=== PATIENT | male | born 1965 | race Caucasian/White ===

== ENCOUNTER → 2016-05-27 | Day surgery (SDC) | payer BC ==
[~2016-05-27] VITALS: Ht 185.4 cm; Wt 86.4 kg
[~2016-05-27] MED LIST: ACET-1487 PO; BCTROWC EXT; CHOL20007 PO; DUTACAP PO; ELTR12.58 PO; EPP3 IM; FLM4 PO; FLUC100T4 PO; HYDR-3126 PO; IMD/2 PO; IMMU4INJ SC; INSDGI SC; INSDGIPEN SC; LCTL45 PO; LEVO88TA3 PO; LIDOCAINE HCL 2% 2 ML VIAL (20MG/ML) ONE; METR-163 PO; MGNO400 PO; MIDAZOLAM HCL 1 MG/ML 2ML VIAL ONE; MIRT15TA2 PO; MOME6000 NAE; NVLG SC; NVLGI SC; ONDA8TAB6 PO; PANT1TAB3 PO; PRED10TA PO; PROPOFOL IV EMULSION 10 MG/ML 20 ML VIAL IV ONE; PRS5 PO; RIFA550T2 PO; SRQ25 PO; SUCR5SUS PO; TACR0.5C3 PO; TEMA30CA4 PO; TOPI25TA99 PO; TRAM-10 PO; URSO300C4 PO; URSO300C8 PO
[2016-05-27 13:46] VITALS: Ht 185.4 cm; Wt 86.4 kg
--- NOTE | 2016-05-27 14:26 | Endo History and Physical ---
History & Physical Date of Service: May 27, 2016. Chief Complaint: Abd pain, weight loss, Nausea Referring Physician: Gurinder Bullock History of Present Illness For EGD Past Medical History Hypertension Past Surgical History Hx Cardiac Surgery: No Hx Internal Defibrillator: No Hx Pacemaker: No Hx Abdominal Surgery: Yes (CHOLECYSTECTOMY, APPENDECTOMY, COLON RESECTION, Liver transplant) Hx of Implantable Prosthesis: No (Bile duct stent) Hx Post-Op Nausea and Vomiting: No Hx Cancer Surgery: No Hx Thoracic Surgery: No Hx Orthopedic: No Hx Urinary Tract Surgery: No Social History Smoking Status: Never Smoker Hx Substance Use: No Hx Alcohol Use: No Allergies Coded Allergies: Levofloxacin (Verified Allergy, Unknown, UNKNOWN, 04/03/16) FROM [facility] ORDER FORM Current Medications Reported Home Medications Medications Dose Route/Sig Max Daily Dose Days Date Category Dose Instructions Xifaxan (Rifaximin) 550 Mg Tab 550 Mg PO BID 04/03/16 Reported Promacta (Eltrombopag Olamine) 12.5 Mg Tab 50 Mg PO DAILY 02/26/16 Reported Vitamin D3 (Cholecalciferol) 2,000 Unit Tab 1 Tab PO QAM 30 02/22/16 Reported Mometasone Furoate (Mometasone Furoate (Nasal)) 50 Mcg/Act Spr 2 Sprays WALTER DAILY PRN 02/16/16 Reported Epipen 2-R[place] (Epinephrine) 0.3 Mg Inj 0.3 Mg IM UD PRN 02/16/16 Reported ONE INJECTION IM PRN SEVERE ALLERGIC REACTION. REPEAT IN 20 MINUTES PRN CONTINUED REACTION Actigall (Ursodiol) 300 Mg Cap 300 Mg PO QID 02/06/16 Reported Ultram (Tramadol HCl) 50 Mg Tab 50 Mg PO Q6H PRN 02/06/16 Reported Topamax (Topiramate) 25 Mg Tab 1-2 Tab PO HS 02/06/16 Reported 1-2 TABS HS DIRECTED Restoril (Temazepam) 30 Mg Cap 30 Mg PO HS PRN 02/06/16 Reported Prograf (Tacrolimus) 0.5 Mg Cap 0.5 Mg PO QAM 02/06/16 Reported Prednisone 10 Mg Tab 10 Mg PO QAM 02/06/16 Reported Protonix (Pantoprazole) 40 Mg Tab 40 Mg PO QPM 02/06/16 Reported ONE TABLET BY MOUTH EVERY DAY AT 1630 Zofran (Ondansetron HCl) 8 Mg Tab 1-2 Tabs PO Q6H PRN 02/06/16 Reported Novolog (Insulin Aspart) Inj 1 Dose SC ACHS 02/06/16 Reported SUBCUANEOUSLY BEFORE MEALS AND AT BEDTIME PER SLIDING SCALE ( 1 UNIT FOR EVERY 10 GRAMS OF CARBS) Bactroban 2% (Mupirocin) Oint 1 Dose EXT BID PRN 02/06/16 Reported Levothyroxine Sodium 88 Mcg Tab 88 Mcg PO QAM 02/06/16 Reported ONE TABLET DAILY ON EMPY STOMACH WITH A FULL GLASS OF WATER. WAIT 30 MINUTES BEFORE EATING Lantus (Insulin Glargine) Vial 40 Units SC AMPM 02/06/16 Reported Hizentra (Immune Globulin (Human) Subcut) 4 Gm/20 Ml Inj 12 Gm IM WK 02/06/16 Reported Magnesium-Oxide (Magnesium Oxide) 400 Mg Tab 400 Mg PO BID 11/20/14 Rx Atarax (Hydroxyzine Hcl) 50 Mg Tab 50 Mg PO 3-4XD PRN 11/19/14 Reported Diflucan (Fluconazole) 100 Mg Tab 100 Mg PO QAM 11/19/14 Reported Tylenol Arthritis Ext Rel (Acetaminophen) 650 Mg Tab 650 Mg PO Q8H PRN 11/19/14 Reported Remeron Soltab (Mirtazapine) 15 Mg Soltab 15 Mg PO HS 07/12/14 Reported Savi (Dutasteride-Tamsulosin Hcl) 1 Cap Cap 1 Cap PO HS 10/29/13 Reported Vital Signs Weight (Kilograms): 86.36 Height (Feet): 6 Height (Inches): 1 Date Time Temp Pulse Resp B/P Pulse Ox O2 Delivery O2 Flow Rate FiO2 05/27/16 14:01 36.7 89 20 128/93 99 Room Air Physical Exam General Appearance: WD/WN Respiratory/Chest: Respiratory effort: no dyspnea Cardiovascular: Heart Auscultation: RRR Abdomen: Bowel Sounds: pertinent finding (scars) Assessment and Plan abd pain for EGD
--- NOTE | 2016-05-27 14:46 | Discharge Instructions ---
Endoscopy Patient Instructions Date / Procedure(s) Performed May 27, 2016. EGD Allergy Information Coded Allergies: Levofloxacin (Verified Allergy, Unknown, UNKNOWN, 04/03/16) FROM [facility] ORDER FORM Discharge Date / Findings May 27, 2016. Normal EGD, duodenal bx done Medication Instructions Stopped Medication(s): 1/2 lantus today. Held all other medications Restart Stopped Medication(s): resume meds Reported Home Medications Medications Dose Route/Sig Max Daily Dose Days Date Category Dose Instructions Xifaxan (Rifaximin) 550 Mg Tab 550 Mg PO BID 04/03/16 Reported Promacta (Eltrombopag Olamine) 12.5 Mg Tab 50 Mg PO DAILY 02/26/16 Reported Vitamin D3 (Cholecalciferol) 2,000 Unit Tab 1 Tab PO QAM 30 02/22/16 Reported Mometasone Furoate (Mometasone Furoate (Nasal)) 50 Mcg/Act Spr 2 Sprays WALTER DAILY PRN 02/16/16 Reported Epipen 2-[place] (Epinephrine) 0.3 Mg Inj 0.3 Mg IM UD PRN 02/16/16 Reported ONE INJECTION IM PRN SEVERE ALLERGIC REACTION. REPEAT IN 20 MINUTES PRN CONTINUED REACTION Actigall (Ursodiol) 300 Mg Cap 300 Mg PO QID 02/06/16 Reported Ultram (Tramadol HCl) 50 Mg Tab 50 Mg PO Q6H PRN 02/06/16 Reported Topamax (Topiramate) 25 Mg Tab 1-2 Tab PO HS 02/06/16 Reported 1-2 TABS HS DIRECTED Restoril (Temazepam) 30 Mg Cap 30 Mg PO HS PRN 02/06/16 Reported Prograf (Tacrolimus) 0.5 Mg Cap 0.5 Mg PO QAM 02/06/16 Reported Prednisone 10 Mg Tab 10 Mg PO QAM 02/06/16 Reported Protonix (Pantoprazole) 40 Mg Tab 40 Mg PO QPM 02/06/16 Reported ONE TABLET BY MOUTH EVERY DAY AT 1630 Zofran (Ondansetron HCl) 8 Mg Tab 1-2 Tabs PO Q6H PRN 02/06/16 Reported Novolog (Insulin Aspart) Inj 1 Dose SC ACHS 02/06/16 Reported SUBCUANEOUSLY BEFORE MEALS AND AT BEDTIME PER SLIDING SCALE ( 1 UNIT FOR EVERY 10 GRAMS OF CARBS) Bactroban 2% (Mupirocin) Oint 1 Dose EXT BID PRN 02/06/16 Reported Levothyroxine Sodium 88 Mcg Tab 88 Mcg PO QAM 02/06/16 Reported ONE TABLET DAILY ON EMPY STOMACH WITH A FULL GLASS OF WATER. WAIT 30 MINUTES BEFORE EATING Lantus (Insulin Glargine) Vial 40 Units SC AMPM 02/06/16 Reported Hizentra (Immune Globulin (Human) Subcut) 4 Gm/20 Ml Inj 12 Gm IM WK 02/06/16 Reported Magnesium-Oxide (Magnesium Oxide) 400 Mg Tab 400 Mg PO BID 11/20/14 Rx Atarax (Hydroxyzine Hcl) 50 Mg Tab 50 Mg PO 3-4XD PRN 11/19/14 Reported Diflucan (Fluconazole) 100 Mg Tab 100 Mg PO QAM 11/19/14 Reported Tylenol Arthritis Ext Rel (Acetaminophen) 650 Mg Tab 650 Mg PO Q8H PRN 11/19/14 Reported Remeron Soltab (Mirtazapine) 15 Mg Soltab 15 Mg PO HS 07/12/14 Reported Savi (Dutasteride-Tamsulosin Hcl) 1 Cap Cap 1 Cap PO HS 10/29/13 Reported Provider Instructions Activity Restrictions - No exercising or heavy lifting for 24 hours. - Do not drink alcohol the day of the procedure. - Do not drive a car or operate machinery until the day after the procedure. - Do not make any important decisions or sign important papers in 24 hours after the procedure. Following Day: - Return to full activity which may include returning to work/school. Diet Start your diet with liquids and light foods (jello, soup, juice, toast). Then eat your usual diet if not nauseated. Treatment For Common After Affects For mild abdominal pain, bloating, or excessive gas: - Rest - Eat lightly - Lie on right side Follow-Up Information Follow-up with Gurinder Bullock as scheduled Anesthesia Information What You Should Know You have had a procedure that required some medicine to reduce anxiety and discomfort. This treatment is called moderate sedation. After receiving the treatment, you may be sleepy, but you will be able to breathe on your own. The effects of the treatment may last for several hours. Follow these instructions along with Activity/Diet recommendations noted above: * Do NOT do anything where dizziness or clumsiness would be dangerous. * Rest quietly at home today, then you can be up and about tomorrow. * Have a responsible person stay with you the rest of today. * You may have had an I.V. today. If so, you may take the dressing off later today. Recommendations Call your doctor if: * Trouble breathing * Continuous vomiting for more than 24 hours * Temperature above 101 degrees * Severe abdominal pain or bloating * Pain not relieved by pain medicine ordered * There is increased drainage or redness from any incision * A large amount of rectal bleeding greater than 2-3 tablespoons. (If you had a polyp/s removed or have hemorrhoids, a small amount of blood - from the rectum is to be expected.) * You have any unanswered questions or concerns. IN THE EVENT OF A SERIOUS EMERGENCY, GO TO THE NEAREST EMERGENCY ROOM Your discharge instructions were prepared by provider George Vaughn. Patient Instructions Signature Page Mundo Burnette Patient (or Guardian) Signature/Date: I have read and understand the instructions given to me by my caregivers. Caregiver/RN/Doctor Signature/Date: The above-named patient and/or guardian has received patient instructions on this date. + Original Patient Signature Page (only) stays with chart. Please make copy for patient.
--- NOTE | 2016-05-27 14:50 | GI REPORT ---
Procedure Date: 05/27/2016 2:38 PM Procedure: Upper GI endoscopy Indications: Epigastric abdominal pain, Nausea, Weight loss Medicines: Midazolam 2 mg IV, Propofol total dose 200 mg IV, Lidocaine 40 mg IV Complications: No immediate complications. Estimated Blood Loss: Estimated blood loss was minimal. Procedure: Pre-Anesthesia Assessment: - Prior to the procedure, a History and Physical was performed, and patient medications, allergies and sensitivities were reviewed. The patient's tolerance of previous anesthesia was reviewed. - The risks and benefits of the procedure and the sedation options and risks were discussed with the patient. All questions were answered and informed consent was obtained. After obtaining informed consent, the endoscope was passed under direct vision. Throughout the procedure, the patient's blood pressure, pulse, and oxygen saturations were monitored continuously. The scope was introduced through the mouth, and advanced to the second part of duodenum. The upper GI endoscopy was accomplished without difficulty. The patient tolerated the procedure well. Findings: The examined esophagus was normal. The entire examined stomach was normal. The 2nd part of the duodenum was normal. Biopsies were taken with a cold forceps for histology. Estimated blood loss was minimal. Impression: - Normal esophagus. - Normal stomach. - Normal 2nd part of the duodenum. Biopsied. Recommendation: - Discharge patient to home (ambulatory). - Continue present medications. - Await pathology results. - Return to GI office as previously scheduled. George Vaughn M.D. George Vaughn MD 05/27/2016 2:49:18 PM This report has been signed electronically. Note Initiated On: 05/27/2016 2:38 PM
--- NOTE | 2016-05-27 15:19 | Anesthesiology Progress Note ---
Anesthesia Post Op Note Date & Time May 27, 2016 at 15:18 Vital Signs Pain Intensity: 0 Vital Signs Past 12 Hours Date Time Temp Pulse Resp B/P Pulse Ox O2 Delivery O2 Flow Rate FiO2 05/27/16 15:08 75 20 104/64 100 Room Air 05/27/16 14:53 81 20 90/48 100 Room Air 05/27/16 14:01 36.7 89 20 128/93 99 Room Air Notes Mental Status: alert / awake / arousable, participated in evaluation Pt Amnestic to Procedure: Yes Nausea / Vomiting: adequately controlled Pain: adequately controlled Airway Patency, RR, SpO2: stable & adequate BP & HR: stable & adequate Hydration State: stable & adequate Anesthetic Complications: no major complications apparent Pt doing well.
[2016-05-27 15:23] VITALS: BP 110/80; PULSE 85; O2SAT 100
== END | disposition home or self-care (01) ==
LOC: C.GI 13:05
PROVIDERS: ATTEND Internal Medicine Gastroenterology
DX: R10.13 Epigastric pain (principal); R11.0 Nausea; R63.4 Abnormal weight loss; E11.9 Type 2 diabetes mellitus without complications; I25.10 Atherosclerotic heart disease of native coronary artery without angina pectoris; Z90.49 Acquired absence of other specified parts of digestive tract; Z90.89 Acquired absence of other organs; Z94.4 Liver transplant status; Z79.4 Long term (current) use of insulin

== ENCOUNTER 2016-06-20 13:26 | Inpatient (IN) | payer BC, OTHER ==
[~2016-06-20] VITALS: Ht 185.4 cm; Wt 102.1 kg
[~2016-06-20 13:26] MED LIST changes: -FLM4 PO; -IMD/2 PO; -INSDGIPEN SC; -LCTL45 PO; -LIDOCAINE HCL 2% 2 ML VIAL (20MG/ML) ONE; -METR-163 PO; -MIDAZOLAM HCL 1 MG/ML 2ML VIAL ONE; -NVLG SC; -PANT1TAB3 PO; +PANT1TAB48 PO; -PROPOFOL IV EMULSION 10 MG/ML 20 ML VIAL IV ONE; -PRS5 PO; -SRQ25 PO; -SUCR5SUS PO; -URSO300C8 PO
--- NOTE | 2016-06-20 13:49 | EMERGENCY ROOM VISIT NOTE ---
History Report prepared by Pao: Ty Davalos Under the Supervision of: Dr. Sarah Cárdenas M.D. First contact with patient: 13:38 Chief Complaint: ILLNESS Stated Complaint: DIARRHEA, DISORIENTED, SWELLING TO FEET History of Present Illness The patient is a 51 year old male who presents to the Emergency Room with complaints of a persistent illness that started a few days ago. Per the patient' s family, the patient has a history of a liver transplant. The patient was seen in [place] yesterday for wet diarrhea he had been having. The doctors there consulted with Dr. Vaughn. The patient's family is concerned that the patient's wet diarrhea may be connected to the patient's recent disorientation and feelings of being dazed and "off". The patient is jaundiced in appearance, which his family says is new today. The patient's family notes that the patient' s ammonia level occasionally rises. 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 During the procedure, it was found that his body made it's own stent and there is blood going down "where it' s not supposed to go". The patient denies any abdominal pain. He says he is on a Tramadol regiment which takes care of his pain. Source of History: patient, family Onset: A few days ago Position: other (global - illness) Timing: other (persistent) Associated Symptoms: + diarrhea (wet), No abdominal pain Note: Associated symptoms: Disoriented, dazed, feeling "off", jaundiced. Review of Systems See HPI for pertinent positives & negatives. A total of 10 systems reviewed and were otherwise negative. 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 (19) Septic arthritis (20) Thrombocytopenia (21) Transplantation of liver (22) Ulcerative colitis Family History FHx: cancer FHx: heart disease FHx: hypertension Social History Smoking Status: Never Smoker Alcohol Use: none Drug Use: none Marital Status: single Housing Status: lives with family Occupation Status: disabled Current/Historical Medications Scheduled Cholecalciferol (Vitamin D3), 1 TAB PO BID Dutasteride-Tamsulosin Hcl (Savi), 1 CAP PO HS Eltrombopag Olamine (Promacta), 50 MG PO DAILY Fluconazole (Diflucan), 100 MG PO QAM Immune Globulin (Human) Subcut (Hizentra), 12 GM SC WK Insulin Aspart (Novolog), 1 DOSE SC ACHS Insulin Glargine (Lantus), 40 UNITS SC AMPM Levothyroxine Sodium (Levothyroxine Sodium), 88 MCG PO QAM Magnesium Oxide (Magnesium-Oxide), 400 MG PO BID Mirtazapine Soltab (Remeron Soltab), 15 MG PO HS Pantoprazole (Protonix), 40 MG PO QPM Prednisone Tab (Prednisone), 10 MG PO QAM Rifaximin (Xifaxan), 550 MG PO BID Sucralfate (Carafate), 10 ML PO AC Tacrolimus (Prograf), 0.5 MG PO QAM Topiramate (Topamax ), 2 TAB PO HS Ursodiol (Ursodiol), 1 CAP PO QID Scheduled PRN Acetaminophen (Tylenol Arthritis Ext Rel), 650 MG PO Q8H PRN for Pain or Fever Epinephrine (Epipen 2-R[place]), 0.3 MG IM UD PRN for ALLERGIC REACTION Hydroxyzine Hcl (Atarax), 50 MG PO 3-4XD PRN for Itching Mometasone Furoate (Nasal) (Mometasone Furoate), 2 SPRAYS WALTER DAILY PRN for ALLERGIES OR CONGESTION Mupirocin 2% (Bactroban 2%), 1 DOSE EXT BID PRN for RECURRENT SKIN INFECTION Ondansetron Hcl (Zofran), 1-2 TABS PO Q6H PRN for Nausea Sucralfate (Carafate), 10 ML PO HS PRN for reflux/heartburn Temazepam (Restoril), 30 MG PO HS PRN for Sleep Tramadol (Ultram), 50 MG PO Q6H PRN for Pain Allergies Coded Allergies: Levofloxacin (Verified Allergy, Unknown, UNKNOWN, 04/03/16) FROM [facility] ORDER FORM Physical Exam Vital Signs Date Time Temp Pulse Resp B/P Pulse Ox O2 Delivery O2 Flow Rate FiO2 06/20/16 14:58 93 18 137/87 100 Room Air 06/20/16 13:30 36.2 98 20 125/82 96 Room Air Physical Exam CONSTITUTIONAL: No acute distress. Appears fatigued. HEENT: No icterus, moist mucous membranes NECK: No meningismus, trachea is midline. CARDIOVASCULAR: Regular rate, normal perfusion RESPIRATORY: Unlabored breathing. Clear to auscultation. GASTROINTESTINAL: Non-tender GENITOURINARY: No flank tenderness MUSCULOSKELETAL: Full range of motion NEUROLOGIC: No acute gross focal deficits. PSYCHIATRIC: Normal affect SKIN: Mildly jaundiced. Medical Decision & Procedures ER Provider Diagnostic Interpretation: X-ray results as stated below per my interpretation and radiologist interpretation. Other radiology results as stated below per my review and radiologist interpretation. CT SCAN OF THE BRAIN WITHOUT IV CONTRAST CLINICAL HISTORY: Change in mental status. COMPARISON STUDY: CT of the brain dated 02/26/2016. TECHNIQUE: Unenhanced axial CT scan of the brain is performed from the vertex to the skull base. Automated dose control exposure was utilized. CT DOSE: 537.48 mGy.cm FINDINGS: Brain parenchyma: The brain parenchyma is normal in appearance. There is no hemorrhage, mass effect, or evidence of acute territorial ischemia by CT criteria. Grover-white matter is preserved. No extra-axial fluid collection is seen. Ventricles, sulci, cisterns: Normal in configuration. Intracranial vasculature: There is atherosclerotic calcification of the cavernous carotid and vertebral arteries. Calvarium: Unremarkable. Sinuses and mastoids: There is mucosal thickening within one of the ethmoid sinuses. There is subtotal opacification of the left frontal sinus. The remaining visualized paranasal sinuses are clear. The mastoid air cells are well pneumatized. Orbits: The bony orbits are grossly intact. There are bilateral ocular lens implants. IMPRESSION: There is no hemorrhage, mass effect, or evidence of acute territorial ischemia by CT criteria. Electronically signed by: Humberto Olmstead M.D. 06/20/2016 3:21 PM Dictated Date/Time: 06/20/2016 3:19 PM CHEST 2 VIEWS ROUTINE CLINICAL HISTORY: Altered mental status. Syncope. COMPARISON STUDY: Chest radiograph April 03, 2016. FINDINGS: Several old right rib fractures are identified. There is no pneumothorax or pleural effusion. There is no evidence of pulmonary edema. Mild cardiomegaly is unchanged. No airspace opacities are identified. IMPRESSION: No acute cardiopulmonary findings. Electronically signed by: Angel Aguilar M.D. 06/20/2016 2:36 PM Dictated Date/Time: 06/20/2016 2:35 PM Laboratory Results 06/20/16 14:10 Red Blood Count 4.16, Mean Corpuscular Volume 85.8, Mean Corpuscular Hemoglobin 30.3, Mean Corpuscular Hemoglobin Concent 35.3, Neutrophils (%) (Auto) 79.1, Lymphocytes (%) (Auto) 5.8, Monocytes (%) (Auto) 9.6, Eosinophils (%) (Auto) 3.8 , Basophils (%) (Auto) 1.3, Neutrophils # (Auto) 5.40, Lymphocytes # (Auto) 0.40 , Monocytes # (Auto) 0.66, Eosinophils # (Auto) 0.26, Basophils # (Auto) 0.09 06/20/16 14:10 Test 06/20/16 14:10 06/20/16 14:15 06/20/16 15:00 White Blood Count 6.84 K/uL (4.8-10.8) Red Blood Count 4.16 M/uL (4.7-6.1) Hemoglobin 12.6 g/dL (14.0-18.0) Hematocrit 35.7 % (42-52) Mean Corpuscular Volume 85.8 fL (80-100) Mean Corpuscular Hemoglobin 30.3 pg (25-34) Mean Corpuscular Hemoglobin Concent 35.3 g/dl (32-36) Platelet Count 42 K/uL (130-400) Neutrophils (%) (Auto) 79.1 % Lymphocytes (%) (Auto) 5.8 % Monocytes (%) (Auto) 9.6 % Eosinophils (%) (Auto) 3.8 % Basophils (%) (Auto) 1.3 % Neutrophils # (Auto) 5.40 K/uL (1.4-6.5) Lymphocytes # (Auto) 0.40 K/uL (1.2-3.4) Monocytes # (Auto) 0.66 K/uL (0.11-0.59) Eosinophils # (Auto) 0.26 K/uL (0-0.5) Basophils # (Auto) 0.09 K/uL (0-0.2) RDW Standard Deviation 54.0 fL (36.4-46.3) RDW Coefficient of Variation 17.0 % (11.5-14.5) Immature Granulocyte % (Auto) 0.4 % Immature Granulocyte # (Auto) 0.03 K/uL (0.00-0.02) Acanthocytes 2+ Prothrombin Time 16.4 SECONDS (9.0-12.0) Prothromb Time International Ratio 1.5 (0.9-1.1) Activated Partial Thromboplast Time 35.7 SECONDS (21.0-31.0) Partial Thromboplastin Ratio 1.4 Anion Gap 11.0 mmol/L (3-11) Est Creatinine Clear Calc Drug Dose 64.5 ml/min Estimated GFR () 52.9 Estimated GFR (Non- 45.7 BUN/Creatinine Ratio 11.7 (10-20) Calcium Level 8.5 mg/dl (8.5-10.1) Magnesium Level 1.9 mg/dl (1.8-2.4) Total Bilirubin 5.4 mg/dl (0.2-1) Direct Bilirubin 3.9 mg/dl (0-0.2) Aspartate Amino Transf (AST/SGOT) 36 U/L (15-37) Alanine Aminotransferase (ALT/SGPT) 30 U/L (12-78) Alkaline Phosphatase 407 U/L (45-117) Ammonia 155.0 umol/L (11-32) Total Protein 5.2 gm/dl (6.4-8.2) Albumin 2.4 gm/dl (3.4-5.0) Lipase 82 U/L (73-393) Ethyl Alcohol mg/dL < 3.0 mg/dl (0-3) Influenza Type A Antigen Neg for Influ A (NEG) Influenza Type B Antigen Neg for Influ B (NEG) Urine Color GALLO Urine Appearance CLEAR (CLEAR) Urine pH 5.5 (4.5-7.5) Urine Specific [place] 1.019 (1.000-1.030) Urine Protein NEG (NEG) Urine Glucose (UA) NEG (NEG) Urine Ketones NEG (NEG) Urine Occult Blood 2+ (NEG) Urine Nitrite NEG (NEG) Urine Bilirubin 2+ (NEG) Urine Urobilinogen NEG (NEG) Urine Leukocyte Esterase NEG (NEG) Urine Opiates Screen NEG (NEG) Urine Methadone, Qualitative NEG (NEG) Urine Barbiturates NEG (NEG) Urine Phencyclidine (PCP) Level NEG (NEG) Ur Amphetamine/Methamphetamine NEG (NEG) MDMA (Ecstasy) Screen NEG (NEG) Urine Benzodiazepines Screen POS (NEG) Urine Cocaine Metabolite NEG (NEG) Urine Marijuana (THC) NEG (NEG) Labs reviewed by ED physician. ED Course 1339: Past medical records reviewed. The patient was evaluated in room B2. A complete history and physical examination was performed. 1603: I reevaluated the patient and he is resting comfortably. The patient and his family verbally expressed understanding and agreement of the treatment plan. The patient will be evaluated for further treatment. 1604: I discussed the patient with Dr. Issac DOHERTY adjunct faculty for medical terminology - he will evaluate the patient for further treatment. Medical Decision Differential diagnoses include: complications of liver transplant, viral syndrome. 51-year-old presented to the emergency department with parents for evaluation of worsening altered mental status in the context of liver transplant and prior TIPS procedure. Ammonia 160. Upon further questioning it was revealed patient has not been taking his lactulose as well as causing diarrhea and there is a concern over C. difficile although the context is unclear at this time. Patient is followed at [place] (Dr. Schrader). Admission arranged with Dr. Issac DOHERTY. cdff and lactulose ordered. Clinical pharmacist requested to confirm present prescriptions and dosages. Consults Time Called: 1556 Consulting Physician: Dr. Issac DOHERTY adjunct faculty for medical terminology Returned Call: 1604 I discussed the patient with Dr. Issac DOHERTY adjunct faculty for medical terminology - he will evaluate the patient for further treatment. Impression Primary Impression: Hyperammonemia Additional Impression: Altered mental status Scribe Attestation The scribe's documentation has been prepared under my direction and personally reviewed by me in its entirety. I confirm that the note above accurately reflects all work, treatment, procedures, and medical decision making performed by me. Departure Information Dispostion Being Evaluated By Hospitalist Referrals No Doctor, Assigned (PCP) Patient Instructions [facility] Problem Qualifiers
[2016-06-20] MEDS ORDERED: SUCR5SUS PO ×2 (14:08)
[2016-06-20 14:21] LABS: HEMATOCRIT 35.7 % (42-52); MEAN CELL VOLUME 85.8 fL (80-100); MEAN CORPUSCULAR HEMOGLOBIN 30.3 pg (25-34); MEAN CORPUSCULAR HGB CONC 35.3 g/dl (32-36); RED BLOOD COUNT 4.16 M/uL (4.7-6.1); WHITE BLOOD COUNT 6.84 K/uL (4.8-10.8)
[2016-06-20 14:32] LABS: INR 1.5 (0.9-1.1); PARTIAL THROMBOPLASTIN RATIO 1.4; PROTHROMBIN TIME (PATIENT) 16.4 SECONDS (9.0-12.0)
--- NOTE | 2016-06-20 14:37 | DIAGNOSTIC IMAGING REPORT ---
CHEST 2 VIEWS ROUTINE CLINICAL HISTORY: Altered mental status. Syncope. COMPARISON STUDY: Chest radiograph April 03, 2016. FINDINGS: Several old right rib fractures are identified. There is no pneumothorax or pleural effusion. There is no evidence of pulmonary edema. Mild cardiomegaly is unchanged. No airspace opacities are identified. IMPRESSION: No acute cardiopulmonary findings. Electronically signed by: Angel Aguilar M.D. 06/20/2016 2:36 PM Dictated Date/Time: 06/20/2016 2:35 PM
[2016-06-20 14:47] LABS: ACANTHOCYTES 2+; BASO % 1.3 %; BASO ABS # 0.09 K/uL (0-0.2); COMPLETE YES; EOS % 3.8 %; IG% 0.4 %; LYMPH % 5.8 %; MONO % 9.6 %; NEUT % 79.1 %; PLATELET COUNT 42 K/uL (130-400)
[2016-06-20 14:48] LABS: BUN/CREATININE RATIO 11.7 (10-20); CALCIUM 8.5 mg/dl (8.5-10.1); CREATININE 1.7 mg/dl (0.60-1.40); MAGNESIUM 1.9 mg/dl (1.8-2.4)
[2016-06-20] MEDS ORDERED: URSO300C8 PO (14:51)
[2016-06-20] MEDS ORDERED: CHOL20007 PO (14:51)
[2016-06-20] MEDS ORDERED: RIFA550T2 PO (14:51)
[2016-06-20 15:17] LABS: URINE APPEARANCE CLEAR (CLEAR); URINE EPITHELIAL CELL AUTO 0-5 /lpf (0-5); URINE PH 5.5 (4.5-7.5); URINE SPECIFIC GRAVITY 1.019 (1.000-1.030); UROBILINOGEN NEG (NEG); ZZUR CULT IF INDIC CLEAN CATCH NO
--- NOTE | 2016-06-20 15:22 | DIAGNOSTIC IMAGING REPORT ---
CT SCAN OF THE BRAIN WITHOUT IV CONTRAST CLINICAL HISTORY: Change in mental status. COMPARISON STUDY: CT of the brain dated 02/26/2016. TECHNIQUE: Unenhanced axial CT scan of the brain is performed from the vertex to the skull base. Automated dose control exposure was utilized. CT DOSE: 537.48 mGy.cm FINDINGS: Brain parenchyma: The brain parenchyma is normal in appearance. There is no hemorrhage, mass effect, or evidence of acute territorial ischemia by CT criteria. Grover-white matter is preserved. No extra-axial fluid collection is seen. Ventricles, sulci, cisterns: Normal in configuration. Intracranial vasculature: There is atherosclerotic calcification of the cavernous carotid and vertebral arteries. Calvarium: Unremarkable. Sinuses and mastoids: There is mucosal thickening within one of the ethmoid sinuses. There is subtotal opacification of the left frontal sinus. The remaining visualized paranasal sinuses are clear. The mastoid air cells are well pneumatized. Orbits: The bony orbits are grossly intact. There are bilateral ocular lens implants. IMPRESSION: There is no hemorrhage, mass effect, or evidence of acute territorial ischemia by CT criteria. Electronically signed by: Humberto Olmstead M.D. 06/20/2016 3:21 PM Dictated Date/Time: 06/20/2016 3:19 PM
[2016-06-20 15:28] LABS: URINE BILIRUBIN 2+ (NEG); URINE COLOR AMBER
[2016-06-20 15:29] LABS: MANUAL MICROSCOPIC REQUIRED? NO; REVIEW REQ? YES; URINE NITRITE NEG (NEG)
[2016-06-20 16:08] LABS: BENZODIAZEPINE, URINE POS (NEG); COCAINE,URINE NEG (NEG); PHENCYCLIDINE, URINE NEG (NEG)
[2016-06-20] MEDS ORDERED: LACTULOSE SYRUP 20 GM/30 ML UDC PO STA (16:09)
[2016-06-20 16:31] LABS: INFLUENZA A PCR Neg for Influ A (NEG); INFLUENZA B PCR Neg for Influ B (NEG)
[2016-06-20] MEDS ORDERED: OPTIRAY 320 IV PRN (17:30)
--- NOTE | 2016-06-20 17:51 | DIAGNOSTIC IMAGING REPORT ---
CT ABD/PELVIS IV CONTRAST ONLY CLINICAL HISTORY: Liver transplantation. Elevated bilirubin, diarrhea, disorientation. Swelling. COMPARISON STUDY: 02/26/2016 TECHNIQUE: Following the IV administration of 119 mL of Optiray-320, CT scan of the abdomen and pelvis was performed from the lung bases to the proximal femurs. Images are reviewed in the axial, sagittal, and coronal planes. IV contrast was administered without complication. CT DOSE: 926.47 mGy.cm FINDINGS: Lower chest: The heart is the upper limits of normal in size. There are no cystic or pleural effusions. There is mild bibasilar atelectasis. Liver: There are postsurgical changes are prior hepatic transplantation. There is trace perihepatic fluid. There is trace pneumobilia. The left portal vein appears diminutive. There is a stable 11 mm hypodensity within the right hepatic lobe. The splenic vein is patent. The main portal vein is patent. There is intrahepatic portal vein to right hepatic vein shunt. The shunt appears patent. There is an equivocal mild stenosis of the right hepatic vein as it enters the IVC. The left portal vein appears diminutive and thrombus cannot be excluded.. Gallbladder: Surgically absent Spleen: The spleen is enlarged measuring 17.5 cm in length Pancreas: There is marked pancreatic ductal dilatation. There are multiple pancreatic calcifications present. Adrenal glands: Unremarkable. Kidneys: There is symmetric renal cortical enhancement. The kidneys are normal in size without hydronephrosis. There is extensive embolic material within the splenorenal varices. Bowel: There are no transition zones indicate bowel obstruction. There is evidence for a sigmoid anastomosis. Peritoneum: No free air is visualized. There is trace perihepatic fluid. Vasculature: The abdominal aorta is normal in course and caliber. Adenopathy: None. Pelvic viscera: The bladder, and pelvic viscera are unremarkable. Skeletal structures: No destructive osseous lesions are seen. IMPRESSION: 1. Postsurgical changes of a prior hepatic transplantation 2. Extensive embolic material within splenorenal varices. The varices remain patent 3. Marked pancreatic ductal dilatation with multiple pancreatic calcifications 4. The main portal vein is patent. There is a portal vein to right hepatic vein shunt which appears patent. There is an equivocal stenosis at the right hepatic vein IVC junction 5. The left portal vein appears diminutive and potentially thrombosed 6. 17.5 cm spleen 7. No evidence of bowel obstruction. No evidence of free air 8. Pneumobilia. No CT evidence of ductal dilatation. 9. Trace right perihepatic fluid Electronically signed by: Lauro Peoples M.D. 06/20/2016 5:50 PM Dictated Date/Time: 06/20/2016 5:39 PM
[2016-06-20] MEDS ORDERED: ALUMINUM/MAGNESIUM/SIMETH (MAALOX MAX) 30 ML UDC PO PRN (19:15)
[2016-06-20] MEDS ORDERED: ACETAMINOPHEN 325 MG TAB PO PRN (19:15)
[2016-06-20] MEDS ORDERED: ONDANSETRON INJ 2 MG/ML 2 ML VIAL IV PRN (19:15)
[2016-06-20] MEDS ORDERED: POLYETHYLENE (MIRALAX) 17 GM PACK PO PRN (19:15)
[2016-06-20] MEDS ORDERED: MAGNESIUM HYDROXIDE SUSP 30 ML UDC PO PRN (19:15)
--- NOTE | 2016-06-20 19:53 | History and Physical ---
History & Physical Date & Time of Service: Jun 20, 2016 at 19:10 Chief Complaint: Diarrhea, Disoriented, Swelling To Feet Primary Care Physician: George Vaughn M.D. History of Present Illness Source: patient, family (Patient's Mother, Brother), clinic records, hospital records This is a 51 yo M w/ complex hx including Ulcerative Colitis with Primary Sclerosing Cholangitis s/p Total Abdominal Colectomy, with subsequent recurrence of PSC, s/p Liver Transplant (2007) , Post-transplant ITP, Portal vein thrombosis s/p TIPS, spleno-renal shunt s/p embolization (2015). The patient is followed by multiple specialists both [place] and [facility] including Dr. Edwin Adams ([facility]), ([facility]) Dr. Vaughn. Pt p/w 24 hr hx of progressive Altered Mental Status , Bilateral Lower leg swelling, and Jaundice. History was taken from a combination of the patient and his mother/brother due to patient's hx of AMS.Per family, the patient woke up today disoriented and got worse throughout the day. Pt's acute symptoms are also in the context of 2 month hx of alternating diarrhea and constipation/ fecal incontinence to which no diagnosis has been specified after multiple clinic visits including one as recently as yesterday with Dr. Tran. Family described diarrhea watery, non-bloody, pasty, occurring at night without waking the patient. Pt does have a hx of C diff but it was determined this was not the current etiology. Pt denied CP, SOB, N/V, fevers chills. Denied any recent change in medication. Pt has not been on antibiotic therapy. In the ED, patient was found to have scleral icterus with an ammonia level of 155 ( Baseline 30's to 60's). Pt was given lactulose 30 gm. Past Medical/Surgical History Ulcerative Colitis s/p Total Abdominal Colectomy Primary Sclerosing Cholangitis with subsequent recurrence of PSC post Colectomy s/p Liver Transplant (2007) Post-transplant ITP Portal vein thrombosis s/p TIPS spleno-renal shunt s/p embolization Previous Hx of C Diff Colitis Dyslipidemia Gout Arslan Thyroiditis BenignHTN CKD Stage III T2DM Cholecystecomy Family History FHx: cancer FHx: heart disease FHx: hypertension Social History Smoking Status: Never Smoker Smokeless Tobacco Use: No Drug Use: none Marital Status: single Housing status: lives with family Occupational Status: disabled Immunizations History of Influenza Vaccine: Yes Influenza Vaccine Date: Jun 01, 2013 History of Tetanus Vaccine?: utd History of Pneumococcal: Yes Pneumococcal Date: Jun 01, 2013 History of Hepatitis B Vaccine: Unknown Multi-Drug Resistant Organisms History of MDRO: No Allergies Coded Allergies: Levofloxacin (Verified Allergy, Unknown, UNKNOWN, 04/03/16) FROM [facility] ORDER FORM Home Medications Scheduled Cholecalciferol (Vitamin D3), 1 TAB PO BID Dutasteride-Tamsulosin Hcl (Savi), 1 CAP PO HS Eltrombopag Olamine (Promacta), 50 MG PO DAILY Fluconazole (Diflucan), 100 MG PO QAM Immune Globulin (Human) Subcut (Hizentra), 12 GM SC WK Insulin Aspart (Novolog), 1 DOSE SC ACHS Insulin Glargine (Lantus), 40 UNITS SC AMPM Levothyroxine Sodium (Levothyroxine Sodium), 88 MCG PO QAM Magnesium Oxide (Magnesium-Oxide), 400 MG PO BID Mirtazapine Soltab (Remeron Soltab), 15 MG PO HS Pantoprazole (Protonix), 40 MG PO QPM Prednisone Tab (Prednisone), 10 MG PO QAM Rifaximin (Xifaxan), 550 MG PO BID Sucralfate (Carafate), 10 ML PO AC Tacrolimus (Prograf), 0.5 MG PO QAM Topiramate (Topamax ), 2 TAB PO HS Ursodiol (Ursodiol), 1 CAP PO QID Scheduled PRN Acetaminophen (Tylenol Arthritis Ext Rel), 650 MG PO Q8H PRN for Pain or Fever Epinephrine (Epipen 2-[place]), 0.3 MG IM UD PRN for ALLERGIC REACTION Hydroxyzine Hcl (Atarax), 50 MG PO 3-4XD PRN for Itching Mometasone Furoate (Nasal) (Mometasone Furoate), 2 SPRAYS WALTER DAILY PRN for ALLERGIES OR CONGESTION Mupirocin 2% (Bactroban 2%), 1 DOSE EXT BID PRN for RECURRENT SKIN INFECTION Ondansetron Hcl (Zofran), 1-2 TABS PO Q6H PRN for Nausea Sucralfate (Carafate), 10 ML PO HS PRN for reflux/heartburn Temazepam (Restoril), 30 MG PO HS PRN for Sleep Tramadol (Ultram), 50 MG PO Q6H PRN for Pain Review of Systems Constitutional: + fatigue, No chills, No fever Respiratory: No cough, No shortness of breath Cardiovascular: + edema (bilateral lower leg), No chest pain, No palpitations Abdomen: + constipation, + diarrhea, + problem reported (abdominal cramping), No nausea, No vomiting Genitourinary - Male: No dysuria, No urinary frequency, No urinary urgency Psychiatric: + problem reported ("disoriented") Physical Exam Vital Signs Date Time Temp Pulse Resp B/P Pulse Ox O2 Delivery O2 Flow Rate FiO2 06/20/16 18:17 93 20 148/101 100 Room Air 06/20/16 14:58 93 18 137/87 100 Room Air 06/20/16 13:30 36.2 98 20 125/82 96 Room Air General Appearance: WD/WN, no apparent distress Head: normocephalic, atraumatic Eyes: + pertinent finding (scleral incterus) Neck: supple, no adenopathy Respiratory/Chest: lungs clear, normal breath sounds, no respiratory distress Cardiovascular: regular rate, rhythm, no murmur Abdomen/GI: non tender, soft, no organomegaly, + pertinent finding (bowel sounds present) Extremities/Musculoskelatal: no calf tenderness, + pedal edema (bilateral pitting) Neurologic/Psych: alert, oriented x 3, + pertinent finding (asterixis) Skin: normal color, no rash Diagnostics Laboratory Results Results Past 24 Hours Test 06/20/16 14:10 06/20/16 14:15 06/20/16 15:00 06/20/16 18:45 Range/Units White Blood Count 6.84 4.8-10.8 K/uL Red Blood Count 4.16 4.7-6.1 M/uL Hemoglobin 12.6 14.0-18.0 g/dL Hematocrit 35.7 42-52 % Mean Corpuscular Volume 85.8 80-100 fL Mean Corpuscular Hemoglobin 30.3 25-34 pg Mean Corpuscular Hemoglobin Concent 35.3 32-36 g/dl Platelet Count 42 130-400 K/uL Neutrophils (%) (Auto) 79.1 % Lymphocytes (%) (Auto) 5.8 % Monocytes (%) (Auto) 9.6 % Eosinophils (%) (Auto) 3.8 % Basophils (%) (Auto) 1.3 % Neutrophils # (Auto) 5.40 1.4-6.5 K/uL Lymphocytes # (Auto) 0.40 1.2-3.4 K/uL Monocytes # (Auto) 0.66 0.11-0.59 K/uL Eosinophils # (Auto) 0.26 0-0.5 K/uL Basophils # (Auto) 0.09 0-0.2 K/uL RDW Standard Deviation 54.0 36.4-46.3 fL RDW Coefficient of Variation 17.0 11.5-14.5 % Immature Granulocyte % (Auto) 0.4 % Immature Granulocyte # (Auto) 0.03 0.00-0.02 K/uL Acanthocytes 2+ Prothrombin Time 16.4 9.0-12.0 SECONDS Prothromb Time International Ratio 1.5 0.9-1.1 Activated Partial Thromboplast Time 35.7 21.0-31.0 SECONDS Partial Thromboplastin Ratio 1.4 Sodium Level 141 136-145 mmol/L Potassium Level 4.0 3.5-5.1 mmol/L Chloride Level 109 98-107 mmol/L Carbon Dioxide Level 21 21-32 mmol/L Anion Gap 11.0 3-11 mmol/L Blood Urea Nitrogen 20 7-18 mg/dl Creatinine 1.70 0.60-1.40 mg/dl Est Creatinine Clear Calc Drug Dose 64.5 ml/min Estimated GFR () 52.9 Estimated GFR (Non- 45.7 BUN/Creatinine Ratio 11.7 10-20 Random Glucose 97 70-99 mg/dl Calcium Level 8.5 8.5-10.1 mg/dl Magnesium Level 1.9 1.8-2.4 mg/dl Total Bilirubin 5.4 0.2-1 mg/dl Direct Bilirubin 3.9 0-0.2 mg/dl Aspartate Amino Transf (AST/SGOT) 36 15-37 U/L Alanine Aminotransferase (ALT/SGPT) 30 12-78 U/L Alkaline Phosphatase 407 45-117 U/L Ammonia 155.0 11-32 umol/L Total Protein 5.2 6.4-8.2 gm/dl Albumin 2.4 3.4-5.0 gm/dl Lipase 82 73-393 U/L Ethyl Alcohol mg/dL < 3.0 0-3 mg/dl Influenza Type A (RT-PCR) Neg for Influ A NEG Influenza Type A Antigen Neg for Influ A NEG Influenza Type B Antigen Neg for Influ B NEG Influenza Type B (RT-PCR) Neg for Influ B NEG Urine Color GALLO Urine Appearance CLEAR CLEAR Urine pH 5.5 4.5-7.5 Urine Specific [place] 1.019 1.000-1.030 Urine Protein NEG NEG Urine Glucose (UA) NEG NEG Urine Ketones NEG NEG Urine Occult Blood 2+ NEG Urine Nitrite NEG NEG Urine Bilirubin 2+ NEG Urine Urobilinogen NEG NEG Urine Leukocyte Esterase NEG NEG Urine WBC (Auto) 1-5 0-5 /hpf Urine RBC (Auto) 5-10 0-4 /hpf Urine Hyaline Casts (Auto) 1-5 0-5 /lpf Urine Epithelial Cells (Auto) 0-5 0-5 /lpf Urine Bacteria (Auto) NEG NEG Urine Crystals NONE PRSENT Urine Opiates Screen NEG NEG Urine Methadone, Qualitative NEG NEG Urine Barbiturates NEG NEG Urine Phencyclidine (PCP) Level NEG NEG Ur Amphetamine/Methamphetamine NEG NEG MDMA (Ecstasy) Screen NEG NEG Urine Benzodiazepines Screen POS NEG Urine Cocaine Metabolite NEG NEG Urine Marijuana (THC) NEG NEG Microbiology Results 06/20/16 C.difficile Toxin B Gene (PCR), Received Pending Diagnostic Radiology CT SCAN OF THE BRAIN WITHOUT IV CONTRAST CLINICAL HISTORY: Change in mental status. COMPARISON STUDY: CT of the brain dated 02/26/2016. TECHNIQUE: Unenhanced axial CT scan of the brain is performed from the vertex to the skull base. Automated dose control exposure was utilized. CT DOSE: 537.48 mGy.cm FINDINGS: Brain parenchyma: The brain parenchyma is normal in appearance. There is no hemorrhage, mass effect, or evidence of acute territorial ischemia by CT criteria. Grover-white matter is preserved. No extra-axial fluid collection is seen. Ventricles, sulci, cisterns: Normal in configuration. Intracranial vasculature: There is atherosclerotic calcification of the cavernous carotid and vertebral arteries. Calvarium: Unremarkable. Sinuses and mastoids: There is mucosal thickening within one of the ethmoid sinuses. There is subtotal opacification of the left frontal sinus. The remaining visualized paranasal sinuses are clear. The mastoid air cells are well pneumatized. Orbits: The bony orbits are grossly intact. There are bilateral ocular lens implants. IMPRESSION: There is no hemorrhage, mass effect, or evidence of acute territorial ischemia by CT criteria. [~ rep ct add3]] CHEST 2 VIEWS ROUTINE CLINICAL HISTORY: Altered mental status. Syncope. COMPARISON STUDY: Chest radiograph April 03, 2016. FINDINGS: Several old right rib fractures are identified. There is no pneumothorax or pleural effusion. There is no evidence of pulmonary edema. Mild cardiomegaly is unchanged. No airspace opacities are identified. IMPRESSION: No acute cardiopulmonary findings. CT ABD/PELVIS IV CONTRAST ONLY CLINICAL HISTORY: Liver transplantation. Elevated bilirubin, diarrhea, disorientation. Swelling. COMPARISON STUDY: 02/26/2016 TECHNIQUE: Following the IV administration of 119 mL of Optiray-320, CT scan of the abdomen and pelvis was performed from the lung bases to the proximal femurs. Images are reviewed in the axial, sagittal, and coronal planes. IV contrast was administered without complication. CT DOSE: 926.47 mGy.cm FINDINGS: Lower chest: The heart is the upper limits of normal in size. There are no cystic or pleural effusions. There is mild bibasilar atelectasis. Liver: There are postsurgical changes are prior hepatic transplantation. There is trace perihepatic fluid. There is trace pneumobilia. The left portal vein appears diminutive. There is a stable 11 mm hypodensity within the right hepatic lobe. The splenic vein is patent. The main portal vein is patent. There is intrahepatic portal vein to right hepatic vein shunt. The shunt appears patent. There is an equivocal mild stenosis of the right hepatic vein as it enters the IVC. The left portal vein appears diminutive and thrombus cannot be excluded.. Gallbladder: Surgically absent Spleen: The spleen is enlarged measuring 17.5 cm in length Pancreas: There is marked pancreatic ductal dilatation. There are multiple pancreatic calcifications present. Adrenal glands: Unremarkable. Kidneys: There is symmetric renal cortical enhancement. The kidneys are normal in size without hydronephrosis. There is extensive embolic material within the splenorenal varices. Bowel: There are no transition zones indicate bowel obstruction. There is evidence for a sigmoid anastomosis. Peritoneum: No free air is visualized. There is trace perihepatic fluid. Vasculature: The abdominal aorta is normal in course and caliber. Adenopathy: None. Pelvic viscera: The bladder, and pelvic viscera are unremarkable. Skeletal structures: No destructive osseous lesions are seen. IMPRESSION: 1. Postsurgical changes of a prior hepatic transplantation 2. Extensive embolic material within splenorenal varices. The varices remain patent 3. Marked pancreatic ductal dilatation with multiple pancreatic calcifications 4. The main portal vein is patent. There is a portal vein to right hepatic vein shunt which appears patent. There is an equivocal stenosis at the right hepatic vein IVC junction 5. The left portal vein appears diminutive and potentially thrombosed 6. 17.5 cm spleen 7. No evidence of bowel obstruction. No evidence of free air 8. Pneumobilia. No CT evidence of ductal dilatation. 9. Trace right perihepatic fluid Impression Assessment and Plan Altered Mental Status - improved from arrival, pt AOx3, likely secondary to Hepatic encephalopathy - +Icterus, Asterixis,Elevated Bili, Alk Phos, Ammonia level 155 at arrival -s/p Lactulose 30 gm x1 in ED Start Lactulose 15 gm BID Diarrhea x 2 mos -unknown etiology -Continue to monitor Ulcerative Colitis s/p Total Abdominal Colectomy, Primary Sclerosing Cholangitis with subsequent recurrence of PSC post Colectomy, s/p Liver Transplant (2007), spleno-renal shunt s/p embolization, Portal vein thrombosis s/p TIPS -Scleral icterus, Hyperammonemia, Elevated Alk Phos, INR 1.5 - follows with [facility] -Continue to monitor Continue home meds -Consult GI Post-transplant ITP Platelet Ct 44 F/u repeat CBC Continue home meds Dyslipidemia Continue home meds Gout -stable -Continue to monitor Arslan Thyroiditis -Continue home meds Benign HTN -stable -Continue home meds -Continue to follow BP CKD Stage III - Cr 1.7 -within baseline range -Continue to monitor -Continue home meds T2DM -stable - Restart home Insulin regimen DVT Prophylaxis - Lovenox 40 mg q24 FULL Resuscitation Level of Care Med/Surg Advanced Directives Existing Advance Directive: No Existing Living Will: No Resuscitation Status FULL RESUSCITATION VTE Prophylaxis VTE Risk Assessment Done? Y/N: Yes Risk Level: High Given or contraindicated: Enoxaparin (Lovenox)SQ Resident Tracking Resident Involvement: Resident Care Provided Care Provided: Adult [facility] Medicine
[2016-06-20] MEDS ORDERED: TEMAZEPAM 15 MG CAP PO PRN (20:00)
[2016-06-20] MEDS ORDERED: FLUTICASONE PROPIONATE NA SPR 16 GM BTL NAE PRN (20:00)
[2016-06-20] MEDS ORDERED: EPINEPHRINE ADULT AUTO-INJECT 0.3 MG SYR IM PRN (20:00)
[2016-06-20] MEDS ORDERED: SUCRALFATE 1 GM/10 ML UDC PO PRN (20:00)
[2016-06-20] MEDS ORDERED: NON-FORMULARY MEDICATION (Acetaminophen (Tylenol Arthritis Ext Rel) 650 MG) PO PRN (20:00)
[2016-06-20] MEDS ORDERED: TRAMADOL HCL 50 MG TAB PO PRN (20:00)
[2016-06-20 20:03] VITALS: O2SAT 99
[2016-06-20 20:40] VITALS: BP 133/82; PULSE 84; TEMP 36.5; Ht 185.4 cm; Wt 102.1 kg
[2016-06-20] MEDS ORDERED: MIRTAZAPINE TAB 15 MG TAB PO SCH (21:00)
[2016-06-20] MEDS ORDERED: ENOXAPARIN 40 MG/0.4 ML SYR SQ SCH (21:00)
[2016-06-20] MEDS ORDERED: TOPIRAMATE 25 MG TAB PO SCH (21:00)
[2016-06-20] MEDS ORDERED: MAGNESIUM OXIDE 400 MG TAB PO SCH (21:00)
[2016-06-20] MEDS ORDERED: PANTOprazole SOD 40 MG TAB PO SCH (21:00)
[2016-06-20] MEDS: LACTULOSE SYRUP 10 GM/15 ML BTL 473 ML PO SCH (21:34)
[2016-06-20] MEDS: URSODIOL 300 MG CAP PO SCH (21:35)
[2016-06-20] MEDS: CHOLECALCIFEROL 1000 INTER.UNIT TAB PO SCH (21:37)
[2016-06-20] MEDS: RIFAXIMIN TAB 550 MG TAB PO SCH (21:40)
[2016-06-20] MEDS: INSULIN GLARGINE SOLOSTAR 100 UNITS/ML 3 ML PEN SC SCH (22:01)
[2016-06-20 23:50] VITALS: BP 128/80; PULSE 85; TEMP 36.5; O2SAT 94
[2016-06-21] MEDS ORDERED: LEVOTHYROXINE 88 MCG TAB PO SCH (06:00)
[2016-06-21 06:27] LABS: HEMATOCRIT 33.5 % (42-52); MEAN CELL VOLUME 86.1 fL (80-100); MEAN CORPUSCULAR HEMOGLOBIN 30.3 pg (25-34); MEAN CORPUSCULAR HGB CONC 35.2 g/dl (32-36); RED BLOOD COUNT 3.89 M/uL (4.7-6.1); WHITE BLOOD COUNT 5.57 K/uL (4.8-10.8)
[2016-06-21 06:35] LABS: INR 1.5 (0.9-1.1); PROTHROMBIN TIME (PATIENT) 16.6 SECONDS (9.0-12.0)
[2016-06-21 07:09] LABS: PLATELET COUNT 40 K/uL (130-400); PLT ESTIMATE DECREASED
[2016-06-21 07:35] LABS: ALB/GLOB RATIO 0.9 (0.9-2); BUN/CREATININE RATIO 11.3 (10-20); CALCIUM 8.2 mg/dl (8.5-10.1); CREATININE 1.8 mg/dl (0.60-1.40); POTASSIUM 4.1 mmol/L (3.5-5.1)
[2016-06-21 07:37] VITALS: BP 131/85; PULSE 84; TEMP 36.5; O2SAT 98
--- NOTE | 2016-06-21 07:53 | Gastroenterology Progress Note ---
Progress Note Date of Service: Jun 21, 2016 Subjective Pt evaluation today including: conversation w/ patient, physical exam, chart review ([place] [place] EMR and [facility] EMR), lab review, review of studies, review of inpatient medication list Medications Current Inpatient Medications Medications (Trade) Dose Ordered Sig/Tristen Route Start Time Stop Time Status Last Admin Dose Admin Ioversol (Optiray 320) 100 ml UD PRN IV 06/20/16 17:30 06/24/16 17:29 Acetaminophen (Tylenol Tab) 650 mg Q4H PRN PO 06/20/16 19:15 07/20/16 19:14 Al Hydrox/Mg Hydrox/Simethicone (Maalox Max Susp) 15 ml Q4H PRN PO 06/20/16 19:15 07/20/16 19:14 Magnesium Hydroxide (Milk Of Magnesia Susp) 30 ml Q6H PRN PO 06/20/16 19:15 07/20/16 19:14 Polyethylene (Miralax Powder Packet) 17 gm DAILY PRN PO 06/20/16 19:15 07/20/16 19:14 Ondansetron HCl (Zofran Inj) 4 mg Q6H PRN IV 06/20/16 19:15 07/20/16 19:14 Lactulose (Chronulac Syrup) 15 gm BID PO 06/20/16 21:00 07/20/16 20:59 06/20/16 21:34 15 GM Epinephrine (Epipen) 0.3 mg UD PRN IM 06/20/16 20:00 07/20/16 19:59 Levothyroxine Sodium (Synthroid Tab) 88 mcg DAILYBB PO 06/21/16 06:00 07/21/16 06:59 06/21/16 05:48 88 MCG Magnesium Oxide (Mag-Ox Tab) 400 mg BID PO 06/20/16 21:00 07/20/16 20:59 06/20/16 21:39 400 MG Pantoprazole Sodium (Protonix Tab) 40 mg QPM PO 06/20/16 21:00 07/20/16 20:59 06/20/16 21:38 40 MG Prednisone (PredniSONE TAB) 10 mg QAM PO 06/21/16 09:00 07/21/16 08:59 Rifaximin (Xifaxan Tab) 550 mg BID PO 06/20/16 21:00 07/20/16 20:59 06/20/16 21:40 550 MG Sucralfate (Carafate Susp) 1 gm AC PO 06/21/16 08:00 07/21/16 07:59 Sucralfate (Carafate Susp) 1 gm HS PRN PO 06/20/16 20:00 07/20/16 19:59 Tacrolimus (Prograf Cap) 0.5 mg QAM PO 06/21/16 09:00 07/21/16 08:59 Temazepam (Restoril Cap) 30 mg HS PRN PO 06/20/16 20:00 07/20/16 19:59 Topiramate (Topamax Tab) 50 mg HS PO 06/20/16 21:00 07/20/16 20:59 06/20/16 21:39 50 MG Tramadol HCl (Ultram Tab) 50 mg Q6H PRN PO 06/20/16 20:00 07/20/16 19:59 Ursodiol (Actigall Cap) 300 mg QID PO 06/20/16 21:00 07/20/16 20:59 06/20/16 21:35 300 MG Cholecalciferol (Vitamin D Tab) 2,000 inter.unit BID PO 06/20/16 21:00 07/20/16 20:59 06/20/16 21:37 2,000 INTER.UNIT Miscellaneous Information (Order Awaiting Action) 1 ea QS N/A 06/21/16 00:00 07/21/16 00:00 Miscellaneous Information (Order Awaiting Action) 1 ea QS N/A 06/21/16 00:00 07/21/16 00:00 Miscellaneous Information (Order Awaiting Action) 1 ea QS N/A 06/21/16 00:00 07/21/16 00:00 Mirtazapine (Remeron Tab) 15 mg HS PO 06/20/16 21:00 07/20/16 20:59 06/20/16 21:36 15 MG Fluticasone Propionate (Flonase Nasal Boyd) 2 sprays DAILY PRN WALTER 06/20/16 20:00 07/20/16 19:59 Fluconazole (Diflucan Tab) 100 mg QAM PO 06/21/16 09:00 07/21/16 08:59 Insulin Glargine (Lantus Solostar Pen) 40 unit BID SC 06/20/16 21:00 07/20/16 20:59 06/20/16 22:01 40 UNIT Insulin Aspart (novoLOG ASPART) SLIDING SCALE PARAMETER ACHS CO 06/21/16 08:00 07/21/16 07:59 UNV Objective Vital Signs Date Time Temp Pulse Resp B/P Pulse Ox O2 Delivery O2 Flow Rate FiO2 06/21/16 07:37 36.5 84 18 131/85 98 Room Air 06/20/16 23:50 36.5 85 18 128/80 94 Room Air 06/20/16 20:50 Room Air 06/20/16 20:40 36.5 84 20 133/82 Room Air 06/20/16 20:03 87 20 140/85 99 Room Air 06/20/16 18:17 93 20 148/101 100 Room Air 06/20/16 14:58 93 18 137/87 100 Room Air 06/20/16 13:30 36.2 98 20 125/82 96 Room Air Laboratory Results Last 24 Hours Test 06/20/16 14:10 06/20/16 14:15 06/20/16 15:00 06/20/16 18:45 White Blood Count 6.84 K/uL Red Blood Count 4.16 M/uL Hemoglobin 12.6 g/dL Hematocrit 35.7 % Mean Corpuscular Volume 85.8 fL Mean Corpuscular Hemoglobin 30.3 pg Mean Corpuscular Hemoglobin Concent 35.3 g/dl Platelet Count 42 K/uL Neutrophils (%) (Auto) 79.1 % Lymphocytes (%) (Auto) 5.8 % Monocytes (%) (Auto) 9.6 % Eosinophils (%) (Auto) 3.8 % Basophils (%) (Auto) 1.3 % Neutrophils # (Auto) 5.40 K/uL Lymphocytes # (Auto) 0.40 K/uL Monocytes # (Auto) 0.66 K/uL Eosinophils # (Auto) 0.26 K/uL Basophils # (Auto) 0.09 K/uL RDW Standard Deviation 54.0 fL RDW Coefficient of Variation 17.0 % Immature Granulocyte % (Auto) 0.4 % Immature Granulocyte # (Auto) 0.03 K/uL Acanthocytes 2+ Prothrombin Time 16.4 SECONDS Prothromb Time International Ratio 1.5 Activated Partial Thromboplast Time 35.7 SECONDS Partial Thromboplastin Ratio 1.4 Sodium Level 141 mmol/L Potassium Level 4.0 mmol/L Chloride Level 109 mmol/L Carbon Dioxide Level 21 mmol/L Anion Gap 11.0 mmol/L Blood Urea Nitrogen 20 mg/dl Creatinine 1.70 mg/dl Est Creatinine Clear Calc Drug Dose 64.5 ml/min Estimated GFR () 52.9 Estimated GFR (Non- 45.7 BUN/Creatinine Ratio 11.7 Random Glucose 97 mg/dl Calcium Level 8.5 mg/dl Magnesium Level 1.9 mg/dl Total Bilirubin 5.4 mg/dl Direct Bilirubin 3.9 mg/dl Aspartate Amino Transf (AST/SGOT) 36 U/L Alanine Aminotransferase (ALT/SGPT) 30 U/L Alkaline Phosphatase 407 U/L Ammonia 155.0 umol/L 86.0 umol/L Total Protein 5.2 gm/dl Albumin 2.4 gm/dl Lipase 82 U/L Ethyl Alcohol mg/dL < 3.0 mg/dl Influenza Type A (RT-PCR) Neg for Influ A Influenza Type A Antigen Neg for Influ A Influenza Type B Antigen Neg for Influ B Influenza Type B (RT-PCR) Neg for Influ B Urine Color GALLO Urine Appearance CLEAR Urine pH 5.5 Urine Specific [place] 1.019 Urine Protein NEG Urine Glucose (UA) NEG Urine Ketones NEG Urine Occult Blood 2+ Urine Nitrite NEG Urine Bilirubin 2+ Urine Urobilinogen NEG Urine Leukocyte Esterase NEG Urine WBC (Auto) 1-5 /hpf Urine RBC (Auto) 5-10 /hpf Urine Hyaline Casts (Auto) 1-5 /lpf Urine Epithelial Cells (Auto) 0-5 /lpf Urine Bacteria (Auto) NEG Urine Crystals Urine Opiates Screen NEG Urine Methadone, Qualitative NEG Urine Barbiturates NEG Urine Phencyclidine (PCP) Level NEG Ur Amphetamine/Methamphetamine NEG MDMA (Ecstasy) Screen NEG Urine Benzodiazepines Screen POS Urine Cocaine Metabolite NEG Urine Marijuana (THC) NEG Test 06/20/16 21:44 06/21/16 06:05 06/21/16 06:10 Bedside Glucose 206 mg/dl Ammonia 70.0 umol/L White Blood Count 5.57 K/uL Red Blood Count 3.89 M/uL Hemoglobin 11.8 g/dL Hematocrit 33.5 % Mean Corpuscular Volume 86.1 fL Mean Corpuscular Hemoglobin 30.3 pg Mean Corpuscular Hemoglobin Concent 35.2 g/dl RDW Standard Deviation 53.5 fL RDW Coefficient of Variation 17.0 % Platelet Count 40 K/uL Platelet Estimate DECREASED Prothrombin Time 16.6 SECONDS Prothromb Time International Ratio 1.5 Sodium Level 142 mmol/L Potassium Level 4.1 mmol/L Chloride Level 111 mmol/L Carbon Dioxide Level 21 mmol/L Anion Gap 10.0 mmol/L Blood Urea Nitrogen 20 mg/dl Creatinine 1.80 mg/dl Est Creatinine Clear Calc Drug Dose 61.0 ml/min Estimated GFR () 49.4 Estimated GFR (Non- 42.6 BUN/Creatinine Ratio 11.3 Random Glucose 120 mg/dl Calcium Level 8.2 mg/dl Total Bilirubin 4.6 mg/dl Aspartate Amino Transf (AST/SGOT) 36 U/L Alanine Aminotransferase (ALT/SGPT) 26 U/L Alkaline Phosphatase 372 U/L Total Protein 4.7 gm/dl Albumin 2.2 gm/dl Globulin 2.5 gm/dl Albumin/Globulin Ratio 0.9 Assessment and Plan Consult dictated. job [id number] Discussed case with DR Vaughn also. Hepatic encephalopathy--acute mental status changes improved ammonia this am 70. Pt has been on Xifaxan. Not a good candidate for chronic lactulose becuase had dirrhea with fecal incontinence Jaundice--await am labs. TB 5.4 higher than baseline. If continues to rise may need input from liver transplant team at [place] Diarrhea--hx of Cdiff but cdiff this admit negative. Proctoscopy 06/20/[address] Schrader at [place] negative. FS to [address] Vaughn 01/2016 negative. EGD with Duod bx 05/[address] Vaughn negative. Xifaxan should cover bacterial overgrowth. Has PD dilatation and numerous pancreas calfications on CT so perhaps weight loss and diarrhea from pancreas insufficiency. Give trial of pancreas enzyme replacement. Also if he is taking chronic Mg as oupt that can cause diarrhea. 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
[2016-06-21] MEDS ORDERED: DEXTROSE 50% 50 ML SYR IV PRN (08:00)
[2016-06-21] MEDS: INSULIN ASPART 100 UNITS/ML 3 ML PEN SC SCH ×3 (08:00→17:13)
[2016-06-21] MEDS ORDERED: GLUCAGON FOR INJ 1 MG VIAL SQ PRN (08:00)
[2016-06-21] MEDS ORDERED: GLUCOSE 40% GEL 15 GM TUBE PO PRN (08:00)
[2016-06-21] MEDS ORDERED: GLUCOSE 10 TABS/TUBE PO PRN (08:00)
--- NOTE | 2016-06-21 08:54 | GASTROINTESTINAL CONSULTATION ---
DATE OF CONSULTATION: 06/21/2016 DATE OF CONSULTATION: 06/21/2016. REQUESTED BY: Dr. Adam Davenport. REASON FOR CONSULTATION: Hepatic encephalopathy. CHIEF COMPLAINT: The patient had some mental status changes. HISTORY OF PRESENT ILLNESS: The patient is a very complicated patient. He has a history of ulcerative colitis status post proctocolectomy and J pouch. She has primary sclerosing cholangitis and status post liver transplant in 2007 with recurrent disease in the transplanted liver. 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 He had spleno-renal shunt embolization twice 05/14/2016 and history of C. diff. Most recent outpatient problems are mostly diarrhea. I looked at Dr. Vaughn's most recent note 05/21/2016, Dr. Breaux's ([place] inspector water pollution control) most recent note 05/31/2016 , Dr. Lawrence ([place] colorectal surgeon) most recent 06/20/2016. He had an EGD 05/27/2016 for weight loss, epigastric pain and was normal with path second duodenum normal. Flexible sigmoidoscopy normal mucosa to 80 cm on January 2016. He had proctoscopy 06/20/2016 unremarkable. He is on Xifaxan for hepatic encephalopathy. He is not really a candidate for lactulose given significant diarrhea; however, he came in with some change in his mental status with ammonia level 155. Last ammonia level was 46 on 03/12/2016. His ammonia this morning is 70. He was given lactulose in the ER. LFTs total bilirubin higher than baseline of 5.4, it was 4.1 on 06/04/2016 and 2.9 on 04/03/2016. He has not noted any bloody stools or black stools. Denies abdominal pain. History of C. diff, but C. diff negative on this admission. No dysphagia. States he has lost 17 pounds in the last 2 months, not necessarily any change in his diet. No fever, no nausea, vomiting, no GERD symptoms. PAST MEDICAL HISTORY: Medical problems as above and also normocytic anemia, ITP. MEDICATIONS ON ADMISSION: Included vitamin D3, Savi, Promacta, Diflucan, Hizentra, insulin, levothyroxine, magnesium oxide, Remeron, Protonix, prednisone, Xifaxan, Carafate, Prograf, Topamax, ursodiol. P.R.N. medications included Tylenol, EpiPen, Atarax, mometasone, Bactroban, Zofran, Carafate, Restoril and Ultram. FAMILY HISTORY: Hypertension. SOCIAL HISTORY: Tobacco negative. REVIEW OF SYSTEMS: CONSTITUTIONAL: Fatigue. GENERAL: Negative. EARS, NOSE, MOUTH, THROAT: Negative. CARDIOVASCULAR: Negative. RESPIRATORY: Negative. GENITOURINARY: Negative. MUSCULOSKELETAL: Negative. INTEGUMENTARY: Negative. NEUROLOGIC: Negative. PSYCHIATRIC: Mental status changes above. ENDOCRINE: Diabetes. HEMATOLOGIC: ITP. PHYSICAL EXAMINATION: GENERAL: Male, appears stated age. No acute distress. VITAL SIGNS: Most recent vital signs in chart, temp 36.5, pulse 85, respiration is 18, BP 128/80, pulse 94% on room air. EYES: Conjunctivae and lids normal. EARS, NOSE, THROAT: Oropharynx clear. NECK: Without obvious mass or thyroid enlargement. RESPIRATORY: Normal effort. Clear to anterior auscultation. CARDIOVASCULAR: Regular rate and rhythm. EXTREMITIES: Mild edema. ABDOMEN: Positive bowel sounds, soft, nontender, no obvious organomegaly or masses are appreciated. There is some splenomegaly, no other organomegaly. LYMPH: No obvious neck or groin nodes. MUSCULOSKELETAL: Digits and nails normal. SKIN: Without obvious rash or induration anteriorly. NEUROLOGIC: Cranial nerves intact. Sensation intact. PSYCHIATRIC: Recent and remote memory good. Insight and judgment good. DATA: Head CT on admission some sinus opacifications. CT abdomen and pelvis, small left portal vein, stable 11 mm hypodensity in the right hepatic lobe, shunt noted intrahepatic in the right hepatic vein, questionable mild stenosis right hepatic vein where it enters IVC, splenomegaly, marked pancreatic duct dilatation, multiple pancreatic calcification embolus within the splenorenal varices, some pneumobilia. Chest x-ray unremarkable. CMP showed alkaline phosphatase elevation and total bili 5.4. He has some mild normocytic anemia. IMPRESSION AND PLAN: 1. Hepatic encephalopathy. The patient is better now. Ammonia is down, he has been on Xifaxan for this, he is not really a good candidate for chronic lactulose because of diarrhea and fecal incontinence. 2. Jaundice. Will await a.m. labs. Total bilirubin was higher than baseline. If it continues to rise might need input from liver transplant team at [place]. 3. Diarrhea, history of C. difficile but C. diff was negative, proctoscopy and flexible sigmoidoscopies recently negative. One idea I have is he has pancreatic duct dilatation, pancreatic calcification, could have pancreas insufficiency so consider trial pancreas enzyme replacement. Also if he is taking chronic magnesium as an outpatient that can cause diarrhea which can be stopped first. 4. Pelvic vein thrombosis status post TIPS. Appears patent on the current CT scan. 5. Status post splenorenal shunt embolization, stable. 6. Ulcerative colitis status post proctocolectomy and J pouch distance stable, 7. ITP stable on Promacta. 8. Primary sclerosing cholangitis with involving the liver transplant as above. MTDD
[2016-06-21] MEDS: SUCRALFATE 1 GM/10 ML UDC PO SCH ×3 (08:57→16:42)
[2016-06-21] MEDS: URSODIOL 300 MG CAP PO SCH ×3 (08:58→16:41)
[2016-06-21] MEDS: LACTULOSE SYRUP 10 GM/15 ML BTL 473 ML PO SCH (08:59)
[2016-06-21] MEDS ORDERED: FLUCONAZOLE 100 MG TAB PO SCH (09:00)
[2016-06-21] MEDS ORDERED: TACROLIMUS 0.5 MG CAP PO SCH (09:00)
[2016-06-21] MEDS: RIFAXIMIN TAB 550 MG TAB PO SCH (09:00)
[2016-06-21] MEDS: CHOLECALCIFEROL 1000 INTER.UNIT TAB PO SCH (09:00)
[2016-06-21] MEDS: INSULIN GLARGINE SOLOSTAR 100 UNITS/ML 3 ML PEN SC SCH (09:02)
--- NOTE | 2016-06-21 11:42 | Progress Note ---
Subjective Date of Service: Jun 21, 2016. Subjective Pt is more awake and alert, ammonia is down, family at bedside and updated Problem List Medical Problems: (1) Altered mental status Status: Acute (2) Anemia Status: Acute (3) Hyperammonemia Status: Acute (4) Hyperglycemia Status: Acute (5) Hyperglycemia Status: Acute (6) Hyperkalemia Status: Acute (7) Kidney injury Status: Acute (8) Tenosynovitis Status: Acute Review of Systems Constitutional: No chills, No fever Respiratory: No cough, No shortness of breath Cardiac: No chest pain, No edema Abdomen: + problem reported (distended), No diarrhea, No nausea, No pain, No vomiting Male : No dysuria, No urinary frequency Psychiatric: + depression symptoms, No anhedonism Objective Vital Signs Date Time Temp Pulse Resp B/P Pulse Ox O2 Delivery O2 Flow Rate FiO2 06/20/16 23:50 36.5 85 18 128/80 94 Room Air 06/20/16 20:50 Room Air 06/20/16 20:40 36.5 84 20 133/82 Room Air 06/20/16 20:03 87 20 140/85 99 Room Air 06/20/16 18:17 93 20 148/101 100 Room Air 06/20/16 14:58 93 18 137/87 100 Room Air 06/20/16 13:30 36.2 98 20 125/82 96 Room Air Physical Exam General Appearance: WD/WN, + mild distress Neck: supple, no JVD Respiratory/Chest: chest non-tender, lungs clear, + decreased breath sounds ( bases) Cardiovascular: regular rate, rhythm, no murmur Abdomen: normal bowel sounds, non tender, soft Extremities: no pedal edema, no calf tenderness Neurologic/Psychiatric: alert, oriented x 3 Laboratory Results Last 24 Hours Test 06/20/16 14:10 06/20/16 14:15 06/20/16 15:00 06/20/16 18:45 White Blood Count 6.84 K/uL Red Blood Count 4.16 M/uL Hemoglobin 12.6 g/dL Hematocrit 35.7 % Mean Corpuscular Volume 85.8 fL Mean Corpuscular Hemoglobin 30.3 pg Mean Corpuscular Hemoglobin Concent 35.3 g/dl Platelet Count 42 K/uL Neutrophils (%) (Auto) 79.1 % Lymphocytes (%) (Auto) 5.8 % Monocytes (%) (Auto) 9.6 % Eosinophils (%) (Auto) 3.8 % Basophils (%) (Auto) 1.3 % Neutrophils # (Auto) 5.40 K/uL Lymphocytes # (Auto) 0.40 K/uL Monocytes # (Auto) 0.66 K/uL Eosinophils # (Auto) 0.26 K/uL Basophils # (Auto) 0.09 K/uL RDW Standard Deviation 54.0 fL RDW Coefficient of Variation 17.0 % Immature Granulocyte % (Auto) 0.4 % Immature Granulocyte # (Auto) 0.03 K/uL Acanthocytes 2+ Prothrombin Time 16.4 SECONDS Prothromb Time International Ratio 1.5 Activated Partial Thromboplast Time 35.7 SECONDS Partial Thromboplastin Ratio 1.4 Sodium Level 141 mmol/L Potassium Level 4.0 mmol/L Chloride Level 109 mmol/L Carbon Dioxide Level 21 mmol/L Anion Gap 11.0 mmol/L Blood Urea Nitrogen 20 mg/dl Creatinine 1.70 mg/dl Est Creatinine Clear Calc Drug Dose 64.5 ml/min Estimated GFR () 52.9 Estimated GFR (Non- 45.7 BUN/Creatinine Ratio 11.7 Random Glucose 97 mg/dl Calcium Level 8.5 mg/dl Magnesium Level 1.9 mg/dl Total Bilirubin 5.4 mg/dl Direct Bilirubin 3.9 mg/dl Aspartate Amino Transf (AST/SGOT) 36 U/L Alanine Aminotransferase (ALT/SGPT) 30 U/L Alkaline Phosphatase 407 U/L Ammonia 155.0 umol/L 86.0 umol/L Total Protein 5.2 gm/dl Albumin 2.4 gm/dl Lipase 82 U/L Ethyl Alcohol mg/dL < 3.0 mg/dl Influenza Type A (RT-PCR) Neg for Influ A Influenza Type A Antigen Neg for Influ A Influenza Type B Antigen Neg for Influ B Influenza Type B (RT-PCR) Neg for Influ B Urine Color GALLO Urine Appearance CLEAR Urine pH 5.5 Urine Specific [place] 1.019 Urine Protein NEG Urine Glucose (UA) NEG Urine Ketones NEG Urine Occult Blood 2+ Urine Nitrite NEG Urine Bilirubin 2+ Urine Urobilinogen NEG Urine Leukocyte Esterase NEG Urine WBC (Auto) 1-5 /hpf Urine RBC (Auto) 5-10 /hpf Urine Hyaline Casts (Auto) 1-5 /lpf Urine Epithelial Cells (Auto) 0-5 /lpf Urine Bacteria (Auto) NEG Urine Crystals Urine Opiates Screen NEG Urine Methadone, Qualitative NEG Urine Barbiturates NEG Urine Phencyclidine (PCP) Level NEG Ur Amphetamine/Methamphetamine NEG MDMA (Ecstasy) Screen NEG Urine Benzodiazepines Screen POS Urine Cocaine Metabolite NEG Urine Marijuana (THC) NEG Test 06/20/16 21:44 06/21/16 06:05 06/21/16 06:10 Bedside Glucose 206 mg/dl Ammonia 70.0 umol/L White Blood Count 5.57 K/uL Red Blood Count 3.89 M/uL Hemoglobin 11.8 g/dL Hematocrit 33.5 % Mean Corpuscular Volume 86.1 fL Mean Corpuscular Hemoglobin 30.3 pg Mean Corpuscular Hemoglobin Concent 35.2 g/dl RDW Standard Deviation 53.5 fL RDW Coefficient of Variation 17.0 % Platelet Count 40 K/uL Platelet Estimate DECREASED Prothrombin Time 16.6 SECONDS Prothromb Time International Ratio 1.5 Assessment and Plan 51 M with toxic encephalopathy from elevated ammonia, history of liver transplant. 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 Ulcerative colitis Toxic Encephalopathy secondary to Hepatic encephalopathy Lactulose 15 gm BID, good resolution of High Ammonia and appropriate improvement of mental status, GI concerned may not be good med as has had chronic diarrhea without source despite aggressive outpt workup Post-transplant ITP, no evidence of gross hemorrhage, has microscopic hematuria , follow platelet counts UC stable jejunal pouch Arslan Thyroiditis, clinically euthyroid CKD Stage III- Cr 1.7 T2DM Insulin regimen FULL Resuscitation
--- NOTE | 2016-06-21 15:34 | PROGRESS NOTE ---
DATE: 06/21/2016 SUBJECTIVE: The patient feels that his mental status has returned to baseline after taking lactulose in addition to Xifaxan for his hepatic encephalopathy. There does not appear to be any obvious precipitating cause for his deterioration in mental status, it is possible that he may have ingested an excessive amount of protein, but there is no sign of infection. His other complaint is nocturnal fecal incontinence and the patient was taking magnesium oxide, buy his magnesium level is currently normal at 1.8. His ammonia level is 70. His bilirubin has come down to 4.6, which is close to his baseline and his INR is 1.5. There is no current asterixis and his mental status is back to baseline. IMPRESSION: The patient has an episode of hepatic encephalopathy, which is improved with lactulose, although I would rather not continue lactulose as an outpatient due to the fact that he is having some fecal incontinence episodes at bedtime. I also plan on stopping his magnesium oxide since his magnesium has returned to normal. Will continue Xifaxan at 550 mg twice a day and add Flagyl 500 b.i.d. if his fecal incontinence continues for possible small bowel overgrowth. I will also recommend that the patient be on a limited protein diet between 100 and 150 grams of protein per day. He should have outpatient follow up with me in approximately a week and should be able to be discharged later today as long as his condition remained stable. GABRIELE
[2016-06-21 15:40] VITALS: BP 154/95; PULSE 92; TEMP 36.7; O2SAT 97
[2016-06-21] MEDS ORDERED: METR-163 PO (17:22)
--- NOTE | 2016-06-21 17:24 | Discharge Instructions ---
Discharge Instructions Admission Reason for Admission: Altered Mental Status, Hyperammonemia Discharge Discharge Diagnosis / Problem: hepatic encephalopathy Discharge Goals Goal(s): Diagnostic testing, Therapeutic intervention Activity Recommendations Activity Limitations: resume your previous activity . Current Hospital Diet Patient's current hospital diet: Diabetes Type 2 Diet Discharge Diet Recommended Diet: N/A (low protein diet please) Pending Studies Studies pending at discharge: no Laboratory Results Lipid Panel Test 06/04/16 13:08 Range/Units Triglycerides Level 105 0-150 mg/dl Cholesterol Level 101 0-200 mg/dl HDL Cholesterol 21 mg/dl Cholesterol/HDL Ratio 4.8 LDL Cholesterol, Calculated 59 mg/dl Medical Emergencies . Who to Call and When: Medical Emergencies: If at any time you feel your situation is an emergency, please call 911 immediately. . Non-Emergent Contact Non-Emergency issues call your: Buffet Attendant (one week DR Vaughn) . . "Provider Documentation" section prepared by Issac Gary. VTE Core Measure Inpt VTE Proph given/why not?: Enoxaparin (Lovenox)SQ
--- NOTE | 2016-06-21 17:29 | Discharge Summary ---
Discharge Summary Admission Date: Jun 20, 2016 at 19:10 Discharge Date: Jun 21, 2016 Immunizations: Have You Had Influenza Vaccine: Yes Influenza Vaccine Date: Jun 01, 2013 History of Tetanus Vaccine?: utd History of Pneumococcal: Yes Pneumococcal Date: Jun 01, 2013 History of Hepatitis B Vaccine: Unknown Consultations: Dr Vaughn, would rather not continue lactulose as an outpatient due to the fact that he is having some fecal incontinence episodes at bedtime. Agrees with stopping his magnesium oxide to try to reduce diarrhea. Recommends to continue Xifaxan at 550 mg twice a day and add Flagyl 500 b.i.d. for possible small bowel overgrowth. He also recommends that the patient be on a limited protein diet between 100 and 150 grams of protein per day. IN his note he states the patient will have an outpt follow up in one to two weeks with himself Medication Reconciliation New Medications: Metronidazole (Flagyl) 500 Mg Tab 500 MG PO BID, #60 TAB Continued Medications: Acetaminophen (Tylenol Arthritis Ext Rel) 650 Mg Tab 650 MG PO Q8H PRN for Pain or Fever, TAB Cholecalciferol (Vitamin D3) 2,000 Unit Tab 1 TAB PO BID for 30 Days, #60 TAB 5 Refills Dutasteride-Tamsulosin Hcl (Savi) 1 Cap Cap 1 CAP PO HS Eltrombopag Olamine (Promacta) 12.5 Mg Tab 50 MG PO DAILY Epinephrine (Epipen 2-[place]) 0.3 Mg Inj 0.3 MG IM UD PRN for ALLERGIC REACTION ONE INJECTION IM PRN SEVERE ALLERGIC REACTION. REPEAT IN 20 MINUTES PRN CONTINUED REACTION Fluconazole (Diflucan) 100 Mg Tab 100 MG PO QAM, TAB Hydroxyzine Hcl (Atarax) 50 Mg Tab 50 MG PO 3-4XD PRN for Itching, TAB Immune Globulin (Human) Subcut (Hizentra) 4 Gm/20 Ml Inj 12 GM SC WK Insulin Aspart (Novolog) Inj 1 DOSE SC ACHS SUBCUANEOUSLY BEFORE MEALS AND AT BEDTIME PER SLIDING SCALE ( 1 UNIT FOR EVERY 10 GRAMS OF CARBS) Insulin Glargine (Lantus) Vial 40 UNITS SC AMPM, VIAL Levothyroxine Sodium (Levothyroxine Sodium) 88 Mcg Tab 88 MCG PO QAM ONE TABLET DAILY ON EMPY STOMACH WITH A FULL GLASS OF WATER. WAIT 30 MINUTES BEFORE EATING Mirtazapine Soltab (Remeron Soltab) 15 Mg Soltab 15 MG PO HS, TAB Mometasone Furoate (Nasal) (Mometasone Furoate) 50 Mcg/Act Spr 2 SPRAYS WALTER DAILY PRN for ALLERGIES OR CONGESTION Mupirocin 2% (Bactroban 2%) Oint 1 DOSE EXT BID PRN for RECURRENT SKIN INFECTION Ondansetron Hcl (Zofran) 8 Mg Tab 1-2 TABS PO Q6H PRN for Nausea Pantoprazole (Protonix) 40 Mg Tab 40 MG PO QPM ONE TABLET BY MOUTH EVERY DAY AT 1630 Prednisone Tab (Prednisone) 10 Mg Tab 10 MG PO QAM, TAB Rifaximin (Xifaxan) 550 Mg Tab 550 MG PO BID, TAB Sucralfate (Carafate) 1 Gm/10 Ml Susp 10 ML PO AC, ML 1 Refill Sucralfate (Carafate) 1 Gm/10 Ml Susp 10 ML PO HS PRN for reflux/heartburn for 30 Days, ML 1 Refill Tacrolimus (Prograf) 0.5 Mg Cap 0.5 MG PO QAM, CAP Temazepam (Restoril) 30 Mg Cap 30 MG PO HS PRN for Sleep, CAP Topiramate (Topamax ) 25 Mg Tab 2 TAB PO HS, TAB Tramadol (Ultram) 50 Mg Tab 50 MG PO Q6H PRN for Pain, TAB Ursodiol (Ursodiol) 300 Mg Cap 1 CAP PO QID Discontinued Medications: Magnesium Oxide (Magnesium-Oxide) 400 Mg Tab 400 MG PO BID, #60 TAB 6 Refills Discharge Exam mental status has cleared Physical Exam: General Appearance: WD/WN, + mild distress (chronically ill appearing) Eyes: PERRL, EOMI Neck: supple, no JVD Neurologic/Psychiatric: alert, oriented x 3 Hospital Course 51 M with toxic encephalopathy from elevated ammonia, history of liver transplant. 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 Ulcerative colitis Toxic Encephalopathy secondary to Hepatic encephalopathy good resolution of High Ammonia and appropriate improvement of mental status, GI concerned lactulose may not be good med as has had chronic diarrhea without source despite aggressive outpt workup, have seen twice and recommend discharge with starting flagyl for bacteria overdose, I urged the pt to stay another day and he refused, we did not have time to evaluate with PT/OT and the pt is a HIGH READMISSION RISK Post-transplant ITP, no evidence of gross hemorrhage, has microscopic hematuria , follow platelet counts UC stable jejunal pouch Arslan Thyroiditis, clinically euthyroid CKD Stage III- Cr 1.7 T2DM Insulin regimen FULL Resuscitation Follow up per DR Vaughn he will arrange Total Time Spent: Greater than 30 minutes This includes examination of the patient, discharge planning, medication reconciliation, and communication with other providers. Discharge Instructions Please refer to the electronic Patient Visit Report (Discharge Instructions) for additional information.
[2016-06-21 17:53] VITALS: BP 154/95; PULSE 92; TEMP 36.7; O2SAT 97
[2016-06-21] MEDS ORDERED: DUTASTERIDE-TAMSULOSIN HCL 1 CAP CAP PO SCH (21:00)
[2016-06-22] MEDS ORDERED: ELTROMBOPAG 50 MG TAB PO SCH (09:00)
[2016-06-24 01:09] LABS: HYDROXYETHYLFLURAZEPAM CONF NEGATIVE NG/ML (CUTOFF=50); HYDROXYMIDAZOLAM NEGATIVE NG/ML (CUTOFF=50); HYDROXYTRIAZOLAM CONF NEGATIVE NG/ML (CUTOFF=50); TEMAZEPAM CONF >2000 NG/ML (CUTOFF=50)
[2016-09-02] MEDS ORDERED: MGNO400 PO (16:19)
[2016-09-02] MEDS ORDERED: INSDGIPEN SC (16:29)
== END 2016-06-21 18:20 | disposition home or self-care (01) | DRG 441 ==
LOC: ENRESERVTM → ENRESERVDT → C.EDB 13:28 → C.MSW 19:10
PROVIDERS: ADMIT Internal Medicine; ATTEND Internal Medicine
DX: K72.90 Hepatic failure, unspecified without coma (principal); G92 Toxic encephalopathy; K51.918 Ulcerative colitis, unspecified with other complication; K83.0 Cholangitis; Z94.4 Liver transplant status; D69.3 Immune thrombocytopenic purpura; T65.91XA Toxic effect of unspecified substance, accidental (unintentional), initial encounter; R19.7 Diarrhea, unspecified; R15.9 Full incontinence of feces; E78.5 Hyperlipidemia, unspecified; M10.9 Gout, unspecified; E06.3 Autoimmune thyroiditis; I12.9 Hypertensive chronic kidney disease with stage 1 through stage 4 chronic kidney disease, or unspecified chronic kidney disease; N18.3 Chronic kidney disease, stage 3 (moderate); E11.22 Type 2 diabetes mellitus with diabetic chronic kidney disease; Z93.4 Other artificial openings of gastrointestinal tract status; Z90.49 Acquired absence of other specified parts of digestive tract; Z86.19 Personal history of other infectious and parasitic diseases; Z86.718 Personal history of other venous thrombosis and embolism; Z79.2 Long term (current) use of antibiotics; Z79.4 Long term (current) use of insulin; Z79.52 Long term (current) use of systemic steroids; Z79.899 Other long term (current) drug therapy; Z88.1 Allergy status to other antibiotic agents; Z82.49 Family history of ischemic heart disease and other diseases of the circulatory system

== ENCOUNTER → 2016-06-27 | Outpatient (CLI) | payer BC ==
[~2016-06-27] MED LIST changes: +FLM4 PO; +IMD/2 PO; +INSDGIPEN SC; +LCTL45 PO; +METR-163 PO; +NVLG SC; +PRS5 PO; +SRQ25 PO; +SUCR5SUS PO; -URSO300C4 PO; +URSO300C8 PO
[2016-06-27 14:57] LABS: HEMATOCRIT 38.3 % (42-52); MEAN CELL VOLUME 86.7 fL (80-100); MEAN CORPUSCULAR HEMOGLOBIN 29.4 pg (25-34); MEAN CORPUSCULAR HGB CONC 33.9 g/dl (32-36); RED BLOOD COUNT 4.42 M/uL (4.7-6.1); WHITE BLOOD COUNT 7.48 K/uL (4.8-10.8)
[2016-06-27 15:20] LABS: PLATELET COUNT 58 K/uL (130-400); PLT ESTIMATE DECREASED
[2016-06-27 15:54] LABS: MAGNESIUM 1.9 mg/dl (1.8-2.4)
== END | disposition home or self-care (01) ==
LOC: C.LAB 14:26
PROVIDERS: ATTEND Internal Medicine Gastroenterology
DX: K72.90 Hepatic failure, unspecified without coma (principal); R15.9 Full incontinence of feces

== ENCOUNTER 2016-08-28 09:25 | Inpatient (IN) | payer BC, OTHER ==
[~2016-08-28] VITALS: Ht 185.4 cm; Wt 94.1 kg
[~2016-08-28 09:25] MED LIST changes: -FLM4 PO; -IMD/2 PO; -INSDGIPEN SC; -LCTL45 PO; -MGNO400 PO; -NVLG SC; -PRS5 PO; -SRQ25 PO
--- NOTE | 2016-08-28 10:12 | EMERGENCY ROOM VISIT NOTE ---
History Report prepared by Pao: Adriane Donohue Under the Supervision of: Dr. Ron Cortes M.D. First contact with patient: 09:52 Chief Complaint: ABDOMINAL PAIN Stated Complaint: MENTALLY OFF, LOSING WEIGHT, NAUSEA History of Present Illness The patient is a 51 year old male who presents to the Emergency Room with complaints of persistent right sided abdominal pain that began several days ago. He currently rates his discomfort as a 4/10 in severity. Per the patient' s mother, the patient has a history of a liver transplant 8 years ago. She states that recently the patient has had increased confusion and nausea. The patient's mother states that she is concerned that the patient's ammonia level is elevated. The patient notes a forty pound weight loss within the last two months. He notes a decrease in appetite. The patient's mother states that the patient has been experiencing diarrhea at night. The patient notes that he takes Tramadol for his discomfort. He additionally notes recent depression due to the of his father. The patient's mother notes that the patient had the tips procedure in April. Source of History: patient, parent (mother) Onset: several days ago Position: abdomen (right sided) Symptom Intensity: 4/10 Timing: other (persistent) Associated Symptoms: + nausea Note: Associated Symptoms: forty pound weight loss, confusion, depression Review of Systems All systems have been listed, reviewed, and are negative other than those previously mentioned. Please see Additional Medical History Sheet. 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 (19) Septic arthritis (20) Thrombocytopenia (21) Transplantation of liver (22) Ulcerative colitis Family History FHx: cancer FHx: heart disease FHx: hypertension Social History Smoking Status: Never Smoker Alcohol Use: none Drug Use: none Marital Status: single Housing Status: lives with family Occupation Status: disabled Current/Historical Medications Scheduled Cholecalciferol (Vitamin D3), 1 TAB PO BID Dutasteride-Tamsulosin Hcl (Savi), 1 CAP PO HS Eltrombopag Olamine (Promacta), 50 MG PO DAILY Immune Globulin (Human) Subcut (Hizentra), 12 GM SC WK Insulin Aspart (Novolog), 1 DOSE SC ACHS Insulin Glargine (Lantus), 40 UNITS SC AMPM Levothyroxine Sodium (Levothyroxine Sodium), 88 MCG PO QAM Mirtazapine Soltab (Remeron Soltab), 15 MG PO HS Pantoprazole (Protonix), 40 MG PO QPM Prednisone Tab (Prednisone), 10 MG PO QAM Rifaximin (Xifaxan), 550 MG PO BID Tacrolimus (Prograf), 0.5 MG PO QAM Topiramate (Topamax ), 2 TAB PO HS Ursodiol (Ursodiol), 1 CAP PO QID Scheduled PRN Acetaminophen (Tylenol Arthritis Ext Rel), 650 MG PO Q8H PRN for Pain or Fever Epinephrine (Epipen 2-[place]), 0.3 MG IM UD PRN for ALLERGIC REACTION Hydroxyzine Hcl (Atarax), 50 MG PO 3-4XD PRN for Itching Ondansetron Hcl (Zofran), 1-2 TABS PO Q6H PRN for Nausea Temazepam (Restoril), 30 MG PO HS PRN for Sleep Tramadol (Ultram), 50 MG PO Q6H PRN for Pain Miscellaneous Medications Loperamide Hcl (Imodium), 2 MG PO Allergies Coded Allergies: Levofloxacin (Verified Allergy, Unknown, UNKNOWN, 08/28/16) FROM [facility] ORDER FORM Physical Exam Vital Signs Date Time Temp Pulse Resp B/P Pulse Ox O2 Delivery O2 Flow Rate FiO2 08/28/16 11:42 99 Room Air 08/28/16 11:26 82 18 153/93 99 Room Air 08/28/16 10:41 84 20 150/85 97 Room Air 08/28/16 10:17 85 08/28/16 09:51 Room Air 08/28/16 09:30 36.4 97 18 143/100 98 Room Air Physical Exam GENERAL: Patient is disoriented to time and place, answers questions slowly. Patient follows commands. Patient does not appear toxic. Patient is adequately hydrated and well-nourished. SKIN: Skin color appears to be slightly day. HEENT: Normal head, pupils equal, reactive to light and accommodation. Oral cavity and posterior pharynx appear normal. Neck: Without adenopathy, no neck vein distention. LUNGS: Clear to auscultation. No wheezes, no rales, no rhonchi. HEART: No murmurs. No gallops. No rubs ABDOMEN: Multiple old well healed scars, nontender. EXTREMITIES: No signs of trauma. No pedal or pretibial edema. No calf or thigh tenderness. NEUROLOGIC: Cranial nerves II-XII within normal limits. No gross motor sensory function deficits. Medical Decision & Procedures Laboratory Results 08/28/16 10:22 Red Blood Count 3.85, Mean Corpuscular Volume 88.6, Mean Corpuscular Hemoglobin 30.1, Mean Corpuscular Hemoglobin Concent 34.0, Neutrophils (%) (Auto) 83.1, Lymphocytes (%) (Auto) 8.5, Monocytes (%) (Auto) 3.4, Eosinophils (%) (Auto) 3.6 , Basophils (%) (Auto) 0.8, Neutrophils # (Auto) 4.12, Lymphocytes # (Auto) 0.42 , Monocytes # (Auto) 0.17, Eosinophils # (Auto) 0.18, Basophils # (Auto) 0.04 Test 08/28/16 09:48 08/28/16 10:22 Urine Color YELLOW Urine Appearance CLEAR (CLEAR) Urine pH 5.5 (4.5-7.5) Urine Specific [place] 1.010 (1.000-1.030) Urine Protein NEG (NEG) Urine Glucose (UA) 3+ (NEG) Urine Ketones NEG (NEG) Urine Occult Blood 2+ (NEG) Urine Nitrite NEG (NEG) Urine Bilirubin NEG (NEG) Urine Urobilinogen NEG (NEG) Urine Leukocyte Esterase NEG (NEG) Urine RBC 5-10 /hpf (0-4) Urine WBC 1-5 /hpf (0-5) Urine Epithelial Cells 0-5 /lpf (0-5) Urine Bacteria NEG (NEG) White Blood Count 4.96 K/uL (4.8-10.8) Red Blood Count 3.85 M/uL (4.7-6.1) Hemoglobin 11.6 g/dL (14.0-18.0) Hematocrit 34.1 % (42-52) Mean Corpuscular Volume 88.6 fL (80-100) Mean Corpuscular Hemoglobin 30.1 pg (25-34) Mean Corpuscular Hemoglobin Concent 34.0 g/dl (32-36) Platelet Count 29 K/uL (130-400) Neutrophils (%) (Auto) 83.1 % Lymphocytes (%) (Auto) 8.5 % Monocytes (%) (Auto) 3.4 % Eosinophils (%) (Auto) 3.6 % Basophils (%) (Auto) 0.8 % Neutrophils # (Auto) 4.12 K/uL (1.4-6.5) Lymphocytes # (Auto) 0.42 K/uL (1.2-3.4) Monocytes # (Auto) 0.17 K/uL (0.11-0.59) Eosinophils # (Auto) 0.18 K/uL (0-0.5) Basophils # (Auto) 0.04 K/uL (0-0.2) RDW Standard Deviation 50.4 fL (36.4-46.3) RDW Coefficient of Variation 15.7 % (11.5-14.5) Immature Granulocyte % (Auto) 0.6 % Immature Granulocyte # (Auto) 0.03 K/uL (0.00-0.02) Platelet Estimate DECREASED Acanthocytes 1+ Prothrombin Time 15.4 SECONDS (9.0-12.0) Prothromb Time International Ratio 1.4 (0.9-1.1) Activated Partial Thromboplast Time 32.6 SECONDS (21.0-31.0) Partial Thromboplastin Ratio 1.3 Total Bilirubin 3.6 mg/dl (0.2-1) Aspartate Amino Transf (AST/SGOT) 29 U/L (15-37) Alanine Aminotransferase (ALT/SGPT) 29 U/L (12-78) Alkaline Phosphatase 302 U/L (45-117) Ammonia 66.0 umol/L (11-32) Total Protein 4.8 gm/dl (6.4-8.2) Albumin 2.5 gm/dl (3.4-5.0) Globulin 2.3 gm/dl (2.5-4.0) Albumin/Globulin Ratio 1.1 (0.9-2) Laboratory results as stated above per my review. We'll will Medications Administered Medications (Trade) Dose Ordered Sig/Tristen Route Start Time Stop Time Status Last Admin Dose Admin Sodium Chloride (Nss 1000ml) 2,000 ml @ 1,000 mls/hr Q2H ONCE IV 08/28/16 11:15 08/28/16 13:14 DC 08/28/16 11:23 1,000 MLS/HR Insulin Human Regular 10 units 10 units NOW STAT IV 08/28/16 11:04 08/28/16 11:09 DC 08/28/16 11:25 10 UNITS Sodium Chloride (Nss 1000ml) 1,000 ml @ 150 mls/hr Q6H40M IV 08/28/16 12:06 09/27/16 12:05 08/28/16 16:35 150 MLS/HR ED Course 0953: Past medical records reviewed. The patient was evaluated in room B12B. A complete history and physical examination was performed. 1104: Ordered Insulin Human Regular 10 units IV. 1115: I reevaluated the patient and he is resting comfortably. I discussed the exam findings with him and his family and I discussed the treatment plan. They all verbalized complete understanding and agreement. The patient will be evaluated for further treatment. Ordered Sodium Chloride 2000 ml @ 1000 mls/hr IV. 1117: I discussed the patients case with BESSY Carrion. He is going to evaluate the patient for further treatment. Medical Decision Nurses notes reviewed. Medical history sheet reviewed. Differential diagnosis includes but is not limited to: hepatic insufficiency, elevated ammonia, metabolic disorder, hepatitis. Multiple labs were obtained. Please see above. The patient's ammonia level is elevated. Blood sugar is 671. Bilirubin is 3.6. Platelet count is now lower than it has been. Patient is has hepatic insufficiency. He is a post liver transplant. The patient was given IV insulin here but will require admission for further monitoring. I discussed care with the patient, family members and with the hospitalist. Consults Time Called: [phone] Consulting Physician: BESSY Carrion Returned Call: [phone] I discussed the patients case with BESSY Carrion. He is going to evaluate the patient for further treatment. Impression Primary Impression: Diabetes mellitus out of control Additional Impressions: Thrombocytopenia Hyperammonemia Scribe Attestation The scribe's documentation has been prepared under my direction and personally reviewed by me in its entirety. I confirm that the note above accurately reflects all work, treatment, procedures, and medical decision making performed by me. Departure Information Dispostion Being Evaluated By Hospitalist Referrals No Doctor, Assigned (PCP) Problem Qualifiers
[2016-08-28 10:44] LABS: INR 1.4 (0.9-1.1); PARTIAL THROMBOPLASTIN RATIO 1.3; PROTHROMBIN TIME (PATIENT) 15.4 SECONDS (9.0-12.0)
[2016-08-28 10:50] LABS: MANUAL MICROSCOPIC REQUIRED? YES; URINE APPEARANCE CLEAR (CLEAR); URINE BILIRUBIN NEG (NEG); URINE COLOR YELLOW; URINE NITRITE NEG (NEG); URINE PH 5.5 (4.5-7.5); UROBILINOGEN NEG (NEG)
[2016-08-28 10:53] LABS: REVIEW REQ? NO
[2016-08-28 10:58] LABS: ACANTHOCYTES 1+; BASO % 0.8 %; BASO ABS # 0.04 K/uL (0-0.2); COMPLETE YES; EOS % 3.6 %; HEMATOCRIT 34.1 % (42-52); IG% 0.6 %; LYMPH % 8.5 %; LYMPH ABS # 0.42 K/uL (1.2-3.4); MEAN CELL VOLUME 88.6 fL (80-100); MEAN CORPUSCULAR HEMOGLOBIN 30.1 pg (25-34); MONO % 3.4 %; NEUT % 83.1 %; PLATELET COUNT 29 K/uL (130-400); PLT ESTIMATE DECREASED; RED BLOOD COUNT 3.85 M/uL (4.7-6.1); WHITE BLOOD COUNT 4.96 K/uL (4.8-10.8)
[2016-08-28 10:59] LABS: ALB/GLOB RATIO 1.1 (0.9-2); BUN/CREATININE RATIO 13.1 (10-20); CREATININE 1.8 mg/dl (0.60-1.40); POTASSIUM 4.4 mmol/L (3.5-5.1)
[2016-08-28] MEDS ORDERED: NovoLIN-R INSULIN PER UNIT CHARGE IV STA (11:04)
[2016-08-28] MEDS ORDERED: SODIUM CHLORIDE 0.9% 1000ML 2,000 ML IV ONE (11:15)
[2016-08-28 11:19] LABS: BETA-HYDROXYBUTYRATE 0.82 mg/dL (0.2-2.81)
[2016-08-28 11:21] LABS: URINE BACTERIA NEG (NEG)
[2016-08-28 11:23] LABS: ZZUR CULT IF INDIC CLEAN CATCH NO
[2016-08-28 11:42] VITALS: O2SAT 99; BMI 26.6
[2016-08-28] MEDS ORDERED: INSULIN IV INFUSION PROTOCOL STA (12:06)
[2016-08-28] MEDS ORDERED: TRAMADOL HCL 50 MG TAB PO PRN (12:15)
[2016-08-28] MEDS ORDERED: POLYETHYLENE (MIRALAX) 17 GM PACK PO PRN (12:15)
[2016-08-28] MEDS ORDERED: ALUMINUM/MAGNESIUM/SIMETH (MAALOX MAX) 30 ML UDC PO PRN (12:15)
[2016-08-28] MEDS ORDERED: NITROGLYCERIN 0.4 MG SL PER TAB CHARGE SL PRN (12:15)
[2016-08-28] MEDS ORDERED: PENDING NSS+20mEq KCL IVF SCH (12:15)
[2016-08-28] MEDS ORDERED: MODERATE STRESS LEVEL ONE (12:15)
[2016-08-28] MEDS ORDERED: hydrOXYzine HCL 25 MG TAB PO PRN (12:15)
[2016-08-28] MEDS ORDERED: TEMAZEPAM 15 MG CAP PO PRN (12:15)
[2016-08-28] MEDS ORDERED: DKA GOAL RANGE 150-250 mg/dl 1 EA ONE (12:15)
[2016-08-28] MEDS ORDERED: ONDANSETRON 8 MG TAB PO PRN (12:15)
[2016-08-28] MEDS ORDERED: MAGNESIUM HYDROXIDE SUSP 30 ML UDC PO PRN (12:15)
[2016-08-28] MEDS ORDERED: PHARMACY GLYCEMIC MGMT CONSULT PRN (12:15)
[2016-08-28] MEDS ORDERED: EPINEPHRINE ADULT AUTO-INJECT 0.3 MG SYR IM PRN (12:15)
[2016-08-28] MEDS ORDERED: ONDANSETRON INJ 2 MG/ML 2 ML VIAL IV PRN (12:15)
[2016-08-28] MEDS ORDERED: INSULIN ASPART 100 UNITS/ML 3 ML PEN SC SCH (13:00)
--- NOTE | 2016-08-28 13:00 | History and Physical ---
History & Physical Date & Time of Service: Aug 28, 2016 at 12:28 Chief Complaint: Mentally Off, Losing Weight, Nausea Primary Care Physician: Gurinder Bullock M.D. History of Present Illness Source: patient, family, clinic records, hospital records Patient is a pleasant 51 y/o male, with PMHx of ulcerative colitis with primary sclerosing cholangitis s/p total abdominal colectomy, with subsequent recurrence of PSC, s/p liver transplant (2007) , post-transplant ITP, portal vein thrombosis s/p TIPS, spleno-renal shunt s/p embolization (2015), CKD stage III, anxiety/depression, hypothyroidism, DM, GERD, and BPH, who presented to the ED because of AMS. According to family present, patient was very confused this AM. He was trying to check his blood sugar, but he forgot how to. Family was worried his ammonia level was high because he usually presents the same. According to patient, he missed the entire day of 08/27; he does not recall any events. He is currently alert and oriented. Family states patient is currently at baseline. He admits to not taking any of his medications on 08/27. However, he is unsure of why. He denies at complaints at present. He did feel nauseous this AM, which resolved with Zofran. +chronic diarrhea. The major concern for family/patient is patient's depression. His father 1 month ago. Since that time, patient has eaten very little. According to brother, patient went from 220lbs to 195lbs in the last month. Brother reports patient drinking large amounts of coke, but eating little to none. He stays in his room most of the day. The patient admits to feeling very low. He denies any suicidal or homicidal ideations. Patient denies any fever, chills, sweats, lightheadedness, dizziness, vision changes, CP, palpitations, edema, SOB, wheezing, cough, abdominal pain, vomiting , urinary symptoms, melena, numbness/tingling, weakness, muscle/joint pain, anxiety, active bleeding, or new skin discoloration/changes. Past Medical/Surgical History Medical Problems: Ulcerative colitis with primary sclerosing cholangitis s/p total abdominal colectomy, with subsequent recurrence of PSC, s/p liver transplant (2007) Post-transplant ITP Portal vein thrombosis s/p TIPS Spleno-renal shunt s/p embolization (2015) CKD stage III Anxiety/depression Hypothyroidism DM GERD BPH Surgical hx: 1. Appendectomy 2. Cholecystectomy 3. Colectomy Family History FHx: cancer FHx: heart disease FHx: hypertension Social History Smoking Status: Never Smoker Drug Use: none Marital Status: single Housing status: lives with family Occupational Status: disabled Immunizations History of Influenza Vaccine: Yes Influenza Vaccine Date: Jun 01, 2013 History of Tetanus Vaccine?: utd History of Pneumococcal: Yes Pneumococcal Date: Jun 01, 2013 History of Hepatitis B Vaccine: Unknown Multi-Drug Resistant Organisms History of MDRO: No Allergies Coded Allergies: Levofloxacin (Verified Allergy, Unknown, UNKNOWN, 08/28/16) FROM [facility] ORDER FORM Home Medications Scheduled Cholecalciferol (Vitamin D3), 1 TAB PO BID Dutasteride-Tamsulosin Hcl (Savi), 1 CAP PO HS Eltrombopag Olamine (Promacta), 50 MG PO DAILY Immune Globulin (Human) Subcut (Hizentra), 12 GM SC WK Insulin Aspart (Novolog), 1 DOSE SC ACHS Insulin Glargine (Lantus), 40 UNITS SC AMPM Levothyroxine Sodium (Levothyroxine Sodium), 88 MCG PO QAM Mirtazapine Soltab (Remeron Soltab), 15 MG PO HS Pantoprazole (Protonix), 40 MG PO QPM Prednisone Tab (Prednisone), 10 MG PO QAM Rifaximin (Xifaxan), 550 MG PO BID Tacrolimus (Prograf), 0.5 MG PO QAM Topiramate (Topamax ), 2 TAB PO HS Ursodiol (Ursodiol), 1 CAP PO QID Scheduled PRN Acetaminophen (Tylenol Arthritis Ext Rel), 650 MG PO Q8H PRN for Pain or Fever Epinephrine (Epipen 2-[place]), 0.3 MG IM UD PRN for ALLERGIC REACTION Hydroxyzine Hcl (Atarax), 50 MG PO 3-4XD PRN for Itching Ondansetron Hcl (Zofran), 1-2 TABS PO Q6H PRN for Nausea Temazepam (Restoril), 30 MG PO HS PRN for Sleep Tramadol (Ultram), 50 MG PO Q6H PRN for Pain Miscellaneous Medications Loperamide Hcl (Imodium), 2 MG PO Physical Exam Vital Signs Date Time Temp Pulse Resp B/P Pulse Ox O2 Delivery O2 Flow Rate FiO2 08/28/16 11:42 99 Room Air 08/28/16 11:26 82 18 153/93 99 Room Air 08/28/16 10:41 84 20 150/85 97 Room Air 08/28/16 10:17 85 08/28/16 09:51 Room Air 08/28/16 09:30 36.4 97 18 143/100 98 Room Air General Appearance: no apparent distress Head: normocephalic, atraumatic Eyes: normal inspection, + pertinent finding (+icterus ) ENT: hearing grossly normal Neck: supple Respiratory/Chest: lungs clear, no respiratory distress, no accessory muscle use Cardiovascular: regular rate, rhythm Abdomen/GI: normal bowel sounds, non tender, soft Back: normal inspection Extremities/Musculoskelatal: no calf tenderness, no pedal edema Neurologic/Psych: alert, oriented x 3 Skin: warm/dry, no rash, + jaundice Diagnostics Laboratory Results Results Past 24 Hours Test 08/28/16 09:48 08/28/16 10:22 08/28/16 11:59 Range/Units Urine Color YELLOW Urine Appearance CLEAR CLEAR Urine pH 5.5 4.5-7.5 Urine Specific [place] 1.010 1.000-1.030 Urine Protein NEG NEG Urine Glucose (UA) 3+ NEG Urine Ketones NEG NEG Urine Occult Blood 2+ NEG Urine Nitrite NEG NEG Urine Bilirubin NEG NEG Urine Urobilinogen NEG NEG Urine Leukocyte Esterase NEG NEG Urine RBC 5-10 0-4 /hpf Urine WBC 1-5 0-5 /hpf Urine Epithelial Cells 0-5 0-5 /lpf Urine Bacteria NEG NEG White Blood Count 4.96 4.8-10.8 K/uL Red Blood Count 3.85 4.7-6.1 M/uL Hemoglobin 11.6 14.0-18.0 g/dL Hematocrit 34.1 42-52 % Mean Corpuscular Volume 88.6 80-100 fL Mean Corpuscular Hemoglobin 30.1 25-34 pg Mean Corpuscular Hemoglobin Concent 34.0 32-36 g/dl Platelet Count 29 130-400 K/uL Neutrophils (%) (Auto) 83.1 % Lymphocytes (%) (Auto) 8.5 % Monocytes (%) (Auto) 3.4 % Eosinophils (%) (Auto) 3.6 % Basophils (%) (Auto) 0.8 % Neutrophils # (Auto) 4.12 1.4-6.5 K/uL Lymphocytes # (Auto) 0.42 1.2-3.4 K/uL Monocytes # (Auto) 0.17 0.11-0.59 K/uL Eosinophils # (Auto) 0.18 0-0.5 K/uL Basophils # (Auto) 0.04 0-0.2 K/uL RDW Standard Deviation 50.4 36.4-46.3 fL RDW Coefficient of Variation 15.7 11.5-14.5 % Immature Granulocyte % (Auto) 0.6 % Immature Granulocyte # (Auto) 0.03 0.00-0.02 K/uL Platelet Estimate DECREASED Acanthocytes 1+ Prothrombin Time 15.4 9.0-12.0 SECONDS Prothromb Time International Ratio 1.4 0.9-1.1 Activated Partial Thromboplast Time 32.6 21.0-31.0 SECONDS Partial Thromboplastin Ratio 1.3 Sodium Level 140 136-145 mmol/L Potassium Level 4.4 3.5-5.1 mmol/L Chloride Level 111 98-107 mmol/L Carbon Dioxide Level 19 21-32 mmol/L Anion Gap 10.0 3-11 mmol/L Blood Urea Nitrogen 24 7-18 mg/dl Creatinine 1.80 0.60-1.40 mg/dl Est Creatinine Clear Calc Drug Dose 54.9 ml/min Estimated GFR () 49.4 Estimated GFR (Non- 42.6 BUN/Creatinine Ratio 13.1 10-20 Random Glucose 671 70-99 mg/dl Calcium Level 8.0 8.5-10.1 mg/dl Total Bilirubin 3.6 0.2-1 mg/dl Aspartate Amino Transf (AST/SGOT) 29 15-37 U/L Alanine Aminotransferase (ALT/SGPT) 29 12-78 U/L Alkaline Phosphatase 302 45-117 U/L Ammonia 66.0 11-32 umol/L Total Protein 4.8 6.4-8.2 gm/dl Albumin 2.5 3.4-5.0 gm/dl Globulin 2.3 2.5-4.0 gm/dl Albumin/Globulin Ratio 1.1 0.9-2 Beta-Hydroxybutyric Acid 0.82 0.2-2.81 mg/dL Bedside Glucose 469 70-99 mg/dl Impression Assessment and Plan 51 y/o male, with PMHx of ulcerative colitis with primary sclerosing cholangitis s/p total abdominal colectomy, with subsequent recurrence of PSC, s/ p liver transplant (2007) , post-transplant ITP, portal vein thrombosis s/p TIPS , spleno-renal shunt s/p embolization (2015), CKD stage III, anxiety/ depression, hypothyroidism, DM, GERD, and BPH, who presented to the ED because of AMS. Mild DKA w/ sugar of 671/Insulin-dependent DM: - Admit to tele for cardiac monitoring - DKA protocol w/ insulin drip - Home medication includes: Lantus 40 u BID w/ sliding scale - Check ha1c AMS, ?secondary to hepatic encephalopathy w/ ammonia level of 66: - Does not appear significantly elevated compared to previous records - Continue Xifaxan - Will check CXR to r/o infectious cause - UA reviewed Liver transplant status: - Continue Tacrolimus 0.5 mg PO BID, Ursodiol 300 mg PO QID, Prednisone 10 mg daily - Follows w/ Cris Thrombocytopenia, plt 29- baseline plt >40 : - Continue Promacta 50 mg PO daily - Follow CBC - Follows w/ Yen Ferguson- consult, appreciate recommendations Immunodeficiency: Continue Hizentra 12 g IM weekly CKD, stage III- stable: Follow PRP Chronic coagulopathy- stable Chronically elevated alk phos and bilirubin- stable Insomnia/anxiety and depression- worsening secondary to father passing: - Continue Mirtazapine at 15 mg PO HS - Consult mental health, appreciate recommendations Hypothyroidism: - Continue Synthroid 88 mcg daily - TSH of 1.229 on 02/26/16 BPH with bladder outlet obstruction history: Continue Savi 1 capsule PO HS Peripheral neuropathy: Continue Topamax at 50 mg PO HS Allergy: Continue Hydroxyzine 50 mg PO TID PRN GERD:Continue Protonix 40 mg daily GI Prophylaxis: Maalox PRN, IV Zofran PRN, Colace and/or Milk of Mag PRN DVT prophylaxis: GILMA and SCDs Code Status: LEVEL I, FULL PA Physician Supervision Note: I interviewed and examined the patient. Discussed with Valery MERIDA and agree with findings and plan as documented in the note. Any exceptions or clarifications are listed here: None This pt has not been eating drinking or taking meds for last few days due to situational depression from of father. He is markedly hyperglycemic and dehydrated with only modest elevation of ammonia Vitals are stable mucus membranes are dry car is tachy abdomen is soft and non tender hyperglycemia in a diabetic due to non compliance, no acidosis, and dehydration hydrate, insulin gtt, consider psyche eval for medical management of depression hyperammonia continue cathartic ammonia meds thrombocytopenia, consult Yen Ferguson for advice if prometra needs to be adjusted Documented By: Issac Gary Dispo: From home, lives w/ family Level of Care Telemetry Advanced Directives Existing Living Will: Yes Existing Power of Labor And Delivery Registered Nurse: Yes (ayla edwards ) Resuscitation Status FULL RESUSCITATION VTE Prophylaxis VTE Risk Assessment Done? Y/N: Yes Risk Level: Moderate Given or contraindicated: T.E.D. Stockings, SCD's
[2016-08-28] MEDS ORDERED: GLUCOSE 40% GEL 15 GM TUBE PO PRN (13:15)
[2016-08-28] MEDS ORDERED: GLUCAGON FOR INJ 1 MG VIAL SQ PRN (13:15)
[2016-08-28] MEDS ORDERED: GLUCOSE 10 TABS/TUBE PO PRN (13:15)
[2016-08-28] MEDS ORDERED: DEXTROSE 50% 50 ML SYR IV PRN (13:15)
[2016-08-28] MEDS ORDERED: INSULIN HUMAN REGULAR IV BOLUS 2.5 UNIT in SYRINGE 0 ML IV ONE (13:30)
[2016-08-28] MEDS ORDERED: INSULIN REGULAR 250 UNITS in SODIUM CHLORIDE 0.9% 250ML 250 ML IV SCH (13:30)
[2016-08-28] MEDS ORDERED: IV FLUIDS COMPLETED PRN (13:45)
[2016-08-28] MEDS ORDERED: IMD/2 PO (13:48)
[2016-08-28 14:05] VITALS: BP 162/97; PULSE 90; TEMP 36.8; O2SAT 99
[2016-08-28] MEDS ORDERED: PENDING D5 1/2NS+20mEq KCL IVF SCH (14:30)
--- NOTE | 2016-08-28 14:46 | Pharmacy Progress Note ---
Glycemic Control Intl Consult Date of Service Aug 28, 2016. Scope Glycemic Pharmacist consulted by Valery Fonseca on 08/28/16 for glycemic control and to write orders per [facility] inpatient glycemic control protocol Objective Weight (Kilograms): 91.400 Accuchecks BSG (last 24hrs): Test 08/28/16 10:22 08/28/16 11:59 Random Glucose 671 mg/dl (70-99) Bedside Glucose 469 mg/dl (70-99) Laboratory Data (last 24hrs) Test 08/28/16 10:22 Anion Gap 10.0 mmol/L BUN/Creatinine Ratio 13.1 Blood Urea Nitrogen 24 mg/dl Creatinine 1.80 mg/dl Potassium Level 4.4 mmol/L Sodium Level 140 mmol/L White Blood Count 4.96 K/uL Red Blood Count 3.85 M/uL Hemoglobin 11.6 g/dL Hematocrit 34.1 % Mean Corpuscular Volume 88.6 fL Mean Corpuscular Hemoglobin 30.1 pg Mean Corpuscular Hemoglobin Concent 34.0 g/dl Platelet Count 29 K/uL Neutrophils (%) (Auto) 83.1 % Lymphocytes (%) (Auto) 8.5 % Monocytes (%) (Auto) 3.4 % Eosinophils (%) (Auto) 3.6 % Basophils (%) (Auto) 0.8 % Neutrophils # (Auto) 4.12 K/uL Lymphocytes # (Auto) 0.42 K/uL Monocytes # (Auto) 0.17 K/uL Eosinophils # (Auto) 0.18 K/uL Basophils # (Auto) 0.04 K/uL Recent Pertinent Medications Outpatient Anti-diabetic Regimen: * NovoLog ACHS * Carb ratio 1:10 * Lantus 40 units SQ BID The patient is currently receiving: * IV insulin infusion * Moderate stress * Goal: 150-250mg/dL * NovoLog PCHS to cover meals Risk Factors for Insulin Resistance: * IVF: NSS (2 liters in ED), then 150mL/hr * Diet: T2DM * No insulin on 08/27 (day prior to admission) Assessment & Plan ASSESSMENT: * ADA & AACE recommend a goal blood sugar range 140-180 mg/dl for the majority of critically ill & non-critically ill patients. However, more stringent targets may be selected in individual cases. 08/28/16 * Mr. Burnette presented with altered mental status and severe hyperglycemia * anion gap and BHA WNL, urine negative for ketones --> HHS/mild DKA? * 2 liters of NSS in ED plus 10 units of IV insulin given * similar presentation last January was resolved nicely with IV and SQ insulin administration. * IV insulin infusion started in ED * will continue on admission until hyperglycemia resolves * begin SQ basal/bolus in addition to IV insulin to ease transition of therapy. * A1c outdated (from December 2015) * on order for 08/29 with AM labs * Weight loss over the last month (secondary to father passing?) * may change insulin requirements * follow up with A1c PLAN FOR INPATIENT GLYCEMIC CONTROL: * Starting IV insulin infusion per moderate stress protocol * Goal Range 150 - 250 mg/dl --> may consider decreasing goal to 140-180mg/dL once prior goal met. * Basal insulin with LANTUS 30 units SQ x1 dose tonight at 21:00 * this will ease transition from IV --> SQ insulin and represents weight based dosing * Correctional Insulin with NOVOLOG PC/HS while on IV insulin infusion * Use calculator while on insulin infusion * Set carb ratio of 1:10 after Lantus given * A1c added to discharge instructions * Please note that the plan above was derived based on current level of insulin resistance and hospital stress. These recommendations are appropriate for inpatient admission only. Plan of care upon discharge will need to be reassessed to avoid potential outpatient hypo/hyperglycemia. Thank you.
[2016-08-28 15:00] VITALS: BP 142/96; PULSE 95; TEMP 36.6; O2SAT 98
[2016-08-28] MEDS ORDERED: ACETAMINOPHEN 325 MG TAB PO PRN (15:15)
[2016-08-28 15:50] VITALS: BMI 26.6
--- NOTE | 2016-08-28 15:52 | DIAGNOSTIC IMAGING REPORT ---
CHEST 2 VIEWS ROUTINE CLINICAL HISTORY: AMS dyspnea COMPARISON STUDY: 06/20/2016 FINDINGS: The bones soft tissues and hemidiaphragms are normal. The cardiomediastinal silhouette is normal. The lungs are clear. The pulmonary vasculature is normal. IMPRESSION: Negative chest. Electronically signed by: Yimi Gamboa M.D. 08/28/2016 3:50 PM Dictated Date/Time: 08/28/2016 3:46 PM
[2016-08-28] MEDS: SODIUM CHLORIDE 0.9% 1000ML 1,000 ML IV SCH ×2 (16:35→18:46)
[2016-08-28] MEDS: URSODIOL 300 MG CAP PO SCH ×2 (16:37→21:37)
[2016-08-28 16:39] LABS: BUN/CREATININE RATIO 14.6 (10-20); CALCIUM 8.3 mg/dl (8.5-10.1); CREATININE 1.6 mg/dl (0.60-1.40); PHOSPHORUS 2.4 mg/dl (2.5-4.9)
[2016-08-28 16:50] LABS: BETA-HYDROXYBUTYRATE 0.82 mg/dL (0.2-2.81)
[2016-08-28] MEDS: INSULIN ASPART 100 UNITS/ML 3 ML PEN SC SCH ×2 (16:58→21:00)
[2016-08-28 18:40] VITALS: BP 141/90; PULSE 92; TEMP 36.6; O2SAT 95
[2016-08-28 20:43] LABS: BUN/CREATININE RATIO 15.1 (10-20); CREATININE 1.6 mg/dl (0.60-1.40); MAGNESIUM 1.9 mg/dl (1.8-2.4); POTASSIUM 4.4 mmol/L (3.5-5.1)
[2016-08-28 20:44] LABS: PHOSPHORUS 2.3 mg/dl (2.5-4.9)
[2016-08-28 20:53] LABS: BETA-HYDROXYBUTYRATE 0.8 mg/dL (0.2-2.81)
[2016-08-28 21:00] VITALS: O2SAT 95
[2016-08-28] MEDS ORDERED: INSULIN GLARGINE SOLOSTAR 100 UNITS/ML 3 ML PEN SC SCH (21:00)
[2016-08-28] MEDS ORDERED: NURSING DECISION MEDICATION ORDER SCH (21:15)
[2016-08-28] MEDS: NSS + 20MEQ KCL 1000ML 1,000 ML IV SCH (21:33)
[2016-08-28] MEDS: MIRTAZAPINE SOLTAB 15 MG PO SCH (21:37)
[2016-08-28] MEDS: RIFAXIMIN TAB 550 MG TAB PO SCH (21:37)
[2016-08-28] MEDS: PANTOprazole SOD 40 MG TAB PO SCH (21:37)
[2016-08-28] MEDS: TOPIRAMATE 25 MG TAB PO SCH (21:37)
[2016-08-28 22:50] VITALS: BP 144/95; PULSE 93; TEMP 36.9; O2SAT 95
[2016-08-29] VITALS (8 sets, daily range): BP systolic 132–164; BP diastolic 74–104; PULSE 77–98; TEMP 36.4–36.9; O2SAT 95–97; Ht 185.4 cm; Wt 94.1 kg
[2016-08-29 00:30] LABS: BUN/CREATININE RATIO 15.4 (10-20); CREATININE 1.6 mg/dl (0.60-1.40); MAGNESIUM 1.9 mg/dl (1.8-2.4); PHOSPHORUS 2.1 mg/dl (2.5-4.9); POTASSIUM 4.2 mmol/L (3.5-5.1)
[2016-08-29] MEDS: NSS + 20MEQ KCL 1000ML 1,000 ML IV SCH (04:04)
[2016-08-29 05:02] LABS: BUN/CREATININE RATIO 15.8 (10-20); CALCIUM 7.8 mg/dl (8.5-10.1); CREATININE 1.5 mg/dl (0.60-1.40); MAGNESIUM 1.8 mg/dl (1.8-2.4); PHOSPHORUS 1.9 mg/dl (2.5-4.9)
[2016-08-29] MEDS: LEVOTHYROXINE 88 MCG TAB PO SCH (05:09)
[2016-08-29] MEDS ORDERED: D5W AND 1/2NSS + 20MEQ KCL 1,000 ML IV SCH (05:15)
[2016-08-29 06:01] LABS: ESTIMATED AVERAGE GLUCOSE 123 mg/dl; HA1C FLAG Normal (Normal)
[2016-08-29 07:12] LABS: HEMATOCRIT 32.9 % (42-52); MEAN CELL VOLUME 86.8 fL (80-100); MEAN CORPUSCULAR HEMOGLOBIN 29.8 pg (25-34); MEAN CORPUSCULAR HGB CONC 34.3 g/dl (32-36); PLATELET COUNT 48 K/uL (130-400); RED BLOOD COUNT 3.79 M/uL (4.7-6.1); WHITE BLOOD COUNT 8.17 K/uL (4.8-10.8)
--- NOTE | 2016-08-29 07:47 | Clinical Documentation Query ---
MARIA FERNANDA Snowden : CLINICAL DOCUMENTATION QUERIES QUERY 1 OF 2 Patient is a 51 year old male admitted secondary to altered mental status in the setting of PSC, s/p liver transplant (2007) , post-transplant ITP, portal vein thrombosis s/p TIPS, spleno-renal shunt s/p embolization. ED provider notes a "forty pound weight loss within the last two months" with H&P noting "patient went from 220lbs to 195lbs in the last month". These reported values represent a 16.4% weight loss over the past two months and 10.9% weight loss over the past month respectively. Reported is a decreased intake associated with depression following the passing of his father. As appropriate, consider clarification as suggested below as this directly impacts DRG assignment and measures of severity of illness and risk of mortality. Thank you. In your clinical opinion is this patient being managed for: ( x ) Unspecified severe protein-calorie malnutrition ( ) Other explanation of clinical findings (Please Explain) ( ) Unable to determine (Please Define) ( ) Need to Discuss ( ) Not Agree The medical record reflects the following clinical findings, treatment, and risk factors. Clinical Indicators: As above Treatment: IVF, psychiatric consultation Risk Factors: Depression, loss of father QUERY 2 OF 2 Serum sodium 140 mmol/L on admission, rising to 150 mmol/L after recieving two 1,000 ml boluses of NSS in ED with subsequent administration of NSS with KCl. Patient is being monitored with serial chemistries and IVF were changed to D5W and 1/2 NSS with KCl this a.m. (08/29) In your clinical opinion is this patient being managed for: (x ) Hypernatremia ( ) Other explanation of clinical findings (Please Explain) ( ) Unable to determine (Please Define) ( ) Need to Discuss ( ) Not Agree The medical record reflects the following clinical findings, treatment, and risk factors. Clinical Indicators: As above Treatment:Patient is being monitored with serial chemistries and IVF were changed to D5W and 1/2 NSS with KCl this a.m. (08/29) Risk Factors: NSS administration. Please clarify and document your clinical opinion in the progress notes and discharge summary. Terms such as "probable", "suspected", "likely", "questionable", "possible", or "still to be ruled out" are acceptable. IF IN AGREEMENT, YOU MUST DOCUMENT ABOVE DIAGNOSTIC STATEMENT IN DAILY PROGRESS NOTES AND DISCHARGE SUMMARY. This document is not part of the patient's record. Thank You, Frank Elkins RN [phone]
[2016-08-29] MEDS: INSULIN ASPART 100 UNITS/ML 3 ML PEN SC SCH ×4 (07:59→21:00)
[2016-08-29] MEDS ORDERED: INSULIN ASPART 100 UNITS/ML 3 ML PEN SC SCH (08:00)
[2016-08-29] MEDS ORDERED: INSULIN GLARGINE SOLOSTAR 100 UNITS/ML 3 ML PEN SC ONE (08:00)
[2016-08-29] MEDS: TACROLIMUS 0.5 MG CAP PO SCH (08:00)
[2016-08-29] MEDS ORDERED: [UNRECOGNIZED DRUG - REMARK] ONE (08:00)
[2016-08-29] MEDS: RIFAXIMIN TAB 550 MG TAB PO SCH ×2 (08:01→21:00)
[2016-08-29] MEDS: URSODIOL 300 MG CAP PO SCH ×4 (08:01→21:00)
[2016-08-29 09:01] LABS: BUN/CREATININE RATIO 15.8 (10-20); CALCIUM 7.4 mg/dl (8.5-10.1); CREATININE 1.5 mg/dl (0.60-1.40); MAGNESIUM 1.6 mg/dl (1.8-2.4); PHOSPHORUS 1.9 mg/dl (2.5-4.9); POTASSIUM 3.8 mmol/L (3.5-5.1)
--- NOTE | 2016-08-29 09:53 | Pharmacy Progress Note ---
Glycemic Control: Progress Nt Date of Service Aug 29, 2016. Scope Glycemic Pharmacist consulted by Valery Fonseca on 08/28/16 for glycemic control and to write orders per [facility] inpatient glycemic control protocol. Objective Accuchecks BSG (last 24hrs): Test 08/28/16 10:22 08/28/16 11:59 08/28/16 14:32 08/28/16 15:32 Random Glucose 671 mg/dl (70-99) Bedside Glucose 469 mg/dl (70-99) 338 mg/dl (70-99) 312 mg/dl (70-99) Test 08/28/16 16:00 08/28/16 16:30 08/28/16 17:32 08/28/16 18:36 Random Glucose 365 mg/dl (70-99) Bedside Glucose 335 mg/dl (70-99) 357 mg/dl (70-99) 312 mg/dl (70-99) Test 08/28/16 19:26 08/28/16 20:04 08/28/16 20:27 08/28/16 21:46 Bedside Glucose 316 mg/dl (70-99) 258 mg/dl (70-99) 251 mg/dl (70-99) Random Glucose 325 mg/dl (70-99) Test 08/28/16 22:33 08/28/16 23:31 08/29/16 00:03 08/29/16 00:26 Bedside Glucose 254 mg/dl (70-99) 188 mg/dl (70-99) 179 mg/dl (70-99) Random Glucose 204 mg/dl (70-99) Test 08/29/16 01:23 08/29/16 02:21 08/29/16 03:26 08/29/16 03:53 Bedside Glucose 148 mg/dl (70-99) 130 mg/dl (70-99) 87 mg/dl (70-99) 95 mg/dl (70-99) Test 08/29/16 04:27 08/29/16 04:58 08/29/16 06:31 08/29/16 07:06 Random Glucose 91 mg/dl (70-99) Bedside Glucose 82 mg/dl (70-99) 57 mg/dl (70-99) 169 mg/dl (70-99) Test 08/29/16 08:15 Random Glucose 151 mg/dl (70-99) Laboratory Data (last 24hrs) Test 08/28/16 10:22 08/28/16 16:00 08/28/16 20:04 08/29/16 00:03 Anion Gap 10.0 mmol/L 11.0 mmol/L 8.0 mmol/L 10.0 mmol/L BUN/Creatinine Ratio 13.1 14.6 15.1 15.4 Blood Urea Nitrogen 24 mg/dl 23 mg/dl 24 mg/dl 25 mg/dl Creatinine 1.80 mg/dl 1.60 mg/dl 1.60 mg/dl 1.60 mg/dl Potassium Level 4.4 mmol/L 4.0 mmol/L 4.4 mmol/L 4.2 mmol/L Sodium Level 140 mmol/L 144 mmol/L 145 mmol/L 150 mmol/L White Blood Count 4.96 K/uL Red Blood Count 3.85 M/uL Hemoglobin 11.6 g/dL Hematocrit 34.1 % Mean Corpuscular Volume 88.6 fL Mean Corpuscular Hemoglobin 30.1 pg Mean Corpuscular Hemoglobin Concent 34.0 g/dl Platelet Count 29 K/uL Neutrophils (%) (Auto) 83.1 % Lymphocytes (%) (Auto) 8.5 % Monocytes (%) (Auto) 3.4 % Eosinophils (%) (Auto) 3.6 % Basophils (%) (Auto) 0.8 % Neutrophils # (Auto) 4.12 K/uL Lymphocytes # (Auto) 0.42 K/uL Monocytes # (Auto) 0.17 K/uL Eosinophils # (Auto) 0.18 K/uL Basophils # (Auto) 0.04 K/uL Test 08/29/16 04:27 08/29/16 08:15 Anion Gap 9.0 mmol/L 11.0 mmol/L BUN/Creatinine Ratio 15.8 15.8 Blood Urea Nitrogen 24 mg/dl 24 mg/dl Creatinine 1.50 mg/dl 1.50 mg/dl Hemoglobin A1c 5.9 % Potassium Level 4.0 mmol/L 3.8 mmol/L Sodium Level 150 mmol/L 148 mmol/L White Blood Count 8.17 K/uL HbA1c: Test 08/29/16 04:27 Hemoglobin A1c 5.9 % (4.5-5.6) H Recent Pertinent Medications Outpatient Anti-diabetic Regimen: * Novolog ACHS CR 1:10, Lantus 40 units BID * A1c = 5.9 % 08/29/16 The patient is currently receiving: * Insulin gtt Risk Factors for Insulin Resistance: * Steroids: Prednisone 10mg daily (h/o liver transplant) * IVF: D51/2NS + 20 KCL at 150 ml/hr * Diet: DM2 Assessment & Plan ASSESSMENT: * ADA & AACE recommend a goal blood sugar range 140-180 mg/dl for the majority of critically ill & non-critically ill patients. However, more stringent targets may be selected in individual cases. 08/28/16 * Mr. Burnette presented with altered mental status and severe hyperglycemia * anion gap and BHA WNL, urine negative for ketones --> HHS/mild DKA? * 2 liters of NSS in ED plus 10 units of IV insulin given * similar presentation last January was resolved nicely with IV and SQ insulin administration. * IV insulin infusion started in ED * will continue on admission until hyperglycemia resolves * begin SQ basal/bolus in addition to IV insulin to ease transition of therapy. * A1c outdated (from December 2015) * on order for 08/29 with AM labs * Weight loss over the last month (secondary to father passing?) * may change insulin requirements * follow up with A1c 08/29/16 * Plan to transition of insulin gtt this morning. * Pt had hypoglycemia episode this morning. D5 large volume started at this time. Will attempt to have D5 cut now that hypoglycemia has resolved. * Of note, the pt's A1c has nearly cut in half since December 2015 (5.9% vs 10.1%) * The pt has lost weight since admission of December 2015. * Thus, insulin sensitivity has likely improved. * Will decrease Lantus dose and use conservative Novolog CF/CR to avoid inducing hypoglycemia again. * Add an overnight accuchek to better assess basal needs and resolve potential hyperglycemia. PLAN FOR INPATIENT GLYCEMIC CONTROL: * Decrease Lantus: * 15 units x 1 this morning then BID per scaleL * For BSG below 120 mg/dl: 10 units * For BSG above 120 mg/dl: 20 units * Novolog ACHS + 02 * Set correction factor to 35 mg/dl/unit * Set carb ratio to 1 unit per 12 grams CHO consumed * Continue goal range of Low 140 mg/dL - High 180 mg/dL * Please note that the plan above was derived based on current level of insulin resistance and hospital stress. These recommendations are appropriate for inpatient admission only. Plan of care upon discharge will need to be reassessed to avoid potential outpatient hypo/hyperglycemia. Thank you.
--- NOTE | 2016-08-29 10:48 | Hospitalist Progress Note ---
Hospitalist Progress Note Date of Service Aug 29, 2016. Subjective Pt evaluation today including: conversation w/ patient, conversation w/ family , physical exam, chart review Respiratory: No cough, No dyspnea at rest, No dyspnea on exertion, No hemoptysis, No problem reported, No see HPI, No shortness of breath, No sputum, No wheezing Cardiovascular: No PND, No chest pain, No claudication, No edema, No orthopnea, No palpitations, No problem reported, No see HPI Abdomen: + pain Neurologic: No balance problems, No memory loss, No numbness/tingling, No paralysis, No problem reported, No see HPI, No vertigo, No weakness Medications Medications (Trade) Dose Ordered Sig/Tristen Route Start Time Stop Time Status Last Admin Dose Admin Sodium Chloride (Nss 1000ml) 2,000 ml @ 1,000 mls/hr Q2H ONCE IV 08/28/16 11:15 08/28/16 13:14 DC 08/28/16 11:23 1,000 MLS/HR Insulin Human Regular (novoLIN-R U-100 PER UNIT) 10 units NOW STAT IV 08/28/16 11:04 08/28/16 11:09 DC 08/28/16 11:25 10 UNITS Levothyroxine Sodium (Synthroid Tab) 88 mcg DAILYBB PO 08/29/16 06:00 09/28/16 05:59 08/29/16 05:09 88 MCG Pantoprazole Sodium (Protonix Tab) 40 mg QPM PO 08/28/16 21:00 09/27/16 20:59 08/28/16 21:37 40 MG Rifaximin (Xifaxan Tab) 550 mg BID PO 08/28/16 21:00 09/27/16 20:59 08/28/16 21:37 550 MG Temazepam (Restoril Cap) 30 mg HS PRN PO 08/28/16 12:15 09/27/16 12:14 08/29/16 02:30 30 MG Topiramate (Topamax Tab) 50 mg HS PO 08/28/16 21:00 09/27/16 20:59 08/28/16 21:37 50 MG Ursodiol (Actigall Cap) 300 mg QID PO 08/28/16 17:00 09/27/16 16:59 08/28/16 21:37 300 MG Mirtazapine 15 mg 15 mg HS PO 08/28/16 21:00 09/27/16 20:59 08/28/16 21:37 15 MG Sodium Chloride 1,000 ml @ 150 mls/hr Q6H40M IV 08/28/16 12:06 08/29/16 04:01 DC 08/28/16 16:35 150 MLS/HR Insulin Human Regular 2.5 unit/ Syringe 2.5 ml @ 1 mls/min TODAY@1330 ONCE IV 08/28/16 13:30 08/28/16 13:32 DC 08/28/16 13:33 1 MLS/MIN Insulin Human Regular/Sodium Chloride (novoLIN-R/Nss 250ml) 252.5 ml @ 0 mls/hr DAILY@1130 IV 08/28/16 13:30 09/07/16 13:29 08/28/16 13:36 2.3 MLS/HR Insulin Aspart (novoLOG ASPART) SLIDING SCALE PCHS TX 08/28/16 17:15 08/28/16 23:59 DC 08/28/16 16:58 4 UNITS Dextrose (Dextrose 50% 50ML Syringe) 50 ml UD PRN IV 08/28/16 13:15 09/27/16 13:14 08/29/16 06:46 50 ML Insulin Glargine 30 unit 30 unit 2100 SC 08/28/16 21:00 08/28/16 23:00 DC 08/28/16 21:38 30 UNIT Potassium Chloride/Sodium Chloride 1,000 ml @ 150 mls/hr Q6H40M IV 08/28/16 21:30 08/29/16 05:02 DC 08/29/16 04:04 150 MLS/HR Potassium Chloride/Dextrose/ Sod Cl (D5W And 1/2nss + 20meq KCl) 1,000 ml @ 150 mls/hr Q6H40M IV 08/29/16 05:15 09/28/16 05:14 08/29/16 05:08 150 MLS/HR Objective Vital Signs Date Time Temp Pulse Resp B/P Pulse Ox O2 Delivery O2 Flow Rate FiO2 08/29/16 06:18 132/74 08/29/16 04:00 Room Air 08/29/16 02:35 36.8 90 20 164/94 97 Room Air 08/29/16 00:00 Room Air 08/28/16 22:50 36.9 93 20 144/95 95 Room Air 08/28/16 21:00 95 Room Air 08/28/16 18:40 36.6 92 18 141/90 95 Room Air 08/28/16 15:56 Room Air 08/28/16 15:00 36.6 95 24 142/96 98 Room Air 08/28/16 14:05 36.8 90 18 162/97 99 Room Air 08/28/16 13:38 88 18 153/93 99 Room Air 08/28/16 11:42 99 Room Air 08/28/16 11:26 82 18 153/93 99 Room Air 08/28/16 10:41 84 20 150/85 97 Room Air 08/28/16 10:17 85 08/28/16 09:51 Room Air 08/28/16 09:30 36.4 97 18 143/100 98 Room Air Physical Exam General Appearance: WD/WN Eyes: normal inspection ENT: normal ENT inspection Neck: supple Respiratory/Chest: chest non-tender Cardiovascular: regular rate, rhythm Abdomen: no organomegaly, + tenderness (diffuse), + pertinent finding (scar RUQ ) Extremities: normal range of motion Neurologic/Psychiatric: cook pressure II-XII nml as tested, oriented x 3 Skin: + pallor Laboratory Results Last 24 Hours Test 08/28/16 09:48 08/28/16 10:22 08/28/16 11:59 08/28/16 14:32 Urine Color YELLOW Urine Appearance CLEAR Urine pH 5.5 Urine Specific [place] 1.010 Urine Protein NEG Urine Glucose (UA) 3+ Urine Ketones NEG Urine Occult Blood 2+ Urine Nitrite NEG Urine Bilirubin NEG Urine Urobilinogen NEG Urine Leukocyte Esterase NEG Urine RBC 5-10 /hpf Urine WBC 1-5 /hpf Urine Epithelial Cells 0-5 /lpf Urine Bacteria NEG White Blood Count 4.96 K/uL Red Blood Count 3.85 M/uL Hemoglobin 11.6 g/dL Hematocrit 34.1 % Mean Corpuscular Volume 88.6 fL Mean Corpuscular Hemoglobin 30.1 pg Mean Corpuscular Hemoglobin Concent 34.0 g/dl Platelet Count 29 K/uL Neutrophils (%) (Auto) 83.1 % Lymphocytes (%) (Auto) 8.5 % Monocytes (%) (Auto) 3.4 % Eosinophils (%) (Auto) 3.6 % Basophils (%) (Auto) 0.8 % Neutrophils # (Auto) 4.12 K/uL Lymphocytes # (Auto) 0.42 K/uL Monocytes # (Auto) 0.17 K/uL Eosinophils # (Auto) 0.18 K/uL Basophils # (Auto) 0.04 K/uL RDW Standard Deviation 50.4 fL RDW Coefficient of Variation 15.7 % Immature Granulocyte % (Auto) 0.6 % Immature Granulocyte # (Auto) 0.03 K/uL Platelet Estimate DECREASED Acanthocytes 1+ Prothrombin Time 15.4 SECONDS Prothromb Time International Ratio 1.4 Activated Partial Thromboplast Time 32.6 SECONDS Partial Thromboplastin Ratio 1.3 Sodium Level 140 mmol/L Potassium Level 4.4 mmol/L Chloride Level 111 mmol/L Carbon Dioxide Level 19 mmol/L Anion Gap 10.0 mmol/L Blood Urea Nitrogen 24 mg/dl Creatinine 1.80 mg/dl Est Creatinine Clear Calc Drug Dose 54.9 ml/min Estimated GFR () 49.4 Estimated GFR (Non- 42.6 BUN/Creatinine Ratio 13.1 Random Glucose 671 mg/dl Calcium Level 8.0 mg/dl Total Bilirubin 3.6 mg/dl Aspartate Amino Transf (AST/SGOT) 29 U/L Alanine Aminotransferase (ALT/SGPT) 29 U/L Alkaline Phosphatase 302 U/L Ammonia 66.0 umol/L Total Protein 4.8 gm/dl Albumin 2.5 gm/dl Globulin 2.3 gm/dl Albumin/Globulin Ratio 1.1 Beta-Hydroxybutyric Acid 0.82 mg/dL Bedside Glucose 469 mg/dl 338 mg/dl Test 08/28/16 15:32 08/28/16 16:00 08/28/16 16:30 08/28/16 17:32 Bedside Glucose 312 mg/dl 335 mg/dl 357 mg/dl Venous Blood pH 7.41 Sodium Level 144 mmol/L Potassium Level 4.0 mmol/L Chloride Level 115 mmol/L Carbon Dioxide Level 18 mmol/L Anion Gap 11.0 mmol/L Blood Urea Nitrogen 23 mg/dl Creatinine 1.60 mg/dl Est Creatinine Clear Calc Drug Dose 61.7 ml/min Estimated GFR () 57.0 Estimated GFR (Non- 49.2 BUN/Creatinine Ratio 14.6 Random Glucose 365 mg/dl Calcium Level 8.3 mg/dl Phosphorus Level 2.4 mg/dl Magnesium Level 2.0 mg/dl Beta-Hydroxybutyric Acid 0.82 mg/dL Test 08/28/16 18:36 08/28/16 19:26 08/28/16 20:04 08/28/16 20:27 Bedside Glucose 312 mg/dl 316 mg/dl 258 mg/dl Venous Blood pH 7.46 Sodium Level 145 mmol/L Potassium Level 4.4 mmol/L Chloride Level 117 mmol/L Carbon Dioxide Level 20 mmol/L Anion Gap 8.0 mmol/L Blood Urea Nitrogen 24 mg/dl Creatinine 1.60 mg/dl Est Creatinine Clear Calc Drug Dose 61.7 ml/min Estimated GFR () 57.0 Estimated GFR (Non- 49.2 BUN/Creatinine Ratio 15.1 Random Glucose 325 mg/dl Calcium Level 8.0 mg/dl Phosphorus Level 2.3 mg/dl Magnesium Level 1.9 mg/dl Beta-Hydroxybutyric Acid 0.80 mg/dL Test 08/28/16 21:46 08/28/16 22:33 08/28/16 23:31 08/29/16 00:03 Bedside Glucose 251 mg/dl 254 mg/dl 188 mg/dl Venous Blood pH 7.44 Sodium Level 150 mmol/L Potassium Level 4.2 mmol/L Chloride Level 121 mmol/L Carbon Dioxide Level 19 mmol/L Anion Gap 10.0 mmol/L Blood Urea Nitrogen 25 mg/dl Creatinine 1.60 mg/dl Est Creatinine Clear Calc Drug Dose 61.7 ml/min Estimated GFR () 57.0 Estimated GFR (Non- 49.2 BUN/Creatinine Ratio 15.4 Random Glucose 204 mg/dl Calcium Level 8.0 mg/dl Phosphorus Level 2.1 mg/dl Magnesium Level 1.9 mg/dl Test 08/29/16 00:26 08/29/16 01:23 08/29/16 02:21 08/29/16 03:26 Bedside Glucose 179 mg/dl 148 mg/dl 130 mg/dl 87 mg/dl Test 08/29/16 03:53 08/29/16 04:27 08/29/16 04:58 08/29/16 06:31 Bedside Glucose 95 mg/dl 82 mg/dl 57 mg/dl White Blood Count 8.17 K/uL Red Blood Count 3.79 M/uL Hemoglobin 11.3 g/dL Hematocrit 32.9 % Mean Corpuscular Volume 86.8 fL Mean Corpuscular Hemoglobin 29.8 pg Mean Corpuscular Hemoglobin Concent 34.3 g/dl RDW Standard Deviation 52.8 fL RDW Coefficient of Variation 16.4 % Platelet Count 48 K/uL Venous Blood pH 7.42 Sodium Level 150 mmol/L Potassium Level 4.0 mmol/L Chloride Level 122 mmol/L Carbon Dioxide Level 19 mmol/L Anion Gap 9.0 mmol/L Blood Urea Nitrogen 24 mg/dl Creatinine 1.50 mg/dl Est Creatinine Clear Calc Drug Dose 65.8 ml/min Estimated GFR () 61.6 Estimated GFR (Non- 53.1 BUN/Creatinine Ratio 15.8 Random Glucose 91 mg/dl Estimated Average Glucose 123 mg/dl Hemoglobin A1c 5.9 % Calcium Level 7.8 mg/dl Phosphorus Level 1.9 mg/dl Magnesium Level 1.8 mg/dl Test 08/29/16 07:06 Bedside Glucose 169 mg/dl Assessment and Plan 51 y/o male, with PMHx of ulcerative colitis with primary sclerosing cholangitis s/p total abdominal colectomy, with subsequent recurrence of PSC, s/ p liver transplant (2007) , post-transplant ITP, portal vein thrombosis s/p TIPS , spleno-renal shunt s/p embolization (2015), CKD stage III, anxiety/ depression, hypothyroidism, DM, GERD, and BPH, who presented to the ED because of AMS. Mild DKA w/ sugar of 671/Insulin-dependent DM: - Admit to tele for cardiac monitoring - DKA protocol w/ insulin drip , Since sugars are improved will stop insulin gtt and start home insulin regimen. - Change IV fluids to 1/2 NSS. - Home medication includes: Lantus 40 u BID w/ sliding scale - Hgba1c is 5.9 - Replete lytes AMS, ?secondary to hepatic encephalopathy w/ ammonia level of 66: - Does not appear significantly elevated compared to previous records - Continue Xifaxan - Consult GI - Will check CXR to r/o infectious cause - UA reviewed Liver transplant status: - Continue Tacrolimus 0.5 mg PO BID, Ursodiol 300 mg PO QID, Prednisone 10 mg daily - Follows w/ Cris Thrombocytopenia, plt 29- baseline plt >40 : - Continue Promacta 50 mg PO daily - Follow CBC - Follows w/ Yen Ferguson- consult, appreciate recommendations Immunodeficiency: Continue Hizentra 12 g IM weekly CKD, stage III- stable: Follow PRP Chronic coagulopathy- stable Chronically elevated alk phos and bilirubin- stable Insomnia/anxiety and depression- worsening secondary to father passing: - Continue Mirtazapine at 15 mg PO HS - Consult mental health, appreciate recommendations Hypothyroidism: - Continue Synthroid 88 mcg daily - TSH of 1.229 on 02/26/16 BPH with bladder outlet obstruction history: Continue Savi 1 capsule PO HS Peripheral neuropathy: Continue Topamax at 50 mg PO HS Allergy: Continue Hydroxyzine 50 mg PO TID PRN GERD:Continue Protonix 40 mg daily GI Prophylaxis: Maalox PRN, IV Zofran PRN, Colace and/or Milk of Mag PRN DVT prophylaxis: GILMA and SCDs Code Status: LEVEL I, FULL
--- NOTE | 2016-08-29 11:18 | Progress Note ---
Progress Note Date of Service Aug 29, 2016. (Anna London ., SHANIKA) Progress Note Chart reviewed. Mr. Burnette appears to be established with [facility]. Discussed this with family and they would like [facility] to provide care while Mr. Burnette is admitted as he is established with Dr. Vaughn. [facility] to sign off. Paged the primary team to discuss changing the referral. (Anna London ., SHANIKA)
[2016-08-29] MEDS: SODIUM CHLOR 0.45% + 20MEQ KCL 1,000 ML IV SCH ×2 (11:22→17:40)
[2016-08-29] MEDS: MAGNESIUM OXIDE 400 MG TAB PO SCH (12:20)
[2016-08-29] MEDS: POT PHOSPHATE MONOBASIC W/ SOD TAB PO SCH ×2 (12:20→21:00)
[2016-08-29 12:46] LABS: BUN/CREATININE RATIO 14.4 (10-20); CALCIUM 7.8 mg/dl (8.5-10.1); CREATININE 1.5 mg/dl (0.60-1.40); MAGNESIUM 1.6 mg/dl (1.8-2.4); PHOSPHORUS 2.1 mg/dl (2.5-4.9)
[2016-08-29] MEDS ORDERED: NURSING VERBAL MED ORDER ONE ×2 (13:00→17:15)
[2016-08-29] MEDS ORDERED: ELTROMBOPAG 50 MG TAB PO ONE (13:15)
--- NOTE | 2016-08-29 13:20 | Oncology Consultation ---
Oncology/Heme Consultation Date of Consultation: Aug 29, 2016. Attending Physician: Issac Gary M.D. Reason for Consultation: Chronic ITP/thrombocytopenia History of Present Illness Mr. Burnette is a 51 year old man with a very complicated past medical history, including UC and PSC status post a liver transplant. Post transplant, he has developed chronic ITP that is managed with eltrombopag (Promacta). He presented with altered mental status and was found to be hyperglycemic and acidotic. His platelets on admission were 23. By his own admission, he was non-compliant with a variety of his medications, including the Promacta, for a few days to a week prior to presentation. He denies any fevers, chills, UTI symptoms, cough, sputum , or nausea. He has chronically loose stools, but they are not worse recently. He denies any major or nuisance bleeding. Past Medical/Surgical History Medical Problems: (1) Altered mental status Status: Acute (2) Anemia Status: Acute (3) Diabetes mellitus out of control Status: Acute (4) Hyperammonemia Status: Acute (5) Hyperglycemia Status: Acute (6) Hyperglycemia Status: Acute (7) Hyperkalemia Status: Acute (8) Kidney injury Status: Acute (9) Tenosynovitis Status: Acute (10) Thrombocytopenia Status: Acute Family History FHx: cancer FHx: heart disease FHx: hypertension Social History Smoking Status: Never Smoker Drug Use: none Marital Status: single Housing Status: lives with family Occupation Status: disabled Allergies Coded Allergies: Levofloxacin (Verified Allergy, Unknown, UNKNOWN, 08/28/16) FROM [facility] ORDER FORM Home Medications Scheduled Cholecalciferol (Vitamin D3), 1 TAB PO BID Dutasteride-Tamsulosin Hcl (Savi), 1 CAP PO HS Eltrombopag Olamine (Promacta), 50 MG PO DAILY Immune Globulin (Human) Subcut (Hizentra), 12 GM SC WK Insulin Aspart (Novolog), 1 DOSE SC ACHS Insulin Glargine (Lantus), 40 UNITS SC AMPM Levothyroxine Sodium (Levothyroxine Sodium), 88 MCG PO QAM Mirtazapine Soltab (Remeron Soltab), 15 MG PO HS Pantoprazole (Protonix), 40 MG PO QPM Prednisone Tab (Prednisone), 10 MG PO QAM Rifaximin (Xifaxan), 550 MG PO BID Tacrolimus (Prograf), 0.5 MG PO QAM Topiramate (Topamax ), 2 TAB PO HS Ursodiol (Ursodiol), 1 CAP PO QID Scheduled PRN Acetaminophen (Tylenol Arthritis Ext Rel), 650 MG PO Q8H PRN for Pain or Fever Epinephrine (Epipen 2-[place]), 0.3 MG IM UD PRN for ALLERGIC REACTION Hydroxyzine Hcl (Atarax), 50 MG PO 3-4XD PRN for Itching Ondansetron Hcl (Zofran), 1-2 TABS PO Q6H PRN for Nausea Temazepam (Restoril), 30 MG PO HS PRN for Sleep Tramadol (Ultram), 50 MG PO Q6H PRN for Pain Miscellaneous Medications Loperamide Hcl (Imodium), 2 MG PO Current Inpatient Medications Current Inpatient Medications Medications (Trade) Dose Ordered Sig/Tristen Route Start Time Stop Time Status Last Admin Dose Admin Epinephrine (Epipen) 0.3 mg UD PRN IM 08/28/16 12:15 09/27/16 12:14 Hydroxyzine HCl (Vistaril Tab) 50 mg TID PRN PO 08/28/16 12:15 09/27/16 12:14 Levothyroxine Sodium (Synthroid Tab) 88 mcg DAILYBB PO 08/29/16 06:00 09/28/16 05:59 08/29/16 05:09 88 MCG Ondansetron HCl (Zofran Tab) 8 mg Q6H PRN PO 08/28/16 12:15 09/27/16 12:14 Pantoprazole Sodium (Protonix Tab) 40 mg QPM PO 08/28/16 21:00 09/27/16 20:59 08/28/16 21:37 40 MG Prednisone (PredniSONE TAB) 10 mg QAM PO 08/29/16 09:00 09/28/16 08:59 08/29/16 08:01 10 MG Rifaximin (Xifaxan Tab) 550 mg BID PO 08/28/16 21:00 09/27/16 20:59 08/29/16 08:01 550 MG Tacrolimus (Prograf Cap) 0.5 mg QAM PO 08/29/16 09:00 5/6/17 08:59 08/29/16 08:00 0.5 MG Temazepam (Restoril Cap) 30 mg HS PRN PO 08/28/16 12:15 09/27/16 12:14 08/29/16 02:30 30 MG Topiramate (Topamax Tab) 50 mg HS PO 08/28/16 21:00 09/27/16 20:59 08/28/16 21:37 50 MG Tramadol HCl (Ultram Tab) 50 mg Q6H PRN PO 08/28/16 12:15 09/27/16 12:14 08/29/16 10:31 50 MG Ursodiol (Actigall Cap) 300 mg QID PO 08/28/16 17:00 09/27/16 16:59 08/29/16 12:20 300 MG Acetaminophen (Tylenol Tab) 650 mg Q8H PRN PO 08/28/16 15:15 09/27/16 15:14 Miscellaneous Information (Order Awaiting Action) 1 ea QS N/A 08/28/16 16:00 09/27/16 15:59 Mirtazapine (Remeron Solutab) 15 mg HS PO 08/28/16 21:00 09/27/16 20:59 08/28/16 21:37 15 MG Miscellaneous Information (Consult Glycemic Management Pharmacy) 1 ea UD PRN N/A 08/28/16 12:15 09/27/16 12:14 Al Hydrox/Mg Hydrox/Simethicone (Maalox Max Susp) 15 ml Q4H PRN PO 08/28/16 12:15 09/27/16 12:14 Magnesium Hydroxide (Milk Of Magnesia Susp) 30 ml Q12H PRN PO 08/28/16 12:15 09/27/16 12:14 Ondansetron HCl (Zofran Inj) 4 mg Q6H PRN IV 08/28/16 12:15 09/27/16 12:14 Nitroglycerin (Nitrostat Tab) 0.4 mg UD PRN SL 08/28/16 12:15 09/27/16 12:14 Polyethylene (Miralax Powder Packet) 17 gm DAILY PRN PO 08/28/16 12:15 09/27/16 12:14 Glucose (Glucose 40% Gel) UD PRN PO 08/28/16 13:15 09/27/16 13:14 Glucose (Glucose Chew Tab) 1 tabs UD PRN PO 08/28/16 13:15 09/27/16 13:14 Dextrose (Dextrose 50% 50ML Syringe) 50 ml UD PRN IV 08/28/16 13:15 09/27/16 13:14 08/29/16 06:46 50 ML Glucagon (Glucagon Inj) 1 mg UD PRN SQ 08/28/16 13:15 09/27/16 13:14 Miscellaneous (Iv Fluids Completed) 1 ea PRN PRN N/A 08/28/16 13:45 08/28/17 13:44 Insulin Aspart (novoLOG ASPART) SLIDING SCALE ACHS SC 08/29/16 08:00 09/28/16 07:59 08/29/16 07:59 2 UNITS Insulin Glargine (Lantus Solostar Pen) see protocol text BID SC 08/29/16 21:00 09/28/16 20:59 Insulin Aspart (novoLOG ASPART) SLIDING SCALE 0200 SC 08/30/16 02:00 09/29/16 01:59 Potassium/ Phosphorus/Sodium (Phospha 250 Neutral 155-852-130 Mg) 1 tab BID PO 08/29/16 12:00 09/28/16 11:59 08/29/16 12:20 1 TAB Magnesium Oxide 400 mg 400 mg QAM PO 08/29/16 12:00 09/28/16 11:59 08/29/16 12:20 400 MG Potassium Chloride/Sodium Chloride (1/2 Nss + 20meq KCl 1000ml) 1,000 ml @ 150 mls/hr Q6H40M IV 08/29/16 11:00 09/28/16 10:59 08/29/16 11:22 150 MLS/HR Eltrombopag (Promacta) 50 mg QAM PO 08/30/16 09:00 09/29/16 08:59 Dutasteride/ Tamsulosin (Savi 0.5-0.4 Mg) 1 cap HS PO 08/29/16 21:00 09/28/16 20:59 Miscellaneous Information (Nursing Verbal Med Order) 1 ea ONE ONCE N/A 08/29/16 13:00 08/29/16 13:01 UNV Review of Systems Constitutional: + fatigue, + weight loss, No chills, No fever ENT: No unusual epistaxis Respiratory: No cough, No hemoptysis, No shortness of breath Cardiovascular: No chest pain Abdomen: + diarrhea (chronic), No GI bleeding, No nausea, No pain Musculoskeletal: No joint pain, No muscle pain Genitourinary - Male: No dysuria, No hematuria Neurologic: No numbness/tingling, No weakness Hematologic / Lymphatic: No abnormal bleeding/bruising, No swollen lymph nodes Integumentary: No rash Physical Exam Date Time Temp Pulse Resp B/P Pulse Ox O2 Delivery O2 Flow Rate FiO2 08/29/16 12:00 Room Air 08/29/16 11:23 36.9 86 18 153/95 96 Room Air 08/29/16 08:00 Room Air 08/29/16 07:40 36.4 98 18 163/104 96 Room Air 08/29/16 06:18 132/74 08/29/16 04:00 Room Air 08/29/16 02:35 36.8 90 20 164/94 97 Room Air 08/29/16 00:00 Room Air 08/28/16 22:50 36.9 93 20 144/95 95 Room Air 08/28/16 21:00 95 Room Air 08/28/16 18:40 36.6 92 18 141/90 95 Room Air 08/28/16 15:56 Room Air 08/28/16 15:00 36.6 95 24 142/96 98 Room Air 08/28/16 14:05 36.8 90 18 162/97 99 Room Air 08/28/16 13:38 88 18 153/93 99 Room Air General Appearance: WD/WN Eyes: EOMI ENT: + pertinent finding (dry mucous membranes) Respiratory/Chest: chest non-tender, lungs clear Cardiovascular: regular rate, rhythm Abdomen/GI: non tender, soft, no organomegaly Extremities/Musculoskelatal: no calf tenderness, no pedal edema Neurologic/Psych: alert, oriented x 3 Skin: warm/dry, no rash Laboratory Results Last 24 Hours Test 08/28/16 14:32 08/28/16 15:32 08/28/16 16:00 08/28/16 16:30 Bedside Glucose 338 mg/dl 312 mg/dl 335 mg/dl Venous Blood pH 7.41 Sodium Level 144 mmol/L Potassium Level 4.0 mmol/L Chloride Level 115 mmol/L Carbon Dioxide Level 18 mmol/L Anion Gap 11.0 mmol/L Blood Urea Nitrogen 23 mg/dl Creatinine 1.60 mg/dl Est Creatinine Clear Calc Drug Dose 61.7 ml/min Estimated GFR () 57.0 Estimated GFR (Non- 49.2 BUN/Creatinine Ratio 14.6 Random Glucose 365 mg/dl Calcium Level 8.3 mg/dl Phosphorus Level 2.4 mg/dl Magnesium Level 2.0 mg/dl Beta-Hydroxybutyric Acid 0.82 mg/dL Test 08/28/16 17:32 08/28/16 18:36 08/28/16 19:26 08/28/16 20:04 Bedside Glucose 357 mg/dl 312 mg/dl 316 mg/dl Venous Blood pH 7.46 Sodium Level 145 mmol/L Potassium Level 4.4 mmol/L Chloride Level 117 mmol/L Carbon Dioxide Level 20 mmol/L Anion Gap 8.0 mmol/L Blood Urea Nitrogen 24 mg/dl Creatinine 1.60 mg/dl Est Creatinine Clear Calc Drug Dose 61.7 ml/min Estimated GFR () 57.0 Estimated GFR (Non- 49.2 BUN/Creatinine Ratio 15.1 Random Glucose 325 mg/dl Calcium Level 8.0 mg/dl Phosphorus Level 2.3 mg/dl Magnesium Level 1.9 mg/dl Beta-Hydroxybutyric Acid 0.80 mg/dL Test 08/28/16 20:27 08/28/16 21:46 08/28/16 22:33 08/28/16 23:31 Bedside Glucose 258 mg/dl 251 mg/dl 254 mg/dl 188 mg/dl Test 08/29/16 00:03 08/29/16 00:26 08/29/16 01:23 08/29/16 02:21 Venous Blood pH 7.44 Sodium Level 150 mmol/L Potassium Level 4.2 mmol/L Chloride Level 121 mmol/L Carbon Dioxide Level 19 mmol/L Anion Gap 10.0 mmol/L Blood Urea Nitrogen 25 mg/dl Creatinine 1.60 mg/dl Est Creatinine Clear Calc Drug Dose 61.7 ml/min Estimated GFR () 57.0 Estimated GFR (Non- 49.2 BUN/Creatinine Ratio 15.4 Random Glucose 204 mg/dl Calcium Level 8.0 mg/dl Phosphorus Level 2.1 mg/dl Magnesium Level 1.9 mg/dl Bedside Glucose 179 mg/dl 148 mg/dl 130 mg/dl Test 08/29/16 03:26 08/29/16 03:53 08/29/16 04:27 08/29/16 04:58 Bedside Glucose 87 mg/dl 95 mg/dl 82 mg/dl White Blood Count 8.17 K/uL Red Blood Count 3.79 M/uL Hemoglobin 11.3 g/dL Hematocrit 32.9 % Mean Corpuscular Volume 86.8 fL Mean Corpuscular Hemoglobin 29.8 pg Mean Corpuscular Hemoglobin Concent 34.3 g/dl RDW Standard Deviation 52.8 fL RDW Coefficient of Variation 16.4 % Platelet Count 48 K/uL Venous Blood pH 7.42 Sodium Level 150 mmol/L Potassium Level 4.0 mmol/L Chloride Level 122 mmol/L Carbon Dioxide Level 19 mmol/L Anion Gap 9.0 mmol/L Blood Urea Nitrogen 24 mg/dl Creatinine 1.50 mg/dl Est Creatinine Clear Calc Drug Dose 65.8 ml/min Estimated GFR () 61.6 Estimated GFR (Non- 53.1 BUN/Creatinine Ratio 15.8 Random Glucose 91 mg/dl Estimated Average Glucose 123 mg/dl Hemoglobin A1c 5.9 % Calcium Level 7.8 mg/dl Phosphorus Level 1.9 mg/dl Magnesium Level 1.8 mg/dl Test 08/29/16 06:31 08/29/16 07:06 08/29/16 08:15 08/29/16 11:43 Bedside Glucose 57 mg/dl 169 mg/dl 180 mg/dl Venous Blood pH 7.45 Sodium Level 148 mmol/L Potassium Level 3.8 mmol/L Chloride Level 120 mmol/L Carbon Dioxide Level 17 mmol/L Anion Gap 11.0 mmol/L Blood Urea Nitrogen 24 mg/dl Creatinine 1.50 mg/dl Est Creatinine Clear Calc Drug Dose 65.8 ml/min Estimated GFR () 61.6 Estimated GFR (Non- 53.1 BUN/Creatinine Ratio 15.8 Random Glucose 151 mg/dl Calcium Level 7.4 mg/dl Phosphorus Level 1.9 mg/dl Magnesium Level 1.6 mg/dl Test 08/29/16 12:05 Venous Blood pH 7.43 Sodium Level 146 mmol/L Potassium Level 4.0 mmol/L Chloride Level 120 mmol/L Carbon Dioxide Level 17 mmol/L Anion Gap 9.0 mmol/L Blood Urea Nitrogen 22 mg/dl Creatinine 1.50 mg/dl Est Creatinine Clear Calc Drug Dose 65.8 ml/min Estimated GFR () 61.6 Estimated GFR (Non- 53.1 BUN/Creatinine Ratio 14.4 Random Glucose 175 mg/dl Calcium Level 7.8 mg/dl Phosphorus Level 2.1 mg/dl Magnesium Level 1.6 mg/dl Assessment & Plan Mr. Burnette was admitted yesterday with altered mentation that appears to be related to DKA or some other metabolic derangement. On admission, his platelets were 29. They have since risen to 48 after treating his other medical issues. His platelets generally ranged between 40 - 80 over the last year and a half, mostly in the 50-60s. He is back to that baseline. I suspect his acute drop was related to the inflammation associated with his DKA. I agree that we should evaluate him for any possible infections, though he does not have any obvious localizing signs. I would also restart his Promacta, which he will need to bring from home (we do not keep it on formulary).
[2016-08-29] MEDS ORDERED: QUETIAPINE FUMARATE 25 MG TAB PO PRN (14:00)
--- NOTE | 2016-08-29 14:00 | Psychiatric Consultation ---
Consultation Date of Consultation Aug 29, 2016. Identifying Data Mundo Burnette is a 51-year-old male coercing cholangitis, status post total colectomy as well as liver transplant, who presents to the emergency room with altered mental status, hyperglycemia. We are consulted to evaluate depression. Information is gathered from the patient, the electronic medical record, and outpatient clinic notes, all are considered to be reliable. Chief Complaint "OK". History of Present Illness Munod Burnette is a 51-year-old gentleman with ulcerative colitis, primary sclerosing cholangitis status post total colectomy and liver transplant in 2007 , also chronic kidney disease stage III, diabetes, GERD, BPH, hypothyroidism, who presents to the emergency room with elevated blood sugars and altered mental status. Workup is underway, ammonia noted to be elevated at 66, sugars stabilizing. We are consulted to evaluate his depression. The patient is currently a patient of Dr. Jeremie Elam's at some point [facility]. He was last seen there on August 12. At that time it was noted that his father passed on July 27, the patient was grieving and having trouble sleeping. Dr. Elam increased his when necessary Seroquel 25 or 50 mg at bedtime as needed. The patient was also noted to have been taking Restoril 15 mg a.m. and 30 mg at bedtime when it had been prescribed all at bedtime. He was also prescribed Remeron 15 mg bedtime. the patient was instructed not to be taking his Restoril during the day, but all at bedtime. With that adjustment to his medications, today the patient says his sleeping is improved however he tends to miss his father at night and thinks about him, thus interfering with his sleep. He admits to being sad and grieving however he does believe that it's getting better each week. He talks at length about his dad, in loving terms, giving examples of his father's sense of humor and kindness toward him. He admits that there are times that he gets confused and therefore currently has his mother holding his medications and dispensing them so that he does not take them in error. He denies suicidal thinking saying that he wants to remain alive in order to keep his father's humor alive as he believes he has the same sense of humor. He reports some anxiety, most specifically about not being able to sleep. He denies having any auditory or visual hallucinations. He is somewhat confused at the time of my visit today (had breakfast and refused lunch ) and required the assistance of his friend at the bedside to remind him of these things. Past Psychiatric History Current OP Treatment: psychiatrist Access to a Gun: No Allergies Allergies: Coded Allergies: Levofloxacin (Verified Allergy, Unknown, UNKNOWN, 08/28/16) FROM [facility] ORDER FORM Home Medications Scheduled Cholecalciferol (Vitamin D3), 1 TAB PO BID Dutasteride-Tamsulosin Hcl (Savi), 1 CAP PO HS Eltrombopag Olamine (Promacta), 50 MG PO DAILY Immune Globulin (Human) Subcut (Hizentra), 12 GM SC WK Insulin Aspart (Novolog), 1 DOSE SC ACHS Insulin Glargine (Lantus), 40 UNITS SC AMPM Levothyroxine Sodium (Levothyroxine Sodium), 88 MCG PO QAM Mirtazapine Soltab (Remeron Soltab), 15 MG PO HS Pantoprazole (Protonix), 40 MG PO QPM Prednisone Tab (Prednisone), 10 MG PO QAM Rifaximin (Xifaxan), 550 MG PO BID Tacrolimus (Prograf), 0.5 MG PO QAM Topiramate (Topamax ), 2 TAB PO HS Ursodiol (Ursodiol), 1 CAP PO QID Scheduled PRN Acetaminophen (Tylenol Arthritis Ext Rel), 650 MG PO Q8H PRN for Pain or Fever Epinephrine (Epipen 2-Rome), 0.3 MG IM UD PRN for ALLERGIC REACTION Hydroxyzine Hcl (Atarax), 50 MG PO 3-4XD PRN for Itching Ondansetron Hcl (Zofran), 1-2 TABS PO Q6H PRN for Nausea Temazepam (Restoril), 30 MG PO HS PRN for Sleep Tramadol (Ultram), 50 MG PO Q6H PRN for Pain Miscellaneous Medications Loperamide Hcl (Imodium), 2 MG PO Family History FHx: cancer FHx: heart disease FHx: hypertension History of Suicide: No History of Substance Abuse: No Alcohol Use Alcohol Use In Past 12 Months: No Smoking Use Smoking Status: Never Smoker Personal History [place] in[place] with his mother Education: graduated college Work History: On disability, used to work at 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 [employer] on campus Relationship History: never Children: none Legal History: none Review of Systems Constitutional: malaise Eyes: denies: as stated in HPI, blurred vision, discharge, double vision, eye pain, itching, no symptoms, other, photophobia, redness, tearing, visual changes ENT: denies: dental pain, ear discharge, ear pain, epistaxis, gum swelling, loss of hearing, mouth pain, mouth swelling, nasal congestion, nasal pain, no symptoms reported, other, rhinorrhea, see HPI, sore throat, stidor, throat swelling, tinnitus Cardiovascular: denies: chest pain, chest pressure, chest tightness, diaphoresis, no symptoms reported, other, palpitations, see HPI, syncope Respiratory: denies: GARRIDO, PND, cough, cyanosis, no symptoms reported, orthopnea , other, see HPI, short of breath, sputum production, stridor, wheezing Gastrointestinal: abdominal pain Genitourinary - Male: denies: amenorrhea, impotence, no symptoms, other, penile discharge, penile itching, rash, see HPI, testicular pain, testicular swelling Musculoskeletal: denies no symptoms reported, denies see HPI, denies back pain , denies gout, denies joint pain, denies joint swelling, denies muscle pain, denies muscle stiffness, denies neck pain, denies other Integumentary: denies no symptoms reported, denies see HPI, denies change in color, denies change in hair/nails, denies dryness, denies lesions, denies lumps , denies rash, denies other Neurologic: denies: dizziness, focal weakness, general weakness, headache, lethargy, memory loss, no symptoms, numbness, other, paresthesias, pre-existing deficit, see HPI, seizure, tics, tingling, tremors, vertigo Endocrine: denies: as stated in HPI, cold intolerance, goiter, hair changes, heat intolerance, no symptoms, other, polydipsia, polyuria, skin changes Hematologic / Lymphatic: denies: abnormal clotting, adenopathy, anemia, as stated in HPI, easy bleeding, easy bruising, gums bleeding, no symptoms, other, petechiae Examination Physical Examination As per Dr. Smith Vital Signs Vital Signs Past 12 Hours Date Time Temp Pulse Resp B/P Pulse Ox O2 Delivery O2 Flow Rate FiO2 08/29/16 12:00 Room Air 08/29/16 11:23 36.9 86 18 153/95 96 Room Air 08/29/16 08:00 Room Air 08/29/16 07:40 36.4 98 18 163/104 96 Room Air 08/29/16 06:18 132/74 08/29/16 04:00 Room Air 08/29/16 02:35 36.8 90 20 164/94 97 Room Air Laboratory Results Last 24 Hours Test 08/28/16 14:32 08/28/16 15:32 08/28/16 16:00 08/28/16 16:30 Bedside Glucose 338 mg/dl 312 mg/dl 335 mg/dl Venous Blood pH 7.41 Sodium Level 144 mmol/L Potassium Level 4.0 mmol/L Chloride Level 115 mmol/L Carbon Dioxide Level 18 mmol/L Anion Gap 11.0 mmol/L Blood Urea Nitrogen 23 mg/dl Creatinine 1.60 mg/dl Est Creatinine Clear Calc Drug Dose 61.7 ml/min Estimated GFR () 57.0 Estimated GFR (Non- 49.2 BUN/Creatinine Ratio 14.6 Random Glucose 365 mg/dl Calcium Level 8.3 mg/dl Phosphorus Level 2.4 mg/dl Magnesium Level 2.0 mg/dl Beta-Hydroxybutyric Acid 0.82 mg/dL Test 08/28/16 17:32 08/28/16 18:36 08/28/16 19:26 08/28/16 20:04 Bedside Glucose 357 mg/dl 312 mg/dl 316 mg/dl Venous Blood pH 7.46 Sodium Level 145 mmol/L Potassium Level 4.4 mmol/L Chloride Level 117 mmol/L Carbon Dioxide Level 20 mmol/L Anion Gap 8.0 mmol/L Blood Urea Nitrogen 24 mg/dl Creatinine 1.60 mg/dl Est Creatinine Clear Calc Drug Dose 61.7 ml/min Estimated GFR () 57.0 Estimated GFR (Non- 49.2 BUN/Creatinine Ratio 15.1 Random Glucose 325 mg/dl Calcium Level 8.0 mg/dl Phosphorus Level 2.3 mg/dl Magnesium Level 1.9 mg/dl Beta-Hydroxybutyric Acid 0.80 mg/dL Test 08/28/16 20:27 08/28/16 21:46 08/28/16 22:33 08/28/16 23:31 Bedside Glucose 258 mg/dl 251 mg/dl 254 mg/dl 188 mg/dl Test 08/29/16 00:03 08/29/16 00:26 08/29/16 01:23 08/29/16 02:21 Venous Blood pH 7.44 Sodium Level 150 mmol/L Potassium Level 4.2 mmol/L Chloride Level 121 mmol/L Carbon Dioxide Level 19 mmol/L Anion Gap 10.0 mmol/L Blood Urea Nitrogen 25 mg/dl Creatinine 1.60 mg/dl Est Creatinine Clear Calc Drug Dose 61.7 ml/min Estimated GFR () 57.0 Estimated GFR (Non- 49.2 BUN/Creatinine Ratio 15.4 Random Glucose 204 mg/dl Calcium Level 8.0 mg/dl Phosphorus Level 2.1 mg/dl Magnesium Level 1.9 mg/dl Bedside Glucose 179 mg/dl 148 mg/dl 130 mg/dl Test 08/29/16 03:26 08/29/16 03:53 08/29/16 04:27 08/29/16 04:58 Bedside Glucose 87 mg/dl 95 mg/dl 82 mg/dl White Blood Count 8.17 K/uL Red Blood Count 3.79 M/uL Hemoglobin 11.3 g/dL Hematocrit 32.9 % Mean Corpuscular Volume 86.8 fL Mean Corpuscular Hemoglobin 29.8 pg Mean Corpuscular Hemoglobin Concent 34.3 g/dl RDW Standard Deviation 52.8 fL RDW Coefficient of Variation 16.4 % Platelet Count 48 K/uL Venous Blood pH 7.42 Sodium Level 150 mmol/L Potassium Level 4.0 mmol/L Chloride Level 122 mmol/L Carbon Dioxide Level 19 mmol/L Anion Gap 9.0 mmol/L Blood Urea Nitrogen 24 mg/dl Creatinine 1.50 mg/dl Est Creatinine Clear Calc Drug Dose 65.8 ml/min Estimated GFR () 61.6 Estimated GFR (Non- 53.1 BUN/Creatinine Ratio 15.8 Random Glucose 91 mg/dl Estimated Average Glucose 123 mg/dl Hemoglobin A1c 5.9 % Calcium Level 7.8 mg/dl Phosphorus Level 1.9 mg/dl Magnesium Level 1.8 mg/dl Test 08/29/16 06:31 08/29/16 07:06 08/29/16 08:15 08/29/16 11:43 Bedside Glucose 57 mg/dl 169 mg/dl 180 mg/dl Venous Blood pH 7.45 Sodium Level 148 mmol/L Potassium Level 3.8 mmol/L Chloride Level 120 mmol/L Carbon Dioxide Level 17 mmol/L Anion Gap 11.0 mmol/L Blood Urea Nitrogen 24 mg/dl Creatinine 1.50 mg/dl Est Creatinine Clear Calc Drug Dose 65.8 ml/min Estimated GFR () 61.6 Estimated GFR (Non- 53.1 BUN/Creatinine Ratio 15.8 Random Glucose 151 mg/dl Calcium Level 7.4 mg/dl Phosphorus Level 1.9 mg/dl Magnesium Level 1.6 mg/dl Test 08/29/16 12:05 Venous Blood pH 7.43 Sodium Level 146 mmol/L Potassium Level 4.0 mmol/L Chloride Level 120 mmol/L Carbon Dioxide Level 17 mmol/L Anion Gap 9.0 mmol/L Blood Urea Nitrogen 22 mg/dl Creatinine 1.50 mg/dl Est Creatinine Clear Calc Drug Dose 65.8 ml/min Estimated GFR () 61.6 Estimated GFR (Non- 53.1 BUN/Creatinine Ratio 14.4 Random Glucose 175 mg/dl Calcium Level 7.8 mg/dl Phosphorus Level 2.1 mg/dl Magnesium Level 1.6 mg/dl Mental Examination During interview pt is: cooperative, other (Disoriented to day date time) Appearance: disheveled Eye contact is: good Motor behavior is: no abnormal motor movements Speech: normal in rate, rhythm & volume Affect: blunted Mood is: other (sad) Thought process: goal directed Thought content: reality based without delusions Suicidal thought are: denied Homicidal thoughts are: denied Hallucinations: denies auditory, denies visual Cognition: memory grossly intact, attention grossly intact, language grossly intact Intelligence estimated to be: average Insight: fair Judgement: fair Impression / Recommendations Impression 51-year-old gentleman with multiple medical problems, admitted to the hospital with altered mental status and hyperglycemia. We are consulted to evaluate depression. The patient readily admits that he is grieving the loss of his beloved father and his mood is sad, but he denies suicidality. He is mildly disoriented today which may be attributable to his multiple medical conditions and an elevated ammonia at 66. By the descriptions in the chart, he sounds as if he may be improved today. He does have times when he has confused at home and has put safety measures in place, such as having his mother manage his medications. For now I will make sure that his medications are as Dr. Elam prescribed and I have offered to return to see the patient at his request at any time. I do not believe medication adjustments are indicated at this time and we will return him to the outpatient care of Dr. Elam. Inventory Assets Strengths: Support of family, established OP care Risk Factors Assessment Male: Yes : Yes /single/: Yes Higher / Fall in social status: No Access to guns: No Health problems: Yes Mental Health Diagnoses: Yes Substance use disorders: No Protective Factors Assessment Gnosticist beliefs: Yes : No Responsible for young children: No Employed: No Stable relationships: Yes Supportive family: Yes Good rapport with provider: Yes Recommendations (1) Altered mental status 08/29/16 - Multifactorial R/T hyperammonemia, hyperglycemia, grief - Avoid deliriogenic meds such as opiates, BZDs, anticholinergics - Agree with reducing restoril to 30 mg. hs (2) Major depressive disorder, recurrent, moderate 08/29/16 --Continue OP meds. Will add the seroquel 25-50 mg. HS prn sleep and agree with decrease Restoril to 30 mg HS - Encourage good sleep hygiene including awake in the day, out of bed as able , avoid napping. Has been reviewed with Dr. Friedman
[2016-08-29] MEDS ORDERED: LOPERAMIDE HCL 2 MG CAP PO PRN (17:30)
--- NOTE | 2016-08-29 20:26 | Anesthesiology Progress Note ---
Anesthesia Progress Note Date of Service Aug 29, 2016. Progress Notes Mr. Burnette has a complicated PMH to include primary sclerosing cholangitis s/p abdominal colectomy with recurrence of the PSC s/p liver transplant in 2007. Patient developed post-transplant ITP. He is s/p portal vein thrombosis s/p TIPS procedure and a spleno-renal shunt s/o embolization in Apr 2016. Patient presented on 08/27/16 with some acute mental status changes and was found to be in mild DKA and was hydrated and started on an insulin infusion. The infusion has since been converted to his regular home regimen. Patient reported that he had not been compliant with his home regimen of insulin which likely led to the DKA. Other PMH significant for UC, IDDM, hypothyroidism, CKD (stage 3), anxiety and depression. He is a never smoker and states he is ambulatory and can walk stairs. He denied any respiratory or cardiovascular problems. He denied any SOB or chest pains/pressures/lightheadedness. EKG was not found on file so one was ordered and is pending. Labs showed anemia with H/H of 11.3/32.9. His platelets are 48 and usually rnage from 40-80 per report. Airway exam showed MP 2 with many missing teeth. He has a thick neck and is slightly micrognathic. Patient is on the schedule for ERCP although patient did not know he was definitively scheduled for this procedure. I explained the anesthesia to him and he agreed for GA however I also spoke on the phone to the patient's mother who also agreed to GA. No consent for the ERCP had been obtained at the time of the preop eval and the patient's mother stated she wanted to speak with the GI physician prior to the procedure as she is concerned given his extensive GI history that his transplant team in [place] should be involved with his care. He is a long-time patient of Dr. Vaughn [facility]. Of note, patient does not have an NPO order so patient's nurse was to contact his hospitalist team to see whether or not he is actually going for the procedure tomorrow and if so, he shall be made NPO. Patient has very significant medical issues but appears to be appropriately optimized to undergo anesthesia tomorrow. All questions answered for patient and his mother.
[2016-08-29] MEDS: DUTASTERIDE-TAMSULOSIN HCL 1 CAP CAP PO SCH (21:00)
[2016-08-29] MEDS: INSULIN GLARGINE SOLOSTAR 100 UNITS/ML 3 ML PEN SC SCH (21:00)
[2016-08-29] MEDS: PANTOprazole SOD 40 MG TAB PO SCH (21:00)
[2016-08-29] MEDS: TOPIRAMATE 25 MG TAB PO SCH (21:00)
[2016-08-29] MEDS: MIRTAZAPINE SOLTAB 15 MG PO SCH (21:00)
[2016-08-30] MEDS: SODIUM CHLOR 0.45% + 20MEQ KCL 1,000 ML IV SCH ×3 (01:04→20:20)
[2016-08-30] MEDS ORDERED: INSULIN ASPART 100 UNITS/ML 3 ML PEN SC SCH (02:00)
[2016-08-30 02:40] VITALS: BP 138/91; PULSE 80; TEMP 37; O2SAT 97
[2016-08-30] MEDS: LEVOTHYROXINE 88 MCG TAB PO SCH (06:15)
[2016-08-30] MEDS: INSULIN ASPART 100 UNITS/ML 3 ML PEN SC SCH ×4 (06:39→20:22)
--- NOTE | 2016-08-30 07:10 | Hospitalist Progress Note ---
Hospitalist Progress Note Date of Service Aug 30, 2016. Subjective Pt evaluation today including: conversation w/ patient, physical exam, chart review Improved abd.pain. No CP or SOB. Medications Medications (Trade) Dose Ordered Sig/Tristen Route Start Time Stop Time Status Last Admin Dose Admin Prednisone (PredniSONE TAB) 10 mg QAM PO 08/29/16 09:00 09/28/16 08:59 08/29/16 08:01 10 MG Tacrolimus (Prograf Cap) 0.5 mg QAM PO 08/29/16 09:00 09/28/16 08:59 08/29/16 08:00 0.5 MG Insulin Aspart (novoLOG ASPART) SLIDING SCALE ACHS SC 08/29/16 08:00 09/28/16 07:59 08/29/16 16:59 1 UNITS Insulin Glargine (Lantus Solostar Pen) 15 unit TODAY@0800 ONCE SC 08/29/16 08:00 08/29/16 08:01 DC 08/29/16 08:00 15 UNIT Insulin Glargine (Lantus Solostar Pen) see protocol text BID SC 08/29/16 21:00 09/28/16 20:59 08/29/16 21:00 20 UNIT Miscellaneous (Stop Order) 1 ea 0800 ONCE N/A 08/29/16 08:00 08/29/16 08:01 DC 08/29/16 07:56 1 EA Potassium/ Phosphorus/Sodium (Phospha 250 Neutral 155-852-130 Mg) 1 tab BID PO 08/29/16 12:00 09/28/16 11:59 08/29/16 21:00 1 TAB Magnesium Oxide 400 mg 400 mg QAM PO 08/29/16 12:00 09/28/16 11:59 08/29/16 12:20 400 MG Potassium Chloride/Sodium Chloride (1/2 Nss + 20meq KCl 1000ml) 1,000 ml @ 100 mls/hr Q10H IV 08/29/16 11:00 09/29/16 10:59 08/30/16 01:04 100 MLS/HR Dutasteride/ Tamsulosin (Savi 0.5-0.4 Mg) 1 cap HS PO 08/29/16 21:00 09/28/16 20:59 08/29/16 21:00 1 CAP Eltrombopag (Promacta) 50 mg NOW ONCE PO 08/29/16 13:15 08/29/16 13:16 DC 08/29/16 13:48 50 MG Objective Vital Signs Date Time Temp Pulse Resp B/P Pulse Ox O2 Delivery O2 Flow Rate FiO2 08/30/16 04:00 Room Air 08/30/16 02:40 37.0 80 18 138/91 97 Room Air 08/30/16 00:00 Room Air 08/29/16 23:10 36.9 80 20 137/99 96 Room Air 08/29/16 20:00 Room Air 08/29/16 19:40 159/89 08/29/16 19:00 36.6 77 18 144/100 96 Room Air 08/29/16 16:00 Room Air 08/29/16 15:00 36.5 83 20 147/93 95 Room Air 08/29/16 12:00 Room Air 08/29/16 11:23 36.9 86 18 153/95 96 Room Air 08/29/16 08:00 Room Air 08/29/16 07:40 36.4 98 18 163/104 96 Room Air Physical Exam General Appearance: WD/WN Eyes: normal inspection ENT: normal ENT inspection Neck: supple, no adenopathy, no JVD Respiratory/Chest: chest non-tender, lungs clear Cardiovascular: regular rate, rhythm Abdomen: normal bowel sounds, non tender, soft Neurologic/Psychiatric: senior environmental technician II-XII nml as tested, oriented x 3 Skin: normal color Laboratory Results Last 24 Hours Test 08/29/16 08:15 08/29/16 11:43 08/29/16 12:05 08/29/16 16:23 Venous Blood pH 7.45 7.43 Sodium Level 148 mmol/L 146 mmol/L Potassium Level 3.8 mmol/L 4.0 mmol/L Chloride Level 120 mmol/L 120 mmol/L Carbon Dioxide Level 17 mmol/L 17 mmol/L Anion Gap 11.0 mmol/L 9.0 mmol/L Blood Urea Nitrogen 24 mg/dl 22 mg/dl Creatinine 1.50 mg/dl 1.50 mg/dl Est Creatinine Clear Calc Drug Dose 65.8 ml/min 65.8 ml/min Estimated GFR () 61.6 61.6 Estimated GFR (Non- 53.1 53.1 BUN/Creatinine Ratio 15.8 14.4 Random Glucose 151 mg/dl 175 mg/dl Calcium Level 7.4 mg/dl 7.8 mg/dl Phosphorus Level 1.9 mg/dl 2.1 mg/dl Magnesium Level 1.6 mg/dl 1.6 mg/dl Bedside Glucose 180 mg/dl 152 mg/dl Test 08/29/16 20:16 08/30/16 01:58 08/30/16 06:38 08/30/16 06:58 Bedside Glucose 167 mg/dl 103 mg/dl 85 mg/dl Assessment and Plan 51 y/o male, with PMHx of ulcerative colitis with primary sclerosing cholangitis s/p total abdominal colectomy, with subsequent recurrence of PSC, s/ p liver transplant (2007) , post-transplant ITP, portal vein thrombosis s/p TIPS , spleno-renal shunt s/p embolization (2015), CKD stage III, anxiety/ depression, hypothyroidism, DM, GERD, and BPH, who presented to the ED because of AMS. Mild DKA w/ sugar of 671/Insulin-dependent DM: - Admit to tele for cardiac monitoring - DKA protocol w/ insulin drip , Since sugars are improved will stop insulin gtt and start home insulin regimen. - Change IV fluids to 1/2 NSS. Continue IV fluids. - Home medication includes: Lantus 40 u BID w/ sliding scale - Hgba1c is 5.9 - Replete lytes AMS, ?secondary to hepatic encephalopathy w/ ammonia level of 66: - Does not appear significantly elevated compared to previous records - Continue Xifaxan - Consult GI. Pt to be seen by . - CXR is negative. - UA reviewed Liver transplant status: - Continue Tacrolimus 0.5 mg PO BID, Ursodiol 300 mg PO QID, Prednisone 10 mg daily - Follows w/ Cris Thrombocytopenia, plt 29- baseline plt >40 : - Continue Promacta 50 mg PO daily - Follow CBC - Follows w/ Yen Ferguson- consult, appreciate recommendations Immunodeficiency: Continue Hizentra 12 g IM weekly CKD, stage III- stable: Follow PRP Chronic coagulopathy- stable Chronically elevated alk phos and bilirubin- stable Insomnia/anxiety and depression- worsening secondary to father passing: - Continue Mirtazapine at 15 mg PO HS - Consult mental health, appreciate recommendations Hypothyroidism: - Continue Synthroid 88 mcg daily - TSH of 1.229 on 02/26/16 BPH with bladder outlet obstruction history: Continue Savi 1 capsule PO HS Peripheral neuropathy: Continue Topamax at 50 mg PO HS Allergy: Continue Hydroxyzine 50 mg PO TID PRN GERD:Continue Protonix 40 mg daily GI Prophylaxis: Maalox PRN, IV Zofran PRN, Colace and/or Milk of Mag PRN DVT prophylaxis: GILMA and SCDs Code Status: LEVEL I, FULL
[2016-08-30 07:12] LABS: HEMATOCRIT 32.9 % (42-52); MEAN CELL VOLUME 85.2 fL (80-100); MEAN CORPUSCULAR HEMOGLOBIN 29.5 pg (25-34); MEAN CORPUSCULAR HGB CONC 34.7 g/dl (32-36); RED BLOOD COUNT 3.86 M/uL (4.7-6.1); WHITE BLOOD COUNT 6.09 K/uL (4.8-10.8)
[2016-08-30 07:40] VITALS: BP 148/98; PULSE 87; TEMP 36.7; O2SAT 96
[2016-08-30 07:47] LABS: ALB/GLOB RATIO 1.1 (0.9-2); BUN/CREATININE RATIO 14.1 (10-20); CALCIUM 7.8 mg/dl (8.5-10.1); CREATININE 1.3 mg/dl (0.60-1.40); MAGNESIUM 1.6 mg/dl (1.8-2.4); PHOSPHORUS 2.4 mg/dl (2.5-4.9); PLATELET COUNT 64 K/uL (130-400)
[2016-08-30 07:51] LABS: BASO ABS # 0.06 K/uL (0-0.2); COMPLETE YES; ECHINOCYTES 2+; EOS % 4.4 %; LYMPH % 9.7 %; LYMPH ABS # 0.59 K/uL (1.2-3.4); MONO % 6.9 %; PLT ESTIMATE DECREASED
[2016-08-30] MEDS: POT PHOSPHATE MONOBASIC W/ SOD TAB PO SCH ×2 (08:04→20:20)
[2016-08-30] MEDS: MAGNESIUM OXIDE 400 MG TAB PO SCH (08:04)
[2016-08-30] MEDS: TACROLIMUS 0.5 MG CAP PO SCH (08:04)
[2016-08-30] MEDS: URSODIOL 300 MG CAP PO SCH ×4 (08:04→20:20)
[2016-08-30] MEDS: ELTROMBOPAG 50 MG TAB PO SCH (08:05)
[2016-08-30] MEDS: RIFAXIMIN TAB 550 MG TAB PO SCH ×2 (08:05→20:21)
[2016-08-30] MEDS: INSULIN GLARGINE SOLOSTAR 100 UNITS/ML 3 ML PEN SC SCH ×2 (08:07→20:23)
--- NOTE | 2016-08-30 09:53 | Pharmacy Progress Note ---
Glycemic Control: Progress Nt Date of Service Aug 30, 2016. Scope Glycemic Pharmacist consulted by Valery Fonseca on 08/28/16 for glycemic control and to write orders per [facility] inpatient glycemic control protocol. Objective Accuchecks BSG (last 24hrs): Test 08/29/16 11:43 08/29/16 12:05 08/29/16 16:23 08/29/16 20:16 Bedside Glucose 180 mg/dl (70-99) 152 mg/dl (70-99) 167 mg/dl (70-99) Random Glucose 175 mg/dl (70-99) Test 08/30/16 01:58 08/30/16 06:38 08/30/16 06:58 Bedside Glucose 103 mg/dl (70-99) 85 mg/dl (70-99) Random Glucose 94 mg/dl (70-99) Laboratory Data (last 24hrs) Test 08/29/16 12:05 08/30/16 06:58 Anion Gap 9.0 mmol/L 9.0 mmol/L BUN/Creatinine Ratio 14.4 14.1 Blood Urea Nitrogen 22 mg/dl 18 mg/dl Creatinine 1.50 mg/dl 1.30 mg/dl Potassium Level 4.0 mmol/L 4.0 mmol/L Sodium Level 146 mmol/L 143 mmol/L White Blood Count 6.09 K/uL Red Blood Count 3.86 M/uL Hemoglobin 11.4 g/dL Hematocrit 32.9 % Mean Corpuscular Volume 85.2 fL Mean Corpuscular Hemoglobin 29.5 pg Mean Corpuscular Hemoglobin Concent 34.7 g/dl Platelet Count 64 K/uL Neutrophils (%) (Auto) 77.0 % Lymphocytes (%) (Auto) 9.7 % Monocytes (%) (Auto) 6.9 % Eosinophils (%) (Auto) 4.4 % Basophils (%) (Auto) 1.0 % Neutrophils # (Auto) 4.69 K/uL Lymphocytes # (Auto) 0.59 K/uL Monocytes # (Auto) 0.42 K/uL Eosinophils # (Auto) 0.27 K/uL Basophils # (Auto) 0.06 K/uL HbA1c: Test 08/29/16 04:27 Hemoglobin A1c 5.9 % (4.5-5.6) H Recent Pertinent Medications Outpatient Anti-diabetic Regimen: * Novolog ACHS CR 1:10, Lantus 40 units BID * A1c = 5.9 % 08/29/16 Risk Factors for Insulin Resistance: * Steroids: Prednisone 10mg daily (h/o liver transplant) * IVF: Changed to 1/2NS + 20 KCL @100 cc/hr * Diet: DM2 Assessment & Plan ASSESSMENT: * ADA & AACE recommend a goal blood sugar range 140-180 mg/dl for the majority of critically ill & non-critically ill patients. However, more stringent targets may be selected in individual cases. 08/28/16 * Mr. Burnette presented with altered mental status and severe hyperglycemia * 2 liters of NSS in ED plus 10 units of IV insulin given * IV insulin infusion started in ED * will continue on admission until hyperglycemia resolves * begin SQ basal/bolus in addition to IV insulin to ease transition of therapy * A1c outdated (from December 2015)- on order with AM labs * Weight loss over the last month (secondary to father passing?) * may change insulin requirements * follow up with A1c 08/29/16 * Plan to transition of insulin gtt this morning. * Pt had hypoglycemia episode this morning. D5 large volume started at this time. Will attempt to have D5 cut now that hypoglycemia has resolved. * Of note, the pt's A1c has nearly cut in half since December 2015 (5.9% vs 10.1%) * The pt has lost weight since admission of December 2015. * Thus, insulin sensitivity has likely improved. * Will decrease Lantus dose and use conservative Novolog CF/CR to avoid inducing hypoglycemia again. * Add an overnight accuchek to better assess basal needs and resolve potential hyperglycemia. 08/30/16 * Transition from insulin drip yesterday morning appears to be successful thus far * BSGs ranging from 85-180 mg/dL * As expected, insulin requirements are much less than previous admissions given weight loss * Continue current regimen X 24 hours and loosen tomorrow if necessary PLAN FOR INPATIENT GLYCEMIC CONTROL: * Basal insulin with LANTUS 20 units SQ BID if BSG >120 mg/dL * If BSG <120 mg/dL, give LANTUS 10 units instead * Correctional Insulin with NOVOLOG per scale ACHS or Q6hrs while NPO * Goal Range: Low 140 mg/dL - High 180 mg/dL * Correction Factor: 35 mg/dL/unit * Nutritional / Prandial insulin per carb ratio of 1 unit per 12 grams CHO consumed * Most recent A1c added to D/C instructions * Please note that the plan above was derived based on current level of insulin resistance and hospital stress. These recommendations are appropriate for inpatient admission only. Plan of care upon discharge will need to be reassessed to avoid potential outpatient hypo/hyperglycemia. Thank you.
[2016-08-30 11:29] VITALS: BP 150/98; PULSE 87; TEMP 37; O2SAT 96
--- NOTE | 2016-08-30 12:29 | GASTROINTESTINAL CONSULTATION ---
DATE OF CONSULTATION: 08/29/2016 DATE OF CONSULTATION: 08/29/2016. CHIEF COMPLAINT: Hepatic encephalopathy. HISTORY OF PRESENT ILLNESS: Mr. Burnette is a 51-year-old white male with a history of chronic ulcerative colitis with colectomy, J-pouch formation, development of PSC with cirrhosis, receiving orthotopic liver transplant 8 years ago. The patient has had also problems with chronic ITP and apparent liver graft decompensation over the past several years. The patient is followed by Dr. Vaughn in GI clinic along with Dr. Lawrence, Dr. Breaux and Dr. Audrey Paz at [facility] for a history of colectomy and for the PSC. The patient apparently over the last several days has had increased encephalopathy and confusion symptoms. Reportedly, the patient was not taking all of his medications or intermittently taking them and may have led to these symptoms. More specifically, the patient's blood sugar was also poorly controlled and also may have led to some of the current admission problems. The patient has had a complex and extensive course following transplantation. Although the patient was not profoundly encephalopathic he was having difficulty remembering how to take blood samples for his sugar management and the patient was ultimately brought to the Emergency Room because of his change in mental status. There were also concerns recently of depression as his father several weeks ago. This has affected his daily activities as well as his oral intake. The patient denies any recent fever, chills, nausea or vomiting. PAST MEDICAL HISTORY: As mentioned above. There is also GERD, BPH, stage III chronic kidney disease, anxiety, depression, hypothyroidism. PAST SURGICAL HISTORY: Surgically he had orthotopic liver transplantation, colectomy with J-pouch formation, prior cholecystectomy and appendectomy. FAMILY HISTORY: Significant for cancer, coronary artery disease and hypertension. SOCIAL HISTORY: The patient denies tobacco use, is single and does not use alcoholic beverages. Disabled and lives with his family. ALLERGIES: HE IS ALLERGIC TO LEVOFLOXACIN. HOME MEDICATIONS: Include Savi dutasteride -- tamsulosin, vitamin D3, eltrombopag (Promacta) for his chronic ITP. He also on immunoglobulin replacement, insulin, levothyroxine, Remeron, pantoprazole 40 mg in the evening, prednisone 10 mg daily, rifaximin 550 mg twice daily, tacrolimus, topiramate, Topamax and ursodiol. REVIEW OF SYSTEMS: Otherwise noncontributory. There are no reports of intestinal bleeding or significant abdominal distention. There has actually been a report of weight loss according to the family. The patient denies hematemesis, coffee-ground emesis, melena or bright red blood per rectum at the present time. There is no dysuria or hematuria. PHYSICAL EXAMINATION: VITAL SIGNS ON ADMISSION: The patient was afebrile at 36.4, blood pressure 143/100, heart rate 97, respirations 18, pulse ox 98% on room air. HEART: Normal S1, S2. LUNGS: Clear to auscultation. ABDOMEN: Soft without tenderness, rebound or guarding. I do not appreciate significant tense ascites or shifting dullness. There is no splenomegaly. EXTREMITIES: Trace to +1 edema. RECTAL EXAMINATION: Deferred at this time. LABORATORY DATA: Urinalysis was unremarkable for obvious urinary tract infection. Urine white count was 1-5, urine bacteria negative, nitrites and leukocyte esterase were negative. There was a occult blood and glucose noted. Admission hemoglobin is 11.6, white count 4.9, platelets 29,000. INR is 1.4. BUN and creatinine are 24 and 1.8. Liver tests on admission, ALT 29, AST 29, alkaline phosphatase 302, ammonia 66, total protein 4.0, albumin 2.5. Beta hydroxybutyric acid was 0.82. Total bilirubin was 3.6. LABORATORY STUDIES: Showed a chest x-ray with no acute disease. IMPRESSION: Mr. Burnette has a complicated gastrointestinal and hepatic history with ulcerative colitis, colectomy, J-pouch creation, PSC development, orthotopic liver transplantation with replacement and subsequently developing ITP with intermittent encephalopathy, diabetes. The patient at the present time his physical exam demonstrates that he is awake, arousable and alert to month, year and the president, although has some difficulty recalling the vice-president. There is mild to moderate asterixis noted. However, the patient historically could give information. RECOMMENDATIONS: I would continue the patient's treatment for encephalopathy with efforts to gain better control of his blood sugar with worsening electrolyte abnormalities. An abdominal ultrasound may be advantageous to exclude ascites and if present paracentesis for cultures and fluid analysis with cell count would be beneficial. Additionally, if not recently performed an MRCP if tolerated may be helpful to exclude any ductal dilation, although at the present time his alkaline phosphatase and bilirubin are moderately elevated and there are no other signs to suggest cholangitis. Transaminases numbers were normal. His rejection medicine should be continued. Would avoid excess fluid challenges and maintain aspiration precautions during the time of encephalopathy. I did have an opportunity to speak with Dr. Paz from hepatology at [facility]. The patient had been recently seen by Dr. Breaux in the hepatology as well. All the patient's questions were answered. We will continue to follow with you. If constipation remains an issue for the patient this could be a source of encephalopathy, although I believe that much of the patient's metabolic derangements regarding sugar are driving the confusion. Thank you for allowing me to participate in this patient's care.
[2016-08-30 15:00] VITALS: BP 128/61; PULSE 93; TEMP 36.7; O2SAT 96
--- NOTE | 2016-08-30 15:50 | Psychiatric Progress Notes ---
Psychiatric Progress Note Date of Service Aug 30, 2016. Notes ID: Patient reviewed with liaison nurse. Seen with mother at bedside. Reviewed initial consult by SHANIKA Flores dated 08/29, AMS felt to be related to elevated ammonia level, restoril decreased. CC: "Dr. Elam is great" HPI: Mother pleased his MS is returning to baseline. Didn't use prn Seroquel. Focussed on his liver/procedures. Attempted to make jokes about health care in general. He and mother are glad to [facility] following of father in [place] [facility] last month. ROS: denies physical complaints at this time, slept OK with Restoril. MSE: alert, cooperative, concrete, affect pleasant, no SI/HI/lomeli Imp: AMS clearing, MDD Plan: continuing Remeron, Restoril (30) mg and prn Seroquel f/u as scheduled with Dr. Elam
--- NOTE | 2016-08-30 16:00 | GASTROENTEROLOGY PROGRESS NOTE ---
DATE: 08/30/2016 DATE: 08/30/2016. SUBJECTIVE: The patient's mental status is improving. He is oriented today and eating. He has had 1 bowel movement earlier today. Vital signs are blood pressure 150/98, pulse 87, temperature is 37. LABORATORY DATA: Shows sodium of 143, potassium 4, chloride 115, CO2 19. Magnesium is 1.6, phosphorus 2.4, calcium 7.8, all low. Bilirubin is rising to 4.9 today from 3.6 two days ago. Blood sugar is now in the normal range. Ammonia still remains elevated at 68. Albumin is low at 2.3, total protein 4.4. IMPRESSION: The patient presented with hepatic encephalopathy and elevated ammonia level, probably on a metabolic basis from his blood sugar being markedly elevated in the 600 range, that is corrected. Still has several electrolytes that are abnormal. I am concerned about his rising bilirubin level and recommend that we do an MRCP to assess his biliary tree following his liver transplant in the past. Also, I would recommend restarting his lactulose 30 mL twice a day, which he is on at home 6/8 days to help with his encephalopathy. This is in addition to the daily Xifaxan that he takes twice a day. If the patient continues to improve and he can not get the MRCP done in a timely fashion we may be able to have it done as an outpatient, but I am very reluctant to do that with his rising bilirubin. Dr. Ibanez will be covering over the weekend.
[2016-08-30 19:15] VITALS: BP 129/94; PULSE 83; TEMP 36.8; O2SAT 94
[2016-08-30] MEDS: MIRTAZAPINE SOLTAB 15 MG PO SCH (20:20)
[2016-08-30] MEDS: LACTULOSE SYRUP 30 GM/45 ML UDP PO SCH (20:20)
[2016-08-30] MEDS: PANTOprazole SOD 40 MG TAB PO SCH (20:20)
[2016-08-30] MEDS: DUTASTERIDE-TAMSULOSIN HCL 1 CAP CAP PO SCH (20:20)
[2016-08-30] MEDS: TOPIRAMATE 25 MG TAB PO SCH (20:21)
[2016-08-31] VITALS (10 sets, daily range): BP systolic 142–170; BP diastolic 87–104; PULSE 84–91; TEMP 36.4–36.9; O2SAT 95–99
[2016-08-31] MEDS: LEVOTHYROXINE 88 MCG TAB PO SCH (05:17)
[2016-08-31] MEDS: SODIUM CHLOR 0.45% + 20MEQ KCL 1,000 ML IV SCH ×2 (05:18→17:35)
[2016-08-31 05:56] LABS: MEAN CELL VOLUME 85.7 fL (80-100); MEAN CORPUSCULAR HEMOGLOBIN 30.7 pg (25-34); MEAN CORPUSCULAR HGB CONC 35.8 g/dl (32-36); WHITE BLOOD COUNT 6.55 K/uL (4.8-10.8)
[2016-08-31 06:48] LABS: PLATELET COUNT 57 K/uL (130-400)
[2016-08-31 06:49] LABS: BASO % 1.1 %; BASO ABS # 0.07 K/uL (0-0.2); COMPLETE YES; ECHINOCYTES 2+; EOS % 4.6 %; IG% 1.1 %; LARGE PLATELETS 1+; LYMPH % 10.8 %; LYMPH ABS # 0.71 K/uL (1.2-3.4); NEUT % 75.4 %; PLT ESTIMATE DECREASED
[2016-08-31 06:52] LABS: BUN/CREATININE RATIO 13.4 (10-20); CALCIUM 8.1 mg/dl (8.5-10.1); CREATININE 1.6 mg/dl (0.60-1.40); MAGNESIUM 1.8 mg/dl (1.8-2.4); PHOSPHORUS 3.1 mg/dl (2.5-4.9)
[2016-08-31] MEDS: INSULIN ASPART 100 UNITS/ML 3 ML PEN SC SCH ×4 (07:00→21:38)
[2016-08-31] MEDS: POT PHOSPHATE MONOBASIC W/ SOD TAB PO SCH ×2 (07:23→21:36)
[2016-08-31] MEDS: ELTROMBOPAG 50 MG TAB PO SCH (07:23)
[2016-08-31] MEDS: TACROLIMUS 0.5 MG CAP PO SCH (07:23)
[2016-08-31] MEDS: URSODIOL 300 MG CAP PO SCH ×4 (07:23→21:36)
[2016-08-31] MEDS: RIFAXIMIN TAB 550 MG TAB PO SCH ×2 (07:23→21:36)
[2016-08-31] MEDS: MAGNESIUM OXIDE 400 MG TAB PO SCH (07:23)
[2016-08-31] MEDS: INSULIN GLARGINE SOLOSTAR 100 UNITS/ML 3 ML PEN SC SCH ×2 (08:54→21:37)
[2016-08-31 11:05] LABS: BUN/CREATININE RATIO 14.6 (10-20); CREATININE 1.5 mg/dl (0.60-1.40)
[2016-08-31 11:08] LABS: ALB/GLOB RATIO 1.1 (0.9-2)
--- NOTE | 2016-08-31 12:27 | DIAGNOSTIC IMAGING REPORT ---
MRCP CLINICAL HISTORY: rising bilirubin COMPARISON STUDY: CT scan dated 06/20/2016 FINDINGS: A breath-hold MRCP was performed. The spleen is enlarged measuring 19 cm. There is low volume ascites. There is a small right pleural effusion. There is a thrombus at the superior mesenteric vein and splenic vein confluence. There is marked dilatation of pancreatic duct which measures 17 mm. There is no intrahepatic biliary ductal dilatation. There is gastric wall thickening. There is duodenal edema. There is a portal vein to IVC shunt.. IMPRESSION: 1. No evidence of intrahepatic biliary ductal dilatation 2. Pronounced splenomegaly (19 cm) 3. Low volume ascites. Small right pleural effusion 4. Marked pancreatic ductal dilatation (17 mm) 5. Thrombus at the superior mesenteric splenic vein confluence 6. Gastric and duodenal edema Electronically signed by: Lauro Peoples M.D. 08/31/2016 12:25 PM Dictated Date/Time: 08/31/2016 12:11 PM
[2016-08-31] MEDS: LACTULOSE SYRUP 30 GM/45 ML UDP PO SCH ×2 (13:39→21:36)
--- NOTE | 2016-08-31 14:53 | Progress Note ---
Subjective Date of Service: Aug 31, 2016. Subjective Pt evaluation today including: conversation w/ patient, conversation w/ family , physical exam, chart review, lab review, review of studies, review of inpatient medication list Pain: no pain reported PO Intake: currently nothing by mouth Voiding: no voiding problems, no incontinence Patient is seen and examined by me. Patient denies chest pain, shortness of breath, dizziness, palpitation or loss of consciousness. Patient denies abdominal pain or any symptoms. Patient denies nausea, vomiting and diarrhea. Patient had a bowel movement this morning around 2:30 AM. Patient denies blurry vision and headache. Patient denies change in appetite and sleep. Patient is waiting to go for MRCP. Problem List Medical Problems: (1) Altered mental status Status: Acute (2) Anemia Status: Acute (3) Diabetes mellitus out of control Status: Acute (4) Hyperammonemia Status: Acute (5) Hyperglycemia Status: Acute (6) Hyperglycemia Status: Acute (7) Hyperkalemia Status: Acute (8) Kidney injury Status: Acute (9) Tenosynovitis Status: Acute (10) Thrombocytopenia Status: Acute Review of Systems All Other Systems: Reviewed and Negative Medications Medications (Trade) Dose Ordered Sig/Tristen Route Start Time Stop Time Status Last Admin Dose Admin Lactulose (Chronulac Syrup) 30 gm BID PO 08/30/16 21:00 09/29/16 20:59 08/31/16 13:39 30 GM Objective Vital Signs Date Time Temp Pulse Resp B/P Pulse Ox O2 Delivery O2 Flow Rate FiO2 08/31/16 12:01 97 Room Air 08/31/16 10:43 36.4 88 18 164/94 98 Room Air 08/31/16 08:01 97 Room Air 08/31/16 06:50 36.6 91 20 152/104 97 Room Air 08/31/16 04:22 Room Air 08/31/16 04:00 36.8 84 18 152/87 96 Room Air 08/31/16 00:05 Room Air 08/31/16 00:00 36.9 89 20 158/99 96 Room Air 08/30/16 20:11 Room Air 08/30/16 19:15 36.8 83 18 129/94 94 Room Air 08/30/16 16:00 Room Air 08/30/16 15:00 36.7 93 18 128/61 96 Room Air Physical Exam General Appearance: no apparent distress Eyes: EOMI Neck: supple, no JVD Respiratory/Chest: chest non-tender, lungs clear, normal breath sounds, no respiratory distress Cardiovascular: regular rate, rhythm, no gallop, no murmur Abdomen: normal bowel sounds, non tender (distended abdomen), soft Extremities: non-tender Neurologic/Psychiatric: alert (with no flapping tremor), normal mood/affect, oriented x 3 Laboratory Results Last 24 Hours Test 08/30/16 16:25 08/30/16 20:04 08/31/16 05:40 08/31/16 07:00 Bedside Glucose 202 mg/dl 190 mg/dl 159 mg/dl White Blood Count 6.55 K/uL Red Blood Count 4.20 M/uL Hemoglobin 12.9 g/dL Hematocrit 36.0 % Mean Corpuscular Volume 85.7 fL Mean Corpuscular Hemoglobin 30.7 pg Mean Corpuscular Hemoglobin Concent 35.8 g/dl Platelet Count 57 K/uL Neutrophils (%) (Auto) 75.4 % Lymphocytes (%) (Auto) 10.8 % Monocytes (%) (Auto) 7.0 % Eosinophils (%) (Auto) 4.6 % Basophils (%) (Auto) 1.1 % Neutrophils # (Auto) 4.94 K/uL Lymphocytes # (Auto) 0.71 K/uL Monocytes # (Auto) 0.46 K/uL Eosinophils # (Auto) 0.30 K/uL Basophils # (Auto) 0.07 K/uL RDW Standard Deviation 51.8 fL RDW Coefficient of Variation 16.4 % Immature Granulocyte % (Auto) 1.1 % Immature Granulocyte # (Auto) 0.07 K/uL Platelet Estimate DECREASED Large Platelets 1+ Echinocytes 2+ Sodium Level 141 mmol/L Potassium Level 4.0 mmol/L Chloride Level 112 mmol/L Carbon Dioxide Level 19 mmol/L Anion Gap 10.0 mmol/L Blood Urea Nitrogen 21 mg/dl Creatinine 1.60 mg/dl Est Creatinine Clear Calc Drug Dose 61.7 ml/min Estimated GFR () 57.0 Estimated GFR (Non- 49.2 BUN/Creatinine Ratio 13.4 Random Glucose 170 mg/dl Calcium Level 8.1 mg/dl Phosphorus Level 3.1 mg/dl Magnesium Level 1.8 mg/dl Ammonia 77.0 umol/L Test 08/31/16 10:36 08/31/16 12:05 Sodium Level 141 mmol/L Potassium Level 4.0 mmol/L Chloride Level 112 mmol/L Carbon Dioxide Level 20 mmol/L Anion Gap 9.0 mmol/L Blood Urea Nitrogen 22 mg/dl Creatinine 1.50 mg/dl Est Creatinine Clear Calc Drug Dose 65.8 ml/min Estimated GFR () 61.6 Estimated GFR (Non- 53.1 BUN/Creatinine Ratio 14.6 Random Glucose 181 mg/dl Calcium Level 8.0 mg/dl Total Bilirubin 5.6 mg/dl Direct Bilirubin 4.0 mg/dl Aspartate Amino Transf (AST/SGOT) 47 U/L Alanine Aminotransferase (ALT/SGPT) 32 U/L Alkaline Phosphatase 318 U/L Total Protein 4.7 gm/dl Albumin 2.5 gm/dl Globulin 2.2 gm/dl Albumin/Globulin Ratio 1.1 Bedside Glucose 162 mg/dl Assessment and Plan 51 y/o male, with PMHx of ulcerative colitis with primary sclerosing cholangitis s/p total abdominal colectomy, with subsequent recurrence of PSC, s/ p liver transplant (2007) , post-transplant ITP, portal vein thrombosis s/p TIPS , spleno-renal shunt s/p embolization (2015), CKD stage III, anxiety/ depression, hypothyroidism, DM, GERD, and BPH, who presented to the ED because of AMS. Mild DKA w/ sugar of 671/Insulin-dependent DM: - Continue tele for cardiac monitoring - Continue home insulin regimen as per pharmacy .Basal insulin with LANTUS 20 units SQ BID if BSG >120 mg/dL * If BSG <120 mg/dL, give LANTUS 10 units instead * Correctional Insulin with NOVOLOG per scale ACHS or Q6hrs while NPO * Goal Range: Low 140 mg/dL - High 180 mg/dL * Correction Factor: 35 mg/dL/unit * Nutritional / Prandial insulin per carb ratio of 1 unit per 12 grams CHO consumed that. - Continue IV fluids. - Hgba1c is 5.9. - Repeat CMP in a.m. AMS, ?secondary to hepatic encephalopathy w/ ammonia level of 77: - Does not appear significantly elevated compared to previous records, however patient meld score is 21 and patient child Travis classification C. - Continue Xifaxan and lactulose as per GI - - GI, . - CXR is negative. - UA reviewed, Liver transplant status: - Continue Tacrolimus 0.5 mg PO BID, Ursodiol 300 mg PO QID, Prednisone 10 mg daily - Follows w/ [facility] Thrombocytopenia, plt 29- baseline plt >40 : - Continue Promacta 50 mg PO daily, platelet count of 64 yesterday and trended down to 57 today, no bleeding reported. - Follow CBC - Follows w/ Yen Ferguson- consult, appreciate recommendations Immunodeficiency: Continue Hizentra 12 g IM weekly CKD Stage III- stable: Follow PRP Chronic coagulopathy PT 15.4 and INR of 1.4 , stable Chronically elevated alk phos and bilirubin Bilirubin is elevated as well as alkaline phosphatase could be secondary to primary sclerosing cholangitis requiring liver transplant. Pending MRCP. We will touch base with GI and discuss regarding elevated bilirubin and alkaline phosphatase. Insomnia/anxiety and depression- worsening secondary to father passing: - Continue Mirtazapine at 15 mg PO HS - Consult mental health, appreciate recommendations Hypothyroidism: - Continue Synthroid 88 mcg daily - TSH of 1.229 on 02/26/16 BPH with bladder outlet obstruction history: Continue Savi 1 capsule PO HS Peripheral neuropathy: Continue Topamax at 50 mg PO HS Allergy: Continue Hydroxyzine 50 mg PO TID PRN GERD:Continue Protonix 40 mg daily GI Prophylaxis: Maalox PRN, IV Zofran PRN, Colace and/or Milk of Mag PRN DVT prophylaxis: GILMA and SCDs Code Status: LEVEL I, FULL Continued [facility] stay due to: home environment unsafe for pt, other (elevated bilirubin and ammonia levels) Discharge planning: uncertain
[2016-08-31 15:30] LABS: HEMATOCRIT 34.3 % (42-52); MEAN CELL VOLUME 84.3 fL (80-100); MEAN CORPUSCULAR HEMOGLOBIN 29.7 pg (25-34); MEAN CORPUSCULAR HGB CONC 35.3 g/dl (32-36); RED BLOOD COUNT 4.07 M/uL (4.7-6.1); WHITE BLOOD COUNT 6.67 K/uL (4.8-10.8)
[2016-08-31 15:36] LABS: INR 1.6 (0.9-1.1)
[2016-08-31 15:51] LABS: ALB/GLOB RATIO 1.1 (0.9-2); CALCIUM 7.9 mg/dl (8.5-10.1); CREATININE 1.6 mg/dl (0.60-1.40); POTASSIUM 4.6 mmol/L (3.5-5.1)
[2016-08-31 16:12] LABS: PLATELET COUNT 75 K/uL (130-400)
--- NOTE | 2016-08-31 17:17 | Gastroenterology Progress Note ---
Progress Note Date of Service: Aug 31, 2016 Subjective Pt evaluation today including: conversation w/ patient, conversation w/ family (mother and brother) CC f/u encephalopathy HPI Per patient and family his mental status has improved. Lactulose started yesterday and he states has had about 3 bms today. 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, Review of Systems Respiratory: No shortness of breath Cardiac: No chest pain Medications Current Inpatient Medications Medications (Trade) Dose Ordered Sig/Tristen Route Start Time Stop Time Status Last Admin Dose Admin Epinephrine (Epipen) 0.3 mg UD PRN IM 08/28/16 12:15 09/27/16 12:14 Hydroxyzine HCl (Vistaril Tab) 50 mg TID PRN PO 08/28/16 12:15 09/27/16 12:14 Levothyroxine Sodium (Synthroid Tab) 88 mcg DAILYBB PO 08/29/16 06:00 09/28/16 05:59 08/31/16 05:17 88 MCG Ondansetron HCl (Zofran Tab) 8 mg Q6H PRN PO 08/28/16 12:15 09/27/16 12:14 Pantoprazole Sodium (Protonix Tab) 40 mg QPM PO 08/28/16 21:00 09/27/16 20:59 08/30/16 20:20 40 MG Prednisone (PredniSONE TAB) 10 mg QAM PO 08/29/16 09:00 09/28/16 08:59 08/31/16 07:23 10 MG Rifaximin (Xifaxan Tab) 550 mg BID PO 08/28/16 21:00 09/27/16 20:59 08/31/16 07:23 550 MG Tacrolimus (Prograf Cap) 0.5 mg QAM PO 08/29/16 09:00 09/28/16 08:59 08/31/16 07:23 0.5 MG Temazepam (Restoril Cap) 30 mg HS PRN PO 08/28/16 12:15 09/27/16 12:14 08/29/16 02:30 30 MG Topiramate (Topamax Tab) 50 mg HS PO 08/28/16 21:00 09/27/16 20:59 08/30/16 20:21 50 MG Tramadol HCl (Ultram Tab) 50 mg Q6H PRN PO 08/28/16 12:15 09/27/16 12:14 08/29/16 10:31 50 MG Ursodiol (Actigall Cap) 300 mg QID PO 08/28/16 17:00 09/27/16 16:59 08/31/16 13:39 300 MG Acetaminophen (Tylenol Tab) 650 mg Q8H PRN PO 08/28/16 15:15 09/27/16 15:14 Miscellaneous Information (Order Awaiting Action) 1 ea QS N/A 08/28/16 16:00 09/27/16 15:59 08/30/16 20:27 1 EA Mirtazapine (Remeron Solutab) 15 mg HS PO 08/28/16 21:00 09/27/16 20:59 08/30/16 20:20 15 MG Miscellaneous Information (Consult Glycemic Management Pharmacy) 1 ea UD PRN N/A 08/28/16 12:15 09/27/16 12:14 Al Hydrox/Mg Hydrox/Simethicone (Maalox Max Susp) 15 ml Q4H PRN PO 08/28/16 12:15 09/27/16 12:14 Magnesium Hydroxide (Milk Of Magnesia Susp) 30 ml Q12H PRN PO 08/28/16 12:15 09/27/16 12:14 Ondansetron HCl (Zofran Inj) 4 mg Q6H PRN IV 08/28/16 12:15 09/27/16 12:14 Nitroglycerin (Nitrostat Tab) 0.4 mg UD PRN SL 08/28/16 12:15 09/27/16 12:14 Polyethylene (Miralax Powder Packet) 17 gm DAILY PRN PO 08/28/16 12:15 09/27/16 12:14 Glucose (Glucose 40% Gel) UD PRN PO 08/28/16 13:15 09/27/16 13:14 Glucose (Glucose Chew Tab) 1 tabs UD PRN PO 08/28/16 13:15 09/27/16 13:14 Dextrose (Dextrose 50% 50ML Syringe) 50 ml UD PRN IV 08/28/16 13:15 09/27/16 13:14 08/29/16 06:46 50 ML Glucagon (Glucagon Inj) 1 mg UD PRN SQ 4/5/17 13:15 09/27/16 13:14 Miscellaneous (Iv Fluids Completed) 1 ea PRN PRN N/A 08/28/16 13:45 08/28/17 13:44 Insulin Aspart (novoLOG ASPART) SLIDING SCALE ACHS SC 08/29/16 08:00 09/28/16 07:59 08/31/16 13:43 6 UNITS Insulin Glargine (Lantus Solostar Pen) see protocol text BID SC 08/29/16 21:00 09/28/16 20:59 08/31/16 08:54 20 UNIT Potassium/ Phosphorus/Sodium (Phospha 250 Neutral 155-852-130 Mg) 1 tab BID PO 08/29/16 12:00 09/28/16 11:59 08/31/16 07:23 1 TAB Magnesium Oxide 400 mg 400 mg QAM PO 08/29/16 12:00 09/28/16 11:59 08/31/16 07:23 400 MG Potassium Chloride/Sodium Chloride (1/2 Nss + 20meq KCl 1000ml) 1,000 ml @ 100 mls/hr Q10H IV 08/29/16 11:00 09/29/16 10:59 08/31/16 05:18 100 MLS/HR Eltrombopag (Promacta) 50 mg QAM PO 08/30/16 09:00 09/29/16 08:59 08/31/16 07:23 50 MG Dutasteride/ Tamsulosin (Savi 0.5-0.4 Mg) 1 cap HS PO 08/29/16 21:00 09/28/16 20:59 08/30/16 20:20 1 CAP Quetiapine Fumarate (seroQUEL TAB) 25 mg HS PRN PO 08/29/16 14:00 09/28/16 13:59 Loperamide HCl (Imodium Cap) 2 mg HS PRN PO 08/29/16 17:30 09/28/16 17:29 Lactulose (Chronulac Syrup) 30 gm BID PO 08/30/16 21:00 09/29/16 20:59 08/31/16 13:39 30 GM Objective Vital Signs Date Time Temp Pulse Resp B/P Pulse Ox O2 Delivery O2 Flow Rate FiO2 08/31/16 14:38 36.5 91 18 142/97 97 08/31/16 12:01 97 Room Air 08/31/16 10:43 36.4 88 18 164/94 98 Room Air 08/31/16 08:01 97 Room Air 08/31/16 06:50 36.6 91 20 152/104 97 Room Air 08/31/16 04:22 Room Air 08/31/16 04:00 36.8 84 18 152/87 96 Room Air 08/31/16 00:05 Room Air 08/31/16 00:00 36.9 89 20 158/99 96 Room Air 08/30/16 20:11 Room Air 08/30/16 19:15 36.8 83 18 129/94 94 Room Air Physical Exam General Appearance: WD/WN, no apparent distress Respiratory/Chest: lungs clear, no respiratory distress Cardiovascular: regular rate, rhythm Abdomen: normal bowel sounds, non tender, soft, no organomegaly Laboratory Results Last 24 Hours Test 08/30/16 20:04 08/31/16 05:40 08/31/16 07:00 08/31/16 10:36 Bedside Glucose 190 mg/dl 159 mg/dl White Blood Count 6.55 K/uL Red Blood Count 4.20 M/uL Hemoglobin 12.9 g/dL Hematocrit 36.0 % Mean Corpuscular Volume 85.7 fL Mean Corpuscular Hemoglobin 30.7 pg Mean Corpuscular Hemoglobin Concent 35.8 g/dl Platelet Count 57 K/uL Neutrophils (%) (Auto) 75.4 % Lymphocytes (%) (Auto) 10.8 % Monocytes (%) (Auto) 7.0 % Eosinophils (%) (Auto) 4.6 % Basophils (%) (Auto) 1.1 % Neutrophils # (Auto) 4.94 K/uL Lymphocytes # (Auto) 0.71 K/uL Monocytes # (Auto) 0.46 K/uL Eosinophils # (Auto) 0.30 K/uL Basophils # (Auto) 0.07 K/uL RDW Standard Deviation 51.8 fL RDW Coefficient of Variation 16.4 % Immature Granulocyte % (Auto) 1.1 % Immature Granulocyte # (Auto) 0.07 K/uL Platelet Estimate DECREASED Large Platelets 1+ Echinocytes 2+ Sodium Level 141 mmol/L 141 mmol/L Potassium Level 4.0 mmol/L 4.0 mmol/L Chloride Level 112 mmol/L 112 mmol/L Carbon Dioxide Level 19 mmol/L 20 mmol/L Anion Gap 10.0 mmol/L 9.0 mmol/L Blood Urea Nitrogen 21 mg/dl 22 mg/dl Creatinine 1.60 mg/dl 1.50 mg/dl Est Creatinine Clear Calc Drug Dose 61.7 ml/min 65.8 ml/min Estimated GFR () 57.0 61.6 Estimated GFR (Non- 49.2 53.1 BUN/Creatinine Ratio 13.4 14.6 Random Glucose 170 mg/dl 181 mg/dl Calcium Level 8.1 mg/dl 8.0 mg/dl Phosphorus Level 3.1 mg/dl Magnesium Level 1.8 mg/dl Ammonia 77.0 umol/L Total Bilirubin 5.6 mg/dl Direct Bilirubin 4.0 mg/dl Aspartate Amino Transf (AST/SGOT) 47 U/L Alanine Aminotransferase (ALT/SGPT) 32 U/L Alkaline Phosphatase 318 U/L Total Protein 4.7 gm/dl Albumin 2.5 gm/dl Globulin 2.2 gm/dl Albumin/Globulin Ratio 1.1 Test 08/31/16 12:05 08/31/16 15:20 08/31/16 16:26 Bedside Glucose 162 mg/dl 206 mg/dl White Blood Count 6.67 K/uL Red Blood Count 4.07 M/uL Hemoglobin 12.1 g/dL Hematocrit 34.3 % Mean Corpuscular Volume 84.3 fL Mean Corpuscular Hemoglobin 29.7 pg Mean Corpuscular Hemoglobin Concent 35.3 g/dl RDW Standard Deviation 51.1 fL RDW Coefficient of Variation 16.3 % Platelet Count 75 K/uL Prothrombin Time 17.0 SECONDS Prothromb Time International Ratio 1.6 Sodium Level 143 mmol/L Potassium Level 4.6 mmol/L Chloride Level 115 mmol/L Carbon Dioxide Level 16 mmol/L Anion Gap 12.0 mmol/L Blood Urea Nitrogen 22 mg/dl Creatinine 1.60 mg/dl Est Creatinine Clear Calc Drug Dose 61.7 ml/min Estimated GFR () 57.0 Estimated GFR (Non- 49.2 BUN/Creatinine Ratio 14.0 Random Glucose 258 mg/dl Calcium Level 7.9 mg/dl Magnesium Level 1.8 mg/dl Total Bilirubin 5.6 mg/dl Aspartate Amino Transf (AST/SGOT) 44 U/L Alanine Aminotransferase (ALT/SGPT) 35 U/L Alkaline Phosphatase 304 U/L Total Protein 4.6 gm/dl Albumin 2.4 gm/dl Globulin 2.2 gm/dl Albumin/Globulin Ratio 1.1 Assessment and Plan encepalopathy--although ammonia somewhat worse at 77 he is clinically better. Monitor stool output and adjust lactulose according elevated LFTS --continue to worsen with no biliary tract process on MRCP. Called Dr Mikie Mckeon medication assistant for hepatology at [facility] and he suggested making sure no obvious sepsis and recheck LFTs. If LFTs continue to worsen and no obvious sepsis he suggested I call again tomorrow for possible transfer to [place]. On admit UA was negative and CXR was negative. Discussed with hospitalist DR Tinajero and he does not feel patient is septic but is agreeable to ordering blood cultures. ascites low volume on MRCP---called Dr Peoples who read MRCP and he says this is trace fluid/sliver and no amenable to tapping Elevated INR--worsening and also mentioned this to DR Mckeon--will follow PSC/ s/p liver transplant--reviewed renal function last several months and CR is stable compared to outpt although was better this admission versus today. 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
[2016-08-31] MEDS: MIRTAZAPINE SOLTAB 15 MG PO SCH (21:36)
[2016-08-31] MEDS: PANTOprazole SOD 40 MG TAB PO SCH (21:36)
[2016-08-31] MEDS: DUTASTERIDE-TAMSULOSIN HCL 1 CAP CAP PO SCH (21:36)
[2016-08-31] MEDS: TOPIRAMATE 25 MG TAB PO SCH (21:36)
[2016-09-01] VITALS (9 sets, daily range): BP systolic 131–155; BP diastolic 88–98; PULSE 90–102; TEMP 36.5–36.9; O2SAT 95–97
[2016-09-01] MEDS: SODIUM CHLOR 0.45% + 20MEQ KCL 1,000 ML IV SCH ×3 (03:08→21:26)
[2016-09-01 05:25] LABS: HEMATOCRIT 34.7 % (42-52); MEAN CELL VOLUME 84.8 fL (80-100); MEAN CORPUSCULAR HEMOGLOBIN 30.3 pg (25-34); MEAN CORPUSCULAR HGB CONC 35.7 g/dl (32-36); RED BLOOD COUNT 4.09 M/uL (4.7-6.1); WHITE BLOOD COUNT 7.88 K/uL (4.8-10.8)
[2016-09-01 05:30] LABS: INR 1.5 (0.9-1.1); PROTHROMBIN TIME (PATIENT) 16.5 SECONDS (9.0-12.0)
[2016-09-01 05:52] LABS: ALB/GLOB RATIO 1.1 (0.9-2); BUN/CREATININE RATIO 13.6 (10-20); CALCIUM 8.2 mg/dl (8.5-10.1); CREATININE 1.5 mg/dl (0.60-1.40); POTASSIUM 3.9 mmol/L (3.5-5.1)
[2016-09-01] MEDS: LEVOTHYROXINE 88 MCG TAB PO SCH (06:00)
[2016-09-01 06:13] LABS: BASO % 0.8 %; BASO ABS # 0.06 K/uL (0-0.2); COMPLETE YES; ECHINOCYTES 2+; EOS % 5.3 %; GIANT PLATELETS 1+; IG% 0.9 %; LYMPH % 6.5 %; LYMPH ABS # 0.51 K/uL (1.2-3.4); NEUT % 79.5 %; OVALOCYTES 1+; PLATELET COUNT 50 K/uL (130-400); PLT ESTIMATE DECREASED; POLYCHROMASIA 1+
[2016-09-01] MEDS: LACTULOSE SYRUP 30 GM/45 ML UDP PO SCH ×2 (07:11→21:19)
[2016-09-01] MEDS: URSODIOL 300 MG CAP PO SCH ×4 (07:11→21:19)
[2016-09-01] MEDS: ELTROMBOPAG 50 MG TAB PO SCH (07:11)
[2016-09-01] MEDS: RIFAXIMIN TAB 550 MG TAB PO SCH ×2 (07:11→21:19)
[2016-09-01] MEDS: TACROLIMUS 0.5 MG CAP PO SCH (07:11)
[2016-09-01] MEDS: POT PHOSPHATE MONOBASIC W/ SOD TAB PO SCH ×2 (09:00→21:19)
[2016-09-01] MEDS: MAGNESIUM OXIDE 400 MG TAB PO SCH (09:00)
[2016-09-01] MEDS: INSULIN ASPART 100 UNITS/ML 3 ML PEN SC SCH ×4 (10:14→20:47)
[2016-09-01] MEDS: INSULIN GLARGINE SOLOSTAR 100 UNITS/ML 3 ML PEN SC SCH ×2 (10:21→21:25)
--- NOTE | 2016-09-01 12:20 | Progress Note ---
Subjective Date of Service: Sep 01, 2016. Subjective Pt evaluation today including: conversation w/ patient, conversation w/ family , physical exam, chart review, lab review, review of studies, conversation w/ customs consultant, review of inpatient medication list Pain: pt denies pain Voiding: no voiding problems, no incontinence Patient is seen and examined by me. The patient is lying comfortably in bed. Patient brother is in the room. Patient denies chest pain, shortness of breath , dizziness, palpitation, nausea, vomiting and diarrhea. Nurse did not report any acute event last night. Patient has a good appetite and sleep. Patient is awake alert and oriented. Problem List Medical Problems: (1) Altered mental status Status: Acute (2) Anemia Status: Acute (3) Diabetes mellitus out of control Status: Acute (4) Hyperammonemia Status: Acute (5) Hyperglycemia Status: Acute (6) Hyperglycemia Status: Acute (7) Hyperkalemia Status: Acute (8) Kidney injury Status: Acute (9) Tenosynovitis Status: Acute (10) Thrombocytopenia Status: Acute Review of Systems All Other Systems: Reviewed and Negative Medications Medications (Trade) Dose Ordered Sig/Tristen Route Start Time Stop Time Status Last Admin Dose Admin Insulin Glargine (Lantus Solostar Pen) 14 unit BID SC 09/01/16 09:00 10/01/16 08:59 09/01/16 10:21 14 UNIT Objective Vital Signs Date Time Temp Pulse Resp B/P Pulse Ox O2 Delivery O2 Flow Rate FiO2 09/01/16 08:01 97 Room Air 09/01/16 06:51 36.5 101 20 148/98 97 Room Air 09/01/16 04:26 Room Air 09/01/16 04:05 36.9 102 18 146/88 97 Room Air 09/01/16 00:02 Room Air 08/31/16 22:50 36.6 86 18 170/100 99 Room Air 08/31/16 20:02 Room Air 08/31/16 18:45 36.6 91 18 149/97 95 Room Air 08/31/16 16:01 97 Room Air 08/31/16 14:38 36.5 91 18 142/97 97 Physical Exam General Appearance: no apparent distress Eyes: + pertinent finding (slightly icterus sclera) Neck: supple Respiratory/Chest: lungs clear, normal breath sounds, no accessory muscle use Cardiovascular: regular rate, rhythm, no edema, no murmur Abdomen: normal bowel sounds, non tender, soft, no organomegaly Extremities: no pedal edema Neurologic/Psychiatric: piling setter II-XII nml as tested, alert, normal mood/affect, oriented x 3 Skin: no rash Laboratory Results Last 24 Hours Test 08/31/16 12:05 08/31/16 15:20 08/31/16 16:26 08/31/16 20:32 Bedside Glucose 162 mg/dl 206 mg/dl 198 mg/dl White Blood Count 6.67 K/uL Red Blood Count 4.07 M/uL Hemoglobin 12.1 g/dL Hematocrit 34.3 % Mean Corpuscular Volume 84.3 fL Mean Corpuscular Hemoglobin 29.7 pg Mean Corpuscular Hemoglobin Concent 35.3 g/dl RDW Standard Deviation 51.1 fL RDW Coefficient of Variation 16.3 % Platelet Count 75 K/uL Prothrombin Time 17.0 SECONDS Prothromb Time International Ratio 1.6 Sodium Level 143 mmol/L Potassium Level 4.6 mmol/L Chloride Level 115 mmol/L Carbon Dioxide Level 16 mmol/L Anion Gap 12.0 mmol/L Blood Urea Nitrogen 22 mg/dl Creatinine 1.60 mg/dl Est Creatinine Clear Calc Drug Dose 61.7 ml/min Estimated GFR () 57.0 Estimated GFR (Non- 49.2 BUN/Creatinine Ratio 14.0 Random Glucose 258 mg/dl Calcium Level 7.9 mg/dl Magnesium Level 1.8 mg/dl Total Bilirubin 5.6 mg/dl Aspartate Amino Transf (AST/SGOT) 44 U/L Alanine Aminotransferase (ALT/SGPT) 35 U/L Alkaline Phosphatase 304 U/L Total Protein 4.6 gm/dl Albumin 2.4 gm/dl Globulin 2.2 gm/dl Albumin/Globulin Ratio 1.1 Test 09/01/16 05:15 09/01/16 06:57 09/01/16 11:13 White Blood Count 7.88 K/uL Red Blood Count 4.09 M/uL Hemoglobin 12.4 g/dL Hematocrit 34.7 % Mean Corpuscular Volume 84.8 fL Mean Corpuscular Hemoglobin 30.3 pg Mean Corpuscular Hemoglobin Concent 35.7 g/dl Platelet Count 50 K/uL Neutrophils (%) (Auto) 79.5 % Lymphocytes (%) (Auto) 6.5 % Monocytes (%) (Auto) 7.0 % Eosinophils (%) (Auto) 5.3 % Basophils (%) (Auto) 0.8 % Neutrophils # (Auto) 6.27 K/uL Lymphocytes # (Auto) 0.51 K/uL Monocytes # (Auto) 0.55 K/uL Eosinophils # (Auto) 0.42 K/uL Basophils # (Auto) 0.06 K/uL RDW Standard Deviation 50.6 fL RDW Coefficient of Variation 16.4 % Immature Granulocyte % (Auto) 0.9 % Immature Granulocyte # (Auto) 0.07 K/uL Platelet Estimate DECREASED Giant Platelets 1+ Polychromasia 1+ Ovalocytes 1+ Echinocytes 2+ Prothrombin Time 16.5 SECONDS Prothromb Time International Ratio 1.5 Sodium Level 146 mmol/L Potassium Level 3.9 mmol/L Chloride Level 116 mmol/L Carbon Dioxide Level 20 mmol/L Anion Gap 10.0 mmol/L Blood Urea Nitrogen 20 mg/dl Creatinine 1.50 mg/dl Est Creatinine Clear Calc Drug Dose 65.8 ml/min Estimated GFR () 61.6 Estimated GFR (Non- 53.1 BUN/Creatinine Ratio 13.6 Random Glucose 119 mg/dl Calcium Level 8.2 mg/dl Total Bilirubin 5.7 mg/dl Aspartate Amino Transf (AST/SGOT) 46 U/L Alanine Aminotransferase (ALT/SGPT) 36 U/L Alkaline Phosphatase 306 U/L Ammonia 68.0 umol/L Total Protein 4.7 gm/dl Albumin 2.5 gm/dl Globulin 2.2 gm/dl Albumin/Globulin Ratio 1.1 Bedside Glucose 90 mg/dl 174 mg/dl Assessment and Plan 51 y/o male, with PMHx of ulcerative colitis with primary sclerosing cholangitis s/p total abdominal colectomy, with subsequent recurrence of PSC, s/ p liver transplant (2007) , post-transplant ITP, portal vein thrombosis s/p TIPS , spleno-renal shunt s/p embolization (2015), CKD stage III, anxiety/ depression, hypothyroidism, DM, GERD, and BPH, who presented to the ED because of AMS. Mild DKA w/ sugar of 671/Insulin-dependent DM: - Continue tele for cardiac monitoring - Continue home insulin regimen as per pharmacy .Basal insulin with LANTUS 20 units SQ BID if BSG >120 mg/dL * If BSG <120 mg/dL, give LANTUS 10 units instead * Correctional Insulin with NOVOLOG per scale ACHS or Q6hrs while NPO * Goal Range: Low 140 mg/dL - High 180 mg/dL * Correction Factor: 35 mg/dL/unit * Nutritional / Prandial insulin per carb ratio of 1 unit per 12 grams CHO consumed that. - Continue IV fluids. - Hgba1c is 5.9. - Repeat CMP in a.m. AMS, ?secondary to hepatic encephalopathy w/ ammonia level of 68: - Ammonia level does not appear significantly elevated compared to previous records, however patient meld score is 21 and patient child Travis classification C. - Continue Xifaxan and lactulose - GI, . - CXR is negative. - UA reviewed, Liver transplant status: - Continue Tacrolimus 0.5 mg PO BID, Ursodiol 300 mg PO QID, Prednisone 10 mg daily - Follows w/ [facility] Thrombocytopenia, baseline plt >40 : - Continue Promacta 50 mg PO daily, platelet count of 57 yesterday and trended down to 50 today, no bleeding reported. - Follow CBC - Follows w/ Yen Ferguson- consult, appreciate recommendations Immunodeficiency: Continue Hizentra 12 g IM weekly CKD Stage III- stable: GFR of 53, and Cr 1.5 Chronic coagulopathy PT 16.5 and INR of 1.5 , stable Chronically elevated alk phos and bilirubin Bilirubin is elevated as well as alkaline phosphatase could be secondary to primary sclerosing cholangitis, and failing liver transplant. MRCP negative. We will touch base with GI and discuss regarding elevated bilirubin and alkaline phosphatase and possible referral to [facility]. Insomnia/anxiety and depression- worsening secondary to father passing: - Continue Mirtazapine at 15 mg PO HS - Consult mental health, appreciate recommendations Hypothyroidism: - Continue Synthroid 88 mcg daily - TSH of 1.229 on 02/26/16 BPH with bladder outlet obstruction history: Continue Savi 1 capsule PO HS Peripheral neuropathy: Continue Topamax at 50 mg PO HS Allergy: Continue Hydroxyzine 50 mg PO TID PRN GERD:Continue Protonix 40 mg daily GI Prophylaxis: Maalox PRN, IV Zofran PRN, Colace and/or Milk of Mag PRN DVT prophylaxis: GILMA and SCDs Code Status: LEVEL I, FULL Continued [facility] stay due to: home environment unsafe for pt, other (elevated bilirubin and ammonia levels) Discharge planning: uncertain
--- NOTE | 2016-09-01 12:24 | Gastroenterology Progress Note ---
Progress Note Date of Service: Sep 01, 2016 Subjective Pt evaluation today including: conversation w/ patient, conversation w/ family , physical exam, chart review, lab review, review of studies, review of inpatient medication list cc f/u encephalopathy, elevated LFTS HPI Pt is alert, responding appropriately and asking appropriate questions. States he is stooling but no excessively. No abd pain. Tolerating po well. Review of Systems Respiratory: No shortness of breath Cardiac: No chest pain Medications Current Inpatient Medications Medications (Trade) Dose Ordered Sig/Tristen Route Start Time Stop Time Status Last Admin Dose Admin Epinephrine (Epipen) 0.3 mg UD PRN IM 08/28/16 12:15 09/27/16 12:14 Hydroxyzine HCl (Vistaril Tab) 50 mg TID PRN PO 08/28/16 12:15 09/27/16 12:14 Levothyroxine Sodium (Synthroid Tab) 88 mcg DAILYBB PO 08/29/16 06:00 09/28/16 05:59 09/01/16 06:00 88 MCG Ondansetron HCl (Zofran Tab) 8 mg Q6H PRN PO 08/28/16 12:15 09/27/16 12:14 Pantoprazole Sodium (Protonix Tab) 40 mg QPM PO 08/28/16 21:00 09/27/16 20:59 08/31/16 21:36 40 MG Prednisone (PredniSONE TAB) 10 mg QAM PO 08/29/16 09:00 09/28/16 08:59 09/01/16 07:11 10 MG Rifaximin (Xifaxan Tab) 550 mg BID PO 08/28/16 21:00 09/27/16 20:59 09/01/16 07:11 550 MG Tacrolimus (Prograf Cap) 0.5 mg QAM PO 08/29/16 09:00 09/28/16 08:59 09/01/16 07:11 0.5 MG Temazepam (Restoril Cap) 30 mg HS PRN PO 08/28/16 12:15 09/27/16 12:14 08/29/16 02:30 30 MG Topiramate (Topamax Tab) 50 mg HS PO 08/28/16 21:00 09/27/16 20:59 08/31/16 21:36 50 MG Tramadol HCl (Ultram Tab) 50 mg Q6H PRN PO 08/28/16 12:15 09/27/16 12:14 08/29/16 10:31 50 MG Ursodiol (Actigall Cap) 300 mg QID PO 08/28/16 17:00 09/27/16 16:59 09/01/16 07:11 300 MG Acetaminophen (Tylenol Tab) 650 mg Q8H PRN PO 08/28/16 15:15 09/27/16 15:14 Miscellaneous Information (Order Awaiting Action) 1 ea QS N/A 08/28/16 16:00 09/27/16 15:59 08/31/16 21:49 1 EA Mirtazapine (Remeron Solutab) 15 mg HS PO 08/28/16 21:00 09/27/16 20:59 08/31/16 21:36 15 MG Miscellaneous Information (Consult Glycemic Management Pharmacy) 1 ea UD PRN N/A 08/28/16 12:15 09/27/16 12:14 Al Hydrox/Mg Hydrox/Simethicone (Maalox Max Susp) 15 ml Q4H PRN PO 08/28/16 12:15 09/27/16 12:14 Magnesium Hydroxide (Milk Of Magnesia Susp) 30 ml Q12H PRN PO 08/28/16 12:15 09/27/16 12:14 Ondansetron HCl (Zofran Inj) 4 mg Q6H PRN IV 08/28/16 12:15 09/27/16 12:14 Nitroglycerin (Nitrostat Tab) 0.4 mg UD PRN SL 08/28/16 12:15 09/27/16 12:14 Polyethylene (Miralax Powder Packet) 17 gm DAILY PRN PO 08/28/16 12:15 09/27/16 12:14 Glucose (Glucose 40% Gel) UD PRN PO 08/28/16 13:15 09/27/16 13:14 Glucose (Glucose Chew Tab) 1 tabs UD PRN PO 08/28/16 13:15 09/27/16 13:14 Dextrose (Dextrose 50% 50ML Syringe) 50 ml UD PRN IV 08/28/16 13:15 09/27/16 13:14 08/29/16 06:46 50 ML Glucagon (Glucagon Inj) 1 mg UD PRN SQ 08/28/16 13:15 09/27/16 13:14 Miscellaneous (Iv Fluids Completed) 1 ea PRN PRN N/A 08/28/16 13:45 08/28/17 13:44 Insulin Aspart (novoLOG ASPART) SLIDING SCALE ACHS SC 08/29/16 08:00 09/28/16 07:59 09/01/16 10:14 1 UNITS Potassium/ Phosphorus/Sodium (Phospha 250 Neutral 155-852-130 Mg) 1 tab BID PO 08/29/16 12:00 09/28/16 11:59 08/31/16 21:36 1 TAB Magnesium Oxide 400 mg 400 mg QAM PO 08/29/16 12:00 09/28/16 11:59 08/31/16 07:23 400 MG Potassium Chloride/Sodium Chloride (1/2 Nss + 20meq KCl 1000ml) 1,000 ml @ 100 mls/hr Q10H IV 08/29/16 11:00 09/29/16 10:59 09/01/16 03:08 100 MLS/HR Eltrombopag (Promacta) 50 mg QAM PO 08/30/16 09:00 09/29/16 08:59 09/01/16 07:11 50 MG Dutasteride/ Tamsulosin (Savi 0.5-0.4 Mg) 1 cap HS PO 08/29/16 21:00 09/28/16 20:59 08/31/16 21:36 1 CAP Quetiapine Fumarate (seroQUEL TAB) 25 mg HS PRN PO 08/29/16 14:00 09/28/16 13:59 Loperamide HCl (Imodium Cap) 2 mg HS PRN PO 08/29/16 17:30 09/28/16 17:29 Lactulose (Chronulac Syrup) 30 gm BID PO 08/30/16 21:00 09/29/16 20:59 09/01/16 07:11 30 GM Insulin Glargine (Lantus Solostar Pen) 14 unit BID SC 09/01/16 09:00 10/01/16 08:59 09/01/16 10:21 14 UNIT Objective Vital Signs Date Time Temp Pulse Resp B/P Pulse Ox O2 Delivery O2 Flow Rate FiO2 09/01/16 08:01 97 Room Air 09/01/16 06:51 36.5 101 20 148/98 97 Room Air 09/01/16 04:26 Room Air 09/01/16 04:05 36.9 102 18 146/88 97 Room Air 09/01/16 00:02 Room Air 08/31/16 22:50 36.6 86 18 170/100 99 Room Air 08/31/16 20:02 Room Air 08/31/16 18:45 36.6 91 18 149/97 95 Room Air 08/31/16 16:01 97 Room Air 08/31/16 14:38 36.5 91 18 142/97 97 Physical Exam General Appearance: WD/WN, no apparent distress Respiratory/Chest: lungs clear, no respiratory distress Cardiovascular: no murmur Abdomen: normal bowel sounds, non tender, soft, no organomegaly Neurologic/Psych: alert, oriented x 3 Laboratory Results Last 24 Hours Test 08/31/16 15:20 08/31/16 16:26 08/31/16 20:32 09/01/16 05:15 White Blood Count 6.67 K/uL 7.88 K/uL Red Blood Count 4.07 M/uL 4.09 M/uL Hemoglobin 12.1 g/dL 12.4 g/dL Hematocrit 34.3 % 34.7 % Mean Corpuscular Volume 84.3 fL 84.8 fL Mean Corpuscular Hemoglobin 29.7 pg 30.3 pg Mean Corpuscular Hemoglobin Concent 35.3 g/dl 35.7 g/dl RDW Standard Deviation 51.1 fL 50.6 fL RDW Coefficient of Variation 16.3 % 16.4 % Platelet Count 75 K/uL 50 K/uL Prothrombin Time 17.0 SECONDS 16.5 SECONDS Prothromb Time International Ratio 1.6 1.5 Sodium Level 143 mmol/L 146 mmol/L Potassium Level 4.6 mmol/L 3.9 mmol/L Chloride Level 115 mmol/L 116 mmol/L Carbon Dioxide Level 16 mmol/L 20 mmol/L Anion Gap 12.0 mmol/L 10.0 mmol/L Blood Urea Nitrogen 22 mg/dl 20 mg/dl Creatinine 1.60 mg/dl 1.50 mg/dl Est Creatinine Clear Calc Drug Dose 61.7 ml/min 65.8 ml/min Estimated GFR () 57.0 61.6 Estimated GFR (Non- 49.2 53.1 BUN/Creatinine Ratio 14.0 13.6 Random Glucose 258 mg/dl 119 mg/dl Calcium Level 7.9 mg/dl 8.2 mg/dl Magnesium Level 1.8 mg/dl Total Bilirubin 5.6 mg/dl 5.7 mg/dl Aspartate Amino Transf (AST/SGOT) 44 U/L 46 U/L Alanine Aminotransferase (ALT/SGPT) 35 U/L 36 U/L Alkaline Phosphatase 304 U/L 306 U/L Total Protein 4.6 gm/dl 4.7 gm/dl Albumin 2.4 gm/dl 2.5 gm/dl Globulin 2.2 gm/dl 2.2 gm/dl Albumin/Globulin Ratio 1.1 1.1 Bedside Glucose 206 mg/dl 198 mg/dl Neutrophils (%) (Auto) 79.5 % Lymphocytes (%) (Auto) 6.5 % Monocytes (%) (Auto) 7.0 % Eosinophils (%) (Auto) 5.3 % Basophils (%) (Auto) 0.8 % Neutrophils # (Auto) 6.27 K/uL Lymphocytes # (Auto) 0.51 K/uL Monocytes # (Auto) 0.55 K/uL Eosinophils # (Auto) 0.42 K/uL Basophils # (Auto) 0.06 K/uL Immature Granulocyte % (Auto) 0.9 % Immature Granulocyte # (Auto) 0.07 K/uL Platelet Estimate DECREASED Giant Platelets 1+ Polychromasia 1+ Ovalocytes 1+ Echinocytes 2+ Ammonia 68.0 umol/L Test 09/01/16 06:57 09/01/16 11:13 Bedside Glucose 90 mg/dl 174 mg/dl Assessment and Plan encepalopathy--ammonia improved 68 and mental status is good elevated LFTS --TB and alk phos virtually the same today so do not feel need to contact [facility] today. 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 ascites low volume on MRCP---called Dr Peoples 08/31/16 who read MRCP and he says this is trace fluid/sliver and no amenable to tapping Elevated INR--improved. PSC/ s/p liver transplant--reviewed renal function last several months and CR is stable compared to outpt although was better this admission versus today. 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
--- NOTE | 2016-09-01 13:41 | Pharmacy Progress Note ---
Glycemic Control: Progress Nt Date of Service Sep 01, 2016. Scope Glycemic Pharmacist consulted by Valery Fonseca on 08/28/16 for glycemic control and to write orders per [facility] inpatient glycemic control protocol. Objective Accuchecks BSG (last 24hrs): Test 08/31/16 15:20 08/31/16 16:26 08/31/16 20:32 09/01/16 05:15 Random Glucose 258 mg/dl (70-99) 119 mg/dl (70-99) Bedside Glucose 206 mg/dl (70-99) 198 mg/dl (70-99) Test 09/01/16 06:57 09/01/16 11:13 Bedside Glucose 90 mg/dl (70-99) 174 mg/dl (70-99) Laboratory Data (last 24hrs) Test 08/31/16 15:20 09/01/16 05:15 Anion Gap 12.0 mmol/L 10.0 mmol/L BUN/Creatinine Ratio 14.0 13.6 Blood Urea Nitrogen 22 mg/dl 20 mg/dl Creatinine 1.60 mg/dl 1.50 mg/dl Potassium Level 4.6 mmol/L 3.9 mmol/L Sodium Level 143 mmol/L 146 mmol/L White Blood Count 6.67 K/uL 7.88 K/uL Red Blood Count 4.09 M/uL Hemoglobin 12.4 g/dL Hematocrit 34.7 % Mean Corpuscular Volume 84.8 fL Mean Corpuscular Hemoglobin 30.3 pg Mean Corpuscular Hemoglobin Concent 35.7 g/dl Platelet Count 50 K/uL Neutrophils (%) (Auto) 79.5 % Lymphocytes (%) (Auto) 6.5 % Monocytes (%) (Auto) 7.0 % Eosinophils (%) (Auto) 5.3 % Basophils (%) (Auto) 0.8 % Neutrophils # (Auto) 6.27 K/uL Lymphocytes # (Auto) 0.51 K/uL Monocytes # (Auto) 0.55 K/uL Eosinophils # (Auto) 0.42 K/uL Basophils # (Auto) 0.06 K/uL HbA1c: Test 08/29/16 04:27 Hemoglobin A1c 5.9 % (4.5-5.6) H Recent Pertinent Medications Outpatient Anti-diabetic Regimen: * Novolog ACHS CR 1:10, Lantus 40 units BID * A1c = 5.9 % 08/29/16 Risk Factors for Insulin Resistance: * Steroids: Prednisone 10mg daily (h/o liver transplant) * IVF: 1/2NS + 20 KCL @100 cc/hr * Diet: DM2 Assessment & Plan ASSESSMENT: * ADA & AACE recommend a goal blood sugar range 140-180 mg/dl for the majority of critically ill & non-critically ill patients. However, more stringent targets may be selected in individual cases. 09/01/16 * On 08/28 Mr. Burnette presented with altered mental status and severe hyperglycemia * Insulin drip was started per protocol and patient transitioned to SQ regimen on 08/29 * Patient was maintained on Lantus 20 units BID and Fasting BSG this AM 90 mg/dL * Reduce Lantus by ~25% * Prandial BSGs trending up * Tighten CF/CR * Tighten goal range * Of note, the pt's A1c has nearly cut in half since December 2015 (5.9% vs 10.1%) * The pt has lost weight since admission of December 2015. * Thus, insulin sensitivity has likely improved. PLAN FOR INPATIENT GLYCEMIC CONTROL: * Basal insulin with LANTUS 14 units SQ BID * If BSG <120 mg/dL, half dose (7 units) * Correctional Insulin with NOVOLOG per scale ACHS or Q6hrs while NPO * Goal Range: Low 120 mg/dL - High 160 mg/dL * Correction Factor: 30 mg/dL/unit * Nutritional / Prandial insulin per carb ratio of 1 unit per 10 grams CHO consumed * Most recent A1c added to D/C instructions * Please note that the plan above was derived based on current level of insulin resistance and hospital stress. These recommendations are appropriate for inpatient admission only. Plan of care upon discharge will need to be reassessed to avoid potential outpatient hypo/hyperglycemia. Thank you.
[2016-09-01] MEDS: DUTASTERIDE-TAMSULOSIN HCL 1 CAP CAP PO SCH (21:19)
[2016-09-01] MEDS: PANTOprazole SOD 40 MG TAB PO SCH (21:19)
[2016-09-01] MEDS: TOPIRAMATE 25 MG TAB PO SCH (21:19)
[2016-09-01] MEDS: MIRTAZAPINE SOLTAB 15 MG PO SCH (21:19)
[2016-09-02 02:25] VITALS: BP 143/84; PULSE 84; TEMP 36.6; O2SAT 98
[2016-09-02] MEDS: LEVOTHYROXINE 88 MCG TAB PO SCH (06:13)
[2016-09-02 06:14] LABS: HEMATOCRIT 29.1 % (42-52); MEAN CELL VOLUME 83.9 fL (80-100); MEAN CORPUSCULAR HEMOGLOBIN 30.5 pg (25-34); MEAN CORPUSCULAR HGB CONC 36.4 g/dl (32-36); RED BLOOD COUNT 3.47 M/uL (4.7-6.1); WHITE BLOOD COUNT 5.26 K/uL (4.8-10.8)
[2016-09-02 06:24] LABS: INR 1.6 (0.9-1.1); PROTHROMBIN TIME (PATIENT) 17.5 SECONDS (9.0-12.0)
[2016-09-02 06:44] LABS: PLATELET COUNT 49 K/uL (130-400)
[2016-09-02 06:45] LABS: BASO % 0.8 %; BASO ABS # 0.04 K/uL (0-0.2); COMPLETE YES; ECHINOCYTES 1+; EOS % 5.3 %; IG% 0.4 %; LARGE PLATELETS 1+; LYMPH % 11.2 %; LYMPH ABS # 0.59 K/uL (1.2-3.4); MONO % 6.7 %; NEUT % 75.6 %; OVALOCYTES 1+; PLT ESTIMATE DECREASED; POLYCHROMASIA 1+
[2016-09-02 06:54] LABS: ALB/GLOB RATIO 1.1 (0.9-2); BUN/CREATININE RATIO 15.1 (10-20); CALCIUM 7.6 mg/dl (8.5-10.1); CREATININE 1.4 mg/dl (0.60-1.40); POTASSIUM 3.8 mmol/L (3.5-5.1)
[2016-09-02 07:54] VITALS: BP 131/77; PULSE 91; TEMP 37.1; O2SAT 97
[2016-09-02 08:00] VITALS: O2SAT 97
[2016-09-02] MEDS: POT PHOSPHATE MONOBASIC W/ SOD TAB PO SCH (08:44)
[2016-09-02] MEDS: TACROLIMUS 0.5 MG CAP PO SCH (08:44)
[2016-09-02] MEDS: RIFAXIMIN TAB 550 MG TAB PO SCH (08:44)
[2016-09-02] MEDS: URSODIOL 300 MG CAP PO SCH ×2 (08:45→12:39)
[2016-09-02] MEDS: MAGNESIUM OXIDE 400 MG TAB PO SCH (08:45)
[2016-09-02] MEDS: LACTULOSE SYRUP 30 GM/45 ML UDP PO SCH (08:46)
[2016-09-02] MEDS: INSULIN ASPART 100 UNITS/ML 3 ML PEN SC SCH ×2 (08:51→12:40)
[2016-09-02] MEDS ORDERED: INSULIN GLARGINE SOLOSTAR 100 UNITS/ML 3 ML PEN SC ONE (09:00)
[2016-09-02] MEDS: ELTROMBOPAG 50 MG TAB PO SCH (09:00)
[2016-09-02] MEDS: SODIUM CHLOR 0.45% + 20MEQ KCL 1,000 ML IV SCH (09:08)
--- NOTE | 2016-09-02 10:47 | Pharmacy Progress Note ---
Glycemic Control: Progress Nt Date of Service Sep 02, 2016. Scope Glycemic Pharmacist consulted by FUAD Miller on 08/28 for glycemic control and to write orders per [facility] inpatient glycemic control protocol. Objective Accuchecks BSG (last 24hrs): Test 09/01/16 11:13 09/01/16 15:46 09/01/16 20:33 09/02/16 05:57 Bedside Glucose 174 mg/dl (70-99) 236 mg/dl (70-99) 147 mg/dl (70-99) Random Glucose 63 mg/dl (70-99) Laboratory Data (last 24hrs) Test 09/02/16 05:57 Anion Gap 9.0 mmol/L BUN/Creatinine Ratio 15.1 Blood Urea Nitrogen 21 mg/dl Creatinine 1.40 mg/dl Potassium Level 3.8 mmol/L Sodium Level 145 mmol/L White Blood Count 5.26 K/uL Red Blood Count 3.47 M/uL Hemoglobin 10.6 g/dL Hematocrit 29.1 % Mean Corpuscular Volume 83.9 fL Mean Corpuscular Hemoglobin 30.5 pg Mean Corpuscular Hemoglobin Concent 36.4 g/dl Platelet Count 49 K/uL Neutrophils (%) (Auto) 75.6 % Lymphocytes (%) (Auto) 11.2 % Monocytes (%) (Auto) 6.7 % Eosinophils (%) (Auto) 5.3 % Basophils (%) (Auto) 0.8 % Neutrophils # (Auto) 3.98 K/uL Lymphocytes # (Auto) 0.59 K/uL Monocytes # (Auto) 0.35 K/uL Eosinophils # (Auto) 0.28 K/uL Basophils # (Auto) 0.04 K/uL HbA1c: Test 08/29/16 04:27 Hemoglobin A1c 5.9 % (4.5-5.6) H Recent Pertinent Medications Outpatient Anti-diabetic Regimen: * Novolog ACHS CR 1:10, Lantus 40 units BID The patient is currently receiving: * Basal insulin: Lantus 14 units every 12 hours * Correctional Insulin: Novolog Correction per scale ACHS Goal Range: Low 120 mg/dL - High 160 mg/dL Correction Factor: 30 mg/dL/unit * Prandial insulin: Per carb ratio of 1 unit per 10 grams CHO consumed Risk Factors for Insulin Resistance: * Steroids: prednisone 10 mg daily * Diet: type 2 diabetes - consuming varying amts of CHO w/ meals Assessment & Plan ASSESSMENT: 09/01/16 * On 08/28 Mr. Burnette presented with altered mental status and severe hyperglycemia * Insulin drip was started per protocol and patient transitioned to SQ regimen on 08/29 * Patient was maintained on Lantus 20 units BID and Fasting BSG this AM 90 mg/dL * Reduce Lantus by ~25% * Prandial BSGs trending up * Tighten CF/CR * Tighten goal range * Of note, the pt's A1c has nearly cut in half since December 2015 (5.9% vs 10.1%) * The pt has lost weight since admission of December 2015. * Thus, insulin sensitivity has likely improved. 09/02/16 * Mr. Burnette rec'd 37 units of insulin yesterday with BSGs ranging from 63-236 mg/dL * Fasting was reduced further this AM (63 on PRP) but I believe this is most likely from the higher Lantus doses on 08/31 * I ordered for 1/2 of his Lantus to be given this AM but would like to resume the 14 units BID tonight * CF/CR appear appropriate at this time * No change to stressors are noted PLAN FOR INPATIENT GLYCEMIC CONTROL: * Give 7 units of Lantus this AM, then resume 14 units BID * Continue Novolog ACHS * Goal 120-160 mg/dL * CF 30 mg/dL/unit * CR 1 unit per 10 gm CHO consumed * Please note that the plan above was derived based on current level of insulin resistance and hospital stress. These recommendations are appropriate for inpatient admission only. Plan of care upon discharge will need to be reassessed to avoid potential outpatient hypo/hyperglycemia. Thank you.
--- NOTE | 2016-09-02 10:58 | Hospitalist Progress Note ---
Hospitalist Progress Note Date of Service Sep 02, 2016. Subjective Pt evaluation today including: conversation w/ patient, physical exam, chart review, lab review, review of studies, review of inpatient medication list Voiding: no voiding problems, no incontinence Patient alert/oriented x3- answering questions appropriately. Patient is unpleased with Lactulose; it makes him feel like he is having "electrified sweats" When asked to further elaborate, patient states he feels hot and sweaty after taking medication. He understands at this point he needs the Lactulose to remove ammonia, but states "it effects my quality of life." He has taken Lactulose in the past and discontinued because of similar symptoms. He is OK with continuing medication at this time to treat hyperammonemia level, but unsure if he'll stay on it buttermaker. Otherwise, he is feeling well. He admits to bowel movements. He is eating and drinking OK. He is very anxious for discharge, stating "everyone just keeps telling me it will be tomorrow." While interviewing patient, he appears very anxious/high-strung; talking is very quick, he is upset that everyone keeps pushing back discharge, he states he was paranoid at one point because "these ladies kept coming in everyday asking me about my feelings and my dad", he is very agitated with his roommate stating, "I could tell you why he is here and every detail about it. How would you like to have to listen to the same story 116 times." Patient denies any fever, chills, sweats, lightheadedness, dizziness, vision changes, CP, palpitations, edema, SOB, wheezing, cough, abdominal pain, nausea, vomiting, diarrhea, urinary symptoms, melena, numbness/tingling, weakness, muscle/joint pain, anxiety/depression, active bleeding, or new skin discoloration/changes. Medications Current Inpatient Medications Medications (Trade) Dose Ordered Sig/Tristen Route Start Time Stop Time Status Last Admin Dose Admin Epinephrine (Epipen) 0.3 mg UD PRN IM 08/28/16 12:15 09/27/16 12:14 Hydroxyzine HCl (Vistaril Tab) 50 mg TID PRN PO 08/28/16 12:15 09/27/16 12:14 Levothyroxine Sodium (Synthroid Tab) 88 mcg DAILYBB PO 08/29/16 06:00 09/28/16 05:59 09/02/16 06:13 88 MCG Ondansetron HCl (Zofran Tab) 8 mg Q6H PRN PO 08/28/16 12:15 09/27/16 12:14 Pantoprazole Sodium (Protonix Tab) 40 mg QPM PO 08/28/16 21:00 09/27/16 20:59 09/01/16 21:19 40 MG Prednisone (PredniSONE TAB) 10 mg QAM PO 08/29/16 09:00 09/28/16 08:59 09/02/16 08:45 10 MG Rifaximin (Xifaxan Tab) 550 mg BID PO 08/28/16 21:00 09/27/16 20:59 09/02/16 08:44 550 MG Tacrolimus (Prograf Cap) 0.5 mg QAM PO 08/29/16 09:00 09/28/16 08:59 09/02/16 08:44 0.5 MG Temazepam (Restoril Cap) 30 mg HS PRN PO 08/28/16 12:15 09/27/16 12:14 08/29/16 02:30 30 MG Topiramate (Topamax Tab) 50 mg HS PO 08/28/16 21:00 09/27/16 20:59 09/01/16 21:19 50 MG Tramadol HCl (Ultram Tab) 50 mg Q6H PRN PO 08/28/16 12:15 09/27/16 12:14 08/29/16 10:31 50 MG Ursodiol (Actigall Cap) 300 mg QID PO 08/28/16 17:00 09/27/16 16:59 09/02/16 08:45 300 MG Acetaminophen (Tylenol Tab) 650 mg Q8H PRN PO 08/28/16 15:15 09/27/16 15:14 Miscellaneous Information (Order Awaiting Action) 1 ea QS N/A 08/28/16 16:00 09/27/16 15:59 08/31/16 21:49 1 EA Mirtazapine (Remeron Solutab) 15 mg HS PO 08/28/16 21:00 09/27/16 20:59 09/01/16 21:19 15 MG Miscellaneous Information (Consult Glycemic Management Pharmacy) 1 ea UD PRN N/A 08/28/16 12:15 09/27/16 12:14 Al Hydrox/Mg Hydrox/Simethicone (Maalox Max Susp) 15 ml Q4H PRN PO 08/28/16 12:15 09/27/16 12:14 Magnesium Hydroxide (Milk Of Magnesia Susp) 30 ml Q12H PRN PO 08/28/16 12:15 09/27/16 12:14 Ondansetron HCl (Zofran Inj) 4 mg Q6H PRN IV 08/28/16 12:15 09/27/16 12:14 Nitroglycerin (Nitrostat Tab) 0.4 mg UD PRN SL 08/28/16 12:15 09/27/16 12:14 Polyethylene (Miralax Powder Packet) 17 gm DAILY PRN PO 08/28/16 12:15 09/27/16 12:14 Glucose (Glucose 40% Gel) UD PRN PO 08/28/16 13:15 09/27/16 13:14 Glucose (Glucose Chew Tab) 1 tabs UD PRN PO 08/28/16 13:15 09/27/16 13:14 Dextrose (Dextrose 50% 50ML Syringe) 50 ml UD PRN IV 08/28/16 13:15 09/27/16 13:14 08/29/16 06:46 50 ML Glucagon (Glucagon Inj) 1 mg UD PRN SQ 08/28/16 13:15 09/27/16 13:14 Miscellaneous (Iv Fluids Completed) 1 ea PRN PRN N/A 08/28/16 13:45 08/28/17 13:44 Insulin Aspart (novoLOG ASPART) SLIDING SCALE ACHS SC 08/29/16 08:00 09/28/16 07:59 09/02/16 08:51 4 UNITS Potassium/ Phosphorus/Sodium (Phospha 250 Neutral 155-852-130 Mg) 1 tab BID PO 08/29/16 12:00 09/28/16 11:59 09/02/16 08:44 1 TAB Magnesium Oxide 400 mg 400 mg QAM PO 08/29/16 12:00 09/28/16 11:59 09/02/16 08:45 400 MG Potassium Chloride/Sodium Chloride (1/2 Nss + 20meq KCl 1000ml) 1,000 ml @ 100 mls/hr Q10H IV 08/29/16 11:00 09/29/16 10:59 09/02/16 09:08 100 MLS/HR Eltrombopag (Promacta) 50 mg QAM PO 08/30/16 09:00 09/29/16 08:59 09/01/16 07:11 50 MG Dutasteride/ Tamsulosin (Savi 0.5-0.4 Mg) 1 cap HS PO 08/29/16 21:00 09/28/16 20:59 09/01/16 21:19 1 CAP Quetiapine Fumarate (seroQUEL TAB) 25 mg HS PRN PO 08/29/16 14:00 09/28/16 13:59 Loperamide HCl (Imodium Cap) 2 mg HS PRN PO 08/29/16 17:30 09/28/16 17:29 Lactulose (Chronulac Syrup) 30 gm BID PO 08/30/16 21:00 09/29/16 20:59 09/02/16 08:46 30 GM Insulin Glargine (Lantus Solostar Pen) 14 unit BID SC 09/01/16 09:00 10/01/16 08:59 Future hold 09/01/16 21:25 14 UNIT Objective Vital Signs Date Time Temp Pulse Resp B/P Pulse Ox O2 Delivery O2 Flow Rate FiO2 09/02/16 07:54 37.1 91 20 131/77 97 Room Air 09/02/16 02:25 Room Air 09/02/16 02:25 36.6 84 16 143/84 98 Room Air 09/02/16 00:00 Room Air 09/01/16 23:01 36.8 97 20 155/97 96 Room Air 09/01/16 20:00 Room Air 09/01/16 18:50 36.6 90 18 136/90 97 Room Air 09/01/16 16:05 97 Room Air 09/01/16 14:45 36.8 95 18 134/89 96 Room Air 09/01/16 12:25 97 Room Air 09/01/16 11:12 36.9 97 18 131/94 96 Room Air Physical Exam General Appearance: no apparent distress Eyes: PERRL, + pertinent finding (mild icterus sclera ) ENT: hearing grossly normal Neck: supple Respiratory/Chest: lungs clear, no respiratory distress, no accessory muscle use Cardiovascular: regular rate, rhythm Abdomen: normal bowel sounds, non tender, soft Extremities: no pedal edema, no calf tenderness, + swelling (trace pitting edema to bilateral lower extremities ) Neurologic/Psychiatric: alert, oriented x 3, + pertinent finding (Anxious) Skin: warm/dry, no rash, + jaundice Laboratory Results Last 24 Hours Test 09/01/16 11:13 09/01/16 15:46 09/01/16 20:33 09/02/16 05:57 Bedside Glucose 174 mg/dl 236 mg/dl 147 mg/dl White Blood Count 5.26 K/uL Red Blood Count 3.47 M/uL Hemoglobin 10.6 g/dL Hematocrit 29.1 % Mean Corpuscular Volume 83.9 fL Mean Corpuscular Hemoglobin 30.5 pg Mean Corpuscular Hemoglobin Concent 36.4 g/dl Platelet Count 49 K/uL Neutrophils (%) (Auto) 75.6 % Lymphocytes (%) (Auto) 11.2 % Monocytes (%) (Auto) 6.7 % Eosinophils (%) (Auto) 5.3 % Basophils (%) (Auto) 0.8 % Neutrophils # (Auto) 3.98 K/uL Lymphocytes # (Auto) 0.59 K/uL Monocytes # (Auto) 0.35 K/uL Eosinophils # (Auto) 0.28 K/uL Basophils # (Auto) 0.04 K/uL RDW Standard Deviation 50.3 fL RDW Coefficient of Variation 16.8 % Immature Granulocyte % (Auto) 0.4 % Immature Granulocyte # (Auto) 0.02 K/uL Platelet Estimate DECREASED Large Platelets 1+ Polychromasia 1+ Ovalocytes 1+ Echinocytes 1+ Prothrombin Time 17.5 SECONDS Prothromb Time International Ratio 1.6 Sodium Level 145 mmol/L Potassium Level 3.8 mmol/L Chloride Level 118 mmol/L Carbon Dioxide Level 18 mmol/L Anion Gap 9.0 mmol/L Blood Urea Nitrogen 21 mg/dl Creatinine 1.40 mg/dl Est Creatinine Clear Calc Drug Dose 70.5 ml/min Estimated GFR () 66.9 Estimated GFR (Non- 57.8 BUN/Creatinine Ratio 15.1 Random Glucose 63 mg/dl Calcium Level 7.6 mg/dl Total Bilirubin 5.0 mg/dl Aspartate Amino Transf (AST/SGOT) 42 U/L Alanine Aminotransferase (ALT/SGPT) 30 U/L Alkaline Phosphatase 249 U/L Ammonia 79.0 umol/L Total Protein 4.0 gm/dl Albumin 2.1 gm/dl Globulin 1.9 gm/dl Albumin/Globulin Ratio 1.1 Assessment and Plan 51 y/o male, with PMHx of ulcerative colitis with primary sclerosing cholangitis s/p total abdominal colectomy, with subsequent recurrence of PSC, s/ p liver transplant (2007) , post-transplant ITP, portal vein thrombosis s/p TIPS , spleno-renal shunt s/p embolization (2015), CKD stage III, anxiety/ depression, hypothyroidism, DM, GERD, and BPH, who presented to the ED because of AMS. Insulin-dependent DM/Mild DKA w/ sugar of 671- resolved: - Admit to tele for cardiac monitoring - DKA protocol w/ insulin drip--> d/c'd on 09/01 due to resolved hyperglycemia - Home medication includes: Lantus 40 u BID w/ sliding scale - ha1c 5.9% on 08/29/16 - Pharmacy consulted for glycemic management AMS- resolved, ?secondary to hepatic encephalopathy w/ ammonia level of 66 at admission: - Continue Xifaxan - CXR to r/o infectious cause- unremarkable - UA reviewed - BCx- NGTD - Follow ammonia level-- trending upwards despite starting Lactulose - GI consulted, appreciated recommendations -- Lactulose 30 gm BID Liver transplant status: - Continue Tacrolimus 0.5 mg PO BID, Ursodiol 300 mg PO QID, Prednisone 10 mg daily - Follows w/ [facility] Thrombocytopenia, plt 29 on admission- baseline plt 40-80- improved: - Continue Promacta 50 mg PO daily - Follow CBC - Follows w/ Yen Ferguson - Consulted hematology/oncology, appreciate recommendations Immunodeficiency: Continue Hizentra 12 g IM weekly CKD, stage III- stable: Follow PRP Chronic coagulopathy, baseline INR 1.2-1.3: Following INR Chronically elevated alk phos and bilirubin- improving: - MRCP on 08/31 suggested by GI due to rising bilirubin- No evidence of intrahepatic biliary ductal dilatation. Pronounced splenomegaly (19 cm). Low volume ascites. Small right pleural effusion. Marked pancreatic ductal dilatation (17 mm). Thrombus at the superior mesenteric splenic vein confluence. Gastric and duodenal edema - Trending LFTs, appear to be improving on 09/02- following closely--> if worsening, ?transfer to [facility] Insomnia/anxiety and depression- worsening secondary to father passing: - Continue Mirtazapine at 15 mg PO HS - Consult mental health, appreciate recommendations -- Seroquel 25-50 mg HS PRN -- Restoril 15 mg QAM and 30 mg HS decreased to just 30 mg HS - Scheduled f/u w/ Dr. Elam outpatient Hypomagnesemia: - Mag-Ox 400 mg daily - Follow mag level Hypothyroidism: - Continue Synthroid 88 mcg daily - TSH of 1.229 on 02/26/16 BPH with bladder outlet obstruction history: Continue Savi 1 capsule PO HS Peripheral neuropathy: Continue Topamax at 50 mg PO HS Allergy: Continue Hydroxyzine 50 mg PO TID PRN GERD:Continue Protonix 40 mg daily GI Prophylaxis: Maalox PRN, IV Zofran PRN, Colace and/or Milk of Mag PRN DVT prophylaxis: GILMA and SCDs Code Status: LEVEL I, FULL Dispo: Discharge to home once medically stable
[2016-09-02 11:46] VITALS: BP 129/78; PULSE 99; TEMP 36.8; O2SAT 98
[2016-09-02 15:00] VITALS: BP 150/89; PULSE 89; TEMP 36.7; O2SAT 98
--- NOTE | 2016-09-02 15:35 | PROGRESS NOTE ---
DATE: 09/02/2016 SUBJECTIVE: The patient's mental status is back to baseline, his blood sugars are normal and his ammonia level has dipped to 48 today with Xifaxan and lactulose twice a day. His bilirubin is also coming down to 5 from a peak of 5.9 earlier. His blood cultures are negative so far and there is no evidence of fever or elevated white count. IMPRESSION: I believe the patient's altered mental status was precipitated by his hyperglycemia and metabolic derangements and I think in turn that precipitated his elevated liver tests and ammonia level as well. All of these are correcting now that his blood sugars have improved and there is no evidence of infection or other cause. His MRCP of his liver bile ducts is unchanged from his baseline. The patient's encephalopathy is improved. I plan on having the patient be discharged on both Xifaxan and lactulose. His mother will help monitor his blood sugars at home to hopefully get them monitored more closely, so if there is a problem will be aware of it sooner. He is going to eat 3 meals a day rather than eating sporadically and I will see him back in the office next or sooner if there is a problem.
[2016-09-02] MEDS ORDERED: MGNO400 PO (16:19)
--- NOTE | 2016-09-02 16:20 | Discharge Instructions ---
Discharge Instructions Date of Service Sep 02, 2016. Admission Reason for Admission: Diabetes Mellitus Out Of Contorl, Hyperglycemia Discharge Discharge Diagnosis / Problem: dka Discharge Goals Goal(s): Decrease discomfort, Improve function, Increase independence, Improve disease control, Improve nutritional status, Learn about illness, Diagnostic testing, Therapeutic intervention, Prevent Disease Progression, Specific goals Activity Recommendations Activity Limitations: resume your previous activity . Instructions / Follow-Up Instructions / Follow-Up you have Insulin-dependent DM/Mild DKA w/ sugar of 671- resolved: I recommend you to get Lantus 20 unit sq q HS, starts from tonight, plus insulin sliding scale AMS- resolved, like secondary to hepatic encephalopathy w/ ammonia level , now is in baseline you have Thrombocytopenia, PSC, hx of liver transplant, you need to follow uo with your community manager, and local GI Dr. Vaughn as instructed - you need to follow up with your primary care physician in 1 week, - take medication as instructed, never overdose or any misuse, or take with alcohol, because misuse of medicine may cause organ damage or , call your primary care physician if have questions of medicaitons. - call your primary care physician OR go to local emergency room if has any fever/chill, chest pain, shortness of breathing, nausea/vomiting/abdominal pain , facial droop/slurry speech/local weakness, or if has any questions. - fall precaution - diet as instructed - you need to follow up with your subspecialists - you should understand that it is important to follow up the above instruction , and "not following the above instruction" may cause delayed or missed care of your medical conditions which may cause permanent organ damage and even . Current Hospital Diet Patient's current hospital diet: Diabetes Type 2 Diet Discharge Diet Recommended Diet: Diabetes Type 2 Diet Pending Studies Studies pending at discharge: no Laboratory Results Hemoglobin A1c Test 08/29/16 04:27 Range/Units Estimated Average Glucose 123 mg/dl Hemoglobin A1c 5.9 H 4.5-5.6 % Lipid Panel Test 06/04/16 13:08 Range/Units Triglycerides Level 105 0-150 mg/dl Cholesterol Level 101 0-200 mg/dl HDL Cholesterol 21 mg/dl Cholesterol/HDL Ratio 4.8 LDL Cholesterol, Calculated 59 mg/dl Medical Emergencies . Who to Call and When: Medical Emergencies: If at any time you feel your situation is an emergency, please call 911 immediately. . Non-Emergent Contact Non-Emergency issues call your: Primary Care Provider, [employer] . . "Provider Documentation" section prepared by Mundo Álvarez. VTE Core Measure Inpt VTE Proph given/why not?: Librado Camacho, SCD's
[2016-09-02] MEDS ORDERED: INSDGIPEN SC (16:29)
[2016-09-02 16:37] VITALS: BP 150/89; PULSE 89; TEMP 36.7; O2SAT 98
--- NOTE | 2016-09-02 16:58 | Discharge Summary ---
Discharge Summary Date of Service Sep 02, 2016. Discharge Summary Admission Date: Aug 28, 2016 at 12:27 Discharge Date: Sep 02, 2016 Discharge Disposition: Home Principal Diagnosis: insulin-dependent DM/Mild DKA Problems/Secondary Diagnoses: AMS- resolved, like secondary to hepatic encephalopathy Thrombocytopenia, PSC, hx of liver transplant, Immunizations: Have You Had Influenza Vaccine: Yes Influenza Vaccine Date: Jun 01, 2013 History of Tetanus Vaccine?: utd History of Pneumococcal: Yes Pneumococcal Date: Jun 01, 2013 History of Hepatitis B Vaccine: Unknown Procedures: no Consultations: gi Medication Reconciliation New Medications: Insulin Glargine (Lantus Solostar) 100 Unit/Ml Inj 20 UNIT SC HS for 1 Day this is just medicine reconciliation Magnesium Oxide (Magnesium-Oxide) 400 Mg Tab 400 MG PO QAM for 7 Days, #7 TAB Continued Medications: Acetaminophen (Tylenol Arthritis Ext Rel) 650 Mg Tab 650 MG PO Q8H PRN for Pain or Fever, TAB Cholecalciferol (Vitamin D3) 2,000 Unit Tab 1 TAB PO BID for 30 Days, #60 TAB 5 Refills Dutasteride-Tamsulosin Hcl (Savi) 1 Cap Cap 1 CAP PO HS Eltrombopag Olamine (Promacta) 12.5 Mg Tab 50 MG PO DAILY Epinephrine (Epipen 2-[place]) 0.3 Mg Inj 0.3 MG IM UD PRN for ALLERGIC REACTION ONE INJECTION IM PRN SEVERE ALLERGIC REACTION. REPEAT IN 20 MINUTES PRN CONTINUED REACTION Hydroxyzine Hcl (Atarax) 50 Mg Tab 50 MG PO 3-4XD PRN for Itching, TAB Immune Globulin (Human) Subcut (Hizentra) 4 Gm/20 Ml Inj 12 GM SC WK Insulin Aspart (Novolog) Inj 1 DOSE SC ACHS SUBCUANEOUSLY BEFORE MEALS AND AT BEDTIME PER SLIDING SCALE ( 1 UNIT FOR EVERY 10 GRAMS OF CARBS) Levothyroxine Sodium (Levothyroxine Sodium) 88 Mcg Tab 88 MCG PO QAM ONE TABLET DAILY ON EMPY STOMACH WITH A FULL GLASS OF WATER. WAIT 30 MINUTES BEFORE EATING Loperamide Hcl (Imodium) 2 Mg Cap 2 MG PO PRN HS Mirtazapine Soltab (Remeron Soltab) 15 Mg Soltab 15 MG PO HS, TAB Ondansetron Hcl (Zofran) 8 Mg Tab 1-2 TABS PO Q6H PRN for Nausea Pantoprazole (Protonix) 40 Mg Tab 40 MG PO QPM ONE TABLET BY MOUTH EVERY DAY AT 1630 Prednisone Tab (Prednisone) 10 Mg Tab 10 MG PO QAM, TAB Rifaximin (Xifaxan) 550 Mg Tab 550 MG PO BID, TAB Tacrolimus (Prograf) 0.5 Mg Cap 0.5 MG PO QAM, CAP Temazepam (Restoril) 30 Mg Cap 30 MG PO HS PRN for Sleep, CAP Topiramate (Topamax ) 25 Mg Tab 2 TAB PO HS, TAB Tramadol (Ultram) 50 Mg Tab 50 MG PO Q6H PRN for Pain, TAB Ursodiol (Ursodiol) 300 Mg Cap 1 CAP PO QID Discontinued Medications: Insulin Glargine (Lantus) Vial 40 UNITS SC AMPM, VIAL Discharge Exam doing better Review of Systems: Constitutional: + problem reported (see today's note) Physical Exam: General Appearance: + pertinent finding (see today's note) Hospital Course 51 y/o male, with PMHx of ulcerative colitis with primary sclerosing cholangitis s/p total abdominal colectomy, with subsequent recurrence of PSC, s/ p liver transplant (2007) , post-transplant ITP, portal vein thrombosis s/p TIPS , spleno-renal shunt s/p embolization (2015), CKD stage III, anxiety/ depression, hypothyroidism, DM, GERD, and BPH, who presented to the ED because of AMS. Insulin-dependent DM/Mild DKA w/ sugar of 671- resolved: AMS- resolved, ?secondary to hepatic encephalopathy w/ ammonia level of 66 at admission: Today is 79 and repeated in 48 Liver transplant status: Thrombocytopenia, plt 29 on admission- baseline plt 40-80- improved: Immunodeficiency: Continue Hizentra 12 g IM weekly CKD, stage III- stable: Follow PRP Chronic coagulopathy, baseline INR 1.2-1.3: Following INR Chronically elevated alk phos and bilirubin- improving: BPH with bladder outlet obstruction history: Peripheral neuropathy: Continue Topamax at 50 mg PO HS Continue current care Xifaxan plus neck to low-dose GI consulted, appreciated recommendations Discussed with GI service, and patient's family wanted to have GI physician talked to her [facility] transmitter tester Has talked to patient and brother in length bedside, updated conditions and care plan GI Prophylaxis: Maalox PRN, IV Zofran PRN, Colace and/or Milk of Mag PRN DVT prophylaxis: GILMA and SCDs Code Status: LEVEL I, FULL Planning to discharge home if continue to stable and improving Instructions / Follow-Up you have Insulin-dependent DM/Mild DKA w/ sugar of 671- resolved: I recommend you to get Lantus 20 unit sq q HS, starts from tonight, plus insulin sliding scale AMS- resolved, like secondary to hepatic encephalopathy w/ ammonia level , now is in baseline you have Thrombocytopenia, PSC, hx of liver transplant, you need to follow uo with your transmitter tester, and local GI Dr. Vaughn as instructed - you need to follow up with your primary care physician in 1 week, - take medication as instructed, never overdose or any misuse, or take with alcohol, because misuse of medicine may cause organ damage or , call your primary care physician if have questions of medicaitons. - call your primary care physician OR go to local emergency room if has any fever/chill, chest pain, shortness of breathing, nausea/vomiting/abdominal pain , facial droop/slurry speech/local weakness, or if has any questions. - fall precaution - diet as instructed - you need to follow up with your subspecialists - you should understand that it is important to follow up the above instruction , and "not following the above instruction" may cause delayed or missed care of your medical conditions which may cause permanent organ damage and even . Total Time Spent: Greater than 30 minutes This includes examination of the patient, discharge planning, medication reconciliation, and communication with other providers. Discharge Instructions Please refer to the electronic Patient Visit Report (Discharge Instructions) for additional information. Additional Copies To Gurinder Bullock M.D.; George Vaughn M.D.
[2016-09-03] MEDS ORDERED: INSULIN GLARGINE SOLOSTAR 100 UNITS/ML 3 ML PEN SC SCH (09:00)
== END 2016-09-02 17:05 | disposition home or self-care (01) | DRG 441 ==
LOC: ENRESERVDT → ENRESERVTM → C.EDB 09:26 → C.2E 12:27 → C.MED 09-02 02:24
PROVIDERS: ADMIT Internal Medicine; ATTEND Hospitalist
DX: K72.90 Hepatic failure, unspecified without coma (principal); E13.10 Other specified diabetes mellitus with ketoacidosis without coma; Z94.4 Liver transplant status; D68.9 Coagulation defect, unspecified; F33.1 Major depressive disorder, recurrent, moderate; D84.9 Immunodeficiency, unspecified; E72.20 Disorder of urea cycle metabolism, unspecified; R18.8 Other ascites; R17 Unspecified jaundice; R41.82 Altered mental status, unspecified; D69.6 Thrombocytopenia, unspecified; E03.9 Hypothyroidism, unspecified; N18.3 Chronic kidney disease, stage 3 (moderate); G47.00 Insomnia, unspecified; F41.9 Anxiety disorder, unspecified; G62.9 Polyneuropathy, unspecified; K21.9 Gastro-esophageal reflux disease without esophagitis; N40.0 Benign prostatic hyperplasia without lower urinary tract symptoms; Z91.19 Patient's noncompliance with other medical treatment and regimen; Z79.4 Long term (current) use of insulin; E11.42 Type 2 diabetes mellitus with diabetic polyneuropathy; E11.65 Type 2 diabetes mellitus with hyperglycemia; E86.0 Dehydration; E83.42 Hypomagnesemia

== ENCOUNTER → 2016-10-01 | Outpatient (CLI) | payer BC, OTHER ==
[~2016-10-01] MED LIST changes: -BCTROWC EXT; +FLM4 PO; -FLUC100T4 PO; +IMD/2 PO; -INSDGI SC; +INSDGIPEN SC; +LCTL45 PO; -METR-163 PO; +MGNO400 PO; -MOME6000 NAE; +NVLG SC; +PRS5 PO; +SRQ25 PO; -SUCR5SUS PO
[2016-10-01 13:22] LABS: HEMATOCRIT 37.1 % (42-52); MEAN CELL VOLUME 90.7 fL (80-100); MEAN CORPUSCULAR HEMOGLOBIN 31.3 pg (25-34); MEAN CORPUSCULAR HGB CONC 34.5 g/dl (32-36); RED BLOOD COUNT 4.09 M/uL (4.7-6.1); WHITE BLOOD COUNT 8.84 K/uL (4.8-10.8)
[2016-10-01 13:29] LABS: INR 1.3 (0.9-1.1); PARTIAL THROMBOPLASTIN RATIO 1.2; PROTHROMBIN TIME (PATIENT) 13.6 SECONDS (9.0-12.0)
[2016-10-01 14:03] LABS: PLATELET COUNT 36 K/uL (130-400)
[2016-10-01 14:04] LABS: BASO % 0.7 %; BASO ABS # 0.06 K/uL (0-0.2); COMPLETE YES; ECHINOCYTES 1+; EOS % 2.3 %; IG% 0.7 %; LYMPH % 4.9 %; LYMPH ABS # 0.43 K/uL (1.2-3.4); MONO % 5.4 %
[2016-10-01 18:04] LABS: ALKALINE PHOSPHATASE 376 U/L (45-117); ALT/SGPT 30 U/L (12-78); AST/SGOT 32 U/L (15-37); BLOOD UREA NITROGEN 28 mg/dl (7-18); BUN/CREATININE RATIO 19.8 (10-20); CALCIUM 9.2 mg/dl (8.5-10.1); CARBON DIOXIDE 21 mmol/L (21-32); CHLORIDE 112 mmol/L (98-107); GLUCOSE 151 mg/dl (70-99); HDL CHOLESTEROL 27 mg/dl; PHOSPHORUS 3.1 mg/dl (2.5-4.9); SODIUM 141 mmol/L (136-145)
[2016-10-04 10:37] LABS: FK506 TACROLIMUS HIGHLY SENS 4.3 MCG/L (5-20)
== END | disposition home or self-care (01) ==
LOC: C.LABBC 12:21
PROVIDERS: ATTEND Internal Medicine Gastroenterology
DX: Z94.4 Liver transplant status (principal); Z79.899 Other long term (current) drug therapy; K74.3 Primary biliary cirrhosis

== ENCOUNTER 2016-10-05 18:56 | Inpatient (IN) | payer BC, OTHER ==
[~2016-10-05] VITALS: Ht 185.4 cm; Wt 93.4 kg
[~2016-10-05 18:56] MED LIST changes: -FLM4 PO; -LCTL45 PO; -NVLG SC; -PRS5 PO; -SRQ25 PO
[2016-10-05] MEDS ORDERED: SODIUM CHLORIDE 0.9% 1000ML 1,000 ML IV STA (19:20)
--- NOTE | 2016-10-05 19:29 | EMERGENCY ROOM VISIT NOTE ---
History Report prepared by Pao: Danilo Marshall Under the Supervision of: Dr. Kartik Figueroa D.O. First contact with patient: 19:09 Chief Complaint: ALTERED MENTAL STATUS Stated Complaint: AMS History of Present Illness The patient is a 51 year old male who presents to the Emergency Room with complaints of an altered mental status that the family states he has been exhibiting since 0830 this morning, 11 hours prior to arrival. The family also notes that the patient has not taken his Lactulose for the past two days because he had an appointment in [place] yesterday for a check up. He had a liver transplant 6 years ago. His family gave the patient a dose of Lactulose today, and he vomited shortly afterward. The family denies any black or bloody stools. 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 A total of 10 systems reviewed and were otherwise negative. 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 (20) Septic arthritis (21) Thrombocytopenia (22) Transplantation of liver (23) Ulcerative colitis Family History FHx: cancer FHx: heart disease FHx: hypertension Social History Smoking Status: Unknown if Ever Smoked Alcohol Use: none Drug Use: none Marital Status: single Housing Status: lives with family Occupation Status: disabled Current/Historical Medications Scheduled Cholecalciferol (Vitamin D3), 1 TAB PO BID Dutasteride-Tamsulosin Hcl (Savi), 1 CAP PO HS Eltrombopag Olamine (Promacta), 50 MG PO DAILY Immune Globulin (Human) Subcut (Hizentra), 12 GM SC WK Insulin Aspart (Novolog), 1 DOSE SC ACHS Insulin Glargine (Lantus Solostar), 20 UNIT SC HS Levothyroxine Sodium (Levothyroxine Sodium), 88 MCG PO QAM Magnesium Oxide (Magnesium-Oxide), 400 MG PO QAM Mirtazapine Soltab (Remeron Soltab), 15 MG PO HS Pantoprazole (Protonix), 40 MG PO QPM Prednisone Tab (Prednisone), 10 MG PO QAM Rifaximin (Xifaxan), 550 MG PO BID Tacrolimus (Prograf), 0.5 MG PO QAM Topiramate (Topamax ), 2 TAB PO HS Ursodiol (Ursodiol), 1 CAP PO QID Scheduled PRN Acetaminophen (Tylenol Arthritis Ext Rel), 650 MG PO Q8H PRN for Pain or Fever Epinephrine (Epipen 2-Rome), 0.3 MG IM UD PRN for ALLERGIC REACTION Hydroxyzine Hcl (Atarax), 50 MG PO 3-4XD PRN for Itching Ondansetron Hcl (Zofran), 1-2 TABS PO Q6H PRN for Nausea Temazepam (Restoril), 30 MG PO HS PRN for Sleep Tramadol (Ultram), 50 MG PO Q6H PRN for Pain Miscellaneous Medications Loperamide Hcl (Imodium), 2 MG PO Allergies Coded Allergies: Levofloxacin (Verified Allergy, Unknown, UNKNOWN, 10/05/16) FROM [facility] ORDER FORM Physical Exam Vital Signs Date Time Temp Pulse Resp B/P Pulse Ox O2 Delivery O2 Flow Rate FiO2 10/05/16 22:53 84 22 125/79 99 Room Air 10/05/16 21:18 82 20 129/95 98 Room Air 10/05/16 20:19 86 16 117/70 96 Room Air 10/05/16 19:14 91 10/05/16 19:06 36.8 91 18 103/82 95 Room Air Physical Exam GENERAL: Patient is listless. Responds to verbal commands. Mostly inappropriate responses noted. EYES: The conjunctivae are clear. The pupils are constricted. Minimally reactive to light bilaterally. EARS, NOSE, MOUTH AND THROAT: The nose is without any evidence of any deformity. Mucous membranes are dry tongue is midline NECK: The neck is nontender and supple. RESPIRATORY: Shallow respirations are noted. No evidence of tachypnea or conversational dyspnea noted on exam. there is no evidence of wheezing rhonchi or rales CARDIOVASCULAR: Regular rate and rhythm noted there no murmurs rubs or gallops normal S1 normal S2 GASTROINTESTINAL: The abdomen is soft. Bowel sounds are present in all quadrants. Abdomen is nontender PELVIS: The Pelvis is stable. No tenderness to palpation is noted. BACK: No midline tenderness or or step-off noted range of motion in flexion extension as well as rotation no signs of muscle spasm noted MUSCULOSKELETAL/EXTREMITIES: There is no evidence of gross deformity full range of motion is noted in the hips and shoulders. Pedal edema bilaterally. SKIN: There is no obvious evidence of any rash. There are no petechiae, pallor or cyanosis noted. There is pedal edema bilaterally. Skin is pale and dry. There are excoriations noted on both lower extremities. NEUROLOGIC: Patient is awake alert and oriented to person and place, but not time or location. No facial droop. Strength is symmetric. Medical Decision & Procedures ER Provider Diagnostic Interpretation: Radiology results as stated below per my review and radiologist interpretation: SINGLE VIEW CHEST CLINICAL HISTORY: Generalized abdominal pain. FINDINGS: An AP, portable, upright chest radiograph is compared to study dated 08/28/2016. The examination is degraded by portable technique and patient rotation. The cardiomediastinal silhouette is unremarkable. The lungs and pleural spaces are clear. No pneumothorax is seen. The bony thorax is grossly intact. IMPRESSION: No active disease in the chest. Electronically signed by: Humberto Olmstead M.D. 10/05/2016 7:46 PM Dictated Date/Time: 10/05/2016 7:[address] SCAN OF THE BRAIN WITHOUT IV CONTRAST CLINICAL HISTORY: Change in mental status. COMPARISON STUDY: Prior CT scans of the brain, most recently dated 06/20/2016. TECHNIQUE: Unenhanced axial CT scan of the brain is performed from the vertex to the skull base. Automated dose control exposure was utilized. CT DOSE: 712.55 mGy.cm FINDINGS: Brain parenchyma: The brain parenchyma is normal in appearance noting mild age related involutional change. There is no hemorrhage, mass effect, or evidence of acute territorial ischemia by CT criteria. Grover-white matter is preserved. No extra-axial fluid collection is seen. Ventricles, sulci, cisterns: Normal in configuration. Intracranial vasculature: There is atherosclerotic calcification of the cavernous carotid and vertebral arteries. Calvarium: Unremarkable. Sinuses and mastoids: There is mucosal thickening within a right ethmoid sinus. There is near-complete opacification of the left frontal sinus. The remaining visualized paranasal sinuses are clear. The mastoid air cells are well pneumatized. Orbits: The bony orbits are grossly intact. There are bilateral ocular lens implants. IMPRESSION: There is no hemorrhage, mass effect, or evidence of acute territorial ischemia by CT criteria. Electronically signed by: Humberto Olmstead M.D. 10/05/2016 8:00 PM Dictated Date/Time: 10/05/2016 7:58 PM Laboratory Results 10/05/16 19:30 Red Blood Count 3.66, Mean Corpuscular Volume 89.1, Mean Corpuscular Hemoglobin 31.4, Mean Corpuscular Hemoglobin Concent 35.3, Mean Platelet Volume , Neutrophils (%) (Auto) 83.3, Lymphocytes (%) (Auto) 4.8, Monocytes (%) (Auto) 8.2, Eosinophils (%) (Auto) 2.2, Basophils (%) (Auto) 0.8, Neutrophils # (Auto) 6.94, Lymphocytes # (Auto) 0.40, Monocytes # (Auto) 0.68, Eosinophils # (Auto) 0.18, Basophils # (Auto) 0.07 10/05/16 19:30 Test 10/05/16 19:30 10/05/16 20:05 10/05/16 20:13 10/05/16 22:51 White Blood Count 8.33 K/uL (4.8-10.8) Red Blood Count 3.66 M/uL (4.7-6.1) Hemoglobin 11.5 g/dL (14.0-18.0) Hematocrit 32.6 % (42-52) Mean Corpuscular Volume 89.1 fL (80-100) Mean Corpuscular Hemoglobin 31.4 pg (25-34) Mean Corpuscular Hemoglobin Concent 35.3 g/dl (32-36) Platelet Count 19 K/uL (130-400) Mean Platelet Volume fL (7.4-10.4) Neutrophils (%) (Auto) 83.3 % Lymphocytes (%) (Auto) 4.8 % Monocytes (%) (Auto) 8.2 % Eosinophils (%) (Auto) 2.2 % Basophils (%) (Auto) 0.8 % Neutrophils # (Auto) 6.94 K/uL (1.4-6.5) Lymphocytes # (Auto) 0.40 K/uL (1.2-3.4) Monocytes # (Auto) 0.68 K/uL (0.11-0.59) Eosinophils # (Auto) 0.18 K/uL (0-0.5) Basophils # (Auto) 0.07 K/uL (0-0.2) RDW Standard Deviation 57.8 fL (36.4-46.3) RDW Coefficient of Variation 17.8 % (11.5-14.5) Immature Granulocyte % (Auto) 0.7 % Immature Granulocyte # (Auto) 0.06 K/uL (0.00-0.02) Platelet Estimate SIGNIFIC DECREASED Echinocytes 2+ Prothrombin Time 14.5 SECONDS (9.0-12.0) Prothromb Time International Ratio 1.3 (0.9-1.1) Activated Partial Thromboplast Time 30.8 SECONDS (21.0-31.0) Partial Thromboplastin Ratio 1.2 Anion Gap 10.0 mmol/L (3-11) Estimated GFR () 57.0 Estimated GFR (Non- 49.2 BUN/Creatinine Ratio 18.5 (10-20) Calcium Level 8.7 mg/dl (8.5-10.1) Magnesium Level 2.2 mg/dl (1.8-2.4) Total Bilirubin 4.9 mg/dl (0.2-1) Direct Bilirubin 3.8 mg/dl (0-0.2) Aspartate Amino Transf (AST/SGOT) 37 U/L (15-37) Alanine Aminotransferase (ALT/SGPT) 26 U/L (12-78) Alkaline Phosphatase 311 U/L (45-117) Total Creatine Kinase 28 U/L (39-308) Creatine Kinase MB 1.0 ng/ml (0.5-3.6) Creatine Kinase MB Ratio 3.6 (0-3.0) Troponin I < 0.015 ng/ml (0-0.045) Total Protein 5.1 gm/dl (6.4-8.2) Albumin 2.6 gm/dl (3.4-5.0) Lipase 71 U/L (73-393) Beta-Hydroxybutyric Acid 1.21 mg/dL (0.2-2.81) Venous Blood pH 7.44 (7.36-7.41) Venous Blood Partial Pressure CO2 28 mmHg (38.0-50.0) Venous Blood Partial Pressure O2 55 mmHg Venous Blood HCO3 19 mmol/L Venous Blood Oxygen Saturation 87.7 % Venous Blood Base Excess -4.1 mmol/L Ammonia 220.0 umol/L (11-32) Bedside Lactic Acid Venous 1.27 mmol/L (0.90-1.70) Bedside Glucose 168 mg/dl (70-99) Laboratory results per my review. Medications Administered Medications (Trade) Dose Ordered Sig/Tristen Route Start Time Stop Time Status Last Admin Dose Admin Sodium Chloride (Nss 1000ml) 1,000 ml @ 999 mls/hr Q1H1M STAT IV 10/05/16 19:20 10/05/16 20:20 DC 10/05/16 19:20 999 MLS/HR Dextrose (Dextrose 50% 50ML Syringe) 50 ml NOW STAT IV 10/05/16 20:11 10/05/16 20:13 DC 10/05/16 20:24 50 ML Lactulose (Chronulac Syrup) 30 gm NOW STAT PO 10/05/16 20:56 10/05/16 20:57 DC 10/05/16 21:10 30 GM Ondansetron HCl (Zofran Inj) 4 mg NOW STAT IV 10/05/16 20:56 10/05/16 20:57 DC 10/05/16 21:08 4 MG Methylprednisolone Sodium Succinate (Solu-Medrol IV) 125 mg NOW STAT IV 10/05/16 22:07 10/05/16 22:14 DC 10/05/16 22:46 125 MG ECG Indication: altered mental status Rate (beats per minute): 87 Rhythm: normal sinus Findings: no acute ischemic change, no ectopy Comparison ECG Date: 08/30/2015 Change: no significant change ED Course 1914: The patient was evaluated in room B7. A complete history and physical examination were performed. 0: Ordered Sodium Chloride 1000 mL @ 999 mL/hr IV. 2010: Ordered Dextrose 50 mL IV 2055: Ordered Zofran 4 mg IV, Lactulose 30 gm PO. 2119: I discussed the case with DrJerome DOHERTY Hospitalist. He will evaluate the patient for further treatment. Medical Decision The patient's history was concerning for altered mental status. Differential diagnosis: Etiologies such as metabolic, infection, hypoglycemia, electrolyte abnormalities , cardiac sources, intracerebral event, toxicologic, neurologic, as well as others were entertained. The patient is a 51-year-old male who presented to emergency department for an evaluation of altered mental status. The patient has a history of chronic liver disease. He has had hepatic encephalopathy in the past. The patient has not been taking his lactulose. The patient was treated with lactulose in the emergency department. He was also given a small fluid bolus. I discussed the patient's laboratory and radiographic studies with him and his family members. Given the degree of altered mental status as well as the elevation in the ammonia level I do feel this represents significant hepatic encephalopathy. For this reason I discussed his case with the on-call [facility] hospitalist group. They have agreed to evaluate the patient in the emergency department for further management and disposition. Consults Time Called: [id number] Consulting Physician: Dr. Gaivn Bourgeois Returned Call: [phone] I discussed the case with Dr. Gavin Bourgeois. He will evaluate the patient for further treatment. Impression Primary Impression: Hepatic encephalopathy Additional Impressions: Thrombocytopenia Hypoglycemia Altered mental status Scribe Attestation The scribe's documentation has been prepared under my direction and personally reviewed by me in its entirety. I confirm that the note above accurately reflects all work, treatment, procedures, and medical decision making performed by me. Departure Information Dispostion Being Evaluated By Hospitalist Referrals Gurinder Bullock M.D. (PCP) Patient Instructions My [facility] Problem Qualifiers Additional Impressions: Altered mental status Altered mental status type: unspecified Qualified Codes: R41.82 - Altered mental status, unspecified
--- NOTE | 2016-10-05 19:47 | DIAGNOSTIC IMAGING REPORT ---
SINGLE VIEW CHEST CLINICAL HISTORY: Generalized abdominal pain. FINDINGS: An AP, portable, upright chest radiograph is compared to study dated 08/28/2016. The examination is degraded by portable technique and patient rotation. The cardiomediastinal silhouette is unremarkable. The lungs and pleural spaces are clear. No pneumothorax is seen. The bony thorax is grossly intact. IMPRESSION: No active disease in the chest. Electronically signed by: Humberto Olmstead M.D. 10/05/2016 7:46 PM Dictated Date/Time: 10/05/2016 7:45 PM
[2016-10-05 19:53] LABS: INR 1.3 (0.9-1.1); PARTIAL THROMBOPLASTIN RATIO 1.2; PROTHROMBIN TIME (PATIENT) 14.5 SECONDS (9.0-12.0)
[2016-10-05 19:58] LABS: HEMATOCRIT 32.6 % (42-52); MEAN CELL VOLUME 89.1 fL (80-100); MEAN CORPUSCULAR HEMOGLOBIN 31.4 pg (25-34); MEAN CORPUSCULAR HGB CONC 35.3 g/dl (32-36); PLATELET COUNT 19 K/uL (130-400); RED BLOOD COUNT 3.66 M/uL (4.7-6.1); WHITE BLOOD COUNT 8.33 K/uL (4.8-10.8)
[2016-10-05 20:02] LABS: ALT/SGPT 26 U/L (12-78); AST/SGOT 37 U/L (15-37); BLOOD UREA NITROGEN 30 mg/dl (7-18); BUN/CREATININE RATIO 18.5 (10-20); CALCIUM 8.7 mg/dl (8.5-10.1); CARBON DIOXIDE 21 mmol/L (21-32); CHLORIDE 114 mmol/L (98-107); GLUCOSE 64 mg/dl (70-99); MAGNESIUM 2.2 mg/dl (1.8-2.4); POTASSIUM 4.7 mmol/L (3.5-5.1); SODIUM 145 mmol/L (136-145)
--- NOTE | 2016-10-05 20:02 | DIAGNOSTIC IMAGING REPORT ---
CT SCAN OF THE BRAIN WITHOUT IV CONTRAST CLINICAL HISTORY: Change in mental status. COMPARISON STUDY: Prior CT scans of the brain, most recently dated 06/20/2016. TECHNIQUE: Unenhanced axial CT scan of the brain is performed from the vertex to the skull base. Automated dose control exposure was utilized. CT DOSE: 712.55 mGy.cm FINDINGS: Brain parenchyma: The brain parenchyma is normal in appearance noting mild age related involutional change. There is no hemorrhage, mass effect, or evidence of acute territorial ischemia by CT criteria. Grover-white matter is preserved. No extra-axial fluid collection is seen. Ventricles, sulci, cisterns: Normal in configuration. Intracranial vasculature: There is atherosclerotic calcification of the cavernous carotid and vertebral arteries. Calvarium: Unremarkable. Sinuses and mastoids: There is mucosal thickening within a right ethmoid sinus. There is near-complete opacification of the left frontal sinus. The remaining visualized paranasal sinuses are clear. The mastoid air cells are well pneumatized. Orbits: The bony orbits are grossly intact. There are bilateral ocular lens implants. IMPRESSION: There is no hemorrhage, mass effect, or evidence of acute territorial ischemia by CT criteria. Electronically signed by: Humberto Olmstead M.D. 10/05/2016 8:00 PM Dictated Date/Time: 10/05/2016 7:58 PM
[2016-10-05 20:06] LABS: ALKALINE PHOSPHATASE 311 U/L (45-117); BASO % 0.8 %; BASO ABS # 0.07 K/uL (0-0.2); BETA-HYDROXYBUTYRATE 1.21 mg/dL (0.2-2.81); CKMB/CK RATIO 3.6 (0-3.0); COMPLETE YES; ECHINOCYTES 2+; EOS % 2.2 %; IG% 0.7 %; LYMPH % 4.8 %; MONO % 8.2 %; NEUT % 83.3 %; PLT ESTIMATE SIGNIFIC DECREASED
[2016-10-05] MEDS ORDERED: DEXTROSE 50% 50 ML SYR IV STA (20:11)
[2016-10-05 20:19] LABS: VEN BLD GAS O2 SATURATION 87.7 %; VEN BLOOD GAS BASE EXCESS -4.1 mmol/L
[2016-10-05] MEDS ORDERED: LACTULOSE SYRUP 20 GM/30 ML UDC PO STA (20:56)
[2016-10-05] MEDS ORDERED: ONDANSETRON INJ 2 MG/ML 2 ML VIAL IV STA (20:56)
[2016-10-05] MEDS ORDERED: NVLG SC (21:13)
[2016-10-05] MEDS ORDERED: DEXTROSE 50% 50 ML SYR IV PRN (22:00)
[2016-10-05] MEDS ORDERED: ONDANSETRON INJ 2 MG/ML 2 ML VIAL IV PRN (22:00)
[2016-10-05] MEDS ORDERED: GLUCAGON FOR INJ 1 MG VIAL SQ PRN (22:00)
[2016-10-05] MEDS ORDERED: GLUCOSE 10 TABS/TUBE PO PRN (22:00)
[2016-10-05] MEDS ORDERED: DiphenhydrAMINE HCL 50 MG/ML VIAL IV PRN ×2 (22:00)
[2016-10-05] MEDS ORDERED: GLUCOSE 40% GEL 15 GM TUBE PO PRN (22:00)
[2016-10-05] MEDS ORDERED: METHYLPREDNISOLONE 125 MG VIAL IV STA (22:07)
[2016-10-05] MEDS ORDERED: NSS + 20MEQ KCL 1000ML 1,000 ML IV SCH (23:45)
[2016-10-05] MEDS: CEFTRIAXONE SOD INJ 1 GM in DEXTROSE 5% ADD-VANTAGE 50ML 50 ML IV SCH (23:53)
[2016-10-06] VITALS (19 sets, daily range): BP systolic 114–148; BP diastolic 65–92; PULSE 78–154; TEMP 36.2–37.1; O2SAT 90–100; Ht 185.4 cm; Wt 93.4 kg
[2016-10-06 00:25] LABS: HEMATOCRIT 32.3 % (42-52); MEAN CELL VOLUME 89.5 fL (80-100); MEAN CORPUSCULAR HEMOGLOBIN 31.3 pg (25-34); PLATELET COUNT 15 K/uL (130-400); RED BLOOD COUNT 3.61 M/uL (4.7-6.1); WHITE BLOOD COUNT 7.98 K/uL (4.8-10.8)
[2016-10-06 00:26] LABS: BASO % 0.8 %; BASO ABS # 0.06 K/uL (0-0.2); COMPLETE YES; ECHINOCYTES 1+; EOS % 2.5 %; IG% 0.9 %; LYMPH % 7.6 %; LYMPH ABS # 0.61 K/uL (1.2-3.4); MONO % 6.6 %; NEUT % 81.6 %; OVALOCYTES 1+; PLT ESTIMATE SIGNIFIC DECREASED
[2016-10-06] MEDS: ALBUMIN HUMAN 25% 12.5 GM/50 ML VIAL IV SCH ×5 (00:36→11:45)
--- NOTE | 2016-10-06 02:46 | History and Physical ---
History & Physical Date & Time of Service: October 06, 2016 at 02:36. The patient was examined on 10/05/2016. Chief Complaint: Hepatic Encephalopathy,Thrombocytopenia Primary Care Physician: Gurinder Bullock M.D. 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 He missed most of the last 2 days of dosing of his lactulose due to concerns regarding its use while traveling to the [place] [facility] clinic with an appointment yesterday. The patient himself is lethargic and for the most part nonresponsive, is not able to contribute significantly to the history of present illness. Family reports that he has not had any signs of illness such as cough,sore throat, sinus congestion, or urinary dysfunction. Past Medical/Surgical History Medical Problems: (1) Agitated depression Status: Chronic (2) Appendectomy Status: Resolved (3) Benign hypertension Status: Chronic (4) Biliary cirrhosis Status: Chronic (5) Cholecystectomy Status: Resolved (6) Colectomy Status: Resolved (7) Complication of transplanted liver Status: Chronic (8) Diabetes mellitus Status: Chronic (9) Failure to thrive Status: Chronic (10) Gastroesophageal reflux disease Status: Chronic (11) Hyperammonemia Status: Resolved (12) Idiopathic thrombocytopenia purpura Status: Chronic (13) ITP Status: Chronic (14) Kidney stone Status: Resolved (15) Liver Failure Status: Chronic (16) Zenon-en-Y gastrojejunostomy Status: Chronic (17) Thrombocytopenia Status: Chronic (18) Transplantation of liver Status: Resolved (19) Ulcerative colitis Status: Resolved Family History FHx: cancer FHx: heart disease FHx: hypertension Social History Smoking Status: Never Smoker Smokeless Tobacco Use: No Alcohol Use: none Drug Use: none Marital Status: single Housing status: lives with family Occupational Status: disabled Immunizations History of Influenza Vaccine: Yes Influenza Vaccine Date: Jun 01, 2013 History of Tetanus Vaccine?: utd History of Pneumococcal: Yes Pneumococcal Date: Jun 01, 2013 History of Hepatitis B Vaccine: Unknown Multi-Drug Resistant Organisms History of MDRO: No Allergies Coded Allergies: Levofloxacin (Verified Allergy, Unknown, UNKNOWN, 10/05/16) FROM [facility] ORDER FORM Home Medications Scheduled Cholecalciferol (Vitamin D3), 1 TAB PO BID Dutasteride-Tamsulosin Hcl (Savi), 1 CAP PO HS Eltrombopag Olamine (Promacta), 50 MG PO DAILY Immune Globulin (Human) Subcut (Hizentra), 12 GM SC WK Insulin Aspart (Novolog), 1 DOSE SC ACHS Insulin Glargine (Lantus Solostar), 20 UNIT SC HS Levothyroxine Sodium (Levothyroxine Sodium), 88 MCG PO QAM Magnesium Oxide (Magnesium-Oxide), 400 MG PO QAM Mirtazapine Soltab (Remeron Soltab), 15 MG PO HS Pantoprazole (Protonix), 40 MG PO QPM Prednisone Tab (Prednisone), 10 MG PO QAM Rifaximin (Xifaxan), 550 MG PO BID Tacrolimus (Prograf), 0.5 MG PO QAM Topiramate (Topamax ), 2 TAB PO HS Ursodiol (Ursodiol), 1 CAP PO QID Scheduled PRN Acetaminophen (Tylenol Arthritis Ext Rel), 650 MG PO Q8H PRN for Pain or Fever Epinephrine (Epipen 2-Rome), 0.3 MG IM UD PRN for ALLERGIC REACTION Hydroxyzine Hcl (Atarax), 50 MG PO 3-4XD PRN for Itching Ondansetron Hcl (Zofran), 1-2 TABS PO Q6H PRN for Nausea Temazepam (Restoril), 30 MG PO HS PRN for Sleep Tramadol (Ultram), 50 MG PO Q6H PRN for Pain Miscellaneous Medications Loperamide Hcl (Imodium), 2 MG PO Review of Systems Constitutional: + fatigue, + weakness, No chills, No fever, No problem reported , No sweats, No weight loss Eyes: No diplopia, No discharge, No eye pain, No problem reported, No redness, No worsening of vision ENT: No dental problems, No hearing loss, No nasal symptoms, No problem reported, No sore throat, No tinnitus, No trouble swallowing, No unusual epistaxis Respiratory: No cough, No dyspnea at rest, No dyspnea on exertion, No hemoptysis, No problem reported, No shortness of breath, No sputum, No wheezing Cardiovascular: No PND, No chest pain, No claudication, No edema, No orthopnea , No palpitations, No problem reported Abdomen: No GI bleeding, No constipation, No diarrhea, No nausea, No pain, No problem reported, No vomiting Musculoskeletal: No calf pain, No joint pain, No muscle pain, No problem reported, No swelling Genitourinary - Male: No dysuria, No hematuria, No impotence, No lesions, No penile discharge, No problem reported, No urinary frequency, No urinary hesitancy, No urinary incontinence, No urinary retention, No urinary urgency Neurologic: + problem reported (worsening confusion over the past 24 hours and increased sleep with decreased responsiveness noted by family), No balance problems, No memory loss, No numbness/tingling, No paralysis, No vertigo, No weakness Psychiatric: No anhedonism, No anxiety, No depression symptoms, No insomnia, No problem reported, No substance abuse Endocrine: No excessive thirst, No excessive urination, No fatigue, No problem reported Hematologic / Lymphatic: No abnormal bleeding/bruising, No clotting problems, No night sweats, No problem reported, No swollen lymph nodes Integumentary: No bleeding, No color change, No itch, No new/changing skin lesions, No problem reported, No rash Allergic / Immunologic: No environmental allergies, No food allergies, No frequent infections, No hives, No pet sensitivities, No poor healing, No problem reported, No prolonged convalescence, No seasonal allergies Physical Exam Vital Signs Date Time Temp Pulse Resp B/P Pulse Ox O2 Delivery O2 Flow Rate FiO2 10/06/16 01:36 36.3 84 16 115/78 97 Room Air 10/06/16 00:40 37.1 81 18 119/78 100 Room Air 10/06/16 00:04 37.0 78 20 137/83 98 Room Air 10/05/16 22:53 84 22 125/79 99 Room Air 10/05/16 21:18 82 20 129/95 98 Room Air 10/05/16 20:19 86 16 117/70 96 Room Air 10/05/16 19:14 91 10/05/16 19:06 36.8 91 18 103/82 95 Room Air General Appearance: + pertinent finding (the patient is nonresponsive, looks dehydrated, has intermittently mildly labored breathing) Head: normocephalic, atraumatic Eyes: normal inspection, PERRL, sclerae normal ENT: + pertinent finding (mucous membranes and oropharynx dry) Neck: supple, no adenopathy, thyroid normal, no JVD, no carotid bruits Respiratory/Chest: chest non-tender, lungs clear, normal breath sounds, no respiratory distress, no accessory muscle use Cardiovascular: no edema, no gallop, no JVD, no murmur, normal peripheral pulses, + tachycardia Abdomen/GI: normal bowel sounds, non tender, soft, no organomegaly, no pulsatile mass Back: normal inspection, no CVA tenderness, no muscle spasm, normal range of motion Extremities/Musculoskelatal: normal inspection, no calf tenderness, normal capillary refill, no pedal edema, normal range of motion, non-tender Neurologic/Psych: normal reflexes, + pertinent finding (the patient is somnolent, does open his eyes when he recognizes my voice, but then closes them quickly) Skin: normal color, warm/dry, no rash Lymphatic: no adenopathy Diagnostics Laboratory Results Results Past 24 Hours Test 10/05/16 19:30 10/05/16 20:05 10/05/16 20:13 10/05/16 21:26 Range/Units White Blood Count 8.33 4.8-10.8 K/uL Red Blood Count 3.66 4.7-6.1 M/uL Hemoglobin 11.5 14.0-18.0 g/dL Hematocrit 32.6 42-52 % Mean Corpuscular Volume 89.1 80-100 fL Mean Corpuscular Hemoglobin 31.4 25-34 pg Mean Corpuscular Hemoglobin Concent 35.3 32-36 g/dl Platelet Count 19 130-400 K/uL Mean Platelet Volume 7.4-10.4 fL Neutrophils (%) (Auto) 83.3 % Lymphocytes (%) (Auto) 4.8 % Monocytes (%) (Auto) 8.2 % Eosinophils (%) (Auto) 2.2 % Basophils (%) (Auto) 0.8 % Neutrophils # (Auto) 6.94 1.4-6.5 K/uL Lymphocytes # (Auto) 0.40 1.2-3.4 K/uL Monocytes # (Auto) 0.68 0.11-0.59 K/uL Eosinophils # (Auto) 0.18 0-0.5 K/uL Basophils # (Auto) 0.07 0-0.2 K/uL RDW Standard Deviation 57.8 36.4-46.3 fL RDW Coefficient of Variation 17.8 11.5-14.5 % Immature Granulocyte % (Auto) 0.7 % Immature Granulocyte # (Auto) 0.06 0.00-0.02 K/uL Platelet Estimate SIGNIFIC DECREASED Echinocytes 2+ Prothrombin Time 14.5 9.0-12.0 SECONDS Prothromb Time International Ratio 1.3 0.9-1.1 Activated Partial Thromboplast Time 30.8 21.0-31.0 SECONDS Partial Thromboplastin Ratio 1.2 Sodium Level 145 136-145 mmol/L Potassium Level 4.7 3.5-5.1 mmol/L Chloride Level 114 98-107 mmol/L Carbon Dioxide Level 21 21-32 mmol/L Anion Gap 10.0 3-11 mmol/L Blood Urea Nitrogen 30 7-18 mg/dl Creatinine 1.60 0.60-1.40 mg/dl Estimated GFR () 57.0 Estimated GFR (Non- 49.2 BUN/Creatinine Ratio 18.5 10-20 Random Glucose 64 70-99 mg/dl Calcium Level 8.7 8.5-10.1 mg/dl Magnesium Level 2.2 1.8-2.4 mg/dl Total Bilirubin 4.9 0.2-1 mg/dl Direct Bilirubin 3.8 0-0.2 mg/dl Aspartate Amino Transf (AST/SGOT) 37 15-37 U/L Alanine Aminotransferase (ALT/SGPT) 26 12-78 U/L Alkaline Phosphatase 311 45-117 U/L Total Creatine Kinase 28 39-308 U/L Creatine Kinase MB 1.0 0.5-3.6 ng/ml Creatine Kinase MB Ratio 3.6 0-3.0 Troponin I < 0.015 0-0.045 ng/ml Total Protein 5.1 6.4-8.2 gm/dl Albumin 2.6 3.4-5.0 gm/dl Lipase 71 73-393 U/L Beta-Hydroxybutyric Acid 1.21 0.2-2.81 mg/dL Venous Blood pH 7.44 7.36-7.41 Venous Blood Partial Pressure CO2 28 38.0-50.0 mmHg Venous Blood Partial Pressure O2 55 mmHg Venous Blood HCO3 19 mmol/L Venous Blood Oxygen Saturation 87.7 % Venous Blood Base Excess -4.1 mmol/L Ammonia 220.0 11-32 umol/L Bedside Lactic Acid Venous 1.27 0.90-1.70 mmol/L Bedside Glucose 164 70-99 mg/dl Test 10/05/16 22:51 10/05/16 23:40 Range/Units Bedside Glucose 168 70-99 mg/dl White Blood Count 7.98 4.8-10.8 K/uL Red Blood Count 3.61 4.7-6.1 M/uL Hemoglobin 11.3 14.0-18.0 g/dL Hematocrit 32.3 42-52 % Mean Corpuscular Volume 89.5 80-100 fL Mean Corpuscular Hemoglobin 31.3 25-34 pg Mean Corpuscular Hemoglobin Concent 35.0 32-36 g/dl Platelet Count 15 130-400 K/uL Neutrophils (%) (Auto) 81.6 % Lymphocytes (%) (Auto) 7.6 % Monocytes (%) (Auto) 6.6 % Eosinophils (%) (Auto) 2.5 % Basophils (%) (Auto) 0.8 % Neutrophils # (Auto) 6.51 1.4-6.5 K/uL Lymphocytes # (Auto) 0.61 1.2-3.4 K/uL Monocytes # (Auto) 0.53 0.11-0.59 K/uL Eosinophils # (Auto) 0.20 0-0.5 K/uL Basophils # (Auto) 0.06 0-0.2 K/uL RDW Standard Deviation 58.0 36.4-46.3 fL RDW Coefficient of Variation 17.7 11.5-14.5 % Immature Granulocyte % (Auto) 0.9 % Immature Granulocyte # (Auto) 0.07 0.00-0.02 K/uL Platelet Estimate SIGNIFIC DECREASED Ovalocytes 1+ Echinocytes 1+ Microbiology Results 10/05/16 Blood Culture, Received Pending 10/05/16 Blood Culture, Received Pending Diagnostic Radiology Patient Name: RAMYA SIMPSON Unit Number: [id number] Dictated: 10/05/161957 Transcribed: 10/05/161957 EV Printed Date/Time: [~ rep prt dt]/[~ rep prt tm] [~ rep ct labl] - [~ rep ct ivnm] [facility] [place] [address] Dictated: 10/05/161957 Transcribed: 10/05/161957 EV Printed Date/Time: [~ rep prt dt]/[~ rep prt tm] [~ rep ct labl] - [~ rep ct ivnm] [~ rep ct add3]] CT SCAN OF THE BRAIN WITHOUT IV CONTRAST CLINICAL HISTORY: Change in mental status. COMPARISON STUDY: Prior CT scans of the brain, most recently dated 06/20/2016. TECHNIQUE: Unenhanced axial CT scan of the brain is performed from the vertex to the skull base. Automated dose control exposure was utilized. CT DOSE: 712.55 mGy.cm FINDINGS: Brain parenchyma: The brain parenchyma is normal in appearance noting mild age related involutional change. There is no hemorrhage, mass effect, or evidence of acute territorial ischemia by CT criteria. Grover-white matter is preserved. No extra-axial fluid collection is seen. Ventricles, sulci, cisterns: Normal in configuration. Intracranial vasculature: There is atherosclerotic calcification of the cavernous carotid and vertebral arteries. Calvarium: Unremarkable. Sinuses and mastoids: There is mucosal thickening within a right ethmoid sinus. There is near-complete opacification of the left frontal sinus. The remaining visualized paranasal sinuses are clear. The mastoid air cells are well pneumatized. Orbits: The bony orbits are grossly intact. There are bilateral ocular lens implants. IMPRESSION: There is no hemorrhage, mass effect, or evidence of acute territorial ischemia by CT criteria. Electronically signed by: Humberto Olmstead M.D. 10/05/2016 8:00 PM Dictated Date/Time: 10/05/2016 7:58 PM The status of this report is Signed. Draft = Not yet reviewed or approved by Radiologist. Signed = Reviewed and approved by Radiologist. <AttendingPhy></AttendingPhy> <FamilyPhy>Gurinder Bullock M.D.</FamilyPhy> < PrimaryPhy>Gurinder Bullock M.D.</PrimaryPhy> <UnitNumber>[id number]</UnitNumber> <VisitNumber>[id number]</VisitNumber> <PatientName>RAMAY SIMPSON</ PatientName> <DateOfBirth>1965</DateOfBirth> <Location>C.EDB</Location> < ServiceDate>10/05/16</ServiceDate> <MNE>ESINDI</MNE> <OrderingPhy>Kartik Figueroa D.O.</OrderingPhy> <OrderingPhyMNE>f rep ord dr kumari</OrderingPhyMNE> <DictatingPhyMNE>f rep dict dr kumari</DictatingPhyMNE> <CCListMNE>f rep ct mne</ CCListMNE> <AdmittingPhyMNE>f pt admit dr kumari</AdmittingPhyMNE> <AttendingPhyMNE >f pt attend dr kumari</AttendingPhyMNE> <ConsultingPhyMNE>f pt consult dr kumari</ConsultingPhyMNE> <FamilyPhyMNE>f pt fam dr kumari</FamilyPhyMNE> <OtherPhyMNE>f pt other dr kumari</OtherPhyMNE> < PrimaryPhyMNE>f pt prim care dr kumari</PrimaryPhyMNE> <ReferringPhyMNE>f pt referring dr kumari</ReferringPhyMNE> Patient Name: RAMYA SIMPSON Unit Number: [id number] Dictated: 10/05/161944 Transcribed: 10/05/161944 EV Printed Date/Time: [~ rep prt dt]/[~ rep prt tm] [~ rep ct labl] - [~ rep ct ivnm] [facility] [place] [address] Dictated: 10/05/161944 Transcribed: 10/05/161944 EV Printed Date/Time: [~ rep prt dt]/[~ rep prt tm] [~ rep ct labl] - [~ rep ct ivnm] SINGLE VIEW CHEST CLINICAL HISTORY: Generalized abdominal pain. FINDINGS: An AP, portable, upright chest radiograph is compared to study dated 08/28/2016. The examination is degraded by portable technique and patient rotation. The cardiomediastinal silhouette is unremarkable. The lungs and pleural spaces are clear. No pneumothorax is seen. The bony thorax is grossly intact. IMPRESSION: No active disease in the chest. Electronically signed by: Humberto Olmstead M.D. 10/05/2016 7:46 PM Dictated Date/Time: 10/05/2016 7:45 PM The status of this report is Signed. Draft = Not yet reviewed or approved by Radiologist. Signed = Reviewed and approved by Radiologist. <AttendingPhy></AttendingPhy> <FamilyPhy>Gurinder Bullock M.D.</FamilyPhy> < PrimaryPhy>Gurinder Bullock M.D.</PrimaryPhy> <UnitNumber>[id number]</UnitNumber> <VisitNumber>[id number]</VisitNumber> <PatientName>THALIACAROLDanielaRAMYA Yany</ PatientName> <DateOfBirth>1965</DateOfBirth> <Location>C.EDB</Location> < ServiceDate>10/05/16</ServiceDate> <MNE>ESINDI</MNE> <OrderingPhy>Kartik Figueroa D.O.</OrderingPhy> <OrderingPhyMNE>f rep ord dr kumari</OrderingPhyMNE> <DictatingPhyMNE>f rep dict dr kumari</DictatingPhyMNE> <CCListMNE>f rep ct quoc</ CCListMNE> <AdmittingPhyMNE>f pt admit dr kumari</AdmittingPhyMNE> <AttendingPhyMNE >f pt attend dr kumari</AttendingPhyMNE> <ConsultingPhyMNE>f pt consult dr kumari</ConsultingPhyMNE> <FamilyPhyMNE>f pt fam dr kumari</FamilyPhyMNE> <OtherPhyMNE>f pt other dr kumari</OtherPhyMNE> < PrimaryPhyMNE>f pt prim care dr kumari</PrimaryPhyMNE> <ReferringPhyMNE>f pt referring dr kumari</ReferringPhyMNE> Impression Assessment and Plan Hepatic encephalopathy/hyperammonemia/liver transplant status/status post TIPS-- patient's ammonia level is 220 upon admission. He was given lactulose 30 mL in the emergency department, and this will be continued 3 times a day. We'll follow serial CBC with differential, chemistry profile, magnesium and ammonia levels. We'll gently hydrate with IV fluids. We'll continue Promacta 50 mg by mouth daily, Hizentra 12 g subcutaneous weekly, Xifaxan 550 milligrams by mouth twice a day, Prograf 0.5 mg by mouth every morning and ursodiol 1 capsule by mouth 4 times a day. We'll consult his engineering consultant locally Dr. Vaughn. Thrombocytopenia--he has not required a transfusion of platelets for the past 18 months, which brings her concern regarding the likelihood of underlying infection, as is his been his history in the past. His platelets are 19 upon admission, and will be repeated in 3 hours. His transfusion level has always been at 20 or less, and he will likely need transfusion of platelets tonight. We'll follow serial CBC with differential. We will also send a peripheral smear for pathology review. He'll be placed empirically on ceftriaxone 1 g IV daily. Steroid-induced diabetes mellitus/hypoglycemia--his blood sugar was 64 and emergency department upon admission. His Lantus had been reduced to 20 units subcutaneous at bedtime at his last admission from August 28 through September 02, and family reports that he had been having much difficulty controlling his blood sugars. They therefore gave him 30 units subcutaneous of Lantus this morning, and with the unfortunate timing of him getting encephalopathic otherwise, his blood sugar will likely continue to be low for some hours. He' ll be placed on normal saline with KCl 20 mEq at 125 ML's per hour. Replace and Accu-Cheks before meals and at bedtime or 4 times a day with NovoLog coverage scale, and her blood sugars should go low again will add D10 to his IV fluids. We will hold his usual Lantus insulin 20 units subcutaneous at bedtime. Hypothyroidism--continue levothyroxine sodium 88 g by mouth every morning. GERD--change pantoprazole to 40 mg IV every morning. BPH--continue Savi one by mouth at bedtime. Insomnia--hold Remeron SolTab 15 mg daily at bedtime due to relatively sedated state. GPN--hold Topamax. Level of Care Telemetry Advanced Directives Existing Advance Directive: No Existing Living Will: Yes Existing Power of Rn Examiner: No Resuscitation Status FULL RESUSCITATION VTE Prophylaxis VTE Risk Assessment Done? Y/N: Yes Risk Level: Moderate Given or contraindicated: SCD's Social Service Consult None Apply
[2016-10-06] MEDS ORDERED: NURSING VERBAL MED ORDER ONE (04:30)
[2016-10-06] MEDS: INSULIN ASPART 100 UNITS/ML 3 ML PEN SC SCH ×4 (06:08→21:05)
[2016-10-06] MEDS ORDERED: INSULIN ASPART 100 UNITS/ML 3 ML PEN SC SCH (06:30)
[2016-10-06 06:40] LABS: INR 1.3 (0.9-1.1); PARTIAL THROMBOPLASTIN RATIO 1.2; PROTHROMBIN TIME (PATIENT) 14.5 SECONDS (9.0-12.0)
[2016-10-06 06:55] LABS: HEMATOCRIT 31.9 % (42-52); MEAN CELL VOLUME 88.9 fL (80-100); MEAN CORPUSCULAR HEMOGLOBIN 31.2 pg (25-34); MEAN CORPUSCULAR HGB CONC 35.1 g/dl (32-36); PLATELET COUNT 19 K/uL (130-400); RED BLOOD COUNT 3.59 M/uL (4.7-6.1); WHITE BLOOD COUNT 7.19 K/uL (4.8-10.8)
[2016-10-06 06:56] LABS: BASO % 0.3 %; BASO ABS # 0.02 K/uL (0-0.2); COMPLETE YES; EOS % 0.6 %; IG% 0.7 %; LYMPH % 2.5 %; LYMPH ABS # 0.18 K/uL (1.2-3.4); MONO % 0.4 %; NEUT % 95.5 %; OVALOCYTES 1+; PLT ESTIMATE SIGNIFIC DECREASED; TEAR DROP CELLS 1+
[2016-10-06 07:31] LABS: BUN/CREATININE RATIO 15.9 (10-20); CREATININE 1.6 mg/dl (0.60-1.40); MAGNESIUM 2.1 mg/dl (1.8-2.4); POTASSIUM 5.4 mmol/L (3.5-5.1)
[2016-10-06] MEDS: [UNRECOGNIZED DRUG - REMARK] SCH ×2 (07:40→16:00)
[2016-10-06] MEDS: LACTULOSE SYRUP 30 GM/45 ML UDP PO SCH ×2 (08:40→13:16)
[2016-10-06] MEDS: URSODIOL 300 MG CAP PO SCH ×4 (08:40→21:07)
[2016-10-06] MEDS: RIFAXIMIN TAB 550 MG TAB PO SCH ×2 (08:40→21:06)
[2016-10-06] MEDS: TACROLIMUS 0.5 MG CAP PO SCH (08:40)
[2016-10-06] MEDS: SODIUM CHLORIDE 0.9% 1000ML 1,000 ML IV SCH ×2 (09:14→21:43)
[2016-10-06] MEDS ORDERED: SODIUM POLYST. SULF SUSP 15G/60ML PO ONE (09:15)
[2016-10-06] MEDS ORDERED: PANTOprazole INJ 40 MG in SYRINGE 0 ML IV SCH (11:00)
[2016-10-06 12:26] LABS: URINE APPEARANCE CLEAR (CLEAR); URINE BILIRUBIN NEG (NEG); URINE COLOR DK YELLOW; URINE NITRITE NEG (NEG); URINE PH 5.5 (4.5-7.5); URINE SPECIFIC GRAVITY 1.019 (1.000-1.030); UROBILINOGEN NEG (NEG)
[2016-10-06 12:27] LABS: MANUAL MICROSCOPIC REQUIRED? NO; REVIEW REQ? NO
[2016-10-06] MEDS ORDERED: INSULIN GLARGINE SOLOSTAR 100 UNITS/ML 3 ML PEN SC SCH (12:45)
[2016-10-06] MEDS ORDERED: LANTUS PER UNIT CHARGE SQ ONE (13:00)
[2016-10-06] MEDS: FINASTERIDE 5 MG TAB PO SCH (13:36)
--- NOTE | 2016-10-06 16:21 | ONCOLOGY CONSULTATION ---
DATE OF CONSULTATION: 10/06/2016 REASON FOR CONSULTATION: Thrombocytopenia in a 51-year-old hepatic transplant patient with history of ITP. HISTORY OF PRESENT ILLNESS: Mundo is a 51-year-old gentleman well known to [facility] who was previously followed by SHANIKA Vanegas and is now under the care of Dr. Kevin Javed. Dr. Javed however, has not seen the patient for initial visit as of yet. Nonetheless, he was admitted to [facility] on October 06 with altered mental status, in particularly confusion and lethargy. Family states he was unresponsive and therefore the reason EMS was summoned to bring him to hospital. Mundo again is 9 years status post hepatic transplant, performed at [facility]. He is followed in the hematology clinic because of a refractory ITP and has been on Promacta with relative stability. On average, his platelet count measures 60-70,000. On admission, platelets were measured 19,000. Repeat studies were done approximately 3 hours later measuring 15,000. Primary service transfused a single donor pheresis with no appreciable increase. Platelet count as of 6:00 this morning 19,000. There is no evidence of active bleeding; however, cutaneously clearly there is evidence for scattered ecchymosis and petechiae. PAST MEDICAL HISTORY: Depression/anxiety, primary biliary cirrhosis status post hepatic transplant, 9 years post her ongoing immunosuppression, hyperammonemia, ITP, renal lithiasis and ulcerative colitis. PAST SURGICAL HISTORY: Includes appendectomy, status post liver transplant, Zenon-en-Y gastrojejunostomy. SCHEDULED MEDICATIONS: Included cholecalciferol 1 tablet p.o. b.i.d., Savi 1 capsule p.o. at bedtime, Promacta 50 mg p.o. every day, immune globulin 12 grams subQ q. weekly; NovoLog, dose unknown; insulin Glargine 20 units subQ at bedtime, levothyroxine 88 mcg p.o. every day, magnesium oxide 400 mg p.o. q.a.m., Remeron 15 mg p.o. q.h.s., Protonix 40 mg p.o. daily, prednisone 10 mg p.o. q.a.m., Xifaxan 550 mg p.o. b.i.d., tacrolimus 0.5 mg p.o. every day, Topamax 2 tablets p.o. at bedtime, ursodiol 1 capsule p.o. q.i.d. ALLERGIES: LEVOFLOXACIN. FAMILY HISTORY: Positive for cancer, heart disease and hypertension. SOCIAL HISTORY: The patient is single, lives with his family, currently disabled, nonsmoker, nondrinker. REVIEW OF SYSTEMS: GENERAL: As per HPI most notably for altered mental status, confusion and agitation. He denies fevers, chills or sweats. SKIN: He is not anorexic or losing white skin. Positive for petechiae and scattered ecchymosis. HEENT: No current headache, lightheadedness or dizziness. No acute visual hearing deficits. No sinus symptoms, sore throat or dysphagia. LYMPH: No history of lymphadenopathy or lymphoproliferative disease. CARDIAC: Negative for coronary artery disease, no angina or palpitations. PULMONARY: Negative for COPD. No shortness of breath, dyspnea or orthopnea. No cough or hemoptysis. GASTROINTESTINAL: Negative for abdominal pain, nausea, vomiting, diarrhea or constipation. No hematochezia or melena. GENITOURINARY: No history of prostate disease. No hematuria, dysuria, or urinary incontinence. PSYCHIATRIC: Positive for anxiety and depression. ENDOCRINE: Positive for hypothyroidism. NEUROLOGIC: Negative for seizure, stroke, or migraine headache. HEMATOLOGIC: Positive history of ITP. PHYSICAL EXAMINATION: GENERAL: Mundo is a pleasant 51-year-old gentleman in no acute distress. VITAL SIGNS: Temperature 36.6, pulse 154, respirations 16, blood pressure 114/83. SKIN: Again scattered ecchymosis and petechiae, mainly over the tibial shafts. HEENT: Atraumatic, normocephalic. EYES: PERRLA, EOMI. Sclerae nonicteric. No conjunctival injection. Nares are patent without rhinorrhea or discharge. Throat is clear. Tongue is midline. Mucous membranes are moist. NECK: Supple without JVD or thyromegaly. LYMPH: No cervical, supraclavicular, axillary or inguinal palpable nodes. HEART: Regular rate and rhythm. No clicks, rubs, murmurs or gallops. LUNGS: Clear to auscultation bilaterally. ABDOMEN: Slightly distended. Bowel sounds are active. No rigidity or guarding; however. EXTREMITIES: Musculoskeletal strength is equalizer pulses. No clubbing, cyanosis or edema otherwise. NEUROLOGICALLY: He is awake, alert and oriented. Cranial nerves are intact. RADIOGRAPHIC DATA: CT scan of the head shows no evidence of hemorrhage, mass effect or evidence of acute ischemia. Chest x-ray negative. LABORATORY DATA: WBC count 7190, hemoglobin 11.2, platelet count 19,000. Sodium 140, potassium 5.4, chloride 111, carbon dioxide 18, creatinine 1.60, BUN 25. Alkaline phosphatase 311, total bilirubin 5.1, direct bilirubin 3.8, albumin 3.0. IMPRESSION: 1. Hepatic encephalopathy. 2. Chronic renal insufficiency. 3. Thrombocytopenia (multifactorial). PLAN: I had the pleasure of seeing Mundo at bedside today. Mundo was established with [facility], currently under the care of Dr. Javed, who is yet to see him. Mr. Burnette was previously seen by Yen Ferguson, who has since left for another opportunity. According to her clinical notes, Mr. Burnette has been maintained on Promacta. His average platelet counts are approximately 60-70,000. On admission, his platelets have dropped considerably. Primary service attempted transfusion with a little increase in platelet count, which would suggest underlying alloimmunization. He has received multiple transfusions of both blood and platelet products in the past, which certainly suggests he may have a significant antibody issues. He was recently to see his transplant surgeon at [place] and was otherwise given a reasonably good bill of health. Mundo does intermittently become encephalopathic and his symptoms are amenable to lactulose. Unfortunately, the events prior to this admission were not helped by lactulose. From a hematologic standpoint, there are several concerns. First and foremost DIC/TTP should be ruled out. I reviewed the peripheral smear and schistocytosis was not appreciated. The patient's presenting symptomatology also does not suggest underlying thrombotic thrombocytopenic purpura. Breakthrough ITP. Despite Promacta, should also be considered. Perhaps a dose escalation is in order. Unless there is active bleeding during admission, I would avoid further transfusion at this point. If transfusion is required, he will most likely respond to HLA-matched platelets. I may also suggest because of the complex nature of his case and comorbid issues, may be a transfer to [place], is in order. Nonetheless, will continue to follow him on a daily basis while in house and I will ensure he has appropriate follow up with Dr. Javed, post-discharge. Thank you very much for allowing me to participate in his care. If you have any questions or concerns, feel free to contact me at any time.
[2016-10-06 20:33] LABS: BUN/CREATININE RATIO 16.9 (10-20); CALCIUM 8.4 mg/dl (8.5-10.1); CREATININE 1.8 mg/dl (0.60-1.40); POTASSIUM 5.2 mmol/L (3.5-5.1)
[2016-10-06 20:40] LABS: PLATELET COUNT 27 K/uL (130-400)
[2016-10-06 20:41] LABS: PLT ESTIMATE SIGNIFIC DECREASED
[2016-10-06 20:43] LABS: BETA-HYDROXYBUTYRATE 1.33 mg/dL (0.2-2.81)
[2016-10-06] MEDS: INSULIN GLARGINE SOLOSTAR 100 UNITS/ML 3 ML PEN SC SCH (21:05)
[2016-10-06] MEDS: TAMSULOSIN HCL 0.4 MG CAP PO SCH (21:07)
--- NOTE | 2016-10-06 21:17 | Progress Note ---
Subjective Date of Service: October 06, 2016. Subjective Pt evaluation today including: conversation w/ patient, conversation w/ family (mother, brother at bedside), physical exam, chart review, lab review, review of studies (head CT, cxr ), conversation w/ integrity consultant (heme/onc), review of inpatient medication list Pain: denies headache, abd pain, chest pain PO Intake: npo Voiding: requires PRN straight cath Overnight was very sleepy but into this AM his mental status has improved. Family confirms he is not yet at baseline, however. He required straight cath x 2 due to inability to void. He has h/o BPH, but previously has been able to void. Denies dysuria. Denies cough or dyspnea. Reports no sick contacts. Admits to not taking her lactulose at least on and possibly also on Friday. Compliant with rifaximin. Family reports no infectious symptoms at home (fevers, chills, sweats, etc). Problem List Medical Problems: (1) Altered mental status Status: Acute (2) Altered mental status Status: Acute (3) Anemia Status: Acute (4) Diabetes mellitus out of control Status: Acute (5) Hepatic encephalopathy Status: Acute (6) Hyperglycemia Status: Acute (7) Hyperglycemia Status: Acute (8) Hyperkalemia Status: Acute (9) Hypoglycemia Status: Acute (10) Kidney injury Status: Acute (11) Tenosynovitis Status: Acute (12) Thrombocytopenia Status: Acute Review of Systems Constitutional: No chills, No fever ENT: No sore throat Respiratory: No cough, No sputum Cardiac: No chest pain, No edema Abdomen: + vomiting (yesterday but not today), No nausea, No pain Male : + problem reported (see HPI), + slowing stream, No dysuria Neurologic: No numbness/tingling Heme: No abnormal bleeding/bruising Skin: No rash Objective Vital Signs Date Time Temp Pulse Resp B/P Pulse Ox O2 Delivery O2 Flow Rate FiO2 10/06/16 19:14 36.2 90 20 118/74 99 Room Air 10/06/16 16:00 Room Air 10/06/16 15:28 37.0 89 20 116/76 96 10/06/16 13:55 Room Air 10/06/16 12:38 36.8 109 18 128/82 96 10/06/16 12:05 99 127/90 10/06/16 08:00 Room Air 10/06/16 07:43 36.6 154 16 114/83 90 10/06/16 07:11 37.0 90 18 121/77 97 Room Air 10/06/16 06:05 36.4 88 16 148/92 97 Room Air 10/06/16 04:45 36.8 90 16 130/85 96 10/06/16 04:30 37.0 91 16 142/84 99 10/06/16 04:15 36.4 86 16 141/65 10/06/16 04:01 37.0 86 16 124/86 10/06/16 04:00 Room Air 10/06/16 03:26 36.4 86 16 124/78 10/06/16 02:55 37.0 85 16 134/86 97 10/06/16 02:41 36.6 84 16 142/82 10/06/16 02:25 36.4 84 16 137/91 10/06/16 01:36 36.3 84 16 115/78 97 Room Air 10/06/16 00:40 37.1 81 18 119/78 100 Room Air 10/06/16 00:04 37.0 78 20 137/83 98 Room Air 10/05/16 22:53 84 22 125/79 99 Room Air 10/05/16 21:18 82 20 129/95 98 Room Air Physical Exam General Appearance: + pertinent finding (looks chronically ill, pale, conversive but confused) Eyes: + abnormal sclerae exam (mild icterus) ENT: + pertinent finding (MM dry, no thrush ) Neck: no JVD Respiratory/Chest: lungs clear, no respiratory distress, no accessory muscle use Cardiovascular: regular rate, rhythm, no gallop, + systolic murmur (1-2/6 LSB ) Abdomen: normal bowel sounds, non tender, soft, no organomegaly, + pertinent finding (multiple scars on abdominal wall ) Extremities: no pedal edema Neurologic/Psychiatric: alert, + pertinent finding (confused; +asterixis; reflexes 2+ b/l; no nystagmus; no focal motor deficits ) Skin: + pallor, + pertinent finding (some petechiae on shins) Lymphatic: no adenopathy (cervical ) Comments: ALAN - copious soft stool but no impaction; prostate enlarged, mildly boggy and tender, no nodules Laboratory Results Last 24 Hours Test 10/05/16 21:26 10/05/16 22:51 10/05/16 23:40 10/06/16 06:04 Bedside Glucose 164 mg/dl 168 mg/dl 248 mg/dl White Blood Count 7.98 K/uL Red Blood Count 3.61 M/uL Hemoglobin 11.3 g/dL Hematocrit 32.3 % Mean Corpuscular Volume 89.5 fL Mean Corpuscular Hemoglobin 31.3 pg Mean Corpuscular Hemoglobin Concent 35.0 g/dl Platelet Count 15 K/uL Neutrophils (%) (Auto) 81.6 % Lymphocytes (%) (Auto) 7.6 % Monocytes (%) (Auto) 6.6 % Eosinophils (%) (Auto) 2.5 % Basophils (%) (Auto) 0.8 % Neutrophils # (Auto) 6.51 K/uL Lymphocytes # (Auto) 0.61 K/uL Monocytes # (Auto) 0.53 K/uL Eosinophils # (Auto) 0.20 K/uL Basophils # (Auto) 0.06 K/uL RDW Standard Deviation 58.0 fL RDW Coefficient of Variation 17.7 % Immature Granulocyte % (Auto) 0.9 % Immature Granulocyte # (Auto) 0.07 K/uL Platelet Estimate SIGNIFIC DECREASED Ovalocytes 1+ Echinocytes 1+ Test 10/06/16 06:16 10/06/16 08:06 10/06/16 09:16 10/06/16 11:50 White Blood Count 7.19 K/uL Red Blood Count 3.59 M/uL Hemoglobin 11.2 g/dL Hematocrit 31.9 % Mean Corpuscular Volume 88.9 fL Mean Corpuscular Hemoglobin 31.2 pg Mean Corpuscular Hemoglobin Concent 35.1 g/dl Platelet Count 19 K/uL Neutrophils (%) (Auto) 95.5 % Lymphocytes (%) (Auto) 2.5 % Monocytes (%) (Auto) 0.4 % Eosinophils (%) (Auto) 0.6 % Basophils (%) (Auto) 0.3 % Neutrophils # (Auto) 6.87 K/uL Lymphocytes # (Auto) 0.18 K/uL Monocytes # (Auto) 0.03 K/uL Eosinophils # (Auto) 0.04 K/uL Basophils # (Auto) 0.02 K/uL RDW Standard Deviation 57.4 fL RDW Coefficient of Variation 17.5 % Immature Granulocyte % (Auto) 0.7 % Immature Granulocyte # (Auto) 0.05 K/uL Platelet Estimate SIGNIFIC DECREASED Tear Drop Cells 1+ Ovalocytes 1+ Prothrombin Time 14.5 SECONDS Prothromb Time International Ratio 1.3 Activated Partial Thromboplast Time 31.6 SECONDS Partial Thromboplastin Ratio 1.2 Sodium Level 140 mmol/L Potassium Level 5.4 mmol/L Chloride Level 111 mmol/L Carbon Dioxide Level 18 mmol/L Anion Gap 11.0 mmol/L Blood Urea Nitrogen 25 mg/dl Creatinine 1.60 mg/dl Est Creatinine Clear Calc Drug Dose 61.7 ml/min Estimated GFR () 57.0 Estimated GFR (Non- 49.2 BUN/Creatinine Ratio 15.9 Random Glucose 274 mg/dl Calcium Level 9.0 mg/dl Magnesium Level 2.1 mg/dl Total Bilirubin 5.1 mg/dl Direct Bilirubin 3.8 mg/dl Aspartate Amino Transf (AST/SGOT) 32 U/L Alanine Aminotransferase (ALT/SGPT) 28 U/L Alkaline Phosphatase 311 U/L Total Protein 5.6 gm/dl Albumin 3.0 gm/dl Ammonia 60.0 umol/L Monoscreen NEG Urine Color DK YELLOW Urine Appearance CLEAR Urine pH 5.5 Urine Specific [place] 1.019 Urine Protein NEG Urine Glucose (UA) 2+ Urine Ketones NEG Urine Occult Blood NEG Urine Nitrite NEG Urine Bilirubin NEG Urine Urobilinogen NEG Urine Leukocyte Esterase NEG Test 10/06/16 11:57 10/06/16 17:53 10/06/16 17:56 10/06/16 19:50 Bedside Glucose 339 mg/dl 420 mg/dl 326 mg/dl 340 mg/dl Test 10/06/16 20:00 Platelet Count 27 K/uL Platelet Estimate SIGNIFIC DECREASED Sodium Level 142 mmol/L Potassium Level 5.2 mmol/L Chloride Level 115 mmol/L Carbon Dioxide Level 18 mmol/L Anion Gap 9.0 mmol/L Blood Urea Nitrogen 30 mg/dl Creatinine 1.80 mg/dl Est Creatinine Clear Calc Drug Dose 54.9 ml/min Estimated GFR () 49.4 Estimated GFR (Non- 42.6 BUN/Creatinine Ratio 16.9 Random Glucose 342 mg/dl Calcium Level 8.4 mg/dl Beta-Hydroxybutyric Acid 1.33 mg/dL Assessment and Plan Complicated 51yo male with: 1. hepatic encephalopathy - improving. Cont lactulose, titrate for 2-3 BMs/day. Cont rifaximin. Etiology likely due to noncompliance with lactulose +/- infectious process ( prostatitis?). Ammonia level in am. 2. uncontrolled T1DM, but not in DKA - due to #1, steroids given last pm ( solumedrol 125mg x 1), +/- infectious process. Records reviewed - during his most recent hospital admission lantus was 14 U BID and correction was 30 with carb ratio of 1:10. Will employ this regimen but may need additional titration due to steroid effect. Need to watch carefully for DKA. 3. ?prostatitis - u/a negative and urine cx pending. Clinically, however, given his inability to void and the prostate findings I do believe he has prostatitis. Cont the rocephin. If he continues to retain urine would simply place agllego. 4. BPH - continue outpatient meds. See above. 5. ITP with worsening thrombocytopenia - appreciate Dr. Arnett's consultation. He is s/p platelet transfusion w/o significant rise in counts. NO bleeding at this time and Dr. Arnett reports no evidence of TTP on smear. Repeat platelet count tonight, then again in AM. If he needs platelets Dr. Arnett recommending HLA-matched. Send CMV titer, EBV titer, and parvovirus titer to r/o viral causes of worsening platelets. 6. abnormal LFTs in the setting of chronic liver transplant status (previously had primary biliary cirrhosis) - LFTs and INR are at his baseline. He takes prograf and prednisone chronically for his transplant. He received large dose of solumedrol 125mg yesterday. He just saw [place] [facility] [place]. Prograf level on 10/01 was <5 (see lab section). I placed a call to [facility] on 10/06/16 but the on-call transplant attending was in surgery. Will need to call again in the AM for any other recommendations. Cont ursodial. Repeat lfts / INR in am. Resume prednisone 10mg in AM; consider larger doses, if needed, for stress dose purposes, low platelets, etc. 7. acute kidney injury, mild, in the setting of CKD stage 2 - repeat BMP later tonight for stability. Cont to hydrate and repeat labs in AM. 8. hyperkalemia - very mild, in the setting of #7 and uncontrolled T1DM - hydrate with NS, better glycemic control, and serial labs to ensure normalization. 9. DVT proph - chemical means contraindicated due to low platelets; SCDs only. 10. PT, OT consults when able. 11. FEN - start diet and advance as tolerated. NS at 125cc/hr overnight. Repeat labs in am. family updated at bedside total time today 70 minutes Continued [facility] stay due to: inadequate po fluid intake, voiding difficulties, multiple IV medications needed
[2016-10-06 23:38] LABS: INFLUENZA A PCR Neg for Influ A (NEG); INFLUENZA B PCR Neg for Influ B (NEG)
[2016-10-07] MEDS: CEFTRIAXONE SOD INJ 1 GM in DEXTROSE 5% ADD-VANTAGE 50ML 50 ML IV SCH ×2 (00:05→23:52)
[2016-10-07 04:10] VITALS: BP 143/79; PULSE 98; TEMP 37.1; O2SAT 94
[2016-10-07] MEDS: SODIUM CHLORIDE 0.9% 1000ML 1,000 ML IV SCH ×3 (05:54→21:24)
[2016-10-07 06:11] LABS: INR 1.4 (0.9-1.1); PROTHROMBIN TIME (PATIENT) 15.5 SECONDS (9.0-12.0)
[2016-10-07 06:30] LABS: BUN/CREATININE RATIO 19.5 (10-20); CALCIUM 8.3 mg/dl (8.5-10.1); CREATININE 1.6 mg/dl (0.60-1.40); MAGNESIUM 2.2 mg/dl (1.8-2.4); PHOSPHORUS 2.6 mg/dl (2.5-4.9); POTASSIUM 4.8 mmol/L (3.5-5.1)
[2016-10-07 06:45] LABS: THYROID STIMULATING HORMONE 1.28 uIu/ml (0.300-4.500)
[2016-10-07 06:58] LABS: HEMATOCRIT 30.4 % (42-52); MEAN CELL VOLUME 90.2 fL (80-100); MEAN CORPUSCULAR HEMOGLOBIN 31.5 pg (25-34); MEAN CORPUSCULAR HGB CONC 34.9 g/dl (32-36); PLATELET COUNT 72 K/uL (130-400); RED BLOOD COUNT 3.37 M/uL (4.7-6.1); WHITE BLOOD COUNT 10.34 K/uL (4.8-10.8)
[2016-10-07 07:48] VITALS: BP 131/79; PULSE 97; TEMP 36.9; O2SAT 98
[2016-10-07] MEDS: [UNRECOGNIZED DRUG - REMARK] SCH ×4 (08:00→23:53)
[2016-10-07] MEDS: LACTULOSE SYRUP 30 GM/45 ML UDP PO SCH ×2 (08:17→21:15)
[2016-10-07] MEDS: URSODIOL 300 MG CAP PO SCH ×4 (08:17→21:15)
[2016-10-07] MEDS: PANTOprazole SOD 40 MG TAB PO SCH (08:18)
[2016-10-07] MEDS: FINASTERIDE 5 MG TAB PO SCH (08:18)
[2016-10-07] MEDS: TACROLIMUS 0.5 MG CAP PO SCH (08:18)
[2016-10-07] MEDS: RIFAXIMIN TAB 550 MG TAB PO SCH ×2 (08:19→21:15)
[2016-10-07] MEDS: INSULIN ASPART 100 UNITS/ML 3 ML PEN SC SCH ×4 (08:25→21:22)
[2016-10-07] MEDS: INSULIN GLARGINE SOLOSTAR 100 UNITS/ML 3 ML PEN SC SCH ×2 (08:27→21:22)
[2016-10-07 08:32] LABS: BASO % 0.1 %; BASO ABS # 0.01 K/uL (0-0.2); COMPLETE YES; EOS % 0.2 %; IG% 0.4 %; LYMPH % 3.1 %; LYMPH ABS # 0.32 K/uL (1.2-3.4); MONO % 3.4 %; NEUT % 92.8 %; TEAR DROP CELLS 1+
[2016-10-07 12:01] VITALS: BP 139/79; PULSE 93; TEMP 37.6; O2SAT 97
--- NOTE | 2016-10-07 14:00 | Hospitalist Progress Note ---
Hospitalist Progress Note Date of Service October 07, 2016. (Valery Fonseca ., PA-C) Subjective Pt evaluation today including: conversation w/ patient, conversation w/ family (Mother) Voiding: no voiding problems, no incontinence Patient states he is feeling well. Denies any complaints. Admits to not taking Lactulose on or Friday because of Cris f/u appointment. He is eating and drinking OK. Patient denies any fever, chills, sweats, lightheadedness, dizziness, vision changes, CP, palpitations, edema, SOB, wheezing, cough, abdominal pain, nausea, vomiting, diarrhea, urinary symptoms, melena, numbness/tingling, weakness, muscle/joint pain, anxiety/depression, active bleeding, or new skin discoloration/changes. Patient's mother at bedside. She states patient is back to his baseline. (Valery Fonseca ., ABBY-C) Medications Current Inpatient Medications Medications (Trade) Dose Ordered Sig/Tristen Route Start Time Stop Time Status Last Admin Dose Admin Ondansetron HCl (Zofran Inj) 4 mg Q6H PRN IV 10/05/16 22:00 11/04/16 21:59 Glucose (Glucose 40% Gel) UD PRN PO 10/05/16 22:00 11/04/16 21:59 Glucose (Glucose Chew Tab) 1 tabs UD PRN PO 10/05/16 22:00 11/04/16 21:59 Dextrose (Dextrose 50% 50ML Syringe) 50 ml UD PRN IV 10/05/16 22:00 11/04/16 21:59 Glucagon (Glucagon Inj) 1 mg UD PRN SQ 10/05/16 22:00 11/04/16 21:59 Rifaximin (Xifaxan Tab) 550 mg BID PO 10/06/16 09:00 11/05/16 08:59 10/07/16 08:19 550 MG Tacrolimus (Prograf Cap) 0.5 mg QAM PO 10/06/16 09:00 11/05/16 08:59 10/07/16 08:18 0.5 MG Ursodiol (Actigall Cap) 300 mg QID PO 10/06/16 09:00 11/05/16 08:59 10/07/16 13:07 300 MG Miscellaneous Information (Order Awaiting Action) 1 ea QS N/A 10/06/16 08:00 11/05/16 07:59 Miscellaneous Information (Order Awaiting Action) 1 ea QS N/A 10/06/16 01:15 11/05/16 01:14 Miscellaneous Information 1 ea 1 ea QS N/A 10/06/16 08:00 11/05/16 07:59 Ceftriaxone Sodium 1 gm/ Dextrose 50 ml @ 100 mls/hr Q24H IV 10/06/16 00:00 10/08/16 00:00 10/07/16 00:05 100 MLS/HR Sodium Chloride (Nss 1000ml) 1,000 ml @ 125 mls/hr Q8H IV 10/06/16 09:00 11/05/16 08:59 10/07/16 05:54 125 MLS/HR Insulin Aspart (novoLOG ASPART) SLIDING SCALE If C... ACHS SC 10/06/16 16:30 11/05/16 16:29 10/07/16 13:10 5 UNITS Tamsulosin HCl (Flomax Cap) 0.4 mg HS PO 10/06/16 21:00 11/05/16 20:59 10/06/16 21:07 0.4 MG Finasteride (Proscar Tab) 5 mg QAM PO 10/06/16 12:45 11/05/16 12:44 10/07/16 08:18 5 MG Pantoprazole Sodium (Protonix Tab) 40 mg QAM PO 10/07/16 09:00 11/06/16 08:59 10/07/16 08:18 40 MG Insulin Glargine (Lantus Solostar Pen) 14 unit BID SC 10/06/16 21:00 11/05/16 20:59 10/07/16 08:27 14 UNIT Prednisone (PredniSONE TAB) 10 mg QAM PO 10/07/16 09:00 11/06/16 08:59 10/07/16 08:17 10 MG Lactulose (Chronulac Syrup) 30 gm BID PO 10/07/16 09:00 11/06/16 08:59 10/07/16 08:17 30 GM (Valery Fonseca, PAColleenC) Objective Vital Signs Date Time Temp Pulse Resp B/P Pulse Ox O2 Delivery O2 Flow Rate FiO2 10/07/16 12:01 37.6 93 16 139/79 97 10/07/16 07:59 Room Air 10/07/16 07:48 36.9 97 18 131/79 98 10/07/16 04:10 37.1 98 20 143/79 94 Room Air 10/07/16 04:00 Room Air 10/07/16 00:53 Room Air 10/06/16 23:53 37.0 93 18 129/85 99 Room Air 10/06/16 20:00 Room Air 10/06/16 19:14 36.2 90 20 118/74 99 Room Air 10/06/16 16:00 Room Air 10/06/16 15:28 37.0 89 20 116/76 96 10/06/16 13:55 Room Air (Valery Fonseca, PA-C) Physical Exam General Appearance: no apparent distress Eyes: PERRL ENT: hearing grossly normal Neck: supple Respiratory/Chest: lungs clear, no respiratory distress, no accessory muscle use Cardiovascular: regular rate, rhythm Abdomen: normal bowel sounds, non tender, soft Extremities: no pedal edema, no calf tenderness Neurologic/Psychiatric: alert, normal mood/affect, oriented x 3 Skin: normal color, warm/dry, no rash (Valery Fonseca, PA-C) Laboratory Results Last 24 Hours Test 10/06/16 17:53 10/06/16 17:56 10/06/16 19:50 10/06/16 20:00 Bedside Glucose 420 mg/dl 326 mg/dl 340 mg/dl Platelet Count 27 K/uL Platelet Estimate SIGNIFIC DECREASED Sodium Level 142 mmol/L Potassium Level 5.2 mmol/L Chloride Level 115 mmol/L Carbon Dioxide Level 18 mmol/L Anion Gap 9.0 mmol/L Blood Urea Nitrogen 30 mg/dl Creatinine 1.80 mg/dl Est Creatinine Clear Calc Drug Dose 54.9 ml/min Estimated GFR () 49.4 Estimated GFR (Non- 42.6 BUN/Creatinine Ratio 16.9 Random Glucose 342 mg/dl Calcium Level 8.4 mg/dl Beta-Hydroxybutyric Acid 1.33 mg/dL Test 10/06/16 21:13 10/07/16 05:47 10/07/16 07:40 10/07/16 11:51 Influenza Type A (RT-PCR) Neg for Influ A Influenza Type B (RT-PCR) Neg for Influ B White Blood Count 10.34 K/uL Red Blood Count 3.37 M/uL Hemoglobin 10.6 g/dL Hematocrit 30.4 % Mean Corpuscular Volume 90.2 fL Mean Corpuscular Hemoglobin 31.5 pg Mean Corpuscular Hemoglobin Concent 34.9 g/dl Platelet Count 72 K/uL Neutrophils (%) (Auto) 92.8 % Lymphocytes (%) (Auto) 3.1 % Monocytes (%) (Auto) 3.4 % Eosinophils (%) (Auto) 0.2 % Basophils (%) (Auto) 0.1 % Neutrophils # (Auto) 9.60 K/uL Lymphocytes # (Auto) 0.32 K/uL Monocytes # (Auto) 0.35 K/uL Eosinophils # (Auto) 0.02 K/uL Basophils # (Auto) 0.01 K/uL RDW Standard Deviation 58.5 fL RDW Coefficient of Variation 17.7 % Immature Granulocyte % (Auto) 0.4 % Immature Granulocyte # (Auto) 0.04 K/uL Tear Drop Cells 1+ Prothrombin Time 15.5 SECONDS Prothromb Time International Ratio 1.4 Sodium Level 144 mmol/L Potassium Level 4.8 mmol/L Chloride Level 116 mmol/L Carbon Dioxide Level 19 mmol/L Anion Gap 9.0 mmol/L Blood Urea Nitrogen 31 mg/dl Creatinine 1.60 mg/dl Est Creatinine Clear Calc Drug Dose 61.7 ml/min Estimated GFR () 57.0 Estimated GFR (Non- 49.2 BUN/Creatinine Ratio 19.5 Random Glucose 154 mg/dl Calcium Level 8.3 mg/dl Phosphorus Level 2.6 mg/dl Magnesium Level 2.2 mg/dl Total Bilirubin 4.2 mg/dl Direct Bilirubin 3.0 mg/dl Aspartate Amino Transf (AST/SGOT) 33 U/L Alanine Aminotransferase (ALT/SGPT) 30 U/L Alkaline Phosphatase 278 U/L Ammonia 18.0 umol/L Total Protein 5.5 gm/dl Albumin 3.1 gm/dl Thyroid Stimulating Hormone (TSH) 1.280 uIu/ml Bedside Glucose 141 mg/dl 187 mg/dl (Valery Fonseca, TRINITYC) Assessment and Plan The patient is a 51-year-old male the past medical history of primary sclerosing cholangitis which led to liver failure, status post liver transplant , status post TIPS, who developed altered mental status since about 8:30 in the morning of admission per family report. He missed most of the last 2 days of dosing of his lactulose due to concerns regarding its use while traveling to the [facility] with an appointment yesterday. The patient himself is lethargic and for the most part nonresponsive, is not able to contribute significantly to the history of present illness. Family reports that he has not had any signs of illness such as cough,sore throat, sinus congestion, or urinary dysfunction. Hepatic encephalopathy, likely secondary to noncompliance of Lactulose- RESOLVED : - Admitted tele for cardiac monitoring- no acute events - Lactulose BID, titrate for 2-3 BMs/day - Continue Rifaximin - Trend ammonia level - UA negative - BCx- NGTD - Head CT- unremarkable - CXR unremarkable Liver transplant status: - Continue Tacrolimus 0.5 mg PO daily, Ursodiol 300 mg PO QID, Prednisone 10 mg daily -- Prograf level 4.3 on 10/01- [facility] NOT recommend adjusting Prograf - Follows w/ [facility] Thrombocytopenia, plt 19 on admission- baseline plt 40-80- IMPROVED: - Transfused 2 u plt on 10/06 - Continue Promacta 50 mg PO daily - Follow CBC - Send CMV titer, EBV titer, and parvovirus titer to r/o viral causes of worsening platelets - Consulted hematology/oncology, appreciate recommendations -- If he needs platelets Dr. Arnett recommending HLA-matched Insulin-dependent DM: - Lantus 14 u BID - BSG ACHS w/ sliding insulin scale Urinary retention? secondary to infectious process vs. encephalopathy- RESOLVED: - Covered w/ IV Rocephin pending UCx; UCx negative- will stop antibiotics BPH: Proscar 5 mg daily, Savi 1 capsule PO HS Peripheral neuropathy: Continue Topamax at 50 mg PO HS Allergy: Continue Hydroxyzine 50 mg PO TID PRN Immunodeficiency: Continue Hizentra 12 g IM weekly CKD, stage III- stable: Follow PRP Chronic coagulopathy, baseline INR 1.2-1.3: Following INR Chronic elevated LFTs- Trending downwards, continue to follow Hyperkalemia- RESOLVED Hypothyroidism: - Continue Synthroid 88 mcg daily - TSH WNL Hypomagnesium: Continue mag-ox supplement Insomnia/anxiety and depression: - Continue Mirtazapine, Restoril - Follows outpt w/ Dr. Elam GERD: Continue Protonix 40 mg daily DVT prophylaxis: Chemical means contraindicated due to low platelets; SCDs Code Status: LEVEL I, FULL Dispo: Likely discharge to home when medically stable, hopefully within the next few days - PT/OT evaluations pending (Valery Fonseca ., PA-C) PA Physician Supervision Note: I interviewed and examined the patient. Discussed with Valery Conner PAC and agree with findings and plan as documented in the note. Any exceptions or clarifications are listed here: None Pt is awake and alert but delirious at times, family states this is his baseline confusion vitals stable car is regular abdomen is non tender will work to control his ammonia and diarrhea from lactulose thrombocytopenia, was given one dose of steroids with improvement urine culture negative, voiding better will stop antibiotics and follow Documented By: Issac Gary (Issac Gary M.D.)
[2016-10-07 15:39] VITALS: BP 146/90; PULSE 90; TEMP 36.7; O2SAT 97
[2016-10-07 20:22] VITALS: BP 153/82; PULSE 96; TEMP 37.2; O2SAT 95
[2016-10-07] MEDS: TAMSULOSIN HCL 0.4 MG CAP PO SCH (21:15)
[2016-10-08] VITALS (7 sets, daily range): BP systolic 145–165; BP diastolic 87–96; PULSE 95–114; TEMP 36.6–37; O2SAT 96–99
[2016-10-08] MEDS: SODIUM CHLORIDE 0.9% 1000ML 1,000 ML IV SCH ×3 (05:47→20:27)
[2016-10-08 06:50] LABS: INR 1.5 (0.9-1.1)
[2016-10-08 07:16] LABS: BASO % 0.2 %; BASO ABS # 0.01 K/uL (0-0.2); COMPLETE YES; ECHINOCYTES 2+; EOS % 1.5 %; HEMATOCRIT 28.2 % (42-52); IG% 0.2 %; LYMPH % 9.4 %; LYMPH ABS # 0.39 K/uL (1.2-3.4); MEAN CORPUSCULAR HEMOGLOBIN 32.3 pg (25-34); MEAN CORPUSCULAR HGB CONC 35.5 g/dl (32-36); MONO % 6.3 %; NEUT % 82.4 %; PLATELET COUNT 41 K/uL (130-400); PLT ESTIMATE DECREASED; WHITE BLOOD COUNT 4.13 K/uL (4.8-10.8)
[2016-10-08 07:22] LABS: BUN/CREATININE RATIO 16.9 (10-20); CALCIUM 8.1 mg/dl (8.5-10.1); CREATININE 1.7 mg/dl (0.60-1.40); MAGNESIUM 2.1 mg/dl (1.8-2.4); POTASSIUM 4.4 mmol/L (3.5-5.1)
[2016-10-08] MEDS: [UNRECOGNIZED DRUG - REMARK] SCH (08:00)
[2016-10-08] MEDS: URSODIOL 300 MG CAP PO SCH ×4 (08:37→20:28)
[2016-10-08] MEDS: TACROLIMUS 0.5 MG CAP PO SCH (08:38)
[2016-10-08] MEDS: PANTOprazole SOD 40 MG TAB PO SCH (08:38)
[2016-10-08] MEDS: RIFAXIMIN TAB 550 MG TAB PO SCH ×2 (08:39→20:31)
[2016-10-08] MEDS: FINASTERIDE 5 MG TAB PO SCH (08:39)
[2016-10-08] MEDS: LACTULOSE SYRUP 30 GM/45 ML UDP PO SCH ×2 (08:39→20:29)
[2016-10-08] MEDS: INSULIN ASPART 100 UNITS/ML 3 ML PEN SC SCH ×4 (08:52→21:33)
[2016-10-08] MEDS: INSULIN GLARGINE SOLOSTAR 100 UNITS/ML 3 ML PEN SC SCH ×2 (08:53→20:33)
--- NOTE | 2016-10-08 09:11 | Hematology/Oncology Prog Note ---
Hematology/Onc Progress Note Date of Service October 08, 2016. Diagnoses Hepatic encephalopathy thrombocytopenia Medications Medications Administered Medications (Trade) Dose Ordered Sig/Tristen Route Start Time Stop Time Status Last Admin Dose Admin Sodium Chloride (Nss 1000ml) 1,000 ml @ 999 mls/hr Q1H1M STAT IV 10/05/16 19:20 10/05/16 20:20 DC 10/05/16 19:20 999 MLS/HR Dextrose (Dextrose 50% 50ML Syringe) 50 ml NOW STAT IV 10/05/16 20:11 10/05/16 20:13 DC 10/05/16 20:24 50 ML Lactulose (Chronulac Syrup) 30 gm NOW STAT PO 10/05/16 20:56 10/05/16 20:57 DC 10/05/16 21:10 30 GM Ondansetron HCl 4 mg 4 mg NOW STAT IV 10/05/16 20:56 10/05/16 20:57 DC 10/05/16 21:08 4 MG Potassium Chloride/Sodium Chloride 1,000 ml @ 100 mls/hr Q10H IV 10/05/16 23:45 10/06/16 08:49 DC 10/05/16 23:53 100 MLS/HR Pantoprazole Sodium/Syringe (Protonix Inj/ Syringe) 10 ml @ 5 mls/min DAILY@11 IV 10/06/16 11:00 10/06/16 12:55 DC 10/06/16 11:45 5 MLS/MIN Rifaximin (Xifaxan Tab) 550 mg BID PO 10/06/16 09:00 11/05/16 08:59 10/08/16 08:39 550 MG Tacrolimus (Prograf Cap) 0.5 mg QAM PO 10/06/16 09:00 11/05/16 08:59 10/08/16 08:38 0.5 MG Ursodiol (Actigall Cap) 300 mg QID PO 10/06/16 09:00 11/05/16 08:59 10/08/16 08:37 300 MG Methylprednisolone Sodium Succinate (Solu-Medrol IV) 125 mg NOW STAT IV 10/05/16 22:07 10/05/16 22:14 DC 10/05/16 22:46 125 MG Lactulose 30 gm 30 gm TID PO 10/06/16 09:00 10/06/16 21:06 DC 10/06/16 13:16 30 GM Ceftriaxone Sodium/Dextrose (Rocephin Inj/ Dextrose Add-[place] 50ML) 50 ml @ 100 mls/hr Q24H IV 10/06/16 00:00 10/08/16 00:00 DC 10/07/16 23:52 100 MLS/HR Albumin Human (Albumin 25%) 12.5 gm 0000,0600,1200,1800 IV 10/06/16 00:00 10/06/16 12:46 DC 10/06/16 11:45 12.5 GM Albumin Human (Albumin 25%) 12.5 gm 0100,0700,1300,1900 IV 10/06/16 01:00 10/06/16 12:46 DC 10/06/16 07:11 12.5 GM Insulin Aspart (novoLOG ASPART) SLIDING SCALE If C... Q6 SC 10/06/16 06:00 10/06/16 12:46 DC 10/06/16 12:10 7 UNITS Sodium Polystyrene Sulfonate 15 gm 15 gm NOW ONCE PO 10/06/16 09:15 10/06/16 09:16 DC 10/06/16 09:16 15 GM Sodium Chloride (Nss 1000ml) 1,000 ml @ 125 mls/hr Q8H IV 10/06/16 09:00 11/05/16 08:59 10/08/16 05:47 125 MLS/HR Insulin Aspart (novoLOG ASPART) SLIDING SCALE If C... ACHS SC 10/06/16 16:30 11/05/16 16:29 10/08/16 08:52 5 UNITS Tamsulosin HCl (Flomax Cap) 0.4 mg HS PO 10/06/16 21:00 11/05/16 20:59 10/07/16 21:15 0.4 MG Finasteride (Proscar Tab) 5 mg QAM PO 10/06/16 12:45 11/05/16 12:44 10/08/16 08:39 5 MG Insulin Glargine (Lantus Per Unit) 15 units 1300 ONCE SQ 10/06/16 13:00 10/06/16 13:01 DC 10/06/16 13:19 15 UNITS Pantoprazole Sodium (Protonix Tab) 40 mg QAM PO 10/07/16 09:00 11/06/16 08:59 10/08/16 08:38 40 MG Insulin Glargine (Lantus Solostar Pen) 14 unit BID SC 10/06/16 21:00 11/05/16 20:59 10/08/16 08:53 14 UNIT Prednisone (PredniSONE TAB) 10 mg QAM PO 10/07/16 09:00 11/06/16 08:59 10/08/16 08:38 10 MG Lactulose (Chronulac Syrup) 30 gm BID PO 10/07/16 09:00 11/06/16 08:59 10/08/16 08:39 30 GM Subjective Mr. Burnette remains encephalopathic. His conversation is non-sensical and discursive, making his history highly unreliable. He did not have any bleeding episodes overnight. Review of Systems: Inaccurate due to encephalopathy Vital Signs Vital Signs Past 12 Hours Date Time Temp Pulse Resp B/P Pulse Ox O2 Delivery O2 Flow Rate FiO2 10/08/16 07:20 36.8 96 20 149/88 98 Room Air 10/08/16 04:40 36.8 97 16 160/89 97 Room Air 10/08/16 04:00 Room Air 10/08/16 00:05 36.7 100 18 156/87 97 Room Air 10/08/16 00:00 Room Air Physical Exam Constitutional: Level of Distress: NAD ENMT: pharynx normal Lungs: Auscuitation: CTA except as noted Cardiovascular: Heart Auscultation: RRR Abdomen: Inspection & Palpation: soft, no tenderness, guarding & rebound Extremities: no edema (or tenderness) Laboratory Last 24 Hours Test 10/07/16 11:51 10/07/16 16:46 10/07/16 20:40 10/08/16 06:14 Bedside Glucose 187 mg/dl 184 mg/dl 229 mg/dl White Blood Count 4.13 K/uL Red Blood Count 3.10 M/uL Hemoglobin 10.0 g/dL Hematocrit 28.2 % Mean Corpuscular Volume 91.0 fL Mean Corpuscular Hemoglobin 32.3 pg Mean Corpuscular Hemoglobin Concent 35.5 g/dl Platelet Count 41 K/uL Neutrophils (%) (Auto) 82.4 % Lymphocytes (%) (Auto) 9.4 % Monocytes (%) (Auto) 6.3 % Eosinophils (%) (Auto) 1.5 % Basophils (%) (Auto) 0.2 % Neutrophils # (Auto) 3.40 K/uL Lymphocytes # (Auto) 0.39 K/uL Monocytes # (Auto) 0.26 K/uL Eosinophils # (Auto) 0.06 K/uL Basophils # (Auto) 0.01 K/uL RDW Standard Deviation 59.2 fL RDW Coefficient of Variation 17.8 % Immature Granulocyte % (Auto) 0.2 % Immature Granulocyte # (Auto) 0.01 K/uL Platelet Estimate DECREASED Echinocytes 2+ Prothrombin Time 16.0 SECONDS Prothromb Time International Ratio 1.5 Sodium Level 145 mmol/L Potassium Level 4.4 mmol/L Chloride Level 117 mmol/L Carbon Dioxide Level 18 mmol/L Anion Gap 10.0 mmol/L Blood Urea Nitrogen 29 mg/dl Creatinine 1.70 mg/dl Est Creatinine Clear Calc Drug Dose 58.1 ml/min Estimated GFR () 52.9 Estimated GFR (Non- 45.7 BUN/Creatinine Ratio 16.9 Random Glucose 132 mg/dl Calcium Level 8.1 mg/dl Magnesium Level 2.1 mg/dl Total Bilirubin 3.5 mg/dl Direct Bilirubin 2.7 mg/dl Aspartate Amino Transf (AST/SGOT) 39 U/L Alanine Aminotransferase (ALT/SGPT) 29 U/L Alkaline Phosphatase 240 U/L Total Protein 4.8 gm/dl Albumin 2.8 gm/dl Test 10/08/16 07:35 Bedside Glucose 130 mg/dl Assessment & Plan Mr. Burnette remains encephalopathic, mostly secondary to medication non- compliance. He is thrombocytopenic, which is likely multifactorial, with components of ITP and his liver disease. I would continue his Promacta. He had a reasonable response (though delayed) to his platelet transfusion, arguing that his low platelets this admission may be more related to his liver disease than his ITP. However, I would not transfuse him again unless he is bleeding, given concern for alloimmunization.
--- NOTE | 2016-10-08 10:53 | Hospitalist Progress Note ---
Hospitalist Progress Note Date of Service October 08, 2016. (Valery Fonseca ., TRINITYC) Subjective Pt evaluation today including: conversation w/ patient, physical exam, chart review, lab review, conversation w/ testing consultant (Dr. Javed ), review of inpatient medication list Voiding: no voiding problems, no incontinence Patient states he is feeling well. He continues to express his concerns with taking Lactulose. Discussed the need to continue to take the medication as prescribed at home. Admitting to 3-5 BMs yesterday. Patient denies any fever, chills, sweats, lightheadedness, dizziness, vision changes, CP, palpitations, edema, SOB, wheezing, cough, abdominal pain, nausea, vomiting, urinary symptoms , melena, numbness/tingling, weakness, muscle/joint pain, anxiety/depression, active bleeding, or new skin discoloration/changes. Mother stated on 10/07 that patient is to alternate Lactulose BID Q2D and Lactulose once daily Q2D. (Valery Fonseca ., TRINITYC) Medications Current Inpatient Medications Medications (Trade) Dose Ordered Sig/Tristen Route Start Time Stop Time Status Last Admin Dose Admin Ondansetron HCl (Zofran Inj) 4 mg Q6H PRN IV 10/05/16 22:00 11/04/16 21:59 Glucose (Glucose 40% Gel) UD PRN PO 10/05/16 22:00 11/04/16 21:59 Glucose (Glucose Chew Tab) 1 tabs UD PRN PO 10/05/16 22:00 11/04/16 21:59 Dextrose (Dextrose 50% 50ML Syringe) 50 ml UD PRN IV 10/05/16 22:00 11/04/16 21:59 Glucagon (Glucagon Inj) 1 mg UD PRN SQ 10/05/16 22:00 11/04/16 21:59 Rifaximin (Xifaxan Tab) 550 mg BID PO 10/06/16 09:00 11/05/16 08:59 10/08/16 08:39 550 MG Tacrolimus (Prograf Cap) 0.5 mg QAM PO 10/06/16 09:00 11/05/16 08:59 10/08/16 08:38 0.5 MG Ursodiol (Actigall Cap) 300 mg QID PO 10/06/16 09:00 11/05/16 08:59 10/08/16 08:37 300 MG Miscellaneous Information (Order Awaiting Action) 1 ea QS N/A 10/06/16 08:00 11/05/16 07:59 Miscellaneous Information (Order Awaiting Action) 1 ea QS N/A 10/06/16 01:15 11/05/16 01:14 Miscellaneous Information 1 ea 1 ea QS N/A 10/06/16 08:00 11/05/16 07:59 Sodium Chloride (Nss 1000ml) 1,000 ml @ 125 mls/hr Q8H IV 10/06/16 09:00 11/05/16 08:59 10/08/16 05:47 125 MLS/HR Insulin Aspart (novoLOG ASPART) SLIDING SCALE If C... ACHS SC 10/06/16 16:30 11/05/16 16:29 10/08/16 08:52 5 UNITS Tamsulosin HCl (Flomax Cap) 0.4 mg HS PO 10/06/16 21:00 11/05/16 20:59 10/07/16 21:15 0.4 MG Finasteride (Proscar Tab) 5 mg QAM PO 10/06/16 12:45 11/05/16 12:44 10/08/16 08:39 5 MG Pantoprazole Sodium (Protonix Tab) 40 mg QAM PO 10/07/16 09:00 11/06/16 08:59 10/08/16 08:38 40 MG Insulin Glargine (Lantus Solostar Pen) 14 unit BID SC 10/06/16 21:00 11/05/16 20:59 10/08/16 08:53 14 UNIT Prednisone (PredniSONE TAB) 10 mg QAM PO 10/07/16 09:00 11/06/16 08:59 10/08/16 08:38 10 MG Lactulose (Chronulac Syrup) 30 gm BID PO 10/07/16 09:00 11/06/16 08:59 10/08/16 08:39 30 GM (Valery Fonseca, MOHAN) Objective Vital Signs Date Time Temp Pulse Resp B/P Pulse Ox O2 Delivery O2 Flow Rate FiO2 10/08/16 07:20 36.8 96 20 149/88 98 Room Air 10/08/16 04:40 36.8 97 16 160/89 97 Room Air 10/08/16 04:00 Room Air 10/08/16 00:05 36.7 100 18 156/87 97 Room Air 10/08/16 00:00 Room Air 10/07/16 20:30 Room Air 10/07/16 20:22 37.2 96 20 153/82 95 Room Air 10/07/16 16:30 Room Air 10/07/16 15:39 36.7 90 16 146/90 97 Room Air 10/07/16 12:01 37.6 93 16 139/79 97 10/07/16 12:00 Room Air (Valery Fonseca, PA-C) Physical Exam General Appearance: no apparent distress Eyes: PERRL, + pertinent finding (icterus ) ENT: hearing grossly normal Neck: supple Respiratory/Chest: lungs clear, no respiratory distress, no accessory muscle use Cardiovascular: regular rate, rhythm Abdomen: normal bowel sounds, non tender, soft Extremities: no pedal edema, no calf tenderness Neurologic/Psychiatric: alert, oriented x 3 Skin: normal color, warm/dry, no rash (Valery Fonseca, PA-C) Laboratory Results Last 24 Hours Test 10/07/16 11:51 10/07/16 16:46 10/07/16 20:40 10/08/16 06:14 Bedside Glucose 187 mg/dl 184 mg/dl 229 mg/dl White Blood Count 4.13 K/uL Red Blood Count 3.10 M/uL Hemoglobin 10.0 g/dL Hematocrit 28.2 % Mean Corpuscular Volume 91.0 fL Mean Corpuscular Hemoglobin 32.3 pg Mean Corpuscular Hemoglobin Concent 35.5 g/dl Platelet Count 41 K/uL Neutrophils (%) (Auto) 82.4 % Lymphocytes (%) (Auto) 9.4 % Monocytes (%) (Auto) 6.3 % Eosinophils (%) (Auto) 1.5 % Basophils (%) (Auto) 0.2 % Neutrophils # (Auto) 3.40 K/uL Lymphocytes # (Auto) 0.39 K/uL Monocytes # (Auto) 0.26 K/uL Eosinophils # (Auto) 0.06 K/uL Basophils # (Auto) 0.01 K/uL RDW Standard Deviation 59.2 fL RDW Coefficient of Variation 17.8 % Immature Granulocyte % (Auto) 0.2 % Immature Granulocyte # (Auto) 0.01 K/uL Platelet Estimate DECREASED Echinocytes 2+ Prothrombin Time 16.0 SECONDS Prothromb Time International Ratio 1.5 Sodium Level 145 mmol/L Potassium Level 4.4 mmol/L Chloride Level 117 mmol/L Carbon Dioxide Level 18 mmol/L Anion Gap 10.0 mmol/L Blood Urea Nitrogen 29 mg/dl Creatinine 1.70 mg/dl Est Creatinine Clear Calc Drug Dose 58.1 ml/min Estimated GFR () 52.9 Estimated GFR (Non- 45.7 BUN/Creatinine Ratio 16.9 Random Glucose 132 mg/dl Calcium Level 8.1 mg/dl Magnesium Level 2.1 mg/dl Total Bilirubin 3.5 mg/dl Direct Bilirubin 2.7 mg/dl Aspartate Amino Transf (AST/SGOT) 39 U/L Alanine Aminotransferase (ALT/SGPT) 29 U/L Alkaline Phosphatase 240 U/L Total Protein 4.8 gm/dl Albumin 2.8 gm/dl Test 10/08/16 07:35 Bedside Glucose 130 mg/dl (Valery Fonseca, MOHAN) Assessment and Plan The patient is a 51-year-old male the past medical history of primary sclerosing cholangitis which led to liver failure, status post liver transplant , status post TIPS, who developed altered mental status since about 8:30 in the morning of admission per family report. He missed most of the last 2 days of dosing of his lactulose due to concerns regarding its use while traveling to the [facility] clinic with an appointment yesterday. The patient himself is lethargic and for the most part nonresponsive, is not able to contribute significantly to the history of present illness. Family reports that he has not had any signs of illness such as cough,sore throat, sinus congestion, or urinary dysfunction. Hepatic encephalopathy, likely secondary to noncompliance of Lactulose- RESOLVED : - Admitted tele for cardiac monitoring- no acute events - Lactulose BID, titrate for 2-3 BMs/day - Continue Rifaximin - Trend ammonia level - UA negative - BCx- NGTD - Head CT- unremarkable - CXR unremarkable Liver transplant status: - Continue Tacrolimus 0.5 mg PO daily, Ursodiol 300 mg PO QID, Prednisone 10 mg daily -- Prograf level 4.3 on 5/9- [facility] [place]- does NOT recommend adjusting Prograf - Follows w/ Cris Thrombocytopenia, plt 19 on admission- baseline plt 40-80- STABLE: - Transfused 2 u plt on 10/06 - Continue Promacta 50 mg PO daily - Follow CBC - Send CMV titer, EBV titer, and parvovirus titer to r/o viral causes of worsening platelets - Consulted hematology/oncology, appreciate recommendations -- If he needs platelets Dr. Arnett recommending HLA-matched Insulin-dependent DM: - Lantus 14 u BID - BSG ACHS w/ sliding insulin scale Urinary retention? secondary to infectious process vs. encephalopathy- RESOLVED: - Covered w/ IV Rocephin pending UCx; UCx negative- will stop antibiotics BPH: Proscar 5 mg daily, Savi 1 capsule PO HS Peripheral neuropathy: Continue Topamax at 50 mg PO HS Allergy: Continue Hydroxyzine 50 mg PO TID PRN Immunodeficiency: Continue Hizentra 12 g IM weekly CKD, stage III, baseline Cr. 1.5-1.6- STABLE: Follow PRP Chronic coagulopathy, baseline INR 1.2-1.3: Following INR Chronic elevated LFTs- Trending downwards, continue to follow Hyperkalemia- RESOLVED Hypothyroidism: - Continue Synthroid 88 mcg daily - TSH WNL Hypomagnesium: Continue mag-ox supplement Insomnia/anxiety and depression: - Continue Mirtazapine, Restoril - Follows outpt w/ Dr. Elam GERD: Continue Protonix 40 mg daily DVT prophylaxis: Chemical means contraindicated due to low platelets; SCDs Code Status: LEVEL I, FULL Dispo: Likely discharge to home when medically stable, hopefully within the next 1-2 days - PT evaluation pending, OT recommending return to home (Valery Fonseca ., PA-C) PA Physician Supervision Note: I interviewed and examined the patient. Discussed with Valery MERIDA and agree with findings and plan as documented in the note. Any exceptions or clarifications are listed here: None Pt is awake and alert more clear today but at times is inappropriate, family reinforces this is his typical vitals stable car is regular abdomen is non tender Family admits that he held some lacutlose to reduce diarrhea from lactulose as he was [place] [facility] [place] then felt too tired to take next day and this is what likely lead to his issue thrombocytopenia, was given one dose of steroids with improvement, has slipped back to 40's will follow urine culture negative, voiding continues to be good off antibiotics Documented By: Issac Gary (Issac Gary M.D.)
[2016-10-08] MEDS: TAMSULOSIN HCL 0.4 MG CAP PO SCH (20:31)
[2016-10-09] MEDS: SODIUM CHLORIDE 0.9% 1000ML 1,000 ML IV SCH ×3 (04:03→21:36)
[2016-10-09 07:45] VITALS: O2SAT 99
[2016-10-09 08:10] LABS: HEMATOCRIT 29.9 % (42-52); MEAN CELL VOLUME 90.9 fL (80-100); MEAN CORPUSCULAR HEMOGLOBIN 31.9 pg (25-34); MEAN CORPUSCULAR HGB CONC 35.1 g/dl (32-36); RED BLOOD COUNT 3.29 M/uL (4.7-6.1); WHITE BLOOD COUNT 4.44 K/uL (4.8-10.8)
[2016-10-09 08:16] VITALS: BP 162/86; PULSE 94; TEMP 36.8; O2SAT 99
[2016-10-09 08:17] LABS: INR 1.5 (0.9-1.1); PROTHROMBIN TIME (PATIENT) 16.1 SECONDS (9.0-12.0)
[2016-10-09] MEDS: PANTOprazole SOD 40 MG TAB PO SCH (08:25)
[2016-10-09] MEDS: LACTULOSE SYRUP 30 GM/45 ML UDP PO SCH ×2 (08:25→21:32)
[2016-10-09] MEDS: URSODIOL 300 MG CAP PO SCH ×4 (08:25→21:32)
[2016-10-09] MEDS: FINASTERIDE 5 MG TAB PO SCH (08:25)
[2016-10-09] MEDS: RIFAXIMIN TAB 550 MG TAB PO SCH ×2 (08:26→21:34)
[2016-10-09 08:40] LABS: PLATELET COUNT 58 K/uL (130-400)
[2016-10-09 08:41] LABS: BASO ABS # 0.04 K/uL (0-0.2); BASOPHIL % 0.9 % (0-2); COMPLETE YES; ECHINOCYTES 1+; EOSINOPHIL % 1.7 %; LYMPH ABS # 0.27 K/uL (1.2-3.4); LYMPHOCYTE % 6.1 %; META ABS # 0.12 K/uL (0-0); METAMYELOCYTE % 2.6 %; MYELOCYTE % 0.9 %; NEUTROPHILS % 87.8 %; PLT ESTIMATE DECREASED
[2016-10-09 08:47] LABS: BUN/CREATININE RATIO 17.2 (10-20); CREATININE 1.3 mg/dl (0.60-1.40); POTASSIUM 4.4 mmol/L (3.5-5.1)
[2016-10-09 08:57] LABS: ALB/GLOB RATIO 1.4 (0.9-2); CALCIUM 8.3 mg/dl (8.5-10.1)
[2016-10-09] MEDS: INSULIN ASPART 100 UNITS/ML 3 ML PEN SC SCH ×4 (09:27→21:44)
[2016-10-09] MEDS: INSULIN GLARGINE SOLOSTAR 100 UNITS/ML 3 ML PEN SC SCH ×2 (09:28→21:34)
[2016-10-09] MEDS ORDERED: hydrOXYzine HCL 25 MG TAB PO PRN (10:00)
[2016-10-09] MEDS ORDERED: TEMAZEPAM 15 MG CAP PO PRN (10:00)
--- NOTE | 2016-10-09 10:24 | Hospitalist Progress Note ---
Hospitalist Progress Note Date of Service October 09, 2016. (Valery Fonseca ., PAColleenC) Subjective Pt evaluation today including: conversation w/ patient, conversation w/ family (brother), physical exam, chart review, lab review, review of inpatient medication list Voiding: no voiding problems, no incontinence Patient has very eccentric behavior today. Fixated on the Holy spirit. Repetitively stating "today is my last day on earth." When asking the patient to elaborate on statement or if he has any plans of harming himself or others, he quickly defers to another topic. Will not answer questions, quickly changes topics. ROS cannot be obtained due to mental status. Spoke with brother at bedside. He admits brother has an "odd" behavior at baseline, but states he currently not at his mental health baseline today. (Valery Fonseca ., PA-C) Medications Current Inpatient Medications Medications (Trade) Dose Ordered Sig/Tristen Route Start Time Stop Time Status Last Admin Dose Admin Ondansetron HCl (Zofran Inj) 4 mg Q6H PRN IV 10/05/16 22:00 11/04/16 21:59 Glucose (Glucose 40% Gel) UD PRN PO 10/05/16 22:00 11/04/16 21:59 Glucose (Glucose Chew Tab) 1 tabs UD PRN PO 10/05/16 22:00 11/04/16 21:59 Dextrose (Dextrose 50% 50ML Syringe) 50 ml UD PRN IV 10/05/16 22:00 11/04/16 21:59 Glucagon (Glucagon Inj) 1 mg UD PRN SQ 10/05/16 22:00 11/04/16 21:59 Rifaximin (Xifaxan Tab) 550 mg BID PO 10/06/16 09:00 11/05/16 08:59 10/09/16 08:26 550 MG Tacrolimus (Prograf Cap) 0.5 mg QAM PO 10/06/16 09:00 11/05/16 08:59 10/08/16 08:38 0.5 MG Ursodiol 300 mg 300 mg QID PO 10/06/16 09:00 11/05/16 08:59 10/09/16 08:25 300 MG Sodium Chloride (Nss 1000ml) 1,000 ml @ 125 mls/hr Q8H IV 10/06/16 09:00 11/05/16 08:59 10/09/16 04:03 125 MLS/HR Insulin Aspart (novoLOG ASPART) SLIDING SCALE If C... ACHS SC 10/06/16 16:30 11/05/16 16:29 10/09/16 09:27 6 UNITS Tamsulosin HCl (Flomax Cap) 0.4 mg HS PO 10/06/16 21:00 11/05/16 20:59 10/08/16 20:31 0.4 MG Finasteride (Proscar Tab) 5 mg QAM PO 10/06/16 12:45 11/05/16 12:44 10/09/16 08:25 5 MG Pantoprazole Sodium (Protonix Tab) 40 mg QAM PO 10/07/16 09:00 11/06/16 08:59 10/09/16 08:25 40 MG Insulin Glargine (Lantus Solostar Pen) 14 unit BID SC 10/06/16 21:00 11/05/16 20:59 10/09/16 09:28 14 UNIT Prednisone (PredniSONE TAB) 10 mg QAM PO 10/07/16 09:00 11/06/16 08:59 10/09/16 08:25 10 MG Lactulose (Chronulac Syrup) 30 gm BID PO 10/07/16 09:00 11/06/16 08:59 10/09/16 08:25 30 GM Hydroxyzine HCl (Vistaril Tab) 50 mg TID PRN PO 10/09/16 10:00 11/08/16 09:59 UNV Levothyroxine Sodium (Synthroid Tab) 88 mcg QAM PO 10/10/16 08:00 11/09/16 07:59 UNV Magnesium Oxide (Mag-Ox Tab) 400 mg QAM PO 10/10/16 08:00 11/09/16 07:59 UNV Temazepam (Restoril Cap) 30 mg HS PRN PO 10/09/16 10:00 11/08/16 09:59 UNV Topiramate (Topamax Tab) 50 mg HS PO 10/09/16 22:00 11/08/16 21:59 UNV Non-Formulary Medication (Mirtazapine Soltab (Remeron Soltab)) 15 mg HS PO 10/09/16 22:00 11/08/16 21:59 UNV (Valery Fonseca PA-C) Objective Vital Signs Date Time Temp Pulse Resp B/P Pulse Ox O2 Delivery O2 Flow Rate FiO2 10/09/16 08:16 36.8 94 18 162/86 99 Room Air 10/09/16 00:00 Room Air 10/08/16 23:47 37.0 98 20 157/95 99 Room Air 10/08/16 16:10 Room Air 10/08/16 15:07 36.6 95 20 165/96 98 Room Air 10/08/16 12:45 36.8 109 18 161/88 97 Room Air 10/08/16 12:00 Room Air 10/08/16 10:51 114 96 (Valery Fonseca PA-C) Physical Exam General Appearance: no apparent distress Eyes: PERRL, + pertinent finding (slightly icterus ) ENT: hearing grossly normal Neck: supple Respiratory/Chest: lungs clear, no respiratory distress, no accessory muscle use Cardiovascular: regular rate, rhythm Abdomen: normal bowel sounds, non tender, soft Extremities: no pedal edema, no calf tenderness Neurologic/Psychiatric: alert, normal mood/affect, oriented x 3 Skin: normal color, warm/dry, no rash (Valery Fonseca, TRINITYC) Laboratory Results Last 24 Hours Test 10/08/16 11:46 10/08/16 16:34 10/08/16 20:12 10/09/16 07:43 Bedside Glucose 174 mg/dl 196 mg/dl 196 mg/dl 115 mg/dl Test 10/09/16 07:50 White Blood Count 4.44 K/uL Red Blood Count 3.29 M/uL Hemoglobin 10.5 g/dL Hematocrit 29.9 % Mean Corpuscular Volume 90.9 fL Mean Corpuscular Hemoglobin 31.9 pg Mean Corpuscular Hemoglobin Concent 35.1 g/dl Platelet Count 58 K/uL RDW Standard Deviation 58.7 fL RDW Coefficient of Variation 17.5 % Neutrophils % (Manual) 87.8 % Lymphocytes % (Manual) 6.1 % Eosinophils % (Manual) 1.7 % Basophils % (Manual) 0.9 % Metamyelocytes % 2.6 % Myelocytes % 0.9 % Neutrophils # (Manual) 3.90 K/uL Total Absolute Neutrophils 3.90 K/uL Lymphocytes # (Manual) 0.27 K/uL Total Absolute Lymphocytes 0.27 K/uL Eosinophils # (Manual) 0.08 K/uL Basophils # (Manual) 0.04 K/uL Metamyelocytes # 0.12 K/uL Myelocytes # 0.04 K/uL Platelet Estimate DECREASED Echinocytes 1+ Prothrombin Time 16.1 SECONDS Prothromb Time International Ratio 1.5 Sodium Level 145 mmol/L Potassium Level 4.4 mmol/L Chloride Level 117 mmol/L Carbon Dioxide Level 20 mmol/L Anion Gap 8.0 mmol/L Blood Urea Nitrogen 22 mg/dl Creatinine 1.30 mg/dl Est Creatinine Clear Calc Drug Dose 76.0 ml/min Estimated GFR () 73.2 Estimated GFR (Non- 63.2 BUN/Creatinine Ratio 17.2 Random Glucose 125 mg/dl Calcium Level 8.3 mg/dl Total Bilirubin 4.1 mg/dl Aspartate Amino Transf (AST/SGOT) 42 U/L Alanine Aminotransferase (ALT/SGPT) 33 U/L Alkaline Phosphatase 236 U/L Ammonia 17.0 umol/L Total Protein 4.8 gm/dl Albumin 2.8 gm/dl Globulin 2.0 gm/dl Albumin/Globulin Ratio 1.4 (Valery Fonseca, TRINITYC) Assessment and Plan The patient is a 51-year-old male the past medical history of primary sclerosing cholangitis which led to liver failure, status post liver transplant , status post TIPS, who developed altered mental status since about 8:30 in the morning of admission per family report. He missed most of the last 2 days of dosing of his lactulose due to concerns regarding its use while traveling to the [place] [facility] clinic with an appointment yesterday. The patient himself is lethargic and for the most part nonresponsive, is not able to contribute significantly to the history of present illness. Family reports that he has not had any signs of illness such as cough,sore throat, sinus congestion, or urinary dysfunction. Hepatic encephalopathy, likely secondary to noncompliance of Lactulose- RESOLVED : - Admitted tele for cardiac monitoring- no acute events - Lactulose BID - Continue Rifaximin - Trend ammonia level - UA negative - BCx- NGTD - Head CT- unremarkable - CXR unremarkable Delirium, ?secondary to encephalopathy vs psychiatric issue/Insomnia/anxiety and depression: - Continue Mirtazapine, Restoril - Follows outpt w/ Dr. Elam - Will consult GI to evaluate for hepatic encephalopathy - Psych consulted - Obtain MRI, ESR, and lactic acid Liver transplant status: - Continue Tacrolimus 0.5 mg PO daily, Ursodiol 300 mg PO QID, Prednisone 10 mg daily -- Prograf level 4.3 on 10/01- [facility] [place]- does NOT recommend adjusting Prograf - Follows w/ Cris Thrombocytopenia, plt 19 on admission- baseline plt 40-80- STABLE: - Transfused 2 u plt on 10/06 - Continue Promacta 50 mg PO daily - Follow CBC - Send CMV titer, EBV titer, and parvovirus titer to r/o viral causes of worsening platelets - Consulted hematology/oncology, appreciate recommendations -- If he needs platelets Dr. Arnett recommending HLA-matched Insulin-dependent DM: - Lantus 14 u BID - BSG ACHS w/ sliding insulin scale Urinary retention? secondary to infectious process vs. encephalopathy- RESOLVED: - Covered w/ IV Rocephin pending UCx; UCx negative- will stop antibiotics BPH: Proscar 5 mg daily, Savi 1 capsule PO HS Peripheral neuropathy: Continue Topamax at 50 mg PO HS Allergy: Continue Hydroxyzine 50 mg PO TID PRN Immunodeficiency: Continue Hizentra 12 g IM weekly CKD, stage III, baseline Cr. 1.5-1.6- STABLE: Follow PRP Chronic coagulopathy, baseline INR 1.2-1.3: Following INR Chronic elevated LFTs- Trending downwards, continue to follow Hyperkalemia- RESOLVED Hypothyroidism: - Continue Synthroid 88 mcg daily - TSH WNL Hypomagnesium: Continue mag-ox supplement GERD: Continue Protonix 40 mg daily DVT prophylaxis: Chemical means contraindicated due to low platelets; SCDs Code Status: LEVEL I, FULL Dispo: Discharge when medically stable - PT/OT recommending return to home (Valery Fonseca ., PA-C) PA Physician Supervision Note: I interviewed and examined the patient. Discussed with aVlery MERIDA and agree with findings and plan as documented in the note. Any exceptions or clarifications are listed here: None Pt acutely delirious, he is fixated on tenriism, and inappropriate sexual issues , no focal events is jaundiced vitals stable car is regular abdomen is non tender Delirium, negative MRI of brain, does have elevated lactic acid, is more calm with zyprexa and ativan, will look for psyche help Family admits that he held some lactulose to reduce diarrhea from lactulose as he was traveling to [facility] last week for appointment then felt too tired to take next day and this is what likely lead to his initial issue thrombocytopenia, was given one dose of steroids with improvement, will follow urine culture negative, voiding continues to be good off antibiotics, no focal sign of pneumonia or meningeal enhancement on MRI, concern with immune suppression Documented By: Issac Gary (Issac Gary M.D.)
[2016-10-09 11:14] VITALS: BP 153/84; PULSE 104; O2SAT 100
--- NOTE | 2016-10-09 12:46 | Psychiatric Consultation ---
Psychiatric Consultation Date of Service: October 09, 2016. Consult placed by Valery MORA for anxiety and depression. Patient is currently disoriented and delirious. The primary team is continuing their medical work up to determine medical causes in view of his complex medical problems, and so I will wait until tomorrow to allow time for this. I have reviewed his psych meds from Dr. Elam's OP notes, and will take the liberty of restarting Seroquel 25 mg. HS which may help to get him organized. He has also been on Remeron 15 mg HS and will restart that. Will write for 25 mg. q 4 hrs prn in view of his agitation over delusions about Dr. Gary. Will see him tomorrow again.
[2016-10-09] MEDS ORDERED: OLANZAPINE ZYDIS 5 MG ORALLY DIS. TAB PO ONE (13:00)
[2016-10-09] MEDS: TACROLIMUS 0.5 MG CAP PO SCH (13:25)
[2016-10-09] MEDS ORDERED: LORAZEPAM INJ 1 MG in SYRINGE 0.5 ML IV SCH (13:30)
[2016-10-09] MEDS ORDERED: SODIUM CHLORIDE 0.9% 1000ML 1,000 ML IV SCH (14:30)
[2016-10-09] MEDS: QUETIAPINE FUMARATE 25 MG TAB PO PRN (14:37)
[2016-10-09 15:24] VITALS: BP 157/94; PULSE 103; TEMP 36.8; O2SAT 98
--- NOTE | 2016-10-09 17:40 | DIAGNOSTIC IMAGING REPORT ---
MRI OF THE BRAIN COMBO CLINICAL HISTORY: Change in mental status. COMPARISON STUDY: CT of the brain dated 10/05/2016. MRI of the brain dated 03/23/2009. TECHNIQUE: MRI of the brain was performed utilizing various T1 and T2-weighted sequences in the axial, sagittal, and coronal planes. Contrast-enhanced sequences were acquired following the administration of 9 cc of Gadavist. Examination is modestly degraded by motion artifact. FINDINGS: Brain parenchyma: There is minimal subcortical and periventricular microangiopathic change. There is slightly increased T1 signal identified within the basal ganglia. There is no hemorrhage or mass effect. There is no restricted diffusion to suggest acute ischemia. No enhancing mass lesion is identified on the postcontrast images. There is no leptomeningeal or pachymeningeal enhancement. Grover-white matter differentiation is preserved. No extra-axial fluid collection is seen. The cerebellar tonsils are normal in configuration. Ventricles, sulci, and cisterns: Normal in configuration. Pituitary and sella: Unremarkable. Intracranial vasculature: Normal flow voids are maintained at the skull base. Orbits: The bony orbits are grossly intact. Orbital contents are normal in appearance noting bilateral ocular lens implants. Sinuses and mastoids: There is opacification of a right ethmoid sinus and the left frontal sinus. The remaining paranasal sinuses and mastoid air cells are clear. Calvarium: Unremarkable. Cervical cord: Partially visualized cervical spinal cord is normal in morphology and signal intensity. IMPRESSION: 1. There is no hemorrhage, enhancing mass, or evidence of acute ischemia. 2. There is slightly increased T1 signal identified in the basal ganglia. This is nonspecific and of indeterminant, if any, clinical significance. This has been described in the setting of metabolic disorders, chronic hepatic disease, carbon monoxide toxicity, long-term parenteral nutrition, and possibly hyperglycemia. Clinical correlation will be essential. Electronically signed by: Humberto Olmstead M.D. 10/09/2016 5:39 PM Dictated Date/Time: 10/09/2016 5:31 PM
--- NOTE | 2016-10-09 19:06 | GASTROINTESTINAL CONSULTATION ---
DATE OF CONSULTATION: 10/09/2016 GASTROENTEROLOGY CONSULTATION NOTE REASON FOR CONSULTATION: Change in mental status, hepatic encephalopathy, PSE, history of ulcerative colitis status post liver transplantation. HISTORY OF PRESENT ILLNESS: Mr. Burnette is a 51-year-old male who was admitted over the weekend for changes in mental status and encephalopathy. The patient had just seen Dr. Saeid grijalva at [place] in liver transplant clinic and was doing well. There were some adjustments to his lactulose, recommending alternating doses of once daily and twice daily. The patient had done well, Friday, but Friday became confused. His ammonia level was found to be elevated and they started medication and he began to clear, according to the patient's mother. However, on Friday, the patient had a change in his mental status that was unusual and unlike prior attacks of encephalopathy. The patient became more confused and somewhat delirious in his descriptions and interactions with people. The patient was placed on his lactulose at 30 grams twice daily and continued on his home medications including ursodiol, tacrolimus for which dose has not changed, Xifaxan 550 mg twice daily and in addition Proscar, insulin, Flomax, prednisone, pantoprazole, restoril, Vistaril. The patient was also placed on Seroquel and in review of his home medications, it does not appear that he was on this medication, as best as I can tell. He is also on Topamax, Synthroid and magnesium oxide. ALLERGIES: HE IS ALLERGIC TO LEVOFLOXACIN. PAST MEDICAL HISTORY: Extensive and includes agitated depression, prior appendectomy, BPH, sclerosing cholangitis, cholecystectomy, colectomy, diabetes, GERD, hyperammonemia, idiopathic thrombocytopenia, a renal calculi and ulcerative colitis. FAMILY HISTORY: Significant for cancer, heart disease and hypertension. SOCIAL HISTORY: The patient denies tobacco or alcohol use. Lives with his family and is single. REVIEW OF SYSTEMS: Otherwise noncontributory based on 14-point exam. There is no description that the patient had any fever or chills over the last several days including last week and over the weekend. There is no reports of melena or bright red blood per rectum. PHYSICAL EXAMINATION: GENERAL: Today, the patient is awake and alert, although he is not fully oriented to place or time. Some of our conversation seemed to be either psychotic or demented. He does have a trace asterixis on neurologic exam; however, his speech and words seemed to reflect an alter state of mentation with comments of "Toy Dennis, and opposing questions of stealing Dennis checkbook." HEENT: Sclerae are minimally icteric. The oral mucosa is slightly parched. NECK: There is no cervical or supraclavicular adenopathy. I do not appreciate thyromegaly. LUNGS: Clear to auscultation. HEART: Normal S1, S2. ABDOMEN: Soft, nontender, nondistended, without evidence of ascites or shifting dullness. There is no rebound or guarding. I do not appreciate hepatosplenomegaly. There is no clubbing, cyanosis or edema. RECTAL: Deferred at this time. LABORATORY STUDIES ON ADMISSION: Show a hemoglobin of 11.5 and this today is 10.5. White count is 4.4 today and on admission was 8.3. His platelet count is historically low at 19. His serum chemistries show a BUN and creatinine of 30 and 1.6, potassium of 4.7, random glucose was low at 64 on admission. His magnesium normal at 2.2, total bilirubin 4.9 and direct 3.8, alkaline phosphatase 311, ALT 26, AST 37. His ammonia level was 220 on admission. Troponins were less than 0.015. Albumin is low at 2.6. Beta hydroxybutyric acid was 1.21, lipase is low at 71. His TSH is normal at 1.28 on the and his glucose levels are now more elevated since admission. IMAGING STUDIES: Show a head CT that revealed no evidence of hemorrhage, mass effect or evidence of acute ischemia. IMAGING DATA: Chest x-ray on admission showed no active disease. 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 The patient does have abnormal liver function tests. There is no obvious source of infection. Imaging studies does not reveal any significant abnormalities that would be a source of the patient's change in mental status, which according to the mother seemed to occur in an unusual way on Friday. I did review his home medications and there were no new medications started or adjustments made, at the most recent liver transplant clinic visit on Friday. There is possibly the introducing of Seroquel during this hospitalization, and if this was started in a timeframe related to the onset of symptoms, consideration for discontinuation could be made with observation. I do believe it would be prudent to do a neurologic workup for the patient and an MRI of the head is pending. Additionally, it may be prudent to do a tox screen, if not recently performed. The patient is on immunosuppressives and MR may be helpful to exclude any central nervous system changes of either infectious or inflammatory origin. Close monitoring of electrolytes is prudent. The patient may also need a neurologic screening with RPR and repeat HIV, if not recently performed. It is reasonable to slowly increase the patient's lactulose to 3 times daily, provided that this not produce excessive diarrhea such that dehydration could occur. Ultimately increasing the dose of Xifaxan to 550 mg 3 times daily, may be worthwhile. Will continue to follow with you. Neurology consult, I believe is pending at this time.
--- NOTE | 2016-10-09 21:18 | DIAGNOSTIC IMAGING REPORT ---
ULTRASOUND ABDOMEN COMPLETE CLINICAL HISTORY: Generalized abdominal pain. COMPARISON STUDY: Abdominal CT dated 06/20/2016. TECHNIQUE: Real-time, grayscale, and color flow sonography of the abdomen was performed. Images are reviewed in the transverse and longitudinal planes. FINDINGS: Liver: The liver is normal in size and demonstrates heterogeneously increased echotexture. There is no intrahepatic biliary ductal dilatation. The main portal vein is patent. A portovenous shunt catheter is noted in the right lobe. Gallbladder: The gallbladder is surgical absent. The common bile duct measures up to 0.6 cm in diameter. Pancreas: The pancreas is heterogeneous in echotexture. The pancreatic duct is markedly dilated measuring up to 1.6 cm. This is similar to previous. The splenic vein appears patent as imaged. Spleen: The spleen is enlarged measuring 17.7 cm in length. Kidneys: The kidneys demonstrate cortical atrophy. There is no hydronephrosis. The right kidney measures 11.3 cm in length and the left kidney measures 11.7 cm in length. No shadowing calculi are identified. Abdominal vasculature: Visualized portions of the abdominal aorta and IVC are normal in appearance. Ascites: There is trace perihepatic and perisplenic ascites. IMPRESSION: 1. No acute abnormality is identified. 2. Status post cholecystectomy. 3. The spleen is markedly enlarged. 4. Findings of chronic pancreatitis with a markedly dilated pancreatic duct are similar to prior studies. 5. There is trace perihepatic and perisplenic ascites. 6. A shunt catheter is noted in the right lobe of the liver. Electronically signed by: Humberto Olmstead M.D. 10/09/2016 9:17 PM Dictated Date/Time: 10/09/2016 9:13 PM
[2016-10-09] MEDS: MIRTAZAPINE TAB 15 MG TAB PO SCH (21:38)
[2016-10-09] MEDS: QUETIAPINE FUMARATE 25 MG TAB PO SCH (21:38)
[2016-10-09] MEDS: TAMSULOSIN HCL 0.4 MG CAP PO SCH (21:38)
[2016-10-09] MEDS: TOPIRAMATE 25 MG TAB PO SCH (21:39)
[2016-10-09 23:31] LABS: EBV EARLY ANTIGEN AB <0.91 INDEX; EPSTEIN BARR VIR CAPSID IGG 4.18 INDEX; PARVOVIRUS IgG INDEX 0.1 (<0.9); PARVOVIRUS IgM INDEX 0.1 (<0.9)
[2016-10-10] VITALS: BP 131/83; PULSE 89; TEMP 36.8; O2SAT 98
[2016-10-10] MEDS: SODIUM CHLORIDE 0.9% 1000ML 1,000 ML IV SCH ×3 (05:34→22:19)
[2016-10-10] MEDS: LEVOTHYROXINE 88 MCG TAB PO SCH (05:36)
[2016-10-10] MEDS: PANTOprazole SOD 40 MG TAB PO SCH (07:42)
[2016-10-10] MEDS: FINASTERIDE 5 MG TAB PO SCH (07:43)
[2016-10-10] MEDS: URSODIOL 300 MG CAP PO SCH ×4 (07:43→22:15)
[2016-10-10] MEDS: LACTULOSE SYRUP 30 GM/45 ML UDP PO SCH ×2 (07:43→22:17)
[2016-10-10] MEDS: TACROLIMUS 0.5 MG CAP PO SCH (07:43)
[2016-10-10] MEDS: RIFAXIMIN TAB 550 MG TAB PO SCH ×2 (07:43→22:18)
[2016-10-10] MEDS: MAGNESIUM OXIDE 400 MG TAB PO SCH (07:43)
[2016-10-10 07:44] LABS: HEMATOCRIT 26.9 % (42-52); MEAN CELL VOLUME 91.2 fL (80-100); MEAN CORPUSCULAR HEMOGLOBIN 31.9 pg (25-34); MEAN CORPUSCULAR HGB CONC 34.9 g/dl (32-36); RED BLOOD COUNT 2.95 M/uL (4.7-6.1); WHITE BLOOD COUNT 3.46 K/uL (4.8-10.8)
[2016-10-10 07:45] VITALS: O2SAT 99
[2016-10-10 07:46] VITALS: BP 155/90; PULSE 95; TEMP 36.7; O2SAT 99
[2016-10-10 07:51] LABS: INR 1.6 (0.9-1.1); PROTHROMBIN TIME (PATIENT) 17.1 SECONDS (9.0-12.0)
[2016-10-10 08:16] LABS: COMPLETE YES; ECHINOCYTES 2+; LYMPH ABS # 0.45 K/uL (1.2-3.4); META ABS # 0.03 K/uL (0-0); METAMYELOCYTE % 0.9 %; NEUTROPHILS % 77.4 %; PLATELET COUNT 55 K/uL (130-400); PLT ESTIMATE DECREASED
[2016-10-10 08:26] LABS: BUN/CREATININE RATIO 14.5 (10-20); CREATININE 1.4 mg/dl (0.60-1.40); POTASSIUM 3.9 mmol/L (3.5-5.1)
[2016-10-10 08:29] LABS: ALB/GLOB RATIO 1.3 (0.9-2)
[2016-10-10] MEDS: INSULIN ASPART 100 UNITS/ML 3 ML PEN SC SCH ×4 (09:13→22:17)
[2016-10-10] MEDS: INSULIN GLARGINE SOLOSTAR 100 UNITS/ML 3 ML PEN SC SCH ×2 (09:13→22:16)
--- NOTE | 2016-10-10 11:24 | Hospitalist Progress Note ---
Hospitalist Progress Note Date of Service October 10, 2016. (Valery Fonseca ., PA-C) Subjective Pt evaluation today including: conversation w/ patient, conversation w/ family (Brother), physical exam, chart review, lab review, review of inpatient medication list Voiding: no voiding problems, no incontinence Patient's mentation remains unchanged. Appears calmer, but still changing topics quickly. Will not answer questions. Continuously states he has been talking to [employer] and [employer]. Could not obtain ROS due to mental status. Per brother, no significant change in mental status. (Valery Fonseca ., PA-C) Medications Current Inpatient Medications Medications (Trade) Dose Ordered Sig/Tristen Route Start Time Stop Time Status Last Admin Dose Admin Ondansetron HCl (Zofran Inj) 4 mg Q6H PRN IV 10/05/16 22:00 11/04/16 21:59 Glucose (Glucose 40% Gel) UD PRN PO 10/05/16 22:00 11/04/16 21:59 Glucose (Glucose Chew Tab) 1 tabs UD PRN PO 10/05/16 22:00 11/04/16 21:59 Dextrose (Dextrose 50% 50ML Syringe) 50 ml UD PRN IV 10/05/16 22:00 11/04/16 21:59 Glucagon (Glucagon Inj) 1 mg UD PRN SQ 10/05/16 22:00 11/04/16 21:59 Rifaximin (Xifaxan Tab) 550 mg BID PO 10/06/16 09:00 11/05/16 08:59 10/10/16 07:43 550 MG Tacrolimus (Prograf Cap) 0.5 mg QAM PO 10/06/16 09:00 11/05/16 08:59 10/10/16 07:43 0.5 MG Ursodiol 300 mg 300 mg QID PO 10/06/16 09:00 11/05/16 08:59 10/10/16 07:43 300 MG Sodium Chloride (Nss 1000ml) 1,000 ml @ 125 mls/hr Q8H IV 10/06/16 09:00 11/05/16 08:59 10/10/16 05:34 125 MLS/HR Insulin Aspart (novoLOG ASPART) SLIDING SCALE If C... ACHS SC 10/06/16 16:30 11/05/16 16:29 10/10/16 09:13 4 UNITS Tamsulosin HCl (Flomax Cap) 0.4 mg HS PO 10/06/16 21:00 11/05/16 20:59 10/09/16 21:38 0.4 MG Finasteride (Proscar Tab) 5 mg QAM PO 10/06/16 12:45 11/05/16 12:44 10/10/16 07:43 5 MG Pantoprazole Sodium (Protonix Tab) 40 mg QAM PO 10/07/16 09:00 11/06/16 08:59 10/10/16 07:42 40 MG Insulin Glargine (Lantus Solostar Pen) 14 unit BID SC 10/06/16 21:00 11/05/16 20:59 10/10/16 09:13 14 UNIT Prednisone (PredniSONE TAB) 10 mg QAM PO 10/07/16 09:00 11/06/16 08:59 10/10/16 07:43 10 MG Lactulose (Chronulac Syrup) 30 gm BID PO 10/07/16 09:00 11/06/16 08:59 10/10/16 07:43 30 GM Hydroxyzine HCl (Vistaril Tab) 50 mg TID PRN PO 10/09/16 10:00 11/08/16 09:59 Levothyroxine Sodium (Synthroid Tab) 88 mcg DAILYBB PO 10/10/16 06:30 11/09/16 06:29 10/10/16 05:36 88 MCG Magnesium Oxide (Mag-Ox Tab) 400 mg QAM PO 10/10/16 08:00 11/09/16 07:59 10/10/16 07:43 400 MG Temazepam (Restoril Cap) 30 mg HS PRN PO 10/09/16 10:00 11/08/16 09:59 Topiramate (Topamax Tab) 50 mg HS PO 10/09/16 22:00 11/08/16 21:59 10/09/16 21:39 50 MG Miscellaneous Information (Order Awaiting Action) 1 ea QS N/A 10/09/16 16:00 11/08/16 15:59 Quetiapine Fumarate (seroQUEL TAB) 25 mg HS PO 10/09/16 22:00 11/08/16 21:59 10/09/16 21:38 25 MG Quetiapine Fumarate (seroQUEL TAB) 25 mg Q4H PRN PO 10/09/16 13:00 11/08/16 12:59 10/09/16 14:37 25 MG Mirtazapine (Remeron Tab) 15 mg HS PO 10/09/16 22:00 11/08/16 21:59 10/09/16 21:38 15 MG (Valery Fonseca ., ABBY-C) Objective Vital Signs Date Time Temp Pulse Resp B/P Pulse Ox O2 Delivery O2 Flow Rate FiO2 10/10/16 07:46 36.7 95 20 155/90 99 Room Air 10/10/16 07:45 99 Room Air 10/10/16 00:00 36.8 89 20 131/83 98 Room Air 10/10/16 00:00 Room Air 10/09/16 16:00 Room Air 10/09/16 15:24 36.8 103 18 157/94 98 Room Air 10/09/16 11:14 104 18 153/84 100 Room Air (Valery Fonseca, ABBY-C) Physical Exam General Appearance: no apparent distress Eyes: PERRL ENT: hearing grossly normal Neck: supple Respiratory/Chest: lungs clear, no respiratory distress, no accessory muscle use Cardiovascular: regular rate, rhythm Abdomen: normal bowel sounds, non tender, soft Extremities: no pedal edema, no calf tenderness Neurologic/Psychiatric: alert, + disoriented Skin: warm/dry, no rash, + pallor (plae/tovar appearing ) (Valery Fonseca, ABBY-C) Laboratory Results Last 24 Hours Test 10/09/16 11:24 10/09/16 13:17 10/09/16 16:38 10/09/16 20:10 Bedside Glucose 152 mg/dl 171 mg/dl Erythrocyte Sedimentation Rate 2 mm/hr Lactic Acid Level 2.1 mmol/L 1.3 mmol/L Test 10/09/16 21:43 10/10/16 07:25 Bedside Glucose 134 mg/dl White Blood Count 3.46 K/uL Red Blood Count 2.95 M/uL Hemoglobin 9.4 g/dL Hematocrit 26.9 % Mean Corpuscular Volume 91.2 fL Mean Corpuscular Hemoglobin 31.9 pg Mean Corpuscular Hemoglobin Concent 34.9 g/dl Platelet Count 55 K/uL RDW Standard Deviation 59.2 fL RDW Coefficient of Variation 17.7 % Neutrophils % (Manual) 77.4 % Lymphocytes % (Manual) 13.0 % Monocytes % (Manual) 1.7 % Eosinophils % (Manual) 7.0 % Metamyelocytes % 0.9 % Neutrophils # (Manual) 2.68 K/uL Total Absolute Neutrophils 2.68 K/uL Lymphocytes # (Manual) 0.45 K/uL Total Absolute Lymphocytes 0.45 K/uL Monocytes # (Manual) 0.06 K/uL Eosinophils # (Manual) 0.24 K/uL Metamyelocytes # 0.03 K/uL Platelet Estimate DECREASED Echinocytes 2+ Prothrombin Time 17.1 SECONDS Prothromb Time International Ratio 1.6 Sodium Level 145 mmol/L Potassium Level 3.9 mmol/L Chloride Level 116 mmol/L Carbon Dioxide Level 18 mmol/L Anion Gap 11.0 mmol/L Blood Urea Nitrogen 20 mg/dl Creatinine 1.40 mg/dl Est Creatinine Clear Calc Drug Dose 70.5 ml/min Estimated GFR () 66.9 Estimated GFR (Non- 57.8 BUN/Creatinine Ratio 14.5 Random Glucose 98 mg/dl Calcium Level 8.0 mg/dl Total Bilirubin 3.7 mg/dl Aspartate Amino Transf (AST/SGOT) 43 U/L Alanine Aminotransferase (ALT/SGPT) 33 U/L Alkaline Phosphatase 208 U/L Total Protein 4.3 gm/dl Albumin 2.4 gm/dl Globulin 1.9 gm/dl Albumin/Globulin Ratio 1.3 (Valery Fonseca, PA-C) Assessment and Plan The patient is a 51-year-old male the past medical history of primary sclerosing cholangitis which led to liver failure, status post liver transplant , status post TIPS, who developed altered mental status since about 8:30 in the morning of admission per family report. He missed most of the last 2 days of dosing of his lactulose due to concerns regarding its use while traveling to the [place] [facility] with an appointment yesterday. The patient himself is lethargic and for the most part nonresponsive, is not able to contribute significantly to the history of present illness. Family reports that he has not had any signs of illness such as cough,sore throat, sinus congestion, or urinary dysfunction. Hepatic encephalopathy, likely secondary to noncompliance of Lactulose: - Admitted tele for cardiac monitoring- no acute events - Lactulose BID - Continue Rifaximin - Trend ammonia level - UA negative - BCx- NGTD - Head CT- unremarkable - CXR unremarkable Delirium, ?secondary to encephalopathy vs psychiatric issue/Insomnia/anxiety and depression: - Continue Mirtazapine, Restoril - Follows outpt w/ Dr. Elam - Will consult GI to further evaluate for hepatic encephalopathy - Psych consulted - MRI and abdominal US- unremarkable for acute findings - Lactic acid 2.1 on 10/09, received IVF, repeated 1.3 - ESR 2 Liver transplant status: - Continue Tacrolimus 0.5 mg PO daily, Ursodiol 300 mg PO QID, Prednisone 10 mg daily -- Prograf level 4.3 on 10/01- [facility] NOT recommend adjusting Prograf - Follows w/ Cris Thrombocytopenia, plt 19 on admission- baseline plt 40-80- STABLE: - Transfused 2 u plt on 10/06 - Continue Promacta 50 mg PO daily - Follow CBC - CMV titer, EBV titer, and parvovirus titer sent to r/o viral causes of worsening platelets - Consulted hematology/oncology, appreciate recommendations -- If he needs platelets Dr. Arnett recommending HLA-matched Insulin-dependent DM: - Lantus 14 u BID - BSG ACHS w/ sliding insulin scale Urinary retention? secondary to infectious process vs. encephalopathy- RESOLVED: - Covered w/ IV Rocephin pending UCx; UCx negative- will stop antibiotics BPH: Proscar 5 mg daily, Savi 1 capsule PO HS Peripheral neuropathy: Continue Topamax at 50 mg PO HS Allergy: Continue Hydroxyzine 50 mg PO TID PRN Immunodeficiency: Continue Hizentra 12 g IM weekly CKD, stage III, baseline Cr. 1.5-1.6- STABLE: Follow PRP Chronic coagulopathy, baseline INR 1.2-1.3: Following INR Chronic elevated LFTs- Trending downwards, continue to follow Hyperkalemia- RESOLVED Hypothyroidism: - Continue Synthroid 88 mcg daily - TSH WNL Hypomagnesium: Continue mag-ox supplement GERD: Continue Protonix 40 mg daily DVT prophylaxis: Chemical means contraindicated due to low platelets; SCDs Code Status: LEVEL I, FULL Dispo: Discharge when medically stable - PT/OT recommending return to home (Valery Fonseca ., PA-C) I have discussed this patient with Valery Fonseca PAC, the pt becomes agitated when I enter the room, will continue to treat hepatic encephalpahty and have psychiatry evaluation (Issac Gary M.D.)
[2016-10-10 16:47] VITALS: BP 150/97; PULSE 100; TEMP 36.8; O2SAT 97
--- NOTE | 2016-10-10 21:04 | GASTROENTEROLOGY PROGRESS NOTE ---
DATE: 10/10/2016 SUBJECTIVE: The patient was seen today and the patient's mother and brother also were present. The patient is resting comfortably in bed, appears awake and alert and oriented. He has much less delirium than he had yesterday afternoon when first seen. CURRENT MEDICATIONS: Include, mag oxide, levothyroxine, Topamax, Seroquel for which confirmation says that the patient has been on this medication for the past 3 months, Remeron, Vistaril, pantoprazole, prednisone, lactulose, Flomax, insulin, Proscar, rifaximin for hepatic encephalopathy, prograf, ursodiol. LABORATORY STUDIES: Today show white count of 3.46, hemoglobin is 9.4 and slightly decrease from yesterday at which point it was 10.5, platelets are 55,000. Overall, this is a good value for him given his history of ITP. His sed rate is 2. His serum chemistries show a BUN and creatinine of 20 and 1.4, normal potassium, glucose 219. His total bilirubin is down to 3.7, AST 43, ALT 33, alk phos 208, albumin is 2.4. Alk phos was 236 yesterday and bilirubin was 4.1. PHYSICAL EXAMINATION: VITAL SIGNS: Today, blood pressure is 150/97, heart rate 100, respirations 18, afebrile at 36.8, room air 97% and respirations 18. The patient has a tovar coloration to the skin, although his hemoglobin is not significantly decreased below baseline. There is a slight asterixis noted in the hand. GENERAL: The patient is awake and alert. HEENT: There is mild icterus. The oral mucosa is moist. HEART: Normal S1, S2. ABDOMEN: Soft, flat, nontender, nondistended with good bowel sounds. EXTREMITIES: Without edema. RECTAL: Deferred. I spoke with the patient, his mother and his brother for several minutes this afternoon. They are planning a psychiatry evaluation which I believe will be very helpful and ultimately a neurology appointment may be helpful as well to exclude any structural or other metabolic disorders that may be responsible for the patient's cognition change. He did have an MRI yesterday which showed some basal ganglia changes, but no acute injury to the brain. Would continue current therapy for hepatic encephalopathy and await the input from psychiatry and perhaps neurology. We would continue immunosuppressors as currently prescribed. We will follow with you. Dr. Vaughn is covering Friday with Dr. Ibanez over the weekend. GABRIELE
[2016-10-10] MEDS: QUETIAPINE FUMARATE 25 MG TAB PO SCH (22:19)
[2016-10-10] MEDS: TAMSULOSIN HCL 0.4 MG CAP PO SCH (22:19)
[2016-10-10] MEDS: MIRTAZAPINE TAB 15 MG TAB PO SCH (22:19)
[2016-10-10] MEDS: TOPIRAMATE 25 MG TAB PO SCH (22:21)
[2016-10-11] VITALS: BP 137/79; PULSE 83; TEMP 36.7; O2SAT 98
[2016-10-11] MEDS: SODIUM CHLORIDE 0.9% 1000ML 1,000 ML IV SCH (06:14)
[2016-10-11] MEDS: LEVOTHYROXINE 88 MCG TAB PO SCH (06:14)
[2016-10-11 07:00] LABS: HEMATOCRIT 28.1 % (42-52); MEAN CELL VOLUME 91.5 fL (80-100); MEAN CORPUSCULAR HEMOGLOBIN 32.2 pg (25-34); MEAN CORPUSCULAR HGB CONC 35.2 g/dl (32-36); RED BLOOD COUNT 3.07 M/uL (4.7-6.1); WHITE BLOOD COUNT 4.18 K/uL (4.8-10.8)
[2016-10-11 07:08] LABS: INR 1.5 (0.9-1.1); PROTHROMBIN TIME (PATIENT) 16.2 SECONDS (9.0-12.0)
[2016-10-11] MEDS: RIFAXIMIN TAB 550 MG TAB PO SCH ×2 (07:24→22:03)
[2016-10-11] MEDS: LACTULOSE SYRUP 30 GM/45 ML UDP PO SCH ×2 (07:24→22:02)
[2016-10-11] MEDS: FINASTERIDE 5 MG TAB PO SCH (07:24)
[2016-10-11] MEDS: TACROLIMUS 0.5 MG CAP PO SCH (07:24)
[2016-10-11] MEDS: PANTOprazole SOD 40 MG TAB PO SCH (07:24)
[2016-10-11 07:25] LABS: BUN/CREATININE RATIO 12.3 (10-20); CALCIUM 7.7 mg/dl (8.5-10.1); CREATININE 1.5 mg/dl (0.60-1.40); POTASSIUM 3.9 mmol/L (3.5-5.1)
[2016-10-11] MEDS: QUETIAPINE FUMARATE 25 MG TAB PO PRN ×2 (07:25→17:02)
[2016-10-11] MEDS: MAGNESIUM OXIDE 400 MG TAB PO SCH (07:25)
[2016-10-11 07:28] LABS: ALB/GLOB RATIO 1.4 (0.9-2)
[2016-10-11 07:31] LABS: BASO % 0.5 %; BASO ABS # 0.02 K/uL (0-0.2); COMPLETE YES; EOS % 3.6 %; LYMPH % 11.7 %; LYMPH ABS # 0.49 K/uL (1.2-3.4); NEUT % 77.2 %; PLATELET COUNT 58 K/uL (130-400); PLT ESTIMATE DECREASED; POIKILOCYTOSIS PRESENT
[2016-10-11] MEDS: URSODIOL 300 MG CAP PO SCH ×4 (07:32→22:02)
[2016-10-11 08:21] VITALS: BP 150/83; PULSE 94; TEMP 36.6; O2SAT 99
[2016-10-11] MEDS: INSULIN ASPART 100 UNITS/ML 3 ML PEN SC SCH ×4 (08:51→22:10)
[2016-10-11] MEDS: INSULIN GLARGINE SOLOSTAR 100 UNITS/ML 3 ML PEN SC SCH ×2 (08:52→22:10)
[2016-10-11] MEDS ORDERED: NURSING VERBAL MED ORDER ONE ×2 (10:15→12:00)
--- NOTE | 2016-10-11 10:30 | EEG Procedure Note ---
EEG Procedure Note Date of Service October 11, 2016. Start / End Times Start Time: 5:43 AM End Time: 6:02 AM Referring Physician Stephenie Rasmussen History This is 51-year-old male who presents with acute altered mental status. EEG for further evaluation of possible seizure etiology. Home Medication List Scheduled Cholecalciferol (Vitamin D3), 1 TAB PO BID Dutasteride-Tamsulosin Hcl (Savi), 1 CAP PO HS Eltrombopag Olamine (Promacta), 50 MG PO DAILY Immune Globulin (Human) Subcut (Hizentra), 12 GM SC WK Insulin Aspart (Novolog), 1 DOSE SC ACHS Insulin Glargine (Lantus Solostar), 20 UNIT SC HS Levothyroxine Sodium (Levothyroxine Sodium), 88 MCG PO QAM Magnesium Oxide (Magnesium-Oxide), 400 MG PO QAM Mirtazapine Soltab (Remeron Soltab), 15 MG PO HS Pantoprazole (Protonix), 40 MG PO QPM Prednisone Tab (Prednisone), 10 MG PO QAM Rifaximin (Xifaxan), 550 MG PO BID Tacrolimus (Prograf), 0.5 MG PO QAM Topiramate (Topamax ), 2 TAB PO HS Ursodiol (Ursodiol), 1 CAP PO QID Scheduled PRN Acetaminophen (Tylenol Arthritis Ext Rel), 650 MG PO Q8H PRN for Pain or Fever Epinephrine (Epipen 2-[place]), 0.3 MG IM UD PRN for ALLERGIC REACTION Hydroxyzine Hcl (Atarax), 50 MG PO 3-4XD PRN for Itching Ondansetron Hcl (Zofran), 1-2 TABS PO Q6H PRN for Nausea Temazepam (Restoril), 30 MG PO HS PRN for Sleep Tramadol (Ultram), 50 MG PO Q6H PRN for Pain Miscellaneous Medications Loperamide Hcl (Imodium), 2 MG PO Inpatient Medication List Current Inpatient Medications Medications (Trade) Dose Ordered Sig/Tristen Route Start Time Stop Time Status Last Admin Dose Admin Ondansetron HCl (Zofran Inj) 4 mg Q6H PRN IV 10/05/16 22:00 11/04/16 21:59 Glucose (Glucose 40% Gel) UD PRN PO 10/05/16 22:00 11/04/16 21:59 Glucose (Glucose Chew Tab) 1 tabs UD PRN PO 10/05/16 22:00 11/04/16 21:59 Dextrose (Dextrose 50% 50ML Syringe) 50 ml UD PRN IV 10/05/16 22:00 11/04/16 21:59 Glucagon (Glucagon Inj) 1 mg UD PRN SQ 10/05/16 22:00 11/04/16 21:59 Rifaximin (Xifaxan Tab) 550 mg BID PO 10/06/16 09:00 11/05/16 08:59 10/11/16 07:24 550 MG Tacrolimus (Prograf Cap) 0.5 mg QAM PO 10/06/16 09:00 11/05/16 08:59 10/11/16 07:24 0.5 MG Ursodiol (Actigall Cap) 300 mg QID PO 10/06/16 09:00 11/05/16 08:59 10/11/16 07:32 300 MG Insulin Aspart (novoLOG ASPART) SLIDING SCALE If C... ACHS SC 10/06/16 16:30 11/05/16 16:29 10/11/16 08:51 8 UNITS Tamsulosin HCl (Flomax Cap) 0.4 mg HS PO 10/06/16 21:00 11/05/16 20:59 10/10/16 22:19 0.4 MG Finasteride (Proscar Tab) 5 mg QAM PO 10/06/16 12:45 11/05/16 12:44 10/11/16 07:24 5 MG Pantoprazole Sodium (Protonix Tab) 40 mg QAM PO 10/07/16 09:00 11/06/16 08:59 10/11/16 07:24 40 MG Insulin Glargine (Lantus Solostar Pen) 14 unit BID SC 10/06/16 21:00 11/05/16 20:59 10/11/16 08:52 14 UNIT Prednisone (PredniSONE TAB) 10 mg QAM PO 10/07/16 09:00 11/06/16 08:59 10/11/16 07:25 10 MG Lactulose (Chronulac Syrup) 30 gm BID PO 10/07/16 09:00 11/06/16 08:59 10/11/16 07:24 30 GM Hydroxyzine HCl (Vistaril Tab) 50 mg TID PRN PO 10/09/16 10:00 11/08/16 09:59 Levothyroxine Sodium (Synthroid Tab) 88 mcg DAILYBB PO 10/10/16 06:30 11/09/16 06:29 10/11/16 06:14 88 MCG Magnesium Oxide (Mag-Ox Tab) 400 mg QAM PO 10/10/16 08:00 11/09/16 07:59 10/11/16 07:25 400 MG Temazepam (Restoril Cap) 30 mg HS PRN PO 10/09/16 10:00 11/08/16 09:59 Topiramate (Topamax Tab) 50 mg HS PO 10/09/16 22:00 11/08/16 21:59 10/10/16 22:21 50 MG Miscellaneous Information (Order Awaiting Action) 1 ea QS N/A 10/09/16 16:00 11/08/16 15:59 Quetiapine Fumarate (seroQUEL TAB) 25 mg HS PO 10/09/16 22:00 11/08/16 21:59 10/10/16 22:19 25 MG Quetiapine Fumarate (seroQUEL TAB) 25 mg Q4H PRN PO 10/09/16 13:00 11/08/16 12:59 10/11/16 07:25 25 MG Mirtazapine (Remeron Tab) 15 mg HS PO 10/09/16 22:00 11/08/16 21:59 10/10/16 22:19 15 MG Description This is a 21 electrode EEG with a single channel dedicated to limited EKG. The electrodes were placed in accordance with the International 10-20 system. Frequent movement/muscle artifact noted At the start of this recording the patient was and reported altered mental status. The background was well organized with a symmetric mix of moderate amplitude theta/alpha and beta frequencies with mild excess theta frequencies. There was a well formed moderate amplitude symmetric posterior dominant rhythm of 6-7 Hz that was reactive to eye opening and closure. Photic stimulation at various frequencies did not produce any abnormalities. Hyperventilation was not done. There was no stage changes or sleep transients. Interpretation This is an abnormal routine EEG secondary to mild background slowing. There was no epileptic seizures or epileptiform discharges. Clinical Correlation This EEG indicates a mild encephalopathy of nonspecific etiology.
--- NOTE | 2016-10-11 11:03 | Neurology Consultation ---
Neurology Consultation Date of Consultation: October 11, 2016. Attending Physician: Issac Gary M.D. Primary Care Physician: Gurinder Bullock M.D. Reason for Consultation: Consultation for delirium History of Present Illness Source: patient, hospital records This is a 51-year-old male who presented to the hospital in acute delirium on the with an elevated ammonia and known liver disease. 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 Patient's ammonia at the time of admission was noted to be 220 on the . Has come down to 17 on the . In addition recent alkaline phosphatase is elevated at 222. ALT is mildly elevated at 40. Patient's brother also reports that they were called by their liver clinical rehabilitation coordinator and his bilirubin has noted to be up from previous count. Otherwise labs have been unremarkable including ESR, TSH, Sonia, viral studies including EBV, CMV, mono, and parvovirus MRI of the brain from the reported images reviewed by myself. For the most part unremarkable MRI of the brain with the exception of some increased signal on T1 in the bilateral basal ganglia which could be secondary to metabolic disorder and hepatic disease. There is no restriction and no increased signal on FLAIR or T2. Overall mother and brother reports that he seems to be improving and better today than he was on previous days. Mother does seem to indicate that patient has baseline odd personality. No hallucinations noted by family or patient. Past Medical/Surgical History Medical Problems: (1) Altered mental status Status: Acute (2) Altered mental status Status: Acute (3) Anemia Status: Acute (4) Diabetes mellitus out of control Status: Acute (5) Hepatic encephalopathy Status: Acute (6) Hyperglycemia Status: Acute (7) Hyperglycemia Status: Acute (8) Hyperkalemia Status: Acute (9) Hypoglycemia Status: Acute (10) Kidney injury Status: Acute (11) Tenosynovitis Status: Acute (12) Thrombocytopenia Status: Acute Significant for primary sclerosing cholangitis with liver failure status post transplant, BPH, neuropathy, CAD, hypothyroid, hypertension, 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 He is disabled. No tobacco or alcohol use. Smoking Status: Never smoker Smokeless Tobacco Use: No Alcohol Use: none Drug Use: none Marital Status: single Housing Status: lives with family Occupation Status: disabled Allergies Coded Allergies: Levofloxacin (Verified Allergy, Unknown, UNKNOWN, 10/05/16) FROM [facility] ORDER FORM Current Inpatient Medications Current Inpatient Medications Medications (Trade) Dose Ordered Sig/Tristen Route Start Time Stop Time Status Last Admin Dose Admin Ondansetron HCl (Zofran Inj) 4 mg Q6H PRN IV 10/05/16 22:00 11/04/16 21:59 Glucose (Glucose 40% Gel) UD PRN PO 10/05/16 22:00 11/04/16 21:59 Glucose (Glucose Chew Tab) 1 tabs UD PRN PO 10/05/16 22:00 11/04/16 21:59 Dextrose (Dextrose 50% 50ML Syringe) 50 ml UD PRN IV 10/05/16 22:00 11/04/16 21:59 Glucagon (Glucagon Inj) 1 mg UD PRN SQ 10/05/16 22:00 11/04/16 21:59 Rifaximin (Xifaxan Tab) 550 mg BID PO 10/06/16 09:00 11/05/16 08:59 10/11/16 07:24 550 MG Tacrolimus (Prograf Cap) 0.5 mg QAM PO 10/06/16 09:00 11/05/16 08:59 10/11/16 07:24 0.5 MG Ursodiol (Actigall Cap) 300 mg QID PO 10/06/16 09:00 11/05/16 08:59 10/11/16 07:32 300 MG Insulin Aspart (novoLOG ASPART) SLIDING SCALE If C... ACHS SC 10/06/16 16:30 11/05/16 16:29 10/11/16 08:51 8 UNITS Tamsulosin HCl (Flomax Cap) 0.4 mg HS PO 10/06/16 21:00 11/05/16 20:59 10/10/16 22:19 0.4 MG Finasteride (Proscar Tab) 5 mg QAM PO 10/06/16 12:45 11/05/16 12:44 10/11/16 07:24 5 MG Pantoprazole Sodium (Protonix Tab) 40 mg QAM PO 10/07/16 09:00 11/06/16 08:59 10/11/16 07:24 40 MG Insulin Glargine (Lantus Solostar Pen) 14 unit BID SC 10/06/16 21:00 11/05/16 20:59 10/11/16 08:52 14 UNIT Prednisone (PredniSONE TAB) 10 mg QAM PO 10/07/16 09:00 11/06/16 08:59 10/11/16 07:25 10 MG Lactulose (Chronulac Syrup) 30 gm BID PO 10/07/16 09:00 11/06/16 08:59 10/11/16 07:24 30 GM Hydroxyzine HCl (Vistaril Tab) 50 mg TID PRN PO 10/09/16 10:00 11/08/16 09:59 Levothyroxine Sodium (Synthroid Tab) 88 mcg DAILYBB PO 10/10/16 06:30 11/09/16 06:29 10/11/16 06:14 88 MCG Magnesium Oxide (Mag-Ox Tab) 400 mg QAM PO 10/10/16 08:00 11/09/16 07:59 10/11/16 07:25 400 MG Temazepam (Restoril Cap) 30 mg HS PRN PO 10/09/16 10:00 11/08/16 09:59 Topiramate (Topamax Tab) 50 mg HS PO 10/09/16 22:00 11/08/16 21:59 10/10/16 22:21 50 MG Miscellaneous Information (Order Awaiting Action) 1 ea QS N/A 10/09/16 16:00 11/08/16 15:59 Quetiapine Fumarate (seroQUEL TAB) 25 mg HS PO 10/09/16 22:00 11/08/16 21:59 10/10/16 22:19 25 MG Quetiapine Fumarate (seroQUEL TAB) 25 mg Q4H PRN PO 10/09/16 13:00 11/08/16 12:59 10/11/16 07:25 25 MG Mirtazapine (Remeron Tab) 15 mg HS PO 10/09/16 22:00 11/08/16 21:59 10/10/16 22:19 15 MG Review of Systems Complete Review of systems otherwise negative except for the above noted in history of present illness. Physical Exam Vital Signs (Past 24 Hrs): Date Time Temp Pulse Resp B/P Pulse Ox O2 Delivery O2 Flow Rate FiO2 5/19/17 08:21 36.6 94 16 150/83 99 Room Air 10/11/16 00:00 Room Air 10/11/16 00:00 36.7 83 20 137/79 98 Room Air 10/10/16 16:47 36.8 100 18 150/97 97 Room Air 10/10/16 16:00 Room Air Gen.: Patient is alert and sitting in bed, in no acute distress. HEENT: Normocephalic /atraumatic, no scleral icterus Heart: Regular rate and rhythm Extremities: No gross deformities or rashes noted Neurological examination: Mental status: Patient is alert and oriented x3. Attention and concentration normal for the situation. Patient has an odd affect and tends to perseverate and repeat information. Speech is fluent without any dysarthria or aphasia noted Cranial nerve: Funduscopic examination was unremarkable. No papilledema. Pupils equally round and reactive to light. Extraocular muscles intact without nystagmus. No facial asymmetry noted. Facial sensation intact. Tongue is midline. Good palatal elevation. Good shoulder shrug bilaterally. Hearing grossly intact to voice. Strength: 5/5 both proximal and distally in all extremities. There is no arm drift. Tone is normal. Sensation: Grossly intact to light touch in all extremities. Deep tendon reflexes: +2 in bilateral biceps, brachioradialis and patellar. Toes were downgoing to plantar stimulation Coordination: Patient had good finger to nose without dysmetria. Mild action tremor noted. Station within the bed was normal Laboratory Results Past 24 Hours: 10/11/16 06:48 Red Blood Count 3.07, Mean Corpuscular Volume 91.5, Mean Corpuscular Hemoglobin 32.2, Mean Corpuscular Hemoglobin Concent 35.2, Neutrophils (%) (Auto) 77.2, Lymphocytes (%) (Auto) 11.7, Monocytes (%) (Auto) 6.0, Eosinophils (%) (Auto) 3.6, Basophils (%) (Auto) 0.5, Neutrophils # (Auto) 3.23, Lymphocytes # (Auto) 0.49, Monocytes # (Auto) 0.25, Eosinophils # (Auto) 0.15, Basophils # (Auto) 0.02 10/11/16 06:48 Test 10/11/16 06:48 5/19/17 07:54 White Blood Count 4.18 K/uL (4.8-10.8) Red Blood Count 3.07 M/uL (4.7-6.1) Hemoglobin 9.9 g/dL (14.0-18.0) Hematocrit 28.1 % (42-52) Mean Corpuscular Volume 91.5 fL (80-100) Mean Corpuscular Hemoglobin 32.2 pg (25-34) Mean Corpuscular Hemoglobin Concent 35.2 g/dl (32-36) Platelet Count 58 K/uL (130-400) Neutrophils (%) (Auto) 77.2 % Lymphocytes (%) (Auto) 11.7 % Monocytes (%) (Auto) 6.0 % Eosinophils (%) (Auto) 3.6 % Basophils (%) (Auto) 0.5 % Neutrophils # (Auto) 3.23 K/uL (1.4-6.5) Lymphocytes # (Auto) 0.49 K/uL (1.2-3.4) Monocytes # (Auto) 0.25 K/uL (0.11-0.59) Eosinophils # (Auto) 0.15 K/uL (0-0.5) Basophils # (Auto) 0.02 K/uL (0-0.2) RDW Standard Deviation 60.5 fL (36.4-46.3) RDW Coefficient of Variation 18.0 % (11.5-14.5) Immature Granulocyte % (Auto) 1.0 % Immature Granulocyte # (Auto) 0.04 K/uL (0.00-0.02) Platelet Estimate DECREASED Poikilocytosis PRESENT Prothrombin Time 16.2 SECONDS (9.0-12.0) Prothromb Time International Ratio 1.5 (0.9-1.1) Anion Gap 9.0 mmol/L (3-11) Est Creatinine Clear Calc Drug Dose 65.8 ml/min Estimated GFR () 61.6 Estimated GFR (Non- 53.1 BUN/Creatinine Ratio 12.3 (10-20) Calcium Level 7.7 mg/dl (8.5-10.1) Total Bilirubin 3.9 mg/dl (0.2-1) Aspartate Amino Transf (AST/SGOT) 40 U/L (15-37) Alanine Aminotransferase (ALT/SGPT) 35 U/L (12-78) Alkaline Phosphatase 222 U/L (45-117) Total Protein 4.3 gm/dl (6.4-8.2) Albumin 2.5 gm/dl (3.4-5.0) Globulin 1.8 gm/dl (2.5-4.0) Albumin/Globulin Ratio 1.4 (0.9-2) Bedside Glucose 142 mg/dl (70-99) Imaging As noted above in history of present illness Impression This is a 51-year-old male with likely hepatic encephalopathy. Patient may have baseline personality or psychiatric disorder. Plan EEG was ordered by myself this morning for further evaluation of acute encephalopathy. EEG showed some mild background slowing indicating a mild cephalopathy of nonspecific etiology, but otherwise was unremarkable. If desired could consider checking an RPR, ALESSIA, B12 level, Lyme, heavy metal screen and HIV for further evaluation of encephalopathy. Otherwise the patient appears to be slowly improving which would be consistent with hepatic encephalopathy and improving ammonia levels. If the patient's mental status worsens in the future, could consider a lumbar puncture to test for infectious etiologies such as viral, bacterial, and fungal in the setting of immunocompromise state. At this time, considering that the patient is improving, I do not strongly recommend this. No additional neurological recommendations at this time. Thank you for allowing me to put in this patient's care. If there is any questions or concerns, feel free to call/page me.
--- NOTE | 2016-10-11 11:32 | Hospitalist Progress Note ---
Hospitalist Progress Note Date of Service October 11, 2016. (Valery Fonseca ., PA-C) Subjective Pt evaluation today including: conversation w/ patient, conversation w/ family (Mother), physical exam, chart review, lab review, review of studies, conversation w/ wellness consultant (Psych; Sanam), review of inpatient medication list Voiding: no voiding problems, no incontinence Patient states he is feeling well. He seems significantly improved since Friday; less talkative, less repetition, no talk of Toy. Oriented x3. Patient denies any complaints, but ROS could not be obtained due to patient's status; continues to make references w/out directly answering ROS questions. Mother feels patient is improving. He is still not at his baseline. She would like to speak w/ psych about his medications. She is OK w/ him returning home once reaches baseline mental status. Per nursing staff, patient continues to improve daily. (Valery Fonseca ., PA-C) Medications Current Inpatient Medications Medications (Trade) Dose Ordered Sig/Tristen Route Start Time Stop Time Status Last Admin Dose Admin Ondansetron HCl (Zofran Inj) 4 mg Q6H PRN IV 10/05/16 22:00 11/04/16 21:59 Glucose (Glucose 40% Gel) UD PRN PO 10/05/16 22:00 11/04/16 21:59 Glucose (Glucose Chew Tab) 1 tabs UD PRN PO 10/05/16 22:00 11/04/16 21:59 Dextrose (Dextrose 50% 50ML Syringe) 50 ml UD PRN IV 10/05/16 22:00 11/04/16 21:59 Glucagon (Glucagon Inj) 1 mg UD PRN SQ 10/05/16 22:00 11/04/16 21:59 Rifaximin (Xifaxan Tab) 550 mg BID PO 10/06/16 09:00 11/05/16 08:59 10/11/16 07:24 550 MG Tacrolimus (Prograf Cap) 0.5 mg QAM PO 10/06/16 09:00 11/05/16 08:59 10/11/16 07:24 0.5 MG Ursodiol (Actigall Cap) 300 mg QID PO 10/06/16 09:00 11/05/16 08:59 10/11/16 07:32 300 MG Insulin Aspart (novoLOG ASPART) SLIDING SCALE If C... ACHS SC 10/06/16 16:30 11/05/16 16:29 10/11/16 08:51 8 UNITS Tamsulosin HCl (Flomax Cap) 0.4 mg HS PO 10/06/16 21:00 11/05/16 20:59 10/10/16 22:19 0.4 MG Finasteride (Proscar Tab) 5 mg QAM PO 10/06/16 12:45 11/05/16 12:44 10/11/16 07:24 5 MG Pantoprazole Sodium (Protonix Tab) 40 mg QAM PO 10/07/16 09:00 11/06/16 08:59 10/11/16 07:24 40 MG Insulin Glargine (Lantus Solostar Pen) 14 unit BID SC 10/06/16 21:00 11/05/16 20:59 10/11/16 08:52 14 UNIT Prednisone (PredniSONE TAB) 10 mg QAM PO 10/07/16 09:00 11/06/16 08:59 10/11/16 07:25 10 MG Lactulose (Chronulac Syrup) 30 gm BID PO 10/07/16 09:00 11/06/16 08:59 10/11/16 07:24 30 GM Hydroxyzine HCl (Vistaril Tab) 50 mg TID PRN PO 10/09/16 10:00 11/08/16 09:59 Levothyroxine Sodium (Synthroid Tab) 88 mcg DAILYBB PO 10/10/16 06:30 11/09/16 06:29 10/11/16 06:14 88 MCG Magnesium Oxide (Mag-Ox Tab) 400 mg QAM PO 10/10/16 08:00 11/09/16 07:59 10/11/16 07:25 400 MG Temazepam (Restoril Cap) 30 mg HS PRN PO 10/09/16 10:00 11/08/16 09:59 Topiramate (Topamax Tab) 50 mg HS PO 10/09/16 22:00 11/08/16 21:59 10/10/16 22:21 50 MG Miscellaneous Information (Order Awaiting Action) 1 ea QS N/A 10/09/16 16:00 11/08/16 15:59 Quetiapine Fumarate (seroQUEL TAB) 25 mg HS PO 10/09/16 22:00 11/08/16 21:59 10/10/16 22:19 25 MG Quetiapine Fumarate (seroQUEL TAB) 25 mg Q4H PRN PO 10/09/16 13:00 11/08/16 12:59 10/11/16 07:25 25 MG Mirtazapine (Remeron Tab) 15 mg HS PO 10/09/16 22:00 11/08/16 21:59 10/10/16 22:19 15 MG (Valery Fonseca, PA-C) Objective Vital Signs Date Time Temp Pulse Resp B/P Pulse Ox O2 Delivery O2 Flow Rate FiO2 10/11/16 08:21 36.6 94 16 150/83 99 Room Air 10/11/16 00:00 Room Air 10/11/16 00:00 36.7 83 20 137/79 98 Room Air 10/10/16 16:47 36.8 100 18 150/97 97 Room Air 10/10/16 16:00 Room Air (Valery Fonseca, PA-C) Physical Exam General Appearance: no apparent distress Eyes: PERRL ENT: hearing grossly normal Neck: supple Respiratory/Chest: lungs clear, no respiratory distress, no accessory muscle use Cardiovascular: regular rate, rhythm Abdomen: normal bowel sounds, non tender, soft Extremities: no pedal edema, no calf tenderness Neurologic/Psychiatric: alert, oriented x 3 Skin: normal color, warm/dry, no rash (Valery Fonseca, ABBY-C) Laboratory Results Last 24 Hours Test 10/10/16 12:02 10/10/16 17:24 10/10/16 20:44 10/11/16 06:48 Bedside Glucose 219 mg/dl 179 mg/dl 208 mg/dl White Blood Count 4.18 K/uL Red Blood Count 3.07 M/uL Hemoglobin 9.9 g/dL Hematocrit 28.1 % Mean Corpuscular Volume 91.5 fL Mean Corpuscular Hemoglobin 32.2 pg Mean Corpuscular Hemoglobin Concent 35.2 g/dl Platelet Count 58 K/uL Neutrophils (%) (Auto) 77.2 % Lymphocytes (%) (Auto) 11.7 % Monocytes (%) (Auto) 6.0 % Eosinophils (%) (Auto) 3.6 % Basophils (%) (Auto) 0.5 % Neutrophils # (Auto) 3.23 K/uL Lymphocytes # (Auto) 0.49 K/uL Monocytes # (Auto) 0.25 K/uL Eosinophils # (Auto) 0.15 K/uL Basophils # (Auto) 0.02 K/uL RDW Standard Deviation 60.5 fL RDW Coefficient of Variation 18.0 % Immature Granulocyte % (Auto) 1.0 % Immature Granulocyte # (Auto) 0.04 K/uL Platelet Estimate DECREASED Poikilocytosis PRESENT Prothrombin Time 16.2 SECONDS Prothromb Time International Ratio 1.5 Sodium Level 147 mmol/L Potassium Level 3.9 mmol/L Chloride Level 120 mmol/L Carbon Dioxide Level 18 mmol/L Anion Gap 9.0 mmol/L Blood Urea Nitrogen 18 mg/dl Creatinine 1.50 mg/dl Est Creatinine Clear Calc Drug Dose 65.8 ml/min Estimated GFR () 61.6 Estimated GFR (Non- 53.1 BUN/Creatinine Ratio 12.3 Random Glucose 120 mg/dl Calcium Level 7.7 mg/dl Total Bilirubin 3.9 mg/dl Aspartate Amino Transf (AST/SGOT) 40 U/L Alanine Aminotransferase (ALT/SGPT) 35 U/L Alkaline Phosphatase 222 U/L Total Protein 4.3 gm/dl Albumin 2.5 gm/dl Globulin 1.8 gm/dl Albumin/Globulin Ratio 1.4 Test 10/11/16 07:54 Bedside Glucose 142 mg/dl (Valery Fonseca, TRINITYC) Assessment and Plan The patient is a 51-year-old male the past medical history of primary sclerosing cholangitis which led to liver failure, status post liver transplant , status post TIPS, who developed altered mental status since about 8:30 in the morning of admission per family report. He missed most of the last 2 days of dosing of his lactulose due to concerns regarding its use while traveling to the [place] [facility] with an appointment yesterday. The patient himself is lethargic and for the most part nonresponsive, is not able to contribute significantly to the history of present illness. Family reports that he has not had any signs of illness such as cough,sore throat, sinus congestion, or urinary dysfunction. Hepatic encephalopathy, likely secondary to noncompliance of Lactulose: - Admitted tele for cardiac monitoring- no acute events - Lactulose BID - Continue Rifaximin - Trend ammonia level - UA negative - BCx- NGTD - Head CT- unremarkable - CXR unremarkable Delirium, ?secondary to encephalopathy vs psychiatric issue/Insomnia/anxiety and depression: - Continue Mirtazapine, Restoril - Follows outpt w/ Dr. Elam -- Scheduled f/u on 10/09; per mother f/u is rescheduled within the next 2 weeks - Will consult GI to further evaluate for hepatic encephalopathy - Psych consulted -- Encourage daytime Seroquel and increase to 50 mg HS - Neurology consulted -- Consider RPR, ALESSIA, B12 level, Lyme, heavy metal screen and HIV for further evaluation of encephalopathy or lumbar puncture if patient's states worsens -- EEG w/ no seizure activity - MRI and abdominal US- unremarkable for acute findings - Lactic acid 2.1 on 10/09, received IVF, repeated 1.3 - ESR 2 Liver transplant status: - Continue Tacrolimus 0.5 mg PO daily, Ursodiol 300 mg PO QID, Prednisone 10 mg daily -- Prograf level 4.3 on 10/01- [facility] Pro[facility]f - Follows w/ Cris Thrombocytopenia, plt 19 on admission- baseline plt 40-80- STABLE: - Transfused 2 u plt on 10/06 - Continue Promacta 50 mg PO daily - Follow CBC - CMV titer, EBV titer, and parvovirus titer sent to r/o viral causes of worsening platelets - Consulted hematology/oncology, appreciate recommendations -- If he needs platelets Dr. Arnett recommending HLA-matched Insulin-dependent DM: - Lantus 14 u BID - BSG ACHS w/ sliding insulin scale Urinary retention? secondary to infectious process vs. encephalopathy- RESOLVED: - Covered w/ IV Rocephin pending UCx; UCx negative- will stop antibiotics BPH: Proscar 5 mg daily, Savi 1 capsule PO HS Peripheral neuropathy: Continue Topamax at 50 mg PO HS Allergy: Continue Hydroxyzine 50 mg PO TID PRN Immunodeficiency: Continue Hizentra 12 g IM weekly CKD, stage III, baseline Cr. 1.5-1.6- STABLE: Follow PRP Chronic coagulopathy, baseline INR 1.2-1.3: Following INR Chronic elevated LFTs- Trending downwards, continue to follow Hyperkalemia- RESOLVED Hypothyroidism: - Continue Synthroid 88 mcg daily - TSH WNL Hypomagnesium: Continue mag-ox supplement GERD: Continue Protonix 40 mg daily DVT prophylaxis: Chemical means contraindicated due to low platelets; SCDs Code Status: LEVEL I, FULL Dispo: Discharge when medically stable; adjust Seroquel, if responds well, hopeful discharge to home tomorrow - PT/OT recommending return to home (Valery Fonseca ., PA-C) PA Physician Supervision Note: I interviewed and examined the patient. Discussed with Valery Conner PAC and agree with findings and plan as documented in the note. Any exceptions or clarifications are listed here: None Pts delirium is improving, psychiatry has recommended increasing use for prn trazadone vitals stable Delirium, negative MRI of brain, appreciate psyche help no defined medical source Improved with medical management hepatic encephalopathy and liver failure are resolving thrombocytopenia, follow, chronically low urine culture negative, voiding continues to be good off antibiotics, no focal sign of pneumonia or meningeal enhancement on MRI, concern with immune suppression Documented By: Issac Gary (Issac Gary M.D.)
[2016-10-11] MEDS ORDERED: QUETIAPINE FUMARATE 25 MG TAB PO ONE (12:15)
--- NOTE | 2016-10-11 12:25 | Psychiatric Progress Notes ---
Progress Note Date of Service October 11, 2016. Interval History 51 yo male with complex medical history including liver transplan, admitted with encephalopathy. This consult is informal, to discuss psych meds Chief Complaint "So what can you do for me?". Subjective Patient was seen & assessed interval progress reviewed with nursing, Jillian MORA, patient brother and mother. Patient appears to be improving although remains tangential, distractable and easily excited. He is oriented to person, place, but could not remember the year, although knew it was Friday. He carried on a rambling conversation, at times appropriate and others off topic, but was easily redirected. Brother at bedside believes that he is better, but only moderately. Patient wants to go home, but family concerned that it may be too soon. Review of Systems Constitutional: + fatigue ENT: No dental problems, No hearing loss, No nasal symptoms, No problem reported, No sore throat, No tinnitus, No trouble swallowing, No unusual epistaxis Respiratory: No cough, No dyspnea at rest, No dyspnea on exertion, No hemoptysis, No problem reported, No shortness of breath, No sputum, No wheezing Cardiovascular: No PND, No chest pain, No claudication, No edema, No orthopnea , No palpitations, No problem reported Abdomen: No GI bleeding, No constipation, No diarrhea, No nausea, No pain, No problem reported, No vomiting Musculoskeletal: No calf pain, No joint pain, No muscle pain, No problem reported, No swelling Neurologic: No balance problems, No memory loss, No numbness/tingling, No paralysis, No problem reported, No vertigo, No weakness Psychiatric: + problem reported (AMS, disorientation) Integumentary: + problem reported (mild jaundice) Mental Status Exam During interview pt is: cooperative Appearance: disheveled (jaundiced) Eye contact is: good Motor behavior is: no abnormal motor movements Speech: loud (at times, rambling) Affect: labile Mood is: other (reactive, labile) Thought process: tangential (distractable) Thought content: other (disorientation) Hallucinations: denies auditory Cognition: language grossly intact Intelligence estimated to be: average Insight: limited Judgement: limited Impression Following the patient informally since he is an outpatient of Dr. Horton. He remains with altered mental status although improving to some degree. He is disoriented, tangential. They're continuing to treat his underlying hepatic conditions with associated encephalopathy, with bilirubin at 3.9 today. I have suggested to the patient and his family that we increase the use of 25 mg of Seroquel every 4 hours during the day to see if this helps to organize his thinking further and to increase his bedtime Seroquel to 50 mg at bedtime. The patient is agreeable in this plan has been discussed with both his mother and brother. All are concerned, that his mental status has been deteriorated since his father's several months ago but the patient has not yet reengaged in outpatient therapy. I will take the liberty of calling some point to reinitiate therapy and is able to get a prompt appointment, will inform the patient at that time. Ideally I would like to see the patient remained in the hospital for another 24 hours to see if the increase in Seroquel is effective as he progresses through his encephalopathy. I will also keep Dr. Elam informed. This has been reviewed with Valery MORA. Plan (1) Metabolic encephalopathy 10/11 -Encourage the use of Seroquel 25 mg by mouth every 4 hours when necessary during times of obvious confusion or psychosis -Will increase Seroquel at bedtime to 50 mg -Will refer for outpatient therapy. Currently his case with Xander Stroud LCSW has been closed and will reinitiate. Message has been left for intake at [facility]. -Encourage good sleep wake cycles, out of bed during the day quieting environment at night. Frequent reorientation, avoid deliria genic medicines (2) Major depressive disorder, recurrent 10/11 -Continue Remeron -I have called to set up a therapy appointment in view of the fact his family thinks he has not done well since father's . His therapy case has been closed and so a message has been left with intake to [facility]. Visit Code E&M Code: 60289 Data Vital Signs Last 24 Hrs: Date Time Temp Pulse Resp B/P Pulse Ox O2 Delivery O2 Flow Rate FiO2 10/11/16 08:21 36.6 94 16 150/83 99 Room Air 10/11/16 00:00 Room Air 10/11/16 00:00 36.7 83 20 137/79 98 Room Air 10/10/16 16:47 36.8 100 18 150/97 97 Room Air 10/10/16 16:00 Room Air Meds Administered Last 24 Hrs: Meds Administered (Past 24Hrs) Medications (Trade) Dose Ordered Sig/Tristen Route Start Time Stop Time Status Last Admin Dose Admin Levothyroxine Sodium (Synthroid Tab) 88 mcg DAILYBB PO 10/10/16 06:30 11/09/16 06:29 10/11/16 06:14 88 MCG Magnesium Oxide (Mag-Ox Tab) 400 mg QAM PO 10/10/16 08:00 11/09/16 07:59 10/11/16 07:25 400 MG Topiramate (Topamax Tab) 50 mg HS PO 10/09/16 22:00 11/08/16 21:59 10/10/16 22:21 50 MG Quetiapine Fumarate (seroQUEL TAB) 25 mg HS PO 10/09/16 22:00 10/11/16 12:08 DC 10/10/16 22:19 25 MG Quetiapine Fumarate (seroQUEL TAB) 25 mg Q4H PRN PO 10/09/16 13:00 11/08/16 12:59 10/11/16 07:25 25 MG Mirtazapine (Remeron Tab) 15 mg HS PO 10/09/16 22:00 11/08/16 21:59 10/10/16 22:19 15 MG Olanzapine 5 mg 5 mg ONE ONCE PO 10/09/16 13:00 10/09/16 13:05 DC 10/09/16 13:25 5 MG Lorazepam/Syringe (Ativan Inj/ Syringe) 1 ml @ 0.5 mls/min TODAY@1330 IV 10/09/16 13:30 10/09/16 15:30 DC 10/09/16 16:26 0.5 MLS/MIN Quetiapine Fumarate (seroQUEL TAB) 25 mg NOW ONCE PO 10/11/16 12:15 10/11/16 12:16 10/11/16 12:06 25 MG Lab Results Last 24 Hrs: Last 24 Hours Test 10/10/16 17:24 10/10/16 20:44 10/11/16 06:48 10/11/16 07:54 Bedside Glucose 179 mg/dl 208 mg/dl 142 mg/dl White Blood Count 4.18 K/uL Red Blood Count 3.07 M/uL Hemoglobin 9.9 g/dL Hematocrit 28.1 % Mean Corpuscular Volume 91.5 fL Mean Corpuscular Hemoglobin 32.2 pg Mean Corpuscular Hemoglobin Concent 35.2 g/dl Platelet Count 58 K/uL Neutrophils (%) (Auto) 77.2 % Lymphocytes (%) (Auto) 11.7 % Monocytes (%) (Auto) 6.0 % Eosinophils (%) (Auto) 3.6 % Basophils (%) (Auto) 0.5 % Neutrophils # (Auto) 3.23 K/uL Lymphocytes # (Auto) 0.49 K/uL Monocytes # (Auto) 0.25 K/uL Eosinophils # (Auto) 0.15 K/uL Basophils # (Auto) 0.02 K/uL RDW Standard Deviation 60.5 fL RDW Coefficient of Variation 18.0 % Immature Granulocyte % (Auto) 1.0 % Immature Granulocyte # (Auto) 0.04 K/uL Platelet Estimate DECREASED Poikilocytosis PRESENT Prothrombin Time 16.2 SECONDS Prothromb Time International Ratio 1.5 Sodium Level 147 mmol/L Potassium Level 3.9 mmol/L Chloride Level 120 mmol/L Carbon Dioxide Level 18 mmol/L Anion Gap 9.0 mmol/L Blood Urea Nitrogen 18 mg/dl Creatinine 1.50 mg/dl Est Creatinine Clear Calc Drug Dose 65.8 ml/min Estimated GFR () 61.6 Estimated GFR (Non- 53.1 BUN/Creatinine Ratio 12.3 Random Glucose 120 mg/dl Calcium Level 7.7 mg/dl Total Bilirubin 3.9 mg/dl Aspartate Amino Transf (AST/SGOT) 40 U/L Alanine Aminotransferase (ALT/SGPT) 35 U/L Alkaline Phosphatase 222 U/L Total Protein 4.3 gm/dl Albumin 2.5 gm/dl Globulin 1.8 gm/dl Albumin/Globulin Ratio 1.4 Test 10/11/16 11:58 Bedside Glucose 237 mg/dl Problem Qualifiers (1) Major depressive disorder, recurrent: Active/Remission status: currently active Major depression episode severity: moderate Qualified Codes: F33.1 - Major depressive disorder, recurrent, moderate
--- NOTE | 2016-10-11 14:01 | PROGRESS NOTE ---
DATE: 10/11/2016 DATE: 10/11/2016. SUBJECTIVE: The patient continues to be depressed and have tangential thoughts. The patient typically has a little bit of unusual personality with some tangential thinking, but I think this is worse than his baseline. OBJECTIVE: GENERAL: He does appear to be slightly pale. VITAL SIGNS: Blood pressure is 150/83, pulse 94, temperature is 36.6, O2 saturation on room air is 99%. LABORATORY DATA: Shows an INR of 1.5, hemoglobin is 9.9, white count 4.18, platelets 58,000. These are all relatively stable. Chemistries show bilirubin of 3.9, which is close to his baseline. I have read the consult from Sanam Cameron and I concur that the patient is suffering from depression and possibly some delirium. I do no believe this is hepatic encephalopathy at all. I think and hope that the patient will benefit from increasing Seroquel in addition to his Remeron. He had his father a month ago and then 2 relatives within the last week or so also and I do think that he is dealing with it very well. I think that is actually what tipped him over the edge and why he is in the hospital now. IMPRESSION: I think the patient has had depression with some delirium. Hopefully, he will respond to the increased Seroquel dose. I appreciate the fact that once he is discharged from the hospital that he will have some outpatient psychiatric followup, which I think is sorely needed. For now I told him we are going to take it day by day and see how he responds to the Seroquel and once it is felt that he is stable enough psychiatrically to be discharged home for outpatient followup then will do so. Kind of deferring that decision to the mental health team at this point. Dr. Ibanez is covering for the weekend.
[2016-10-11 15:18] VITALS: BP 134/86; PULSE 90; TEMP 36.8; O2SAT 100
[2016-10-11] MEDS ORDERED: QUETIAPINE FUMARATE 25 MG TAB PO SCH (22:00)
[2016-10-11] MEDS: MIRTAZAPINE TAB 15 MG TAB PO SCH (22:03)
[2016-10-11] MEDS: TAMSULOSIN HCL 0.4 MG CAP PO SCH (22:03)
[2016-10-11] MEDS: TOPIRAMATE 25 MG TAB PO SCH (22:05)
[2016-10-11 23:56] VITALS: BP 135/86; PULSE 96; TEMP 36.6; O2SAT 99
[2016-10-12] VITALS: O2SAT 99
[2016-10-12] MEDS: QUETIAPINE FUMARATE 25 MG TAB PO PRN (03:08)
[2016-10-12] MEDS: LEVOTHYROXINE 88 MCG TAB PO SCH (06:20)
[2016-10-12 07:32] LABS: HEMATOCRIT 26.2 % (42-52); MEAN CELL VOLUME 90.7 fL (80-100); MEAN CORPUSCULAR HEMOGLOBIN 31.1 pg (25-34); MEAN CORPUSCULAR HGB CONC 34.4 g/dl (32-36); RED BLOOD COUNT 2.89 M/uL (4.7-6.1)
[2016-10-12 07:43] LABS: INR 1.6 (0.9-1.1); PROTHROMBIN TIME (PATIENT) 17.3 SECONDS (9.0-12.0)
[2016-10-12] MEDS: TACROLIMUS 0.5 MG CAP PO SCH (07:53)
[2016-10-12] MEDS: PANTOprazole SOD 40 MG TAB PO SCH (07:54)
[2016-10-12] MEDS: MAGNESIUM OXIDE 400 MG TAB PO SCH (07:55)
[2016-10-12] MEDS: FINASTERIDE 5 MG TAB PO SCH (07:55)
[2016-10-12] MEDS: RIFAXIMIN TAB 550 MG TAB PO SCH (07:55)
[2016-10-12] MEDS: URSODIOL 300 MG CAP PO SCH ×3 (07:56→16:35)
[2016-10-12 07:58] VITALS: BP 114/67; PULSE 92; TEMP 36.4; O2SAT 97
[2016-10-12] MEDS: LACTULOSE SYRUP 30 GM/45 ML UDP PO SCH (07:58)
[2016-10-12 08:00] VITALS: O2SAT 97
[2016-10-12 08:07] LABS: BUN/CREATININE RATIO 13.6 (10-20); CREATININE 1.4 mg/dl (0.60-1.40); ECHINOCYTES 1+; MAGNESIUM 1.8 mg/dl (1.8-2.4); PLATELET COUNT 56 K/uL (130-400); PLT ESTIMATE DECREASED; POIKILOCYTOSIS PRESENT; POTASSIUM 3.6 mmol/L (3.5-5.1)
[2016-10-12 08:10] LABS: ALB/GLOB RATIO 1.4 (0.9-2)
[2016-10-12 08:26] LABS: CALCIUM 7.7 mg/dl (8.5-10.1)
[2016-10-12 08:32] LABS: COMPLETE YES; LYMPH ABS # 0.36 K/uL (1.2-3.4); META ABS # 0.04 K/uL (0-0)
[2016-10-12] MEDS: INSULIN ASPART 100 UNITS/ML 3 ML PEN SC SCH ×3 (08:55→16:30)
[2016-10-12] MEDS: INSULIN GLARGINE SOLOSTAR 100 UNITS/ML 3 ML PEN SC SCH (08:55)
--- NOTE | 2016-10-12 15:06 | Gastroenterology Progress Note ---
Progress Note Date of Service: October 12, 2016 Subjective Pt evaluation today including: conversation w/ patient, conversation w/ family (mother), physical exam, chart review, lab review, review of studies, review of inpatient medication list CC f/u hepatic encephalopathy, mental status changes, liver transplant HPI Per patient and mother he is back to baseline mental status. Denies abd pain. States had 2 brown loose stools today. Tolerating diet. Review of Systems Respiratory: No shortness of breath Cardiac: No chest pain Medications Current Inpatient Medications Medications (Trade) Dose Ordered Sig/Tristen Route Start Time Stop Time Status Last Admin Dose Admin Ondansetron HCl (Zofran Inj) 4 mg Q6H PRN IV 10/05/16 22:00 11/04/16 21:59 Glucose (Glucose 40% Gel) UD PRN PO 10/05/16 22:00 11/04/16 21:59 Glucose (Glucose Chew Tab) 1 tabs UD PRN PO 10/05/16 22:00 11/04/16 21:59 Dextrose (Dextrose 50% 50ML Syringe) 50 ml UD PRN IV 10/05/16 22:00 11/04/16 21:59 Glucagon (Glucagon Inj) 1 mg UD PRN SQ 10/05/16 22:00 11/04/16 21:59 Rifaximin (Xifaxan Tab) 550 mg BID PO 10/06/16 09:00 11/05/16 08:59 10/12/16 07:55 550 MG Tacrolimus (Prograf Cap) 0.5 mg QAM PO 10/06/16 09:00 11/05/16 08:59 10/12/16 07:53 0.5 MG Ursodiol (Actigall Cap) 300 mg QID PO 10/06/16 09:00 11/05/16 08:59 10/12/16 13:12 300 MG Insulin Aspart (novoLOG ASPART) SLIDING SCALE If C... ACHS SC 10/06/16 16:30 11/05/16 16:29 10/12/16 13:18 6 UNITS Tamsulosin HCl (Flomax Cap) 0.4 mg HS PO 10/06/16 21:00 11/05/16 20:59 10/11/16 22:03 0.4 MG Finasteride (Proscar Tab) 5 mg QAM PO 10/06/16 12:45 11/05/16 12:44 10/12/16 07:55 5 MG Pantoprazole Sodium (Protonix Tab) 40 mg QAM PO 10/07/16 09:00 11/06/16 08:59 10/12/16 07:54 40 MG Insulin Glargine (Lantus Solostar Pen) 14 unit BID SC 10/06/16 21:00 11/05/16 20:59 10/12/16 08:55 14 UNIT Prednisone (PredniSONE TAB) 10 mg QAM PO 10/07/16 09:00 11/06/16 08:59 10/12/16 07:56 10 MG Lactulose (Chronulac Syrup) 30 gm BID PO 10/07/16 09:00 11/06/16 08:59 10/12/16 07:58 30 GM Hydroxyzine HCl (Vistaril Tab) 50 mg TID PRN PO 10/09/16 10:00 11/08/16 09:59 Levothyroxine Sodium (Synthroid Tab) 88 mcg DAILYBB PO 10/10/16 06:30 11/09/16 06:29 10/12/16 06:20 88 MCG Magnesium Oxide (Mag-Ox Tab) 400 mg QAM PO 10/10/16 08:00 11/09/16 07:59 10/12/16 07:55 400 MG Temazepam (Restoril Cap) 30 mg HS PRN PO 10/09/16 10:00 11/08/16 09:59 Topiramate (Topamax Tab) 50 mg HS PO 10/09/16 22:00 11/08/16 21:59 10/11/16 22:05 50 MG Miscellaneous Information (Order Awaiting Action) 1 ea QS N/A 10/09/16 16:00 11/08/16 15:59 Quetiapine Fumarate (seroQUEL TAB) 25 mg Q4H PRN PO 10/09/16 13:00 11/08/16 12:59 10/12/16 03:08 25 MG Mirtazapine (Remeron Tab) 15 mg HS PO 10/09/16 22:00 11/08/16 21:59 10/11/16 22:03 15 MG Quetiapine Fumarate (seroQUEL TAB) 50 mg HS PO 10/11/16 22:00 11/10/16 21:59 10/11/16 22:04 50 MG Objective Vital Signs Date Time Temp Pulse Resp B/P Pulse Ox O2 Delivery O2 Flow Rate FiO2 10/12/16 07:58 36.4 92 20 114/67 97 Room Air 10/12/16 00:00 99 Room Air 10/11/16 23:56 36.6 96 18 135/86 99 Room Air 10/11/16 16:00 Room Air 10/11/16 15:18 36.8 90 18 134/86 100 Physical Exam General Appearance: WD/WN, no apparent distress Respiratory/Chest: normal breath sounds, no respiratory distress Cardiovascular: regular rate, rhythm, no edema Abdomen: normal bowel sounds, non tender, soft Laboratory Results Last 24 Hours Test 10/11/16 16:31 10/11/16 20:06 10/12/16 07:20 10/12/16 07:43 Bedside Glucose 212 mg/dl 185 mg/dl 106 mg/dl White Blood Count 4.00 K/uL Red Blood Count 2.89 M/uL Hemoglobin 9.0 g/dL Hematocrit 26.2 % Mean Corpuscular Volume 90.7 fL Mean Corpuscular Hemoglobin 31.1 pg Mean Corpuscular Hemoglobin Concent 34.4 g/dl Platelet Count 56 K/uL RDW Standard Deviation 59.2 fL RDW Coefficient of Variation 17.9 % Neutrophils % (Manual) 86.0 % Lymphocytes % (Manual) 9.0 % Monocytes % (Manual) 2.0 % Eosinophils % (Manual) 2.0 % Metamyelocytes % 1.0 % Neutrophils # (Manual) 3.44 K/uL Total Absolute Neutrophils 3.44 K/uL Lymphocytes # (Manual) 0.36 K/uL Total Absolute Lymphocytes 0.36 K/uL Monocytes # (Manual) 0.08 K/uL Eosinophils # (Manual) 0.08 K/uL Metamyelocytes # 0.04 K/uL Platelet Estimate DECREASED Poikilocytosis PRESENT Echinocytes 1+ Prothrombin Time 17.3 SECONDS Prothromb Time International Ratio 1.6 Sodium Level 146 mmol/L Potassium Level 3.6 mmol/L Chloride Level 119 mmol/L Carbon Dioxide Level 17 mmol/L Anion Gap 10.0 mmol/L Blood Urea Nitrogen 19 mg/dl Creatinine 1.40 mg/dl Est Creatinine Clear Calc Drug Dose 70.5 ml/min Estimated GFR () 66.9 Estimated GFR (Non- 57.8 BUN/Creatinine Ratio 13.6 Random Glucose 106 mg/dl Calcium Level 7.7 mg/dl Magnesium Level 1.8 mg/dl Total Bilirubin 3.5 mg/dl Aspartate Amino Transf (AST/SGOT) 32 U/L Alanine Aminotransferase (ALT/SGPT) 31 U/L Alkaline Phosphatase 190 U/L Ammonia 31.0 umol/L Total Protein 4.0 gm/dl Albumin 2.3 gm/dl Globulin 1.7 gm/dl Albumin/Globulin Ratio 1.4 Test 10/12/16 11:21 Bedside Glucose 206 mg/dl Assessment and Plan Mental status changes--back to baseline and it is thought more from pyschiatric issues so encouraged patient to f/u as outpt wiht psych hepatic encephalopathy--ammonia normal, continue lactulose and rifaximin elevated LFTs---stable, 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
[2016-10-12] MEDS ORDERED: PRS5 PO (15:27)
[2016-10-12] MEDS ORDERED: LCTL45 PO (15:27)
[2016-10-12] MEDS ORDERED: SRQ25 PO ×2 (15:27→15:31)
[2016-10-12] MEDS ORDERED: FLM4 PO (15:27)
--- NOTE | 2016-10-12 15:30 | Discharge Instructions ---
Discharge Instructions Date of Service October 12, 2016. Admission Reason for Admission: Hepatic Encephalopathy,Thrombocytopenia Discharge Discharge Diagnosis / Problem: hepatic encephalopathy, delerium Discharge Goals Goal(s): Diagnostic testing, Therapeutic intervention Activity Recommendations Activity Limitations: resume your previous activity . Current Hospital Diet Patient's current hospital diet: Diabetes Type 1 Diet Discharge Diet Recommended Diet: Regular Diet, Low Sodium Diet (2gm Na) Pending Studies Studies pending at discharge: no Laboratory Results Hemoglobin A1c Test 08/29/16 04:27 Range/Units Estimated Average Glucose 123 mg/dl Hemoglobin A1c 5.9 H 4.5-5.6 % Lipid Panel Test 10/01/16 12:28 Range/Units Triglycerides Level 0-150 mg/dl Cholesterol Level 0-200 mg/dl HDL Cholesterol 27 mg/dl Cholesterol/HDL Ratio LDL Cholesterol, Calculated mg/dl Medical Emergencies . Who to Call and When: Medical Emergencies: If at any time you feel your situation is an emergency, please call 911 immediately. . Non-Emergent Contact Non-Emergency issues call your: Primary Care Provider Call Non-Emergent contact if: temperature is above 101, your pain is unusual for you . . "Provider Documentation" section prepared by Issac Gary. . VTE Core Measure Inpt VTE Proph given/why not?: SCD's
[2016-10-12 15:48] VITALS: BP 114/67; PULSE 92; TEMP 36.4; O2SAT 97
--- NOTE | 2016-10-22 16:40 | Discharge Summary ---
Discharge Summary Date of Service October 12, 2016. Discharge Summary Admission Date: October 05, 2016 at 22:21 Discharge Date: October 12, 2016 Discharge Disposition: Home with services Principal Diagnosis: hepatic encephalopathy Immunizations: Have You Had Influenza Vaccine: Yes Influenza Vaccine Date: Jun 01, 2013 History of Tetanus Vaccine?: utd History of Pneumococcal: Yes Pneumococcal Date: Jun 01, 2013 History of Hepatitis B Vaccine: Unknown Procedures: CT,. MRI brain negative, u/s liver without portal thrombus Consultations: psychiatry consult gi consult Medication Reconciliation New Medications: Finasteride (Finasteride) 5 Mg Tab 5 MG PO QAM, #90 TAB 4 Refills Lactulose (Lactulose) 30 Gm/45 Ml Syrp 30 GM PO BID, #3 LITER 6 Refills Quetiapine Fumarate (Quetiapine Fumarate) 25 Mg Tab 50 MG PO HS, #90 TAB please take 50 hs and 25 every four hours as needed for hallucinations or agitation Tamsulosin HCl (Tamsulosin HCl) 0.4 Mg Cap 0.4 MG PO HS, #30 CAP 6 Refills Continued Medications: Acetaminophen (Tylenol Arthritis Ext Rel) 650 Mg Tab 650 MG PO Q8H PRN for Pain or Fever, TAB Cholecalciferol (Vitamin D3) 2,000 Unit Tab 1 TAB PO BID for 30 Days, #60 TAB 5 Refills Dutasteride-Tamsulosin Hcl (Savi) 1 Cap Cap 1 CAP PO HS Eltrombopag Olamine (Promacta) 12.5 Mg Tab 50 MG PO DAILY Epinephrine (Epipen 2-[place]) 0.3 Mg Inj 0.3 MG IM UD PRN for ALLERGIC REACTION ONE INJECTION IM PRN SEVERE ALLERGIC REACTION. REPEAT IN 20 MINUTES PRN CONTINUED REACTION Hydroxyzine Hcl (Atarax) 50 Mg Tab 50 MG PO 3-4XD PRN for Itching, TAB Immune Globulin (Human) Subcut (Hizentra) 4 Gm/20 Ml Inj 12 GM SC WK Insulin Aspart (Novolog) 100 Units/Ml Inj 1 DOSE SC ACHS SLIDING SCALE. 1 UNIT PER EVERY GRAM OF CARBS. Insulin Glargine (Lantus Solostar) 100 Unit/Ml Inj 20 UNIT SC HS for 1 Day this is just medicine reconciliation Levothyroxine Sodium (Levothyroxine Sodium) 88 Mcg Tab 88 MCG PO QAM ONE TABLET DAILY ON EMPY STOMACH WITH A FULL GLASS OF WATER. WAIT 30 MINUTES BEFORE EATING Loperamide Hcl (Imodium) 2 Mg Cap 2 MG PO PRN HS Magnesium Oxide (Magnesium-Oxide) 400 Mg Tab 400 MG PO QAM for 7 Days, #7 TAB Mirtazapine Soltab (Remeron Soltab) 15 Mg Soltab 15 MG PO HS, TAB Ondansetron Hcl (Zofran) 8 Mg Tab 1-2 TABS PO Q6H PRN for Nausea Pantoprazole (Protonix) 40 Mg Tab 40 MG PO QPM ONE TABLET BY MOUTH EVERY DAY AT 1630 Prednisone Tab (Prednisone) 10 Mg Tab 10 MG PO QAM, TAB Rifaximin (Xifaxan) 550 Mg Tab 550 MG PO BID, TAB Tacrolimus (Prograf) 0.5 Mg Cap 0.5 MG PO QAM, CAP Temazepam (Restoril) 30 Mg Cap 30 MG PO HS PRN for Sleep, CAP Topiramate (Topamax ) 25 Mg Tab 2 TAB PO HS, TAB Tramadol (Ultram) 50 Mg Tab 50 MG PO Q6H PRN for Pain, TAB Ursodiol (Ursodiol) 300 Mg Cap 1 CAP PO QID Discharge Exam Review of Systems: Constitutional: No chills, No fever Cardiovascular: No chest pain, No orthopnea Abdomen: + diarrhea, No nausea, No pain Musculoskeletal: No joint pain, No muscle pain Physical Exam: General Appearance: WD/WN, no apparent distress Neck: supple, no JVD Skin: normal color, warm/dry Hospital Course Delirium, negative MRI of brain, appreciate psyche help no defined medical source Improved with medical management, family feels that the pt has returned to his baseline and are willing to take pt home, reinforced the need to continue compliance with meds for liver transplant and liver failure hepatic encephalopathy and liver failure are resolved thrombocytopenia, follow, chronically low but stable urine culture negative, voiding continues to be good off antibiotics, no focal sign of pneumonia or meningeal enhancement on MRI, concern with immune suppression will recommend follow up with outpt psychiatric provider for counselling Documented By: Issac Gary Total Time Spent: Greater than 30 minutes This includes examination of the patient, discharge planning, medication reconciliation, and communication with other providers. Discharge Instructions Please refer to the electronic Patient Visit Report (Discharge Instructions) for additional information.
== END 2016-10-12 16:30 | disposition home or self-care (01) | DRG 442 ==
LOC: ENRESERVTM → ENRESERVDT → EDBD 18:56 → C.EDB 18:57 → C.MED 22:21 → C.MS4W 10-08 17:03
PROVIDERS: ADMIT Hospitalist; ATTEND Internal Medicine
DX: K72.90 Hepatic failure, unspecified without coma (principal); Z94.4 Liver transplant status; D69.3 Immune thrombocytopenic purpura; N17.9 Acute kidney failure, unspecified; D84.9 Immunodeficiency, unspecified; D68.9 Coagulation defect, unspecified; N41.9 Inflammatory disease of prostate, unspecified; N18.3 Chronic kidney disease, stage 3 (moderate); Z91.14 Patient's other noncompliance with medication regimen; Z79.4 Long term (current) use of insulin; Z82.49 Family history of ischemic heart disease and other diseases of the circulatory system; K21.9 Gastro-esophageal reflux disease without esophagitis; N40.0 Benign prostatic hyperplasia without lower urinary tract symptoms; G47.00 Insomnia, unspecified; E13.649 Other specified diabetes mellitus with hypoglycemia without coma; T38.0X5A Adverse effect of glucocorticoids and synthetic analogues, initial encounter; R33.9 Retention of urine, unspecified; G62.9 Polyneuropathy, unspecified; R94.5 Abnormal results of liver function studies; E03.9 Hypothyroidism, unspecified; E87.5 Hyperkalemia; E83.42 Hypomagnesemia